=== PATIENT | female | born 1950 | race Caucasian/White ===

== ENCOUNTER 2016-09-10 20:53 | Inpatient (IN) ==
--- NOTE | 2016-09-10 21:06 | Emergency Department Note ---
Disposition Clinical Impression: Cerebrovascular accident Disposition: Admitted As Inpatient Condition: Undetermined General Adult HPI - General Chief complaint: ED Neuro Symptoms/Deficit Stated complaint: neuro symptoms/slurred speech/dizzy/stumbling/AMS Time Seen by Provider: 09/10/16 21:03 Source: patient, other Limitations: no limitations - History of Present Illness Pain Scale: 6 - Related Data Home Medications Medication Instructions Recorded Confirmed Amlodipine Besylate 10 mg PO DAILY #0 02/19/15 09/10/16 Metformin [Glucophage] 1,000 mg PO BIDWM 02/19/15 09/10/16 Multivitamin [Multi-Day Vitamins] 1 each PO DAILY 02/19/15 09/10/16 Gabapentin [Neurontin] 600 mg PO BID 12/29/15 09/10/16 Insulin Glargine,Hum.rec.anlog 13 unit SQ HS 12/29/15 09/10/16 [Lantus Solostar] Aspirin 325 mg PO DAILY 09/10/16 09/10/16 Escitalopram [Lexapro] 20 mg PO DAILY 09/10/16 09/10/16 Lisinopril [Zestril] 20 mg PO DAILY 09/10/16 09/10/16 Previous Rx's Medication Instructions Recorded Atorvastatin [Lipitor] 40 mg PO HS 30 Days 02/21/15 Clopidogrel [Plavix] 75 mg PO DAILY 30 Days 02/21/15 Insulin LISPRO [HumaLOG] 6 units SQ TIDWM 30 Days 02/21/15 Metoprolol [Lopressor] 25 mg PO BID 30 Days 02/21/15 Allergies Allergy/AdvReac Type Severity Reaction Status Date / Time Penicillins Allergy Hives Verified 09/10/16 20:55 lactose AdvReac Vomiting Verified 09/10/16 20:55 Past Medical History - Past Medical History Medical history: Reports: CVA, diabetes, hypertension, valvular heart disease Surgical history: Reports: appendectomy Psychiatric history: Reports: depression TOOL TECHNICIAN history: Reports: no TOOL TECHNICIAN history - Social History Smoking Status: Never smoker Smokeless Tobacco Status: No Alcohol use: Reports: none Drug use: Reports: none Physical Exam - General Limitations: no limitations General appearance: alert Course Vital Signs Temperature 97.9 F 09/10/16 20:55 Pulse Rate 66 09/10/16 20:55 Respiratory Rate 20 09/10/16 20:55 Blood Pressure 180/80 09/10/16 20:55 O2 Sat by Pulse Oximetry 100 09/10/16 20:55 Temperature 97.4 F L 09/11/16 04:37 Pulse Rate 72 09/11/16 04:37 Respiratory Rate 16 09/11/16 04:37 Blood Pressure 156/69 09/11/16 01:00 O2 Sat by Pulse Oximetry 98 09/11/16 04:37 Oxygen Delivery Oxygen Delivery Room Air Medical Decision Making - Lab Data Result diagrams: 09/11/16 05:44 09/11/16 05:44 Lab Results 09/10/16 09/10/16 09/10/16 Range/Units 21:03 21:27 21:27 WBC 7.9 (4.3-11.1) K/mcL RBC 3.75 L (3.82-4.97) M/mcL Hgb 11.7 (11.5-15.4) g/dL Hct 34.3 L (35.3-44.9) % MCV 91.5 (83.0-100.0) fL MCH 31.2 (28.0-33.3) pg MCHC 34.1 (31.6-35.5) g/dL RDW 11.7 (11.5-14.5) % Plt Count 238 (140-400) K/mcL MPV 10.2 (9.4-12.4) fL Immature Gran % 0.6 (0-4) % Seg Neutrophils % 52.6 % Lymphocytes % 36.7 % Monocytes % 6.8 % Eosinophils % 2.7 % Basophils % 0.6 % Neutrophils # 4.2 (1.6-8.9) K/mcL Lymphocytes # 2.9 (0.6-4.6) K/mcL Monocytes # 0.5 (0.0-1.3) K/mcL Eosinophils # 0.2 (0.0-0.6) K/mcL Basophils # 0.1 (0.0-0.2) K/mcL PT 8.6 L (9.4-12.1) Seconds INR 0.8 APTT 30.2 (26.0-36.0) Seconds Sodium (136-145) mEq/L Potassium (3.5-4.5) mEq/L Chloride (98-109) mEq/L Carbon Dioxide (19-29) mEq/L BUN (7-20) mg/dL Creatinine (0.57-1.11) mg/dL Est GFR ( Amer) (> 60) Est GFR (Non-Af Amer) (> 60) BUN/Creatinine Ratio (6-26) Glucose (70-99) mg/dL POC Glucose 169 H (58-89) Calculated Osmolality (280-300) Calcium (8.6-10.8) mg/dL Troponin I (0-0.03) ng/mL 09/10/16 09/10/16 Range/Units 21:27 21:27 WBC (4.3-11.1) K/mcL RBC (3.82-4.97) M/mcL Hgb (11.5-15.4) g/dL Hct (35.3-44.9) % MCV (83.0-100.0) fL MCH (28.0-33.3) pg MCHC (31.6-35.5) g/dL RDW (11.5-14.5) % Plt Count (140-400) K/mcL MPV (9.4-12.4) fL Immature Gran % (0-4) % Seg Neutrophils % % Lymphocytes % % Monocytes % % Eosinophils % % Basophils % % Neutrophils # (1.6-8.9) K/mcL Lymphocytes # (0.6-4.6) K/mcL Monocytes # (0.0-1.3) K/mcL Eosinophils # (0.0-0.6) K/mcL Basophils # (0.0-0.2) K/mcL PT (9.4-12.1) Seconds INR APTT (26.0-36.0) Seconds Sodium 138 (136-145) mEq/L Potassium 4.7 H (3.5-4.5) mEq/L Chloride 104 (98-109) mEq/L Carbon Dioxide 28 (19-29) mEq/L BUN 27 H (7-20) mg/dL Creatinine 0.98 (0.57-1.11) mg/dL Est GFR ( Amer) > 60 (> 60) Est GFR (Non-Af Amer) 56 L (> 60) BUN/Creatinine Ratio 28 H (6-26) Glucose 165 H (70-99) mg/dL POC Glucose (58-89) Calculated Osmolality 295 (280-300) Calcium 9.4 (8.6-10.8) mg/dL Troponin I 0.00 (0-0.03) ng/mL Critical Care Time Critical Care Time: Yes Total Critical Care Time: 30 Attestation: Patient presented with acute strokelike symptoms requiring stroke alert and neurology consultation. Consideration for TPA given Attestation Statement - Attestation Attestation: I examined this patient and my medical decision-making was reviewed with the DIE CUTTER OPERATOR/PA/Advanced Practice Nurse/Resident Physician. I agree with the documented findings, disposition and treatment plan as described except to the extent set forth below. Foyk-vp-fisk time provided Daughter states the patient has slurred speech and is not acting right. Last seen normal when she was complaining of dizziness around 6 PM which is 3 hours prior to arrival. Patient takes aspirin and Plavix. History of diabetes. She is alert and able to move all 4 extremities with equal strength and purpose. Stroke alert activated 21:21: CT head neg per Dr. Bright, radiology
--- NOTE | 2016-09-10 21:10 | Emergency Department Note ---
Disposition Clinical Impression: Cerebrovascular accident Qualifiers: CVA mechanism: unspecified Qualified Code(s): I63.9 - Cerebral infarction, unspecified Disposition: Admitted As Inpatient Condition: Undetermined Referrals: Ayesha Ramírez CNP [Primary Care Provider] - Forms: ED Satisfaction Letter Time of Disposition: 22:26 Neuro HPI - General Chief Complaint: ED Neuro Symptoms/Deficit Stated Complaint: neuro symptoms/slurred speech/dizzy/stumbling/AMS Time Seen by Provider: 09/10/16 21:03 Source: patient, other Mode of arrival: wheelchair Limitations: no limitations Nursing Notes Reviewed: Yes Vital Signs Reviewed: Yes - History of Present Illness HPI Narrative: 66-year-old female last known well at roughly 6 PM this evening arrives to [facility] emergency department with dysarthria and slurred speech. The patient states she was not feeling well all day and fell, dizzy roughly 6 PM. The son called the patient and she was not talking or acting like herself. The family went to the patient's house and brought the patient to the emergency department for evaluation. The patient recently had 3 ischemic strokes over the past 12 months. The last being roughly 9 months ago. The patient is able to answer questions and follow commands easily. She is slightly dysarthric and slurring of her speech. She denies any complaints at this time other than knowing that she is unable to speak clearly. The patient is a diabetic and takes aspirin and Plavix. Onset of Symptoms Date: 09/10/16 Onset of Symptoms Time: 18:00 Symptom Onset Unknown: No Timing confirmed by: family member Location: speech History of same: Yes Severity: mild Symptoms Improving: No Improves with: none Worsens with: none Context: sudden onset On Anticoagulants: No Associated symptoms: Reports: denies other symptoms Treatments Prior to Arrival: none - Related Data Home Medications: Home Medications Medication Instructions Recorded Confirmed Amlodipine Besylate 10 mg PO DAILY #0 02/19/15 09/10/16 Metformin [Glucophage] 1,000 mg PO BIDWM 02/19/15 09/10/16 Multivitamin [Multi-Day Vitamins] 1 each PO DAILY 02/19/15 09/10/16 Gabapentin [Neurontin] 600 mg PO BID 12/29/15 09/10/16 Insulin Glargine,Hum.rec.anlog 13 unit SQ HS 12/29/15 09/10/16 [Lantus Solostar] Aspirin 325 mg PO DAILY 09/10/16 09/10/16 Escitalopram [Lexapro] 20 mg PO DAILY 09/10/16 09/10/16 Lisinopril [Zestril] 20 mg PO DAILY 09/10/16 09/10/16 Previous Rx's Medication Instructions Recorded Atorvastatin [Lipitor] 40 mg PO HS 30 Days 02/21/15 Clopidogrel [Plavix] 75 mg PO DAILY 30 Days 02/21/15 Insulin LISPRO [HumaLOG] 6 units SQ TIDWM 30 Days 02/21/15 Metoprolol [Lopressor] 25 mg PO BID 30 Days 02/21/15 Allergies/Adverse Reactions: Allergies Allergy/AdvReac Type Severity Reaction Status Date / Time Penicillins Allergy Hives Verified 09/10/16 20:55 lactose AdvReac Vomiting Verified 09/10/16 20:55 Review of Systems: Review of Systems Constitutional: Denies fevers, chills, HEENT: Denies headache, Respiratory: Denies cough, sputum change, dyspnea Cardiac: Denies chest pain, pressure, palpitations, dyspnea on exertion, Gastrointestinal: Denies abdominal pain, changes in bowel habits, vomiting, nausea, Genitourinary: Denies dysuria, hematuria, nocturia, change in frequency, urgency, incontinence Neurologic: Denies headaches, dizziness, syncope, admits focalized weakness, Denies paraesthesias, weakness Musculoskeletal: Denies back pain, joint pain, myalgias All systems ED: reviewed and negative except as stated. Past Medical History - Past Medical History Attestation: Yes The following information was validated with the patient. Source: patient Medical history: Reports: CVA, diabetes, hypertension, valvular heart disease Surgical history: Reports: appendectomy Psychiatric history: Reports: depression VENDING MANAGER history: Reports: no VENDING MANAGER history - Social History Smoking Status: Never smoker Smokeless Tobacco Status: No Alcohol use: Reports: none Drug use: Reports: none Physical Exam Physical Exam: General: Patient alert, no acute distress, not lethargic HEENT: Head normal inspection, atraumatic, PERRLA, oropharynx grossly intact and normal, trachea midline, no JVD Kriss patient is experiencing mild dysarthria and slurring of her speech with mild facial droop on the left Chest: Nontraumatic, nontender, normal chest rise CV: RRR with no murmurs, rubs, gallops Respiratory: Lungs clear to auscultation bilaterally, no rales, rhonchi, wheezes. Abdomen: Normal inspection, Normal bowel sounds 4 quadrants, nontender to palpation : Patient deferred Extremities: Normal inspection, full range of motion, appropriate pulses, capillary refill under 2 seconds, patient has full range of motion but slightly weak on the left lower extremity only. Neurological: Patient alert and oriented 3, mild facial droop noted on the left , GCS 15 Skin: Warm, intact, no rashes noted - General Limitations: no limitations General appearance: alert Course - Reevaluation(s) Reevaluation #1: Patient evaluated for stroke alert by [facility] neurologist. They have physician stated that she was not a candidate for TPA at this time given the window being greater than 3 hours at this time as well as patient being a diabetic. He recommended a CTA which we will obtain. Otherwise we will admit the patient to the hospital for stroke workup. Patient agrees to plan. Daughter agrees to plan. Time: 21:51 Reevaluation #2: Accepted by Dr. Salcedo. CTA pending. Time: 22:26 Vital Signs Temperature 97.9 F 09/10/16 20:55 Pulse Rate 66 09/10/16 20:55 Respiratory Rate 20 09/10/16 20:55 Blood Pressure 180/80 09/10/16 20:55 O2 Sat by Pulse Oximetry 100 09/10/16 20:55 Temperature 97.9 F 09/10/16 20:55 Pulse Rate 65 09/10/16 22:03 Respiratory Rate 16 09/10/16 21:40 Blood Pressure 141/72 09/10/16 22:03 O2 Sat by Pulse Oximetry 96 09/10/16 22:03 Oxygen Delivery Oxygen Delivery Room Air Neuro Symptoms/Deficit - Lab Data Lab results reviewed: Yes I reviewed the patient's lab results. Result diagrams: 09/10/16 21:27 09/10/16 21:27 Lab Results 09/10/16 09/10/16 09/10/16 Range/Units 21:03 21:27 21:27 WBC 7.9 (4.3-11.1) K/mcL RBC 3.75 L (3.82-4.97) M/mcL Hgb 11.7 (11.5-15.4) g/dL Hct 34.3 L (35.3-44.9) % MCV 91.5 (83.0-100.0) fL MCH 31.2 (28.0-33.3) pg MCHC 34.1 (31.6-35.5) g/dL RDW 11.7 (11.5-14.5) % Plt Count 238 (140-400) K/mcL MPV 10.2 (9.4-12.4) fL Immature Gran % 0.6 (0-4) % Seg Neutrophils % 52.6 % Lymphocytes % 36.7 % Monocytes % 6.8 % Eosinophils % 2.7 % Basophils % 0.6 % Neutrophils # 4.2 (1.6-8.9) K/mcL Lymphocytes # 2.9 (0.6-4.6) K/mcL Monocytes # 0.5 (0.0-1.3) K/mcL Eosinophils # 0.2 (0.0-0.6) K/mcL Basophils # 0.1 (0.0-0.2) K/mcL PT 8.6 L (9.4-12.1) Seconds INR 0.8 APTT 30.2 (26.0-36.0) Seconds Sodium (136-145) mEq/L Potassium (3.5-4.5) mEq/L Chloride (98-109) mEq/L Carbon Dioxide (19-29) mEq/L BUN (7-20) mg/dL Creatinine (0.57-1.11) mg/dL Est GFR ( Amer) (> 60) Est GFR (Non-Af Amer) (> 60) BUN/Creatinine Ratio (6-26) Glucose (70-99) mg/dL POC Glucose 169 H (58-89) Calculated Osmolality (280-300) Calcium (8.6-10.8) mg/dL Troponin I (0-0.03) ng/mL 09/10/16 09/10/16 Range/Units 21:27 21:27 WBC (4.3-11.1) K/mcL RBC (3.82-4.97) M/mcL Hgb (11.5-15.4) g/dL Hct (35.3-44.9) % MCV (83.0-100.0) fL MCH (28.0-33.3) pg MCHC (31.6-35.5) g/dL RDW (11.5-14.5) % Plt Count (140-400) K/mcL MPV (9.4-12.4) fL Immature Gran % (0-4) % Seg Neutrophils % % Lymphocytes % % Monocytes % % Eosinophils % % Basophils % % Neutrophils # (1.6-8.9) K/mcL Lymphocytes # (0.6-4.6) K/mcL Monocytes # (0.0-1.3) K/mcL Eosinophils # (0.0-0.6) K/mcL Basophils # (0.0-0.2) K/mcL PT (9.4-12.1) Seconds INR APTT (26.0-36.0) Seconds Sodium 138 (136-145) mEq/L Potassium 4.7 H (3.5-4.5) mEq/L Chloride 104 (98-109) mEq/L Carbon Dioxide 28 (19-29) mEq/L BUN 27 H (7-20) mg/dL Creatinine 0.98 (0.57-1.11) mg/dL Est GFR ( Amer) > 60 (> 60) Est GFR (Non-Af Amer) 56 L (> 60) BUN/Creatinine Ratio 28 H (6-26) Glucose 165 H (70-99) mg/dL POC Glucose (58-89) Calculated Osmolality 295 (280-300) Calcium 9.4 (8.6-10.8) mg/dL Troponin I 0.00 (0-0.03) ng/mL - Radiology Data Radiology results reviewed: Yes I reviewed the patient's radiology results. - EKG Data EKG attestation: Yes I reviewed and interpreted this EKG. EKG results narrative: Heart rate 65 bpm. NM interval 160 70 seconds. QTc 389 ms. Normal axis. Normal sinus rhythm. No ST elevation or ST depression noted. EKG from 2014 similar appearance. No acute changes noted. NIH Stroke Scale - Level of Consciousness LOC: Alert - LOC Questions LOC Questions: Answers both correctly - LOC Commands LOC Commands: Performs both correctly - Best Gaze Best Gaze: Normal - Visual Visual: No visual loss - Facial Palsy Facial Palsy: Minor asymmetry on smiling, flattened nasolabial fold - Motor Arms Motor Arm-Left: No drift for 10 seconds Motor Arm-Right: No drift for 10 seconds - Motor Legs Motor Leg-Left: Drift, does NOT hit bed Motor Leg-Right: No drift for 5 seconds - Limb Ataxia Limb Ataxia: Normal, No Ataxia - Sensory Sensory: Normal - Best Language Best Language: Mild to moderate aphasia. Examiner can identify picture from response - Dysarthria Dysarthria: Mild, slurs some words - Extinction and Inattention Extinction and Inattention: Normal - NIHSS Total Score NIHSS Total Score: 4 TPA Checklist - LKW: 3-4.5 hrs Add. Contraindications Patient/family understanding: The patient/family members have been counseled and understood the risk, benefit , and alternatives of treatment.
[2016-09-10 21:35] LABS: Basophils # 0.1 K/mcL (0.0-0.2); Basophils % 0.6 %; Eosinophils # 0.2 K/mcL (0.0-0.6); Eosinophils % 2.7 %; Hematocrit 34.3 % (35.3-44.9); Hemoglobin 11.7 g/dL (11.5-15.4); Immature Granulocytes % 0.6 % (0-4); Lymphocytes # 2.9 K/mcL (0.6-4.6); Lymphocytes % 36.7 %; Mean Corpuscular HGB Conc 34.1 g/dL (31.6-35.5); Mean Corpuscular Hemoglobin 31.2 pg (28.0-33.3); Mean Corpuscular Volume 91.5 fL (83.0-100.0); Mean Platelet Volume 10.2 fL (9.4-12.4); Monocytes # 0.5 K/mcL (0.0-1.3); Monocytes % 6.8 %; Neutrophils # 4.2 K/mcL (1.6-8.9); Platelet Count 238 K/mcL (140-400); Red Blood Count 3.75 M/mcL (3.82-4.97); Red Cell Distribution Width 11.7 % (11.5-14.5); Segmented Neutrophils % 52.6 %
[2016-09-10 21:38] LABS: INR 0.8
[2016-09-10 21:41] LABS: Activated Partial Thrombo Time 30.2 Seconds (26.0-36.0)
[2016-09-10 21:46] LABS: BUN/Creatinine Ratio 28 (6-26); Blood Urea Nitrogen 27 mg/dL (7-20); Calcium 9.4 mg/dL (8.6-10.8); Carbon Dioxide 28 mEq/L (19-29); Chloride 104 mEq/L (98-109); Glucose 165 mg/dL (70-99); Osmolality,Calculated 295 (280-300); Potassium 4.7 mEq/L (3.5-4.5); Sodium 138 mEq/L (136-145); eGFR For African Americans > 60 (> 60); eGFR For Non-African Americans 56 (> 60)
[2016-09-10 21:50] LABS: Prothrombin Time 8.6 Seconds (9.4-12.1)
[2016-09-10] MEDS ORDERED: 0.9 % Sodium Chloride 1,000 ML IVC ONE (21:50)
--- NOTE | 2016-09-10 23:45 | Internal Med History&Physical ---
<Darion,Julisa Ann - Last Filed: 09/11/16 00:00> Date of Encounter: 09/10/16 Time of Encounter: 23:32 Assessment and Plan (1) CVA (cerebral infarction) Current visit: No Status: Acute CTA:Left VP INTEGRITY with partial thrombosis of left VP INTEGRITY, stable to slightly worse when compared to previous MRA on 11/09/14 stenosis of proximal P2 segment of contralateral VP INTEGRITY not candidate for tpa due to time of presentation telemetry asprin, clopidogrel regular neurochecks Echo carotid doppler check lipids, A1C, tsh recommend holter monitoring as outpt (2) Weakness Current visit: No Status: Acute (3) Diabetes Current visit: No Status: Chronic (4) Hypertension Current visit: No Status: Chronic (5) CAD (coronary artery disease) Current visit: No Status: Chronic (6) Cerebrovascular accident Current visit: Yes Status: Acute Qualifiers: CVA mechanism: unspecified Qualified Code(s): I63.9 - Cerebral infarction, unspecified Internal Medicine - H&P: HPI Chief complaint: dizziness/confusion Admitted From: Home Plans for Post Hospital Care: Home History of present illness: Ms. Nunez is a 66 year old female c/o dizziness. PMHx ischemic stoke x3 in 2016 , DM,HTN,HLD. Pt states that around 6 om this evening she started to experience dizziness while at home. Dizziness continued for about an hour and progressed to confusion and ataxic gait causing her to stumble while trying to walk. Daughter at bedside states that her mother started complaining of dizziness but was getting around fine for about an hour. Then around 7:30pm she started to slur her words, was unable to understand what she was saying and was very unbalanced and "wobbly" on her feet. During time in the ER her speech has improved but still is slightly slurred and slower then her baseline. Pt states that she is still experiencing dizziness and now has a slight headache as well. Pt admits to some left sideed weakness from preior strokes, weakness is above baseline. Symptoms are constant, not improved by anything, some improvement with time, dizziness made worse with trying to walk. Pt did have a recent fall a few days ago that she is still having some right leg pain from. Pt denies loss of vision, loss of consciousness, trauma to head, CP,SOB, numbness/ tingling sensations. Past Med Surg Social Fam HX - Past Medical History Medical history: CVA, diabetes, hypertension, valvular heart disease Psychiatric history: depression - Past Surgical History Surgical History: appendectomy, cataract - Social History Smoking Status: Never smoker Smokeless Tobacco Status: No Alcohol use: none Drug use: none Occupational status: retired Current living situation: Home, With Family - Family History Mother Adopted: No Living Status: Hx Family Cardiac Disorders: Yes Hx Family Respiratory Disorders: Yes Hx Family Cancer: No Hx Family GI Disorders: No Hx Family Endocrine Disorder: No Hx Family Neuromuscular Disorders: No Hx Family Neurologic Disorders: No Hx Family HEENT Disorders: No Hx Family Autoimmune Disorders: No Internal Medicine - H&P: Meds Amlodipine Besylate 10 mg PO DAILY #0 02/19/15 [History] Metformin [Glucophage] 1,000 mg PO BIDWM 02/19/15 [History] Multivitamin [Multi-Day Vitamins] 1 each PO DAILY 02/19/15 [History] Atorvastatin [Lipitor] 40 mg PO HS 30 Days 02/21/15 [Rx] Clopidogrel [Plavix] 75 mg PO DAILY 30 Days 02/21/15 [Rx] Insulin LISPRO [HumaLOG] 6 units SQ TIDWM 30 Days 02/21/15 [Rx] Metoprolol [Lopressor] 25 mg PO BID 30 Days 02/21/15 [Rx] Gabapentin [Neurontin] 600 mg PO BID 12/29/15 [History] Insulin Glargine,Hum.rec.anlog [Lantus Solostar] 13 unit SQ HS 12/29/15 [History ] Aspirin 325 mg PO DAILY 09/10/16 [History] Escitalopram [Lexapro] 20 mg PO DAILY 09/10/16 [History] Lisinopril [Zestril] 20 mg PO DAILY 09/10/16 [History] Allergies Penicillins Allergy (Verified 09/10/16 20:55) Hives updated with patient and daughter lactose Adverse Reaction (Verified 09/10/16 20:55) Vomiting All Systems PM: A 10-system review of systems was performed and is negative for pertinent findings except as documented above in the HPI. - Constitutional Constitutional: falls, weakness - EENT Eyes: no change in vision, no discharge, no pain, no photophobia - Cardiovascular Cardiovascular ROS IM: no chest pain, no diaphoresis, no dyspnea, no lightheadedness, no palpitations, no syncope - Respiratory Respiratory: no cough, no dyspnea, no wheezing, no excessive phlegm production - Gastrointestinal Gastrointestinal: no abdominal pain, no diarrhea, no hematemesis, no hematochezia, no melena, no nausea, no vomiting - Genitourinary Genitourinary: no change in urinary stream, no dysuria, no flank pain, no hematuria - Musculoskeletal Musculoskeletal ROS IM: muscle weakness, no numbness, no tingling - Integumentary Integumentary IM: no rash, no unusual bruising - Neurological Neurological ROS: abnormal gait, abnormal movements, abnormal speech, confusion , disequilibrium, dizziness, focal weakness, frequent falls, headache(s), lack of coordination, weakness, no abnormal hearing, no behavioral changes, no burning sensations, no convulsions, no loss of vision, no memory loss, no numbness, no tingling - Constitutional Vitals: Temp Pulse Resp BP Pulse Ox 97.9 F 66 18 161/70 96 09/10/16 20:55 09/10/16 22:55 09/10/16 23:24 09/10/16 23:24 09/10/16 22:55 General appearance: Present: A&O X 3, pleasant, answers questions appropriately - Head Head exam: Present: atraumatic, normocephalic - Eye Eye exam: Present: EOMI, PERRL, conjuntiva pink, sclera anicteric Pupils: Present: PERRL - ENT ENT exam: Present: mucous membranes moist - Neck Neck exam general surgery: Present: supple, trachea midline. Absent: lymphadenopathy - Respiratory Respiratory exam: Present: CTAB. Absent: accessory muscle use, rales, respiratory distress, rhonchi, wheezes, tachypnea - Cardiovascular Cardiovascular exam: Present: RRR, +S1, +S2. Absent: diastolic murmur, gallop, rubs, systolic murmur - GI/Abdominal GI/Abdominal exam: Present: normal bowel sounds, soft, no peritoneal signs. Absent: distended, tenderness - Extremities Exam Extremities exam: Present: normal capillary refill, radial pulses palpable and symetrical. Absent: calf tenderness, cyanotic, pedal edema - Neurological Exam Neurological exam: Present: abnormal gait, motor sensory deficit (decreased sensation on L side), oriented X3, facial droop, speech deficit - Expanded Neurological Exam Neurological exam expanded: Present: ataxia, memory loss-remote event Patient oriented to: Present: person, place, time Speech: Present: slurred Cranial Nerves: EOM's intact PM: Normal, nystagmus PM: Normal, tongue deviation PM: Normal Cerebellar function: finger to nose: Abnormal Left, heel to freedman: Abnormal Left Upper motor neuron: sensory extinction: Abnormal Left Sensory exam: LE 2 point discrimination: Abnormal Left, lower extremity light touch: Abnormal Left, lower extremity pin prick: Abnormal Left, UE 2 point discrimination: Abnormal Left, upper extremity light touch: Abnormal Left, upper extremity pin prick: Abnormal Left Neuro motor strength exam: LUE: 4, RUE: 5, LLE: 4, RLE: 5 DTR: patellar (L): 2+, patellar (R): 2+ Coma Scale Eye Opening: Spontaneous Coma Scale Motor Response: Obeys Commands Coma Scale Verbal Response: Oriented Coma Scale Total: 15 - Psychiatric Psychiatric exam: Present: normal affect, normal mood - Skin Skin exam: Present: dry, intact Internal Med - H&P Results - Labs CBC & Chem 7: 09/10/16 21:27 09/10/16 21:27 Labs: Short CBC 09/10/16 Range/Units 21:27 WBC 7.9 (4.3-11.1) K/mcL Hgb 11.7 (11.5-15.4) g/dL Hct 34.3 L (35.3-44.9) % Plt Count 238 (140-400) K/mcL Neutrophils # 4.2 (1.6-8.9) K/mcL BMP 09/10/16 21:27 Sodium 138 Potassium 4.7 H Chloride 104 Carbon Dioxide 28 BUN 27 H Creatinine 0.98 Glucose 165 H Calcium 9.4 Cardiac Enzymes 09/10/16 Range/Units 21:27 Troponin I 0.00 (0-0.03) ng/mL - Impressions ITS Impressions Chest X-Ray 09/10/16 21:03 IMPRESSION: No acute cardiopulmonary disease. D/ / Celso Gutierrez MD / Celso Gutierrez MD Interpreting Provider: Celso Gutierrez MD Head CT 09/10/16 21:03 IMPRESSION: 1. No acute intracranial abnormality. 2. Remote bilateral basal ganglia lacunar infarct. Findings were discussed with Dez Jansen at 9:21 pm on 09/10/2016. D/ / Chuckie Bright MD / Chuckie Bright MD Interpreting Provider: Chuckie Bright MD Head CTA 09/10/16 21:50 IMPRESSION: Partial thrombosis of the left VP INTEGRITY, stable to slightly worse when compared to a previous brain MRA from 11/09/2014. Moderate to severe focal stenosis of the proximal P2 segment of the contralateral VP INTEGRITY. D/ / Landon Larose MD / Landon Larose MD Interpreting Provider: Landon Larose MD <Gaetano Salcedo - Last Filed: 09/11/16 02:13> Internal Medicine - H&P: HPI History of present illness: Ms. Nunez is a 66 year old female All Systems PM: A 10-system review of systems was performed and is negative for pertinent findings except as documented above in the HPI. - Constitutional Vitals: Temp Pulse Resp BP Pulse Ox 98.0 F 64 14 156/69 97 09/11/16 00:37 09/11/16 01:00 09/11/16 01:00 09/11/16 01:00 09/11/16 00:37 Internal Med - H&P Results - Labs CBC & Chem 7: 09/10/16 21:27 09/10/16 21:27 - Attending Attestation I examined this patient and my medical decision-making was reviewed with the ELECTRIC ORGAN ASSEMBLER/PA/Advanced Practice Nurse/Resident Physician. I agree with the documented findings, disposition and treatment plan as described except to the extent set forth below. The patient was seen and examined by me independently. I have discussed the case with the medical social consultant Dr. Orlando. I agree with the physical examination findings, assessment and plan as documented by Dr. Orlando. Patient with history of multiple strokes admitted due to slurred speech. Head CT negative for acute stroke. Continue with neuro checks. DVT prophylaxis. GI prophylaxis.Neuro eval. Echo. ASA, Plavix, statins.
[2016-09-11] MEDS ORDERED: *HR* Promethazine 25 MG/ML VIAL IVP PRN (00:17)
[2016-09-11] MEDS ORDERED: D5% in Water 1,000 ML IVC PRN (00:21)
[2016-09-11] MEDS ORDERED: *HR* Dextrose 50 % in Water (Syg) 50 ML SYRINGE IVP PRN (00:21)
[2016-09-11] MEDS ORDERED: Dextrose Gel 15 GM PO PRN ×2 (00:21)
[2016-09-11] MEDS ORDERED: Aspirin 325 MG TABLET PO SCH (00:45)
[2016-09-11] MEDS: *HR* Enoxaparin 40 MG/0.4 ML SYRINGE SQ SCH (05:33)
[2016-09-11] MEDS ORDERED: Insulin LISPRO 300 UNITS/3 ML VIAL SQ SCH ×2 (06:00→21:00)
[2016-09-11 06:07] LABS: Hematocrit 30.8 % (35.3-44.9); Hemoglobin 10.7 g/dL (11.5-15.4); Mean Corpuscular HGB Conc 34.7 g/dL (31.6-35.5); Mean Corpuscular Hemoglobin 31.5 pg (28.0-33.3); Mean Corpuscular Volume 90.6 fL (83.0-100.0); Mean Platelet Volume 10.4 fL (9.4-12.4); Platelet Count 219 K/mcL (140-400); Red Cell Distribution Width 11.7 % (11.5-14.5)
[2016-09-11 06:14] LABS: Hemoglobin A1C 8.6 %
[2016-09-11 06:16] LABS: Prothrombin Time 10.3 Seconds (9.4-12.1)
[2016-09-11 06:19] LABS: Activated Partial Thrombo Time 28.8 Seconds (26.0-36.0)
[2016-09-11 06:24] LABS: BUN/Creatinine Ratio 25 (6-26); Blood Urea Nitrogen 23 mg/dL (7-20); Calcium 9.3 mg/dL (8.6-10.8); Carbon Dioxide 27 mEq/L (19-29); Chloride 107 mEq/L (98-109); Chol/HDL Ratio 6.3 (0-4.9); Cholesterol 163 mg/dL (< 200); Glucose 183 mg/dL (70-99); HDL Cholesterol 26 mg/dL (40-59); LDL Cholesterol,Calculated 100 mg/dL (0-99); Magnesium 1.6 mg/dL (1.6-2.6); Osmolality,Calculated 300 (280-300); Potassium 4.5 mEq/L (3.5-4.5); Sodium 141 mEq/L (136-145); Triglycerides 187 mg/dL (< 150); eGFR For African Americans > 60 (> 60); eGFR For Non-African Americans 60 (> 60)
--- NOTE | 2016-09-11 08:55 | Neurology - Consult Note ---
<Quentin Woodruff - Last Filed: 09/11/16 10:02> Date of Encounter: 09/11/16 Time of Encounter: 08:53 Assessment and Plan (1) CVA (cerebral infarction) Current Visit: No Status: Acute Patient may have extension of her previous strokes as seen on head CT, likely exacerbated by uncontrolled HTN Will further evaluate with brain MRI without contrast; she has questionable metal in body and will need appropriate screening Echocardiogram and Carotid duplex have been ordered, results pending Agree with continuing home dose of ASA, Plavix, and Statin Appreciate PT/OT/Speech recommendations Qualifiers: Qualified Code(s): I63.9 - Cerebral infarction, unspecified History of Present Illness Chief complaint: dizziness, weakness HPI: Ms. Nunez is a 66 year old female who presents with dizziness and weakness. She first noticed she couldn't "find her feet" around 6 PM last night and then developed left sided weakness and slurred speech according to her daughter. There is no one presently at bedside, but patient does tell me that she has had 3 strokes in the past 12 months and admits to residual left sided weakness, but states her weakness is worse than usual. She also reports slight loss of sensation in her left side and is worse in her left side of her face and complains of a headache near her left latter day region. She did speak to her son on the phone who noted that she had slurred speech and did not make sense last night. Denies any visual changes, hearing deficits, loss of consciousness, but does state she has chronic urinary incontinence. Patient lives alone at home and does admit to sustaining a mechanical fall 2.5 weeks ago, but states she did not lose any consciousness nor had head trauma. Denies chest pain, shortness of breath, nausea, vomiting, diarrhea, or recent fevers. Past Med Surg Social Fam HX - Past Medical History Medical history: CVA, diabetes, hypertension, valvular heart disease Psychiatric history: depression - Past Surgical History Surgical History: appendectomy - Social History Smoking Status: Never smoker Smokeless Tobacco Status: No Alcohol use: none Drug use: none - Family History Mother Adopted: No Living Status: Age at : 55 Cause of : heart attack Hx Family Cardiac Disorders: Yes Hx Family Respiratory Disorders: Yes Hx Family Cancer: No Hx Family GI Disorders: No Hx Family Endocrine Disorder: Yes Hx Family Neuromuscular Disorders: No Hx Family Neurologic Disorders: No Hx Family HEENT Disorders: No Hx Family Autoimmune Disorders: No Medications and Allergies Amlodipine Besylate 10 mg PO DAILY #0 02/19/15 [History] Metformin [Glucophage] 1,000 mg PO BIDWM 02/19/15 [History] Multivitamin [Multi-Day Vitamins] 1 each PO DAILY 02/19/15 [History] Atorvastatin [Lipitor] 40 mg PO HS 30 Days 02/21/15 [Rx] Clopidogrel [Plavix] 75 mg PO DAILY 30 Days 02/21/15 [Rx] Insulin LISPRO [HumaLOG] 6 units SQ TIDWM 30 Days 02/21/15 [Rx] Metoprolol [Lopressor] 25 mg PO BID 30 Days 02/21/15 [Rx] Gabapentin [Neurontin] 600 mg PO BID 12/29/15 [History] Insulin Glargine,Hum.rec.anlog [Lantus Solostar] 13 unit SQ HS 12/29/15 [History ] Aspirin 325 mg PO DAILY 09/10/16 [History] Escitalopram [Lexapro] 20 mg PO DAILY 09/10/16 [History] Lisinopril [Zestril] 20 mg PO DAILY 09/10/16 [History] Allergies Penicillins Allergy (Verified 09/10/16 20:55) Hives updated with patient and daughter lactose Adverse Reaction (Verified 09/10/16 20:55) Vomiting All Systems: A 10-system review of systems was performed and is negative for pertinent findings except as documented above in the HPI. - Constitutional Constitutional ROS IM: frequent falls, headache(s), weakness (left sided), no fever(s) - Nose, Mouth, Throat Nose, mouth and throat: headache(s), no abnormal hearing, no dysphagia, no facial pain - Cardiovascular Cardiovascular ROS IM: no chest pain, no dyspnea, no irregular heart rhythm, no lightheadedness, no pedal edema - Respiratory Respiratory IM: no cough, no wheezing - Gastrointestinal Gastrointestinal: no abdominal pain, no diarrhea, no hematemesis, no melena, no nausea, no vomiting - Genitourinary Genitourinary ROS: urinary incontinence - Musculoskeletal Musculoskeletal ROS IM: abnormal gait, no numbness, no tingling - Neurological Neurological ROS: abnormal gait, abnormal speech, confusion, disequilibrium, dizziness, focal weakness, frequent falls, headache(s), weakness, no abnormal hearing, no memory loss, no numbness, no syncope, no tingling, no tremor(s) Physical Examination - Vital Signs Vital Signs: Initial Vital Signs Temp Pulse Resp BP Pulse Ox 97.9 F 66 20 180/80 100 09/10/16 20:55 09/10/16 20:55 09/10/16 20:55 09/10/16 20:55 09/10/16 20:55 - Constitutional General appearance: comfortable - Neurologic Sensorimotor examination: intact Detailed motor examination: full strength in all major muscle groups Motor examination - right side: 4/5: deltoids, biceps, triceps, paper handler, hip flexors Motor examination - left side: 3/5: deltoids, biceps, triceps, hip flexors, paper handler Detailed sensory examination: other (diminished on left side of face, arm, legs) Reflex and gait examination: intact Reflexes: Biceps: 1+, Brachioradialis: 1+, Patella: 1+ Mental Status Examination: awake, alert, oriented to person, oriented to place, oriented to time, follows commands appropriately, answers questions appropriately, no agnosia, no aphasia, no aproxia Cranial nerve examination: PERRL, EOMI, visual montalvo intact, corneal reflexes brisk symmetrically, sensory to face intact, mastication intact, no facial asymmetry is present, no dysarthria, hearing is intact symmetrically, tongue protrudes midline, no atrophy or facial fasiculations present Cerebellar examination: no dysmetria, performs finger to nose and heel to freedman symmetrically without ataxia, no difficulty with rapid alternating movements, dysarthria Results - Laboratory Findings CBC and BMP: 09/11/16 05:44 09/11/16 05:44 Abnormal lab findings: Abnormal lab results RBC 3.40 M/mcL (3.82-4.97) L 09/11/16 05:44 Hgb 10.7 g/dL (11.5-15.4) L 09/11/16 05:44 Hct 30.8 % (35.3-44.9) L 09/11/16 05:44 BUN 23 mg/dL (7-20) H 09/11/16 05:44 Glucose 183 mg/dL (70-99) H 09/11/16 05:44 POC Glucose 180 (58-89) H 09/11/16 05:37 Hemoglobin A1c 8.6 % (-5.6) H 09/11/16 05:44 B-Natriuretic Peptide 105 pg/mL (0-100) H 09/11/16 05:44 Triglycerides 187 mg/dL (< 150) H 09/11/16 05:44 LDL Cholesterol, Calc 100 mg/dL (0-99) H 09/11/16 05:44 VLDL Cholesterol, Calc 37 mg/dL (< 31) H 09/11/16 05:44 HDL Cholesterol 26 mg/dL (40-59) L 09/11/16 05:44 Cholesterol/HDL Ratio 6.3 (0-4.9) H 09/11/16 05:44 Consult Discharge Plan - Plan Referrals: Ayesha Ramírez, [facility] [Primary Care Provider] - 09/19/16 9:30 am <Semaj Nunez Tate - Last Filed: 09/11/16 17:57> Date of Encounter: 09/11/16 Time of Encounter: 17:49 Assessment and Plan (1) Weakness Current Visit: No Status: Acute The patient has an extensive history of cerebrovascular disease and has several intracranial stenosis. She also has had bilateral basal ganglia infarcts. However MR scan of the brain today does not reveal evidence of an acute infarction. Likely her symptoms are treatable to transient ischemia. Her blood pressure was elevated upon admission at 180/80. Perhaps vasospasm may have resulted in transient ischemia. Echocardiogram and carotid duplex Doppler studies pending. She is already on aspirin and statins. Stroke protocol orders are implemented. Recommendations will be made pending the outcome of the carotid Doppler and echocardiogram. History of Present Illness HPI: Ms. Nunez is a 66 year old female seen for neurological evaluation due to chief complaints of dizziness and "could not find my feet". The patient was seen and examined independently. Case was also discussed with Dr. Woodruff. I agree with his history as stated above. All Systems: A 10-system review of systems was performed and is negative for pertinent findings except as documented above in the HPI. Physical Examination - Vital Signs Vital Signs: Initial Vital Signs Temp Pulse Resp BP Pulse Ox 97.9 F 66 20 180/80 100 09/10/16 20:55 09/10/16 20:55 09/10/16 20:55 09/10/16 20:55 09/10/16 20:55 - Constitutional General appearance: comfortable - Neurologic Sensorimotor examination: intact Detailed motor examination: full strength in all major muscle groups Motor examination - right side: 4/5: deltoids, biceps, triceps, paper handler, hip flexors Motor examination - left side: 3/5: deltoids, biceps, triceps, hip flexors, paper handler Detailed sensory examination: other Reflex and gait examination: intact Reflexes: Biceps: 1+, Brachioradialis: 1+, Patella: 1+ Mental Status Examination: awake, alert, oriented to person, oriented to place, oriented to time, follows commands appropriately, answers questions appropriately, no agnosia, no aphasia, no aproxia Results - Laboratory Findings CBC and BMP: 09/11/16 05:44 09/11/16 05:44 Abnormal lab findings: Abnormal lab results RBC 3.40 M/mcL (3.82-4.97) L 09/11/16 05:44 Hgb 10.7 g/dL (11.5-15.4) L 09/11/16 05:44 Hct 30.8 % (35.3-44.9) L 09/11/16 05:44 BUN 23 mg/dL (7-20) H 09/11/16 05:44 Glucose 183 mg/dL (70-99) H 09/11/16 05:44 POC Glucose 332 (58-89) H 09/11/16 11:22 Hemoglobin A1c 8.6 % (-5.6) H 09/11/16 05:44 B-Natriuretic Peptide 105 pg/mL (0-100) H 09/11/16 05:44 Triglycerides 187 mg/dL (< 150) H 09/11/16 05:44 LDL Cholesterol, Calc 100 mg/dL (0-99) H 09/11/16 05:44 VLDL Cholesterol, Calc 37 mg/dL (< 31) H 09/11/16 05:44 HDL Cholesterol 26 mg/dL (40-59) L 09/11/16 05:44 Cholesterol/HDL Ratio 6.3 (0-4.9) H 09/11/16 05:44 Ur Specific [place] 1.029 (1.010-1.025) H 09/11/16 10:20 Urine Protein 30 mg/dL (Neg-Trace) H 09/11/16 10:20 Urine Glucose (UA) 100 mg/dL (Normal) H 09/11/16 10:20 Ur Leukocyte Esterase Small (Negative) H 09/11/16 10:20 Urine Microscopic WBC 5-15 per hpf (0-3) H 09/11/16 10:20 Ur Squamous Epith Cells Many per lpf (None-Few) H 09/11/16 10:20 Ur Culture Indicated? YES (NO) A 09/11/16 10:20
--- NOTE | 2016-09-11 09:17 | Electrocardiograph Report ---
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
[2016-09-11 10:35] LABS: Bilirubin,Urine Negative (Negative); Blood,Urine Negative (Negative); Clarity,Urine Clear (Clear); Color,Urine Yellow (Yellow); Glucose,Urine (UA) 100 mg/dL (Normal); Ketones,Urine Negative (Negative); Leukocyte Esterase,Urine Small (Negative); Nitrite,Urine Negative (Negative); Protein,Urine 30 mg/dL (Neg-Trace); Specific Gravity,Urine 1.029 (1.010-1.025); Urobilinogen,Urine Normal (Normal)
[2016-09-11 10:37] LABS: Bacteria,Urine None Seen per hpf (None-Few); Hyaline Casts,Urine None Seen per lpf (None-Few); RBC,Urine 0-3 per hpf (0-3); Squamous Epithelial Cell,Urine Many per lpf (None-Few)
[2016-09-11] MEDS: Aspirin 325 MG TABLET PO SCH (12:31)
[2016-09-11] MEDS: Insulin LISPRO 300 UNITS/3 ML VIAL SQ SCH ×2 (12:33→17:44)
--- NOTE | 2016-09-11 18:09 | Internal Med Progress Note ---
Date of Encounter: 09/11/16 Time of Encounter: 18:06 - Assessment and plan (1) CVA (cerebral infarction) Current Visit: No Status: Acute Assessment and plan: Possible extension of old CVA: -ASA. -Statin. -Plavix. -PT/OT evaluation. -MRI head: negative for any acute infarct -Head CTA: No new change as compared to previous MRA. Neurology on the board and we will follow their recommendation Qualifiers: Cerebral infarction mechanism: unspecified mechanism Qualified Code(s): I63.9 - Cerebral infarction, unspecified (2) Hypertension Current Visit: No Status: Chronic Assessment and plan: Well-controlled and we will continue present treatment. Qualifiers: Hypertension type: essential hypertension Qualified Code(s): I10 - Essential (primary) hypertension (3) CAD (coronary artery disease) Current Visit: No Status: Chronic Assessment and plan: Stable coronary artery disease. Patient does not have any chest pain at this point. Qualifiers: Coronary Disease-Associated Artery/Lesion type: [place] artery [place] vs. transplanted heart: [place] heart Associated angina: without angina Qualified Code(s): I25.10 - Atherosclerotic heart disease of [place] coronary artery without angina pectoris (4) Diabetes Current Visit: No Status: Chronic Assessment and plan: We will continue home medication Sliding scale. Qualifiers: Diabetes mellitus type: type 2 Diabetes mellitus complication status: with unspecified complications Diabetes mellitus terminal manager insulin use: without custodial use Qualified Code(s): E11.8 - Type 2 diabetes mellitus with unspecified complications - Subjective Interval history: Patient seen and examined. Chart reviewed. Patient is comfortably lying in bed. She denies any weakness, numbness, slurring of speech or dizziness. - Constitutional Vitals: Temp Pulse Resp BP Pulse Ox 98 F 71 16 165/79 96 09/11/16 17:32 09/11/16 17:32 09/11/16 17:32 09/11/16 17:32 09/11/16 17:32 General appearance: Present: A&O X 3, pleasant, answers questions appropriately - Head Head exam: Present: atraumatic, normocephalic - Eye Eye exam: Present: PERRL, conjuntiva pink, sclera anicteric Pupils: Present: PERRL - Neck Neck exam general surgery: Present: supple, trachea midline. Absent: lymphadenopathy - Respiratory Respiratory exam: Present: CTAB. Absent: accessory muscle use, rales, rhonchi, wheezes - Cardiovascular Cardiovascular exam: Present: RRR, +S1, +S2. Absent: diastolic murmur, gallop, rubs, systolic murmur - GI/Abdominal GI/Abdominal exam: Present: normal bowel sounds, soft, no peritoneal signs. Absent: distended, tenderness - Extremities Exam Extremities exam: Present: warm, radial pulses palpable and symetrical. Absent : calf tenderness, cyanotic, pedal edema - Neurological Exam Neurological exam: Present: CN II-XII intact, oriented X3, no focal deficits. Absent: pronater drift, facial droop, speech deficit - Skin Skin exam: Present: dry, intact Internal Medicine: Result - Labs CBC & Chem 7: 09/11/16 05:44 09/11/16 05:44 Labs: Short CBC 09/11/16 Range/Units 05:44 WBC 7.0 (4.3-11.1) K/mcL Hgb 10.7 L (11.5-15.4) g/dL Hct 30.8 L (35.3-44.9) % Plt Count 219 (140-400) K/mcL BMP 09/11/16 05:44 Sodium 141 Potassium 4.5 Chloride 107 Carbon Dioxide 27 BUN 23 H Creatinine 0.93 Glucose 183 H Calcium 9.3 Urine 09/11/16 Range/Units 10:20 Urine Color Yellow (Yellow) Urine Clarity Clear (Clear) Urine pH 6.0 (5.0-8.0) pH Units Ur Specific [place] 1.029 H (1.010-1.025) Urine Protein 30 H (Neg-Trace) mg/dL Urine Glucose (UA) 100 H (Normal) mg/dL - ABG Interpretation ABG results: PT/INR, D-dimer PT 10.3 Seconds (9.4-12.1) 09/11/16 05:44 - Impressions Impressions Brain MRI 09/11/16 09:59 IMPRESSION: 1. No acute intracranial abnormality. No acute infarct. 2. Chronic lacunar infarcts within the periventricular white matter and basal ganglia bilaterally. Chronic lacunar infarct involving the superior right cerebellum. 3. Minimal scattered sinusitis. D/ / Gary Flores MD / Gary Flores MD Interpreting Provider: Gary Flores MD Consult Discharge Plan - Plan Referrals: Ayesha Ramírez CNP [Primary Care Provider] - 09/19/16 9:30 am
[2016-09-12] MEDS: *HR* Enoxaparin 40 MG/0.4 ML SYRINGE SQ SCH (05:18)
[2016-09-12 07:11] VITALS: BP 142/74
--- NOTE | 2016-09-12 07:53 | ECHO - Doppler Report ---
Echo with Saline Contrast Name: Ashley Nunez Date of Study: 09/11/2016 Date: 1950 Ht: 66.0 in Medical Record#: [id number] Age: 66 Wt: 173.0 lb Gender: Female BSA: 1.88 Order #: [id number] Location: [facility] Room #: [id number] Reading Physician: Semaj Boston MD, [facility] Telegraph Repeater Technician: Kaylyn Neal Ordering Physician: Julisa Orlando DO Primary Physician: Ayesha Ramírez CNP Indications: Ischemic stroke Impressions: Normal LV systolic function, LVEF 60%. Mild left ventricular diastolic dysfunction. Normal right ventricular size and function. Moderately dilated left atrium. No significant valvular dysfunction. No evidence of pulmonary hypertension. No evidence of intracardiac shunting with agitated saline contrast. Left Ventricular Wall Motion: Rest Echo Findings All wall segments showed normal motion. Findings: Study Quality * Technically adequate exam. ECG Findings * Sinus rhythm with BBB. Left Ventricle * Normal LV systolic function, LVEF 60%. * Normal LV chamber size and wall thickness. * Mild left ventricular diastolic dysfunction. Right Ventricle * Normal right ventricular size and function. Left Atrium * Moderately dilated left atrium. Right Atrium * Normal right atrial size. Interatrial Septum * No evidence of intracardiac shunting with agitated saline contrast. Aorta * Normally sized aortic root. Pericardium * There is no pericardial effusion present. IVC * The IVC is not dilated. Aortic Valve * Trileaflet aortic valve. * Mildly sclerotic aortic valve leaflets. * No aortic stenosis. * Trace aortic regurgitation. Mitral Valve * Mild mitral annular calcification * No mitral stenosis. * Trace mitral regurgitation. Tricuspid Valve * Normal tricuspid valve structure. * No tricuspid stenosis. * Trace tricuspid regurgitation. * No evidence of pulmonary hypertension. Pulmonic Valve * Pulmonic valve not well visualized. * No pulmonic stenosis. * Trace pulmonic regurgitation. History Hypertension Diabetes Hypercholesteremia Family History of CAD History of CAD/PTCA Myocardial Infarction Coronary Artery Bypass Graft 02/19/2015 a Previous Echo was performed. Contrast: Agitated saline 20 ml. Measurements: BP: 156/ 66 2D Normal Values RVIDd: 2.95 cm IVSd: .90 cm 0.6 - 1.0 cm LVIDd: 4.75 cm 3.7 - 5.6 cm LVPWd: .90 cm 0.6 - 1.1 cm LVIDs: 3.30 cm 1.5 - 3.6 cm AO: 2.90 cm < 4.0 cm %FS: 31.30 cm >25 % LA volume: 77 Mitral Valve Peak E:1.00 m/sec Peak A:1.20 m/sec E/A Ratio:0.8 Tricuspid Valve TV Regurg Peak Grad: 29.00mmHg TV Regurg Peak Grzegorz: 2.70m/sec Updated by Semaj Boston MD, [facility] on 09/12/2016 7:48:46 AM electronically signed on 09/12/2016 7:49:10 AM with status of Final Wall Motion [place]: 1=Normal, 2=Hypokinesis, 3=Akinesis, 4=Dyskinesis, 5=Aneurysmal, 6=Hyperkinetic, X=Not Visualized (Blank)=Missing
[2016-09-12] MEDS: Aspirin 325 MG TABLET PO SCH (08:36)
[2016-09-12] MEDS: Insulin LISPRO 300 UNITS/3 ML VIAL SQ SCH ×2 (08:36→12:14)
--- NOTE | 2016-09-12 09:08 | Discharge Summary ---
Date of Encounter: 09/11/16 Time of Encounter: 09:02 - Discharge Diagnosis (1) CVA (cerebral infarction) Priority: Primary Status: Acute Comments: possible extension of old CVA Qualifiers: Cerebral infarction mechanism: unspecified mechanism Qualified Code(s): I63.9 - Cerebral infarction, unspecified (2) Hypertension Priority: Secondary Status: Chronic Qualifiers: Hypertension type: essential hypertension Qualified Code(s): I10 - Essential (primary) hypertension (3) CAD (coronary artery disease) Priority: Secondary Status: Chronic Qualifiers: Coronary Disease-Associated Artery/Lesion type: [place] artery [place] vs. transplanted heart: [place] heart Associated angina: without angina Qualified Code(s): I25.10 - Atherosclerotic heart disease of [place] coronary artery without angina pectoris (4) Diabetes Priority: Secondary Status: Chronic Qualifiers: Diabetes mellitus type: type 2 Diabetes mellitus complication status: with unspecified complications Diabetes mellitus watermelon inspector insulin use: without custodial use Qualified Code(s): E11.8 - Type 2 diabetes mellitus with unspecified complications - Discharge Medications Home Medications: Amlodipine Besylate 10 mg PO DAILY #0 02/19/15 [History] Metformin [Glucophage] 1,000 mg PO BIDWM 02/19/15 [History] Multivitamin [Multi-Day Vitamins] 1 each PO DAILY 02/19/15 [History] Atorvastatin [Lipitor] 40 mg PO HS 30 Days 02/21/15 [Rx] Clopidogrel [Plavix] 75 mg PO DAILY 30 Days 02/21/15 [Rx] Insulin LISPRO [HumaLOG] 6 units SQ TIDWM 30 Days 02/21/15 [Rx] Metoprolol [Lopressor] 25 mg PO BID 30 Days 02/21/15 [Rx] Gabapentin [Neurontin] 600 mg PO BID 12/29/15 [History] Insulin Glargine,Hum.rec.anlog [Lantus Solostar] 13 unit SQ HS 12/29/15 [History ] Aspirin 325 mg PO DAILY 09/10/16 [History] Escitalopram [Lexapro] 20 mg PO DAILY 09/10/16 [History] Lisinopril [Zestril] 20 mg PO DAILY 09/10/16 [History] Allergies/Adverse Reactions: Allergies Penicillins Allergy (Verified 09/10/16 20:55) Hives updated with patient and daughter lactose Adverse Reaction (Verified 09/10/16 20:55) Vomiting Procedures/tests Complete & Pending: Procedures Performed prior 72 hours Category Date Time Status MR head/brain wo con [MR] Routine MRI 09/11/16 09:59 Completed EV carotid duplex imaging BI Routine Y 09/11/16 00:45 Completed EV echocardiogram Routine Y 09/11/16 00:45 Completed Date of admission: 09/11/16 00:07 Primary care physician: Ayesha Ramírez, Consults: 09/11/16 01:47 Consult to Speech Therapy [CONS] Routine Comment: Evaluate, develop and implement POC Reason for Consult: possible CVA, slurrred speech, h/h cva Call Completed: No 09/11/16 07:00 Consult to Neurology [CONS] Routine Consulting Provider: Neu[facility] Reason for Consult: Slurred speech. H/O multiple CVA Call Completed: No 09/11/16 11:53 PT [Consult to Physical Therapy] [CONS] Routine Comment: Evaluate, develop and implement POC 09/11/16 11:54 OT [Consult to Occupational Therapy] [CONS] Routine Comment: Evaluate, develop and implement POC 09/11/16 16:10 Consult to Pit Hand [CONS] Routine Reason for SW Consult: PT recommending inpt swing bed Discharging clinician: Robby Farah - Patient Status Disposition: Home, Self-Care Condition: Undetermined Functional capacity at discharge: uses cane/walker Overall status at discharge: patient is progressing back to baseline - Discharge Instructions Follow Up With: Ayesha Ramírez, STATISTICIAN THEORETICAL [Primary Care Provider] - 09/19/16 9:30 am Semaj Nunez DO [Partnered Physician] - - Diet and Activity Activity: as per physical therapy, increase activity as tolerated Diet: diabetic diet Interval History: Ms. Nunez is a 66 year old female c/o dizziness. PMHx ischemic [place] x3 in 2016 , DM,HTN,HLD. Pt states that around 6 om this evening she started to experience dizziness while at home. Dizziness continued for about an hour and progressed to confusion and ataxic gait causing her to stumble while trying to walk. Daughter at bedside states that her mother started complaining of dizziness but was getting around fine for about an hour. Then around 7:30pm she started to slur her words, was unable to understand what she was saying and was very unbalanced and "wobbly" on her feet. During time in the ER her speech has improved but still is slightly slurred and slower then her baseline. Pt states that she is still experiencing dizziness and now has a slight headache as well. Pt admits to some left sideed weakness from preior strokes, weakness is above baseline. Symptoms are constant, not improved by anything, some improvement with time, dizziness made worse with trying to walk. Hospital course: Patient was hospitalized. Neurology was consulted. CT head: Old CVA. 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 As per neurologic patient can go home and follow up with them as outpatient. Plan: -Patient can go home today. -Recommended patient to resume her home medication. -Patient will have a follow-up with PCP/neurology as outpatient. -All questions answered. -The time of discharge patient does not have any questions, concerns, or recommendations regarding her hospital stay. - Time Spent with Patient Total time spent providing and/or coordinating discharge services: - Constitutional Vitals: Temp Pulse Resp BP Pulse Ox 97.8 F 73 18 142/74 97 09/12/16 07:07 09/12/16 07:07 09/12/16 07:07 09/12/16 07:07 09/12/16 08:32 General appearance: Present: A&O X 3, pleasant, answers questions appropriately - Head Head exam: Present: atraumatic, normocephalic - Eye Eye exam: Present: PERRL, conjuntiva pink, sclera anicteric Pupils: Present: PERRL - Neck Neck exam general surgery: Present: supple, trachea midline. Absent: lymphadenopathy - Respiratory Respiratory exam: Present: CTAB. Absent: accessory muscle use, rales, rhonchi, wheezes - Cardiovascular Cardiovascular exam: Present: RRR, +S1, +S2. Absent: diastolic murmur, gallop, rubs, systolic murmur - GI/Abdominal GI/Abdominal exam: Present: normal bowel sounds, soft, no peritoneal signs. Absent: distended, tenderness - Extremities Exam Extremities exam: Present: warm, radial pulses palpable and symetrical. Absent : calf tenderness, cyanotic, pedal edema - Neurological Exam Neurological exam: Present: CN II-XII intact, oriented X3, no focal deficits. Absent: pronater drift, facial droop, speech deficit - Skin Skin exam: Present: dry, intact
--- NOTE | 2016-09-12 19:39 | Carotid Imaging Report ---
Carotid Duplex Patient Name:Ashley Nunez Order Number:[id number] Procedure Date:09/11/2016 Date:9Age:66 yrs Gender:Female Lt BP:156 / 66 mmHg Rt.BP:156 / 66 mmHgHeart Rate: Location:[facility] Room #: 2NE35 Financial Planning Adviser:Kaylyn Neal Referring MD:Julisa Orlando, DO audiometric technician:Ayesha Ramírez, GUN MECHANIC Reading MD:Baudilio Yeager MD , FACS Primary Indications:Ischemic stroke Risk Factors Yes/No Hypertension Hypercholesterolemia Diabetes Hx of CVA Hx of CAD/PTCA Impressions: Findings: Bilateral carotid systems have nonstenotic plaque. Findings Carotid Duplex: Right: There is nonstenotic plaque in the right mid common carotid artery. There is smooth heterogeneous plaque. There is nonstenotic plaque in the right distal common carotid artery. There is smooth heterogeneous plaque. There is nonstenotic plaque in the right bifurcation. There is smooth heterogeneous plaque. There is nonstenotic plaque in the right proximal internal carotid artery. There is smooth heterogeneous plaque. The right eca has turbulent flow with plaque. There is irregular heterogeneous plaque. Left: There is nonstenotic plaque in the left bifurcation. There is smooth homogeneous plaque. There is nonstenotic plaque in the left proximal internal carotid artery. The left eca has turbulent flow with plaque. Prior Study: No prior study available for comparison. Carotid Results Right PSV EDV Assessment Proximal CCA 82 16 Normal Mid CCA 76 18 Non Stenotic Plaque Distal CCA 88 17 Non Stenotic Plaque Bifurcation 111 25 Non Stenotic Plaque Proximal ICA 88 21 Non Stenotic Plaque Mid ICA 89 26 Normal Distal ICA 69 26 Normal ECA 213 17 Non Stenotic Plaque Vertebral Artery 55 9 Antegrade Flow Left PSV EDV Assessment Proximal CCA 112 18 Normal Mid CCA 94 20 Normal Distal CCA 98 19 Normal Bifurcation 102 21 Non Stenotic Plaque Proximal ICA 92 22 Non Stenotic Plaque Mid ICA 88 34 Normal Distal ICA 97 35 Normal ECA 187 12 Non Stenotic Plaque Vertebral Artery 58 14 Antegrade Flow Ratio's Right ICA/CCA Ratio: 1.17 ICA/CCA Values: 89/76 Left ICA/CCA Ratio: 1.03 ICA/CCA Values: 97/94 Updated by Baudilio Yeager MD, FACS on 09/12/2016 7:35:38 PM Baudilio Yeager MD electronically signed on 09/12/2016 7:36:14 PM with status of Final
== END 2016-09-12 12:50 | disposition home or self-care (01) | DRG 65 ==
LOC: EMEROO 20:53 → 2NENU 20:53
PROVIDERS: ADMIT Internal Medicine; ATTEND Internal Medicine

== ENCOUNTER 2017-07-06 21:55 | Inpatient (IN) ==
--- NOTE | 2017-07-06 22:17 | Emergency Department Note ---
Disposition Clinical Impression: Elevated troponin, Hyperglycemia CVA (cerebral vascular accident) Qualifiers: CVA mechanism: unspecified Qualified Code(s): I63.9 - Cerebral infarction, unspecified Disposition: Admitted As Inpatient Condition: Fair Time of Disposition: 23:44 Neuro HPI - General Chief Complaint: ED Neuro Symptoms/Deficit Stated Complaint: neuro symptoms Time Seen by Provider: 07/06/17 22:12 Source: patient, EMS Mode of arrival: wheelchair Limitations: no limitations Nursing Notes Reviewed: Yes Vital Signs Reviewed: Yes - History of Present Illness HPI Narrative: 67 year old female with a history of CVA 3 past couple years, hypertension, diabetes, heart disease presents for evaluation of strokelike symptoms. Patient 's last and well was around noon today when she was talking to her daughter on the phone. Patient states she is confused and was down in the basement prior to arrival. Patient states she was not sure why she was done the basement. Patient noted slurred speech. Patient also had right-sided weakness. Patient called her daughter prior to arrival the daughter noted slurred speech. Patient also has social left-sided facial droop. Patient's on Plavix and aspirin. Patient denies any chest pain or nausea or vomiting. - Related Data Home Medications: Home Medications Medication Instructions Recorded Confirmed Amlodipine Besylate 10 mg PO DAILY #0 02/19/15 07/03/17 Multivitamin [Multi-Day Vitamins] 1 each PO DAILY 02/19/15 07/03/17 metFORMIN [Glucophage] 1,000 mg PO BIDWM 02/19/15 07/03/17 Gabapentin [Neurontin] 600 mg PO BID 12/29/15 07/03/17 Insulin Glargine,Hum.rec.anlog 13 unit SQ HS 12/29/15 07/03/17 [Lantus Solostar] Aspirin 325 mg PO DAILY 09/10/16 07/03/17 Lisinopril [Zestril] 20 mg PO DAILY 09/10/16 07/03/17 Citalopram [CeleXA] 20 mg PO DAILY 07/03/17 07/03/17 Previous Rx's Medication Instructions Recorded Atorvastatin [Lipitor] 40 mg PO HS 30 Days tablet 02/21/15 Clopidogrel [Plavix] 75 mg PO DAILY 30 Days tablet 02/21/15 Insulin LISPRO [HumaLOG] 6 units SQ TIDWM 30 Days vial 02/21/15 Metoprolol [Lopressor] 25 mg PO BID 30 Days tablet 02/21/15 Betamethasone Valerate 15 gm TP BID #1 cream..g. 07/03/17 HydrOXYzine Pamoate [Vistaril] 50 mg PO TID #30 capsule 07/03/17 Allergies/Adverse Reactions: Allergies Allergy/AdvReac Type Severity Reaction Status Date / Time Penicillins Allergy Hives Verified 07/03/17 14:43 lactose AdvReac Vomiting Verified 07/03/17 14:43 All systems ED: reviewed and negative except as stated. Constitutional: Reports: as per HPI. Denies: fever Eyes: Reports: as per HPI ENT ED: Reports: as per HPI Cardiovascular: Reports: as per HPI. Denies: chest pain Respiratory: Reports: as per HPI. Denies: cough, dyspnea Gastrointestinal: Reports: as per HPI. Denies: abdominal pain, nausea, vomiting Genitourinary: Reports: as per HPI Musculoskeletal: Reports: as per HPI Integumentary: Reports: as per HPI Neurological: Reports: as per HPI, weakness, confusion Psychiatric: Reports: as per HPI Endocrine: Reports: as per HPI Hematological/Lymphatic: Reports: as per HPI Allergic/Immunologic: Reports: as per HPI Past Medical History - Past Medical History Attestation: Yes The following information was validated with the patient. Source: patient Medical history: Reports: non-contributory, CVA Surgical history: Reports: appendectomy Psychiatric history: Reports: depression [employer] history: Reports: no [employer] history - Social History Smoking Status: Never smoker Smokeless Tobacco Status: No Alcohol use: Reports: none Drug use: Reports: none Physical Exam - General Limitations: no limitations General appearance: alert, in no apparent distress - Head Head exam: atraumatic, normocephalic, normal inspection - Eye Eye exam: Present: normal appearance, PERRL, EOMI. Absent: miosis, mydriasis - ENT ENT exam: normal exam, mucous membranes moist - Neck Neck exam: Present: normal inspection, trachea midline - Chest Chest inspection: Present: normal inspection, symmetric chest wall rise - Respiratory Respiratory exam: Present: normal lung sounds bilaterally. Absent: respiratory distress - Cardiovascular Cardiovascular exam: Present: regular rate, normal rhythm. Absent: systolic murmur - Abdominal Exam Abdominal exam: Present: soft, Non-Tender. Absent: tenderness, distention, guarding, rebound, rigidity - Extremities Exam Extremities exam: Present: normal inspection. Absent: pedal edema - Back Exam Back exam: Present: normal inspection - Neurological Exam Neurological exam: Present: alert, oriented X3, CN II-XII intact - Expanded Neurological Exam Patient oriented to: Present: person, place, time Speech: Present: fluid speech Cranial nerves: EOM function (II, III, IV, ): Normal, facial sensation (V): Normal, facial palsy (VII): Abnormal Left, spinal accessory function (XI): Normal, tongue deviation (XII): Normal Motor strength - LUE: 5/5 Motor strength - RUE: 5/5 Motor strength - LLE: 5/5 Motor strength - RLE: 5/5 Upper motor neuron exam: pronator drift: Absent bilaterally Sensory exam upper extremity: light touch: Normal Sensory exam lower extremity: light touch: Normal Coma Scale Eye Opening: Spontaneous Coma Scale Motor Response: Obeys Commands Coma Scale Verbal Response: Oriented Coma Scale Total: 15 - Skin Skin exam: Present: warm, dry, intact, normal color Course Course Narrative: Patient seen and evaluated. Patient's in no acute distress. Patient does appear to have neuro symptoms. Patient is not a stroke or getting her last known well was outside the window of any therapeutic intervention. Patient's last known well was noted to be around noon today with a conversation with the daughter. Patient's NIH of 3. Patient will get stroke workup. - Reevaluation(s) Reevaluation #1: Patient seen and examined. Patient's facial asymmetries are improving. Patient 's speech is also mildly improving. Discussed plan of care with the patient as well as daughter at bedside. Patient will be admitted for CVA versus TIA workup. Time: 23:44 Vital Signs Temperature 99 F 07/06/17 21:57 Pulse Rate 94 07/06/17 21:57 Respiratory Rate 12 07/06/17 21:57 Blood Pressure 0/0 07/06/17 21:57 O2 Sat by Pulse Oximetry 97 07/06/17 21:57 Temperature 99 F 07/06/17 21:57 Pulse Rate 86 07/06/17 23:08 Respiratory Rate 16 07/06/17 23:08 Blood Pressure 142/70 07/06/17 23:08 O2 Sat by Pulse Oximetry 97 07/06/17 23:08 Oxygen Delivery Oxygen Delivery Room Air Neuro Symptoms/Deficit - MDM Narrative Medical decision making narrative: 67-year-old female presents for evaluation for neuro symptoms. Patient does have a concerning history of CVA in the past. Patient NIH 3. Patient was not a stroke alert given last known well was outside timeframe of any interventions. Patient labs reviewed as her that she has elevated troponin with ischemic EKG changes likely secondary to intracranial pathology. Patient also had an elevated glucose. Patient's head CT showed no acute bleeds. Patient will be admitted to the hospital service for further evaluation monitoring to stroke reduction. Patient as well as the family agree with plan of care. Patient's EKG changes and elevated troponin likely secondary to intracranial pathology. Patient is denying chest pain. Patient was given a full dose aspirin given her negative head CT for hemorrhagic stroke. - Lab Data Lab results reviewed: Yes I reviewed the patient's lab results. Result diagrams: 07/06/17 22:09 07/06/17 22:09 Lab Results 07/06/17 07/06/17 07/06/17 Range/Units 22:00 22:09 22:09 WBC 8.3 (4.3-11.1) K/mcL RBC 3.80 L (3.82-4.97) M/mcL Hgb 11.9 (11.5-15.4) g/dL Hct 34.6 L (35.3-44.9) % MCV 91.1 (83.0-100.0) fL MCH 31.3 (28.0-33.3) pg MCHC 34.4 (31.6-35.5) g/dL RDW 11.5 (11.5-14.5) % Plt Count 270 (140-400) K/mcL MPV 10.8 (9.4-12.4) fL Immature Gran % 0.2 (0-4) % Seg Neutrophils % 58.0 % Lymphocytes % 31.6 % Monocytes % 6.0 % Eosinophils % 3.6 % Basophils % 0.6 % Neutrophils # 4.8 (1.6-8.9) K/mcL Lymphocytes # 2.6 (0.6-4.6) K/mcL Monocytes # 0.5 (0.0-1.3) K/mcL Eosinophils # 0.3 (0.0-0.6) K/mcL Basophils # 0.1 (0.0-0.2) K/mcL PT 10.0 (9.4-12.1) Seconds INR 0.9 APTT 29.2 (26.0-36.0) Seconds Heparin Anti-Xa, Unfract 0.00 L (0.30-0.70) IU/mL Sodium (136-145) mEq/L Potassium (3.5-5.1) mEq/L Chloride (98-107) mEq/L Carbon Dioxide (23-29) mEq/L BUN (8-23) mg/dL Creatinine (0.60-1.20) mg/dL Est GFR ( Amer) (> 60) Est GFR (Non-Af Amer) (> 60) BUN/Creatinine Ratio (6-26) Glucose (70-105) mg/dL POC Glucose 325 H (58-89) Calculated Osmolality (280-300) Calcium (8.6-10.3) mg/dL Troponin I (< 0.04) ng/mL 07/06/17 07/06/17 Range/Units 22:09 22:09 WBC (4.3-11.1) K/mcL RBC (3.82-4.97) M/mcL Hgb (11.5-15.4) g/dL Hct (35.3-44.9) % MCV (83.0-100.0) fL MCH (28.0-33.3) pg MCHC (31.6-35.5) g/dL RDW (11.5-14.5) % Plt Count (140-400) K/mcL MPV (9.4-12.4) fL Immature Gran % (0-4) % Seg Neutrophils % % Lymphocytes % % Monocytes % % Eosinophils % % Basophils % % Neutrophils # (1.6-8.9) K/mcL Lymphocytes # (0.6-4.6) K/mcL Monocytes # (0.0-1.3) K/mcL Eosinophils # (0.0-0.6) K/mcL Basophils # (0.0-0.2) K/mcL PT (9.4-12.1) Seconds INR APTT (26.0-36.0) Seconds Heparin Anti-Xa, Unfract (0.30-0.70) IU/mL Sodium 140 (136-145) mEq/L Potassium 4.1 (3.5-5.1) mEq/L Chloride 109 H (98-107) mEq/L Carbon Dioxide 24 (23-29) mEq/L BUN 31 H (8-23) mg/dL Creatinine 0.96 (0.60-1.20) mg/dL Est GFR ( Amer) > 60 (> 60) Est GFR (Non-Af Amer) 58 L (> 60) BUN/Creatinine Ratio 32 H (6-26) Glucose 299 H (70-105) mg/dL POC Glucose (58-89) Calculated Osmolality 308 H (280-300) Calcium 9.1 (8.6-10.3) mg/dL Troponin I 0.06 H* (< 0.04) ng/mL - Radiology Data Radiology results reviewed: Yes I reviewed the patient's radiology results. - EKG Data EKG attestation: Yes I reviewed and interpreted this EKG. EKG shows normal: sinus rhythm Rate: normal Rhythm: NSR [place]/QRS: normal, IVCD ST segment depression in: v5, v6 Q waves: III T wave inversions noted in: I, II, v3, v4, v5, v6 When compared to previous EKG there are: changes noted Interpretation: nonspecific ST-T wave changes NIH Stroke Scale - Level of Consciousness LOC: Alert - LOC Questions LOC Questions: Answers both correctly - LOC Commands LOC Commands: Performs both correctly - Best Gaze Best Gaze: Normal - Visual Visual: No visual loss - Facial Palsy Facial Palsy: Partial, total, or near-total paralysis of lower face - Motor Arms Motor Arm-Left: No drift for 10 seconds Motor Arm-Right: No drift for 10 seconds - Motor Legs Motor Leg-Left: No drift for 5 seconds Motor Leg-Right: No drift for 5 seconds - Limb Ataxia Limb Ataxia: Absent of affected limb too weak to perform exam - Sensory Sensory: Normal - Best Language Best Language: No aphasia - Dysarthria Dysarthria: Mild, slurs some words - Extinction and Inattention Extinction and Inattention: Normal - NIHSS Total Score NIHSS Total Score: 3 S.B.A.R. - S.B.A.R. Situation: Demographics Background: Presenting Complaint Assessment: Vital Signs, Course and respsone to treatment, Patient/Family Expectation Recommendation: Barrier(s) to disposition, Recommendation based on pending studies, treatments, or consults [facility] Report Given to: Dr. Dwight Hussein Repor Time: 23:36 Attestation Statement - Attestation Attestation: I examined this patient and my medical decision-making was reviewed with the Resident Physician. I agree with the documented findings, disposition and treatment plan as described except to the extent set forth below. 67-year-old female with a history of recurrent strokes presents to the ED because of slurred speech and left-sided weakness. Last known normal was at noon today. Daughter found her ambulatory the patient was unable to get up steps. Uncertain as to why she was in the basement. There was no falls. No known trauma. Patient complains of some pain to her right hip but was able to ambulate. No chest pain or difficulty breathing. No nausea vomiting. No headache. Affect flat but she is alert and oriented. Pupils are reactive to light. Extraoculars are intact. Tongue and uvula are midline. Very mild weakness to left side of her face. Speech is currently clear but slow neck is supple. No carotid bruits appreciated. Cardiac exam regular abdomen soft, nondistended nontender. Lungs clear to auscultation bilaterally. Neurologic exam is non- focal. Strength is symmetric. Speech is slowed. Some word searching. No sensory deficits. CT head is unremarkable. Troponin is elevated. No other acute process except for hyperglycemia. She will be admitted for further evaluation. .
[2017-07-06 22:31] LABS: Basophils # 0.1 K/mcL (0.0-0.2); Basophils % 0.6 %; Eosinophils # 0.3 K/mcL (0.0-0.6); Eosinophils % 3.6 %; Hematocrit 34.6 % (35.3-44.9); Hemoglobin 11.9 g/dL (11.5-15.4); Immature Granulocytes % 0.2 % (0-4); Lymphocytes # 2.6 K/mcL (0.6-4.6); Lymphocytes % 31.6 %; Mean Corpuscular HGB Conc 34.4 g/dL (31.6-35.5); Mean Corpuscular Hemoglobin 31.3 pg (28.0-33.3); Mean Corpuscular Volume 91.1 fL (83.0-100.0); Mean Platelet Volume 10.8 fL (9.4-12.4); Monocytes # 0.5 K/mcL (0.0-1.3); Neutrophils # 4.8 K/mcL (1.6-8.9); Platelet Count 270 K/mcL (140-400); Red Cell Distribution Width 11.5 % (11.5-14.5)
[2017-07-06 22:33] LABS: INR 0.9
[2017-07-06 22:41] LABS: BUN/Creatinine Ratio 32 (6-26); Blood Urea Nitrogen 31 mg/dL (8-23); Calcium 9.1 mg/dL (8.6-10.3); Carbon Dioxide 24 mEq/L (23-29); Chloride 109 mEq/L (98-107); Glucose 299 mg/dL (70-105); Osmolality,Calculated 308 (280-300); Potassium 4.1 mEq/L (3.5-5.1); Sodium 140 mEq/L (136-145); eGFR For African Americans > 60 (> 60); eGFR For Non-African Americans 58 (> 60)
[2017-07-06 23:08] LABS: Activated Partial Thrombo Time 29.2 Seconds (26.0-36.0)
[2017-07-06] MEDS ORDERED: Insulin Regular, Human 100 UNIT/ML SQ ONE (23:19)
[2017-07-06] MEDS ORDERED: Aspirin 81 MG TAB.CHEW PO ONE (23:19)
[2017-07-07] MEDS ORDERED: *HR* Morphine 2 MG/ML SYRINGE IVP PRN (02:23)
[2017-07-07] MEDS ORDERED: Ondansetron 4 MG/2 ML VIAL IVP PRN (02:23)
[2017-07-07] MEDS ORDERED: Naloxone 0.4 MG/ML INJ IVP PRN (02:23)
[2017-07-07] MEDS ORDERED: D5% in Water 1,000 ML IVC PRN (02:27)
[2017-07-07] MEDS ORDERED: Dextrose Gel 15 GM/37.5 ML TUBE PO PRN ×2 (02:27)
[2017-07-07] MEDS ORDERED: *HR* Dextrose 50 % in Water (Syg) 50 ML SYRINGE IVP PRN (02:27)
--- NOTE | 2017-07-07 02:46 | Internal Med History&Physical ---
<Semaj Kearney - Last Filed: 07/07/17 04:32> Date of Encounter: 07/07/17 Time of Encounter: 02:43 Assessment and Plan (1) CVA (cerebral infarction) Current visit: Yes Status: Acute CVA affecting right side of body Although the patient's symptoms apparently were worse earlier, she does still have some right-sided weakness Additionally the patient is complaining of pain in her right leg The patient has long-standing history of multiple CVAs and atherosclerotic disease It was determined that she was not a candidate for TPA and the ED We will continue the patient's aspirin and statin we will get imaging of the brain and neck We will assess neurological status regularly, and NIHSS Neuro consult in the morning PT/OT Consult in the morning Qualifiers: Cerebral infarction mechanism: unspecified mechanism Qualified Code(s): I63.9 - Cerebral infarction, unspecified (2) Elevated troponin Current visit: Yes Status: Acute Elevated troponin 0.06 EKG did demonstrate some ischemic changes, patient did complain of mild chest pain at time of incident Family history that this patient is experiencing an AK, likely secondary to intracranial process and demand ischemia I will and the troponins every 6 hours noted a repeat EKG in the morning I will not start the patient on heparin at this time due to neurological status Patient did get aspirin in the ED (3) Diabetes Current visit: Yes Status: Chronic Diabetes mellitus type 2 with long-term insulin use The glucose poorly controlled at time of admission, glucose 299 The patient will be placed on a diabetic diet, sliding scale insulin Hold oral meds Qualifiers: Diabetes mellitus type: type 2 Diabetes mellitus complication detail: with other circulatory complications Diabetes mellitus nursing home insulin use: with nursing home use Qualified Code(s): E11.59 - Type 2 diabetes mellitus with other circulatory complications; Z79.4 - jail (current) use of insulin; Z79.4 - jail (current) use of insulin; Z79.4 - jail (current) use of insulin; Z79.4 - jail (current) use of insulin (4) Hypertension Current visit: Yes Status: Chronic Continue oral antihypertensives Qualifiers: Hypertension type: essential hypertension Qualified Code(s): I10 - Essential (primary) hypertension (5) CAD (coronary artery disease) Current visit: No Status: Chronic CAD, Stable Continue ASA + Plavix Continue BB, WAYLON, Statin, Amlodipine Qualifiers: Coronary Disease-Associated Artery/Lesion type: [place] artery [place] vs. transplanted heart: [place] heart Associated angina: without angina Qualified Code(s): I25.10 - Atherosclerotic heart disease of [place] coronary artery without angina pectoris (6) Dermatitis Current visit: Yes Status: Acute Dermatitis with excoriations noted on all four extremities Patient is having manageable pruritis Consider benadryl for itching (7) Right thigh pain Current visit: Yes Status: Acute Patient is experiencing severe pain in her right thigh There is no evidence of trauma, patient denies falls Likely neuropathic pain related to CVA I will give the patient morphine for pain control at this time (8) DVT prophylaxis Current visit: Yes Status: Acute Internal Medicine - H&P: HPI Chief complaint: Right-sided weakness Admitted From: Emergency Dept Plans for Post Hospital Care: Transfer Inp Rehab Fac History of present illness: Ms. Nunez is a 67 year old female with a history of hypertension, diabetes mellitus type 2, CAD, multiple CVAs who presented to the ED following which she thought might be a strokelike occurrence earlier this afternoon. The patient was accompanied by her daughter who witnessed the incident, however the daughter had left by the time I was able to see and examine the patient. As told by the patient: She walked down to her basement earlier today at an unknown time, at which time she became confused, noticed that her right leg began to become painful and was "not working". She said that she called for her daughter who, when she responded, noticed that the patient had slurred speech and was experiencing a facial droop on the right. The patient said that at the time that this began she also developed a severe pain in her right thigh , which is 6 out of 10 in severity and constant in duration. Tylenol and she did not suffer any falls, or injuries at this time. In the ED she was evaluated for a stroke but it was determined that it was too late for her to receive TPA. The patient does admit to chronic weakness on the left side of her body due to several strokes in the past, however she has never had any problems on her right. She has bladder incontinence at baseline, and did notneed difference following this experience, however she also did not notice any bowel incontinence. She does not have any weakness, nor she confused or experiencing what she believes to be any focal neurological deficits at this time. She did feel like she may have had some chest pain at the time of this experience which resolved relatively quickly without any intervention. No shortness of breath, nausea, vomiting, syncope, diarrhea or constipation. She has no other acute complaints. Past Med Surg Social Fam HX - Past Medical History Medical history: coronary artery disease, CVA, myocardial infarction, TIA Psychiatric history: depression - Past Surgical History Surgical History: appendectomy - Social History Smoking Status: Never smoker Smokeless Tobacco Status: No Alcohol use: none Drug use: none - Family History Mother Adopted: [place]: Barby James Age: 55 Family Member Ethnicity: Non- Living Status: Age at : 55 Cause of : stroke, heart failure Hx Family Cardiac Disorders: Yes Hx Family Respiratory Disorders: No Hx Family Cancer: Yes Hx Family GI Disorders: No Hx Family Genitourinary Disorders: No Hx Family Endocrine Disorder: Yes Hx Family Musculoskeletal Disorders: No Hx Family Neuromuscular Disorders: No Hx Family Neurologic Disorders: Yes Hx Family HEENT Disorders: No Hx Family Autoimmune Disorders: No Hx Family Reproductive Disorders: No Hx Family Psychosocial Disorders: No Hx Family Medical Disorders: No Internal Medicine - H&P: Meds Amlodipine Besylate 10 mg PO DAILY #0 02/19/15 [History] Multivitamin [Multi-Day Vitamins] 1 each PO DAILY 02/19/15 [History] metFORMIN [Glucophage] 1,000 mg PO BIDWM 02/19/15 [History] Atorvastatin [Lipitor] 40 mg PO HS 30 Days tablet 02/21/15 [Rx] Clopidogrel [Plavix] 75 mg PO DAILY 30 Days tablet 02/21/15 [Rx] Insulin LISPRO [HumaLOG] 6 units SQ TIDWM 30 Days vial 02/21/15 [Rx] Metoprolol [Lopressor] 25 mg PO BID 30 Days tablet 02/21/15 [Rx] Gabapentin [Neurontin] 600 mg PO BID 12/29/15 [History] Insulin Glargine,Hum.rec.anlog [Lantus Solostar] 13 unit SQ HS 12/29/15 [History ] Aspirin 325 mg PO DAILY 09/10/16 [History] Lisinopril [Zestril] 20 mg PO DAILY 09/10/16 [History] Betamethasone Valerate 15 gm TP BID #1 cream..g. 01/18/18 [Rx] Citalopram [CeleXA] 20 mg PO DAILY 07/03/17 [History] HydrOXYzine Pamoate [Vistaril] 50 mg PO TID #30 capsule 07/03/17 [Rx] 3 Allergy/AdvReac Type Severity Reaction Status Date / Time Penicillins Allergy Hives Verified 07/03/17 14:43 lactose AdvReac Vomiting Verified 07/03/17 14:43 All Systems PM: A 10-system review of systems was performed and is negative for pertinent findings except as documented above in the HPI. Review of systems: Constitutional: Denies fevers, chills, weight loss Head/Neck: Denies PECK, neck stiffness EENT: Denies vision changes/blurriness, rhinorrhea, congestion, sore throat CVS: Denies YOO, orthopnea, edema, PND. She did experience minimal chest pain at the time of incident Pulm: Denies SOB, cough, sputum, hematemesis, wheezing GI: Denies abdominal pain, nausea, vomiting, diarrhea, constipation, melena : Bladder incontinent at baseline Heme: Denies ease of bleeding or bruising MSK: Denies joint pain, limited ROM Skin: She does admit to rash on arms and legs which has been present for about a week and was seen at an urgent care Neuro: Denies PECK, paresthesias. She says that she feels week on the right side - Constitutional Vitals: Temp Pulse Resp BP Pulse Ox 98.1 F 76 16 168/75 95 07/07/17 00:18 07/07/17 01:30 07/07/17 02:00 07/07/17 02:00 07/07/17 01:30 Exam: Gen.: Vitals noted. No acute distress. AAOx3 HEENT: PERRL/EOMI, oropharynx clear, Normocephalic, atraumatic Neck: Supple. No adenopathy. Cardiac: RRR, no murmur, +S1/S2 Pulmonary: CTA bilaterally, no wheezes, rales or rhonchi, equal chest expansion Abdomen: soft, nontender, BS noted, no guarding Back: Nontender throughout. MSK: ROM intact, no joint swelling noted. Pain with motion of right hip. No obvious deformities Extremities: no BLE edema, nontender calf, no cyanosis or clubbing Skin: There is a diffuse papular rash with excoriations without obvious discharge over all four extremities, not noticed on trunk. there is no dermatomal pattern or linear characteristic. Neuro: A&Ox3, sensation to dull and sharp intact globally. Facial dropp noted b/ l. Speech is logical and goal direction but with minor disruptions in fluency Muscle strength LUE 4/5 RUE 4/5 LLE 5/5 RLE 3/5 Psych: Appropriate mood and behavior Internal Med - H&P Results - Labs CBC & Chem 7: 07/06/17 22:09 07/06/17 22:09 <Eliot Quintanilla - Last Filed: 07/07/17 06:17> Date of Encounter: 07/07/17 Time of Encounter: 05:56 - EENT Eyes: no change in vision Ears: no tinnitus - Cardiovascular Cardiovascular ROS IM: no chest pain, no dyspnea, no dyspnea on exertion - Respiratory Respiratory: no cough, no hemoptysis - Gastrointestinal Gastrointestinal: no diarrhea, no hematemesis, no hematochezia, no melena, no vomiting - Neurological Neurological ROS: abnormal speech, focal weakness, no vertigo - Constitutional Vitals: Temp Pulse Resp BP Pulse Ox 97.5 F L 74 16 172/79 98 07/07/17 04:53 07/07/17 05:45 07/07/17 05:45 07/07/17 05:45 07/07/17 04:53 General appearance: Present: cooperative, pleasant, no acute distress - Eye Eye exam: Present: EOMI, PERRL. Absent: scleral icterus - ENT ENT exam: Present: mucous membranes dry, normal exam - Neck Neck exam general surgery: Present: supple. Absent: tenderness, nuchal rigidity - Expanded Neck Exam Neck exam: Absent: carotid bruit - Respiratory Respiratory exam: Present: CTAB. Absent: chest wall tenderness, rales, respiratory distress, rhonchi, wheezes - Cardiovascular Cardiovascular exam: Present: RRR, +S1, +S2. Absent: diastolic murmur, systolic murmur - GI/Abdominal GI/Abdominal exam: Present: soft. Absent: guarding, hepatomegaly, rebound, splenomegaly, tenderness - Extremities Exam Extremities exam: Present: warm, radial pulses palpable and symmetrical. Absent : calf tenderness - Back Exam Back exam: Absent: CVA tenderness (L), CVA tenderness (R) - Neurological Exam Neurological exam: Present: alert, oriented X3, facial droop (subtle left sided) , speech deficit (slighly slurred with some expressive aphasia). Absent: strengths equal and symetr throughout (slight decrease strength in RUE and RLE) - Psychiatric Psychiatric exam: Present: normal affect, normal mood - Skin Skin exam: Present: dry, rash (diffuse linear scratches/rash on both lower adn upper extremities), warm Internal Med - H&P Results - Labs CBC & Chem 7: 07/06/17 22:09 07/06/17 22:09 - EKG Data -: EKG Interpreted by Myself - EKG Data EKG comments: 07/07/17 06:08 Sinus rhythm with borderline LVH and lateral ischemic changes. - Diagnostic Studies CT scan - head Status: image reviewed by me (no acute findings; old infarct; report reviewed as well) - Attending Attestation I discussed the patient EGEGIK, PMH, ROS, lab data, and exam findings with Dr. Kearney. I then saw and examined patient independently as well. Patient is exhibiting some expressive aphasia as I talk to her. Her speech is a little slurred as well. She has minimal facial droop now. She moves all 4 extremities but she does have some weakness on her right side. She has had 3 prior strokes and has been on ASA and Plavix. She is in sinus rhythm and yoo snot have history of atrial fibrillation. She will likely need anti- coagulation for future stroke prophylaxis. In addition to PT/OT/ST, we will also consult Neurology. Her troponin is slightly elevated, but she denies any chest pain or angina. Other than my comments above and noted exam findings, I agree with Triny Kearney' s assessment and plan.
[2017-07-07] MEDS: *HR* Heparin 5,000 UNIT/ML VIAL SQ SCH ×2 (05:19→17:36)
[2017-07-07 06:46] LABS: Basophils % 0.5 %; Eosinophils # 0.3 K/mcL (0.0-0.6); Eosinophils % 3.5 %; Hemoglobin 11.1 g/dL (11.5-15.4); Immature Granulocytes % 0.3 % (0-4); Lymphocytes # 3.5 K/mcL (0.6-4.6); Lymphocytes % 44.6 %; Mean Corpuscular HGB Conc 33.6 g/dL (31.6-35.5); Mean Corpuscular Hemoglobin 30.7 pg (28.0-33.3); Mean Corpuscular Volume 91.2 fL (83.0-100.0); Mean Platelet Volume 10.8 fL (9.4-12.4); Monocytes # 0.6 K/mcL (0.0-1.3); Monocytes % 7.4 %; Neutrophils # 3.4 K/mcL (1.6-8.9); Nucleated Red Blood Cells 0.3 /100 WBC (0); Platelet Count 251 K/mcL (140-400); Red Blood Count 3.62 M/mcL (3.82-4.97); Red Cell Distribution Width 11.5 % (11.5-14.5); Segmented Neutrophils % 43.7 %
[2017-07-07 06:58] LABS: Alanine Aminotransferase 11 Units/L (7-52); Albumin 3.6 g/dL (3.5-5.7); Albumin/Globulin Ratio 1.4 (1.1-2.2); Alkaline Phosphatase 101 Units/L (34-104); Aspartate Amino Transferase 17 Units/L (13-39); BUN/Creatinine Ratio 32 (6-26); Bilirubin,Total 0.3 mg/dL (0.3-1.0); Blood Urea Nitrogen 26 mg/dL (8-23); Carbon Dioxide 26 mEq/L (23-29); Chloride 109 mEq/L (98-107); Globulin 2.5 g/dL (2.4-3.5); Glucose 125 mg/dL (70-105); Osmolality,Calculated 298 (280-300); Potassium 4.1 mEq/L (3.5-5.1); Sodium 141 mEq/L (136-145); Total Protein 6.1 g/dL (6.4-8.9); eGFR For African Americans > 60 (> 60); eGFR For Non-African Americans > 60 (> 60)
[2017-07-07] MEDS ORDERED: *HR* Metformin 500 MG TABLET PO SCH (08:00)
[2017-07-07] MEDS ORDERED: Aspirin 325 MG TABLET PO SCH (09:00)
[2017-07-07] MEDS ORDERED: amLODIPine 5 MG TABLET PO SCH (09:00)
[2017-07-07] MEDS ORDERED: Lisinopril 20 MG TABLET PO SCH (09:00)
--- NOTE | 2017-07-07 09:27 | Neurology - Consult Note ---
<ShravanSemaj diez - Last Filed: 07/07/17 11:10> Date of Encounter: 07/07/17 Time of Encounter: 11:10 Assessment and Plan (2) Cerebrovascular accident Current Visit: No Status: Acute History of prior CVA, plan as above Qualifiers: CVA mechanism: unspecified Qualified Code(s): I63.9 - Cerebral infarction, unspecified (3) Right thigh pain Current Visit: Yes Status: Acute Patient's main complaint is pain and weakness in her right leg. The patient's daughter had noted some slurred speech and possible right-sided facial droop however on exam today her speech appears clear although there does appear to be some dysarthria present. She does not have unilateral facial droop on exam at this time. I also note some atrophy and weakness to her right lower extremity with a stated history of sciatica. At this point I feel CVA is less likely however she certainly is at risk given previous CVAs and her underlying diabetes and hypertension, agree with workup including echo, carotids, brain MRI. Agree with PT/OT/speech consultation. Will order MRI of lumbar spine to evaluate radiculopathy. Agree with continuing aspirin and Plavix. History of Present Illness Chief complaint: R leg pain HPI: Ms. Nunez is a 67 year old female with history of ischemic stroke, type 2 diabetes, hypertension presents with a chief complaint of right leg pain. She states that yesterday evening she went down into her basement and had sudden onset of severe right leg pain with associated weakness that did not allow her to come up back up the stairs from her basement alone. She called her daughter who is her primary caregiver who came and checked on her and felt like the patient had some slurred speech and right-sided facial drooping. After about a half hour the patient was able to get back up the stairs with assistance. She was able to continue to ambulate and did not fall. She states that her memory of these events is not clear. She denies headache, chest pain shortness of breath, palpitations, abdominal pain, nausea, vomiting, bowel or bladder dysfunction. She reports that she has chronic pain in her right leg with some mild numbness and tingling but the symptoms became acutely worse today. She does report history of sciatica. Past Med Surg Social Fam HX - Past Medical History Medical history: coronary artery disease, CVA, myocardial infarction, TIA Psychiatric history: depression - Past Surgical History Surgical History: appendectomy - Social History Smoking Status: Never smoker Smokeless Tobacco Status: No Alcohol use: none Drug use: none - Family History Mother Adopted: [place]: Barby James Age: 55 Family Member Ethnicity: Non- Living Status: Age at : 55 Cause of : stroke, heart failure Hx Family Cardiac Disorders: Yes Hx Family Respiratory Disorders: No Hx Family Cancer: Yes Hx Family GI Disorders: No Hx Family Genitourinary Disorders: No Hx Family Endocrine Disorder: Yes Hx Family Musculoskeletal Disorders: No Hx Family Neuromuscular Disorders: No Hx Family Neurologic Disorders: Yes Hx Family HEENT Disorders: No Hx Family Autoimmune Disorders: No Hx Family Reproductive Disorders: No Hx Family Psychosocial Disorders: No Hx Family Medical Disorders: No Medications and Allergies Amlodipine Besylate 10 mg PO DAILY #0 02/19/15 [History] Multivitamin [Multi-Day Vitamins] 1 each PO DAILY 02/19/15 [History] metFORMIN [Glucophage] 1,000 mg PO BIDWM 02/19/15 [History] Clopidogrel [Plavix] 75 mg PO DAILY 30 Days tablet 02/21/15 [Rx] Metoprolol [Lopressor] 25 mg PO BID 30 Days tablet 02/21/15 [Rx] Insulin Glargine,Hum.rec.anlog [Lantus Solostar] 32 unit SQ HS 12/29/15 [History ] Aspirin 325 mg PO DAILY 09/10/16 [History] Lisinopril [Zestril] 20 mg PO DAILY 09/10/16 [History] Citalopram [CeleXA] 20 mg PO DAILY 07/03/17 [History] Gabapentin [Neurontin] 300 mg PO HS 07/07/17 [History] Lovastatin 40 mg PO HS 07/07/17 [History] Attila's Wort 300 mg PO DAILY 07/07/17 [History] 3 Allergy/AdvReac Type Severity Reaction Status Date / Time Penicillins Allergy Hives Verified 07/03/17 14:43 lactose AdvReac Vomiting Verified 07/03/17 14:43 All Systems: A 10-system review of systems was performed and is negative for pertinent findings except as documented above in the HPI. 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 Motor examination - left side: 4/5: biceps, triceps, stucco laborer, quadriceps, plantarflexion Detailed sensory examination: intact Reflexes: Biceps: 2+, Patella: 2+ (2+ on R, 1+ on L), Achilles: 2+ Mental Status Examination: awake, alert, oriented to person, oriented to place, oriented to time, follows commands appropriately, answers questions appropriately, no aphasia (Dysarthria present) Cranial nerve examination: PERRL, EOMI, sensory to face intact, mastication intact, no facial asymmetry is present, soft palate elevates bilaterally upon phonation, flexes SCM and trapezius muscles symmetrically with full power, tongue protrudes midline, no atrophy or facial fasiculations present Cerebellar examination: no dysmetria Results - Laboratory Findings CBC and BMP: 07/07/17 06:23 07/07/17 06:23 Abnormal lab findings: Abnormal lab results RBC 3.62 M/mcL (3.82-4.97) L 07/07/17 06:23 Hgb 11.1 g/dL (11.5-15.4) L 07/07/17 06:23 Hct 33.0 % (35.3-44.9) L 07/07/17 06:23 Nucleated RBCs/100 WBC 0.3 /100 WBC (0) H 07/07/17 06:23 Heparin Anti-Xa, Unfract 0.00 IU/mL (0.30-0.70) L 07/06/17 22:09 Chloride 109 mEq/L (98-107) H 07/07/17 06:23 BUN 26 mg/dL (8-23) H 07/07/17 06:23 BUN/Creatinine Ratio 32 (6-26) H 07/07/17 06:23 Glucose 125 mg/dL (70-105) H 07/07/17 06:23 POC Glucose 125 (58-89) H 07/07/17 06:22 Troponin I 0.07 ng/mL (< 0.04) H* 07/07/17 06:23 Serum Total Protein 6.1 g/dL (6.4-8.9) L 07/07/17 06:23 Consult Discharge Plan - Plan Referrals: Ayesha Ramírez, [employer] [Primary Care Provider] - <Fredo Garcias I - Last Filed: 07/08/17 14:42> Date of Encounter: 07/07/17 History of Present Illness HPI: Ms. Nunez is a 67 year old female All Systems: A 10-system review of systems was performed and is negative for pertinent findings except as documented above in the HPI. Physical Examination - Vital Signs Vital Signs: Initial Vital Signs Temp Pulse Resp BP Pulse Ox 99 F 94 12 0/0 97 07/06/17 21:57 07/06/17 21:57 07/06/17 21:57 07/06/17 21:57 07/06/17 21:57 Results - Laboratory Findings CBC and BMP: 07/07/17 06:23 07/07/17 06:23 Abnormal lab findings: Abnormal lab results RBC 3.62 M/mcL (3.82-4.97) L 07/07/17 06:23 Hgb 11.1 g/dL (11.5-15.4) L 07/07/17 06:23 Hct 33.0 % (35.3-44.9) L 07/07/17 06:23 Nucleated RBCs/100 WBC 0.3 /100 WBC (0) H 07/07/17 06:23 Heparin Anti-Xa, Unfract 0.00 IU/mL (0.30-0.70) L 07/06/17 22:09 Chloride 109 mEq/L (98-107) H 07/07/17 06:23 BUN 26 mg/dL (8-23) H 07/07/17 06:23 BUN/Creatinine Ratio 32 (6-26) H 07/07/17 06:23 Glucose 125 mg/dL (70-105) H 07/07/17 06:23 POC Glucose 156 (58-89) H 07/08/17 07:49 Troponin I 0.04 ng/mL (< 0.04) H* 07/07/17 22:05 Serum Total Protein 6.1 g/dL (6.4-8.9) L 07/07/17 06:23 - Attending Attestation Patient was seen and examined agreed with the resident history assessment as well as plan Patient symptom seems to be consistent more with lumbar radiculopathy ventricle stroke she is getting workup for stroke as well as lumbar radiculopathy currently she is on antiplatelet suggested to continue to get an MRI of the lumbar spine she may benefit from IV steroid treatment for the workup depending on the results of imaging studies will follow the patient with you Fredo Garcias MD
[2017-07-07] MEDS: hydrOXYzine pamoate 25 MG CAPSULE PO SCH ×3 (09:52→21:34)
[2017-07-07] MEDS: Gabapentin 300 MG CAPSULE PO SCH ×2 (09:52→21:35)
[2017-07-07] MEDS: Insulin LISPRO 300 UNITS/3 ML VIAL SQ SCH ×4 (11:17→21:34)
--- NOTE | 2017-07-07 11:27 | Event Note ---
Date of Encounter: 07/07/17 Time of Encounter: 09:30 Seen and examined at bedside. With left-sided residual weakness from previous stroke and mild expressive aphasia. 1. CVA: per hx with sided weakness. Now with transient right-sided weakness, slurred speech and expressive aphasia. Head CT non-acute. It was determined that she was not a candidate for TPA and the ED. Cont ASA, plavix, statin. Brain MRI, echo, carotid Dopplers pending. Neurology following 2. Elevated troponin: hx CAD. troponin peaked at 0.07. ED EKG did demonstrate some ischemic changes, patient did complain of mild chest pain on arrival. Cardiology consulted. Cont ASA, plavix 3. Diabetes mellitus type 2 with long-term insulin use: per hx. Glucose poorly controlled at time of admission. Hold oral meds. SSI. Monitor blood sugars and titrate PRN 4. Hypertension: per hx. holding home antihypertensive to allow for permissive hypertension. Resume BP meds and 24-48 hours. 5. Right thigh pain: Patient is experiencing severe pain in her right thigh. no evidence of trauma, patient denies falls. Possibly neuropathic pain related to CVA however she does have history of sciatica. Continue PRN morphine. Consider further imaging if symptoms do not improve 6. DVT prophylaxis: heparin
--- NOTE | 2017-07-07 14:54 | Cardiology Consult Note ---
<Javier Leon - Last Filed: 07/07/17 17:00> Date of Encounter: 07/07/17 Time of Encounter: 15:34 Assessment and Plan (1) CVA (cerebral infarction) Current Visit: Yes Status: Acute Primary management by neurology and hospitalist. Qualifiers: Cerebral infarction mechanism: unspecified mechanism Qualified Code(s): I63.9 - Cerebral infarction, unspecified (2) Elevated troponin Current Visit: Yes Status: Acute Patient recently had CVA. It was reported that systolic blood pressure was in the 190s on arrival to the emergency department. Electrocardiogram does reveal worsening septal and lateral T-wave inversions that are new from 09/10/2016. Initial troponin of 0.06. Repeat troponin was 0.07 and 0.07 respectively. Chest x-ray reveals no acute findings. Due to patient's previous coronary artery bypass graft and coronary history, which cannot rule out NSTEMI and she is an elderly diabetic female who may present atypically or without symptoms at all. I suspect the elevated troponins could also be secondary to hypertensive emergency as this was in the setting of a CVA. 81 mg aspirin daily 75 mg plavix daily Continue Atorvastatin 40 mg qd Lisinopril 20mg qd Metoprolol 25mg BID Patient is currently on low dose heparin via ACS protocol. Continue anti- coagulation as recommended by neurology. Patient may need heart catheterization. However, in the setting of CVA, will withhold further intervention at this time. Awaiting results from echocardiogram (3) ST segment changes on electrocardiogram Current Visit: Yes Status: Acute Discussion w patient/family: The assessment and plan as outlined above was discussed with the patient and/or family members who expressed understanding and agreement. All questions were answered. Thank you for involving us in the care of your patient. Please call with any questions. History of Present Illness Consult date: 07/07/17 Requesting physician: Aria Howard Consult reason: elevated troponin, ekg changes Chief complaint: slurred speech, right sided weakness History of present illness: Ms. Nunez is a 67 year old female with past medical history of CVA CAD with CABG , [place], hyperlipidemia, hypertension, type 2 diabetes mellitus. Consulted on the case because patient had elevated troponin and EKG changes. Patient was seen in the emergency department with symptoms of slurred speech and right-sided weakness. It was noted that her systolic blood pressure on arrival to the emergency department was in the 190s. The patient states that she never experienced any symptoms of chest pain, pressure, tightness. She not have any shortness of breath. She denies any lower extremity swelling, cough, hemoptysis, fever, fatigue. Past Med Surg Social Fam HX - Past Medical History Medical history: coronary artery disease, CVA, myocardial infarction, TIA Psychiatric history: depression - Past Surgical History Surgical History: appendectomy - Social History Smoking Status: Never smoker Smokeless Tobacco Status: No Alcohol use: none Drug use: none - Family History Mother Adopted: [place]: Barby James Age: 55 Family Member Ethnicity: Non- Living Status: Age at : 55 Cause of : stroke, heart failure Hx Family Cardiac Disorders: Yes Hx Family Respiratory Disorders: No Hx Family Cancer: Yes Hx Family GI Disorders: No Hx Family Genitourinary Disorders: No Hx Family Endocrine Disorder: Yes Hx Family Musculoskeletal Disorders: No Hx Family Neuromuscular Disorders: No Hx Family Neurologic Disorders: Yes Hx Family HEENT Disorders: No Hx Family Autoimmune Disorders: No Hx Family Reproductive Disorders: No Hx Family Psychosocial Disorders: No Hx Family Medical Disorders: No Medications and Allergies Amlodipine Besylate 10 mg PO DAILY #0 02/19/15 [History] Multivitamin [Multi-Day Vitamins] 1 each PO DAILY 02/19/15 [History] metFORMIN [Glucophage] 1,000 mg PO BIDWM 02/19/15 [History] Clopidogrel [Plavix] 75 mg PO DAILY 30 Days tablet 02/21/15 [Rx] Metoprolol [Lopressor] 25 mg PO BID 30 Days tablet 02/21/15 [Rx] Insulin Glargine,Hum.rec.anlog [Lantus Solostar] 32 unit SQ HS 12/29/15 [History ] Aspirin 325 mg PO DAILY 09/10/16 [History] Lisinopril [Zestril] 20 mg PO DAILY 09/10/16 [History] Citalopram [CeleXA] 20 mg PO DAILY 07/03/17 [History] Gabapentin [Neurontin] 300 mg PO HS 07/07/17 [History] Lovastatin 40 mg PO HS 07/07/17 [History] Kenmar's Wort 300 mg PO DAILY 07/07/17 [History] 3 Allergy/AdvReac Type Severity Reaction Status Date / Time Penicillins Allergy Hives Verified 07/03/17 14:43 lactose AdvReac Vomiting Verified 07/03/17 14:43 All Systems Review: A 10-system review of systems was performed and is negative for pertinent findings except as documented above in the HPI. - Cardiovascular Cardiovascular: no chest pain at rest, no chest pain with exertion, no diaphoresis, no dyspnea at rest, no dyspnea on exertion, no irregular heart rhythm, no leg edema - Respiratory Respiratory: no cough, no dyspnea, no hemoptysis, no wheezing - Gastrointestinal Gastrointestinal: no abdominal pain - Musculoskeletal Musculoskeletal: no back pain - Neurological Neurological: abnormal speech, focal weakness Physical Examination Vital Signs, Last 4 Hours Temp Pulse Resp BP Pulse Ox 07/07/17 14:30 98.5 F 73 16 168/92 07/07/17 12:06 97.9 F 75 15 154/67 97 General: Conversant, No Apparent Distress HEENT: Atraumatic, Normocephaly, Mucus Membranes Moist Neck: No JVD Cardiac: Reg Rate and Rhythm, Normal S1 and S2, No Murmur Lungs: Normal Breath Sounds, No Wheeze, Rales, Rhonchi Neuro: Alert and responsive Abdomen: Soft, Non-Tender Skin: No rashes noted on visualized skin Musculoskeletal: No Chest Wall Tenderness Extremities: No Edema Results 07/07/17 06:23 07/07/17 06:23 Lab Results 07/07/17 07/07/17 07/07/17 06:23 06:23 06:23 WBC 7.7 Hgb 11.1 L Hct 33.0 L Plt Count 251 Sodium 141 Potassium 4.1 Chloride 109 H Carbon Dioxide 26 BUN 26 H Creatinine 0.82 Glucose 125 H Calcium 9.0 Total Bilirubin 0.3 AST 17 ALT 11 Alkaline Phosphatase 101 Troponin I 0.07 H* Consult Discharge Plan - Plan Referrals: Ayesha Ramírez, BREEDING MANAGER [Primary Care Provider] - <Luis Gamboa - Last Filed: 07/09/17 13:50> Date of Encounter: 07/07/17 Time of Encounter: 19:30 - Attending Attestation I examined this patient and my medical decision-making was reviewed with the Resident Physician. I agree with the documented findings, disposition and treatment plan as described except to the extent set forth below. CC: slurred speech, right sided weakness Pt presented to the ER with complaints of several hours of slurred speech, weakness in right lower extremity, difficulty walking, She is easily confused, not a relieable historian, hx obtained from medical records. She denies chest pain, pressure, or shortness of breath. IMP: 1. Abnomal EKG with new T wave inversions in lateral leads, not present on last EKG available in 08/2016, suggestive of lateral ischemia, placed on low dose heparin following ACS protocol, manage medically pending neurologic evalutation , is not a candidate for emergent LHC, but will follow closely, echocardiogram ordered to eval LV function, new wall motion abnormalities. 2. CAD- post CABG with single vessel bypass, LIMIA to LAD due to severe ostial stenosis, with residual 50% stenosis at origin of Ramus branch 2006 3. Hypertension, poorly controlled, markedlly elevated on arrival to ER at 190/ 100, improved with medical tx 4. Elevated troponin, of unclear significance, will follow trend, 5. Slurred speech, right lower ext weakness, speech is improving, await neurologic evaluation. Assessment and Plan Discussion w patient/family: The assessment and plan as outlined above was discussed with the patient and/or family members who expressed understanding and agreement. All questions were answered. Thank you for involving us in the care of your patient. Please call with any questions. History of Present Illness History of present illness: Ms. Nunez is a 67 year old female ROS unobtainable: due to mental status All Systems Review: A 10-system review of systems was performed and is negative for pertinent findings except as documented above in the HPI. Physical Examination Vital Signs, Last 4 Hours Temp Pulse Resp BP Pulse Ox 07/08/17 19:58 95 07/08/17 18:36 98.2 F 65 16 136/57 94 Results 07/09/17 08:34 07/09/17 08:34 Lab Results 07/07/17 22:05 Troponin I 0.04 H*
[2017-07-07] MEDS: Acetaminophen 325 MG TABLET PO PRN (14:55)
--- NOTE | 2017-07-08 09:11 | Neurology Progress Note ---
Date of Encounter: 07/08/17 Time of Encounter: 09:09 Assessment and Plan (1) Radiculopathy Current Visit: Yes Status: Acute MRI of the lumbar spine reveals L5-S1 subarticular disc extrusion with displacement and borderline compression of the descending S1 nerve root. This is the likely cause of the patient's significant right leg pain, weakness, and atrophy. Her symptoms are improved today. Would recommend steroids as well as possibly increasing her gabapentin as tolerated. Patient would benefit from a spinal surgery consultation. Discussed with primary team and we will defer further management to them. Qualifiers: Spinal region: lumbosacral Qualified Code(s): M54.17 - Radiculopathy, lumbosacral region (2) Cerebrovascular accident Current Visit: No Status: Ruled-out Patient did not have an acute CVA. MRI did reveal chronic bilateral lacunar infarcts within the bilateral basal ganglia but no acute infarct or hemorrhage. Her symptoms are likely related to acute radiculopathy as discussed above. Qualifiers: CVA mechanism: unspecified Qualified Code(s): I63.9 - Cerebral infarction, unspecified Subjective Principal diagnosis: R leg pain Interval history: Patient seen and examined at bedside. Patient states that she feels better. Her right leg pain has improved. She has been able to get up and walk to the bathroom. She denies any new weakness, slurred speech, confusion. Objective - Constitutional Vitals: Temp Pulse Resp BP Pulse Ox 97.7 F 59 17 142/65 99 07/08/17 08:03 07/08/17 08:03 07/08/17 08:03 07/08/17 08:03 07/08/17 08:03 - Neurological Exam Sensorimotor examination: Present: intact, other (Atrophy noted to right lower extremity) Motor examination - right side: 4/5: quadriceps, toe extension (EHL), 5/5: biceps, rib matcher and fitter Motor examination - left side: 4/5: biceps, triceps, rib matcher and fitter, quadriceps, plantarflexion Sensation intact: Present: intact Mental Status Examination: Present: awake, alert, oriented to person, oriented to place, oriented to time, follows commands appropriately, answers questions appropriately, no aphasia (Dysarthria present, improved) Cranial nerve examination: Present: PERRL, EOMI, sensory to face intact, mastication intact, no facial asymmetry is present, soft palate elevates bilaterally upon phonation, flexes SCM and trapezius muscles symmetrically with full power, tongue protrudes midline, no atrophy or facial fasiculations present Cerebellar examination: Present: no dysmetria Results - Laboratory Findings CBC and BMP: 07/07/17 06:23 07/07/17 06:23 Abnormal lab findings: Abnormal lab results RBC 3.62 M/mcL (3.82-4.97) L 07/07/17 06:23 Hgb 11.1 g/dL (11.5-15.4) L 07/07/17 06:23 Hct 33.0 % (35.3-44.9) L 07/07/17 06:23 Nucleated RBCs/100 WBC 0.3 /100 WBC (0) H 07/07/17 06:23 Heparin Anti-Xa, Unfract 0.00 IU/mL (0.30-0.70) L 07/06/17 22:09 Chloride 109 mEq/L (98-107) H 07/07/17 06:23 BUN 26 mg/dL (8-23) H 07/07/17 06:23 BUN/Creatinine Ratio 32 (6-26) H 07/07/17 06:23 Glucose 125 mg/dL (70-105) H 07/07/17 06:23 POC Glucose 156 (58-89) H 07/08/17 07:49 Troponin I 0.04 ng/mL (< 0.04) H* 07/07/17 22:05 Serum Total Protein 6.1 g/dL (6.4-8.9) L 07/07/17 06:23 Consult Discharge Plan - Plan Referrals: Ayesha Ramírez, POCKETED SPRING MACHINE OPERATOR [Primary Care Provider] -
[2017-07-08] MEDS: *HR* Heparin 5,000 UNIT/ML VIAL SQ SCH ×2 (09:25→18:42)
--- NOTE | 2017-07-08 09:25 | Internal Med Progress Note ---
Date of Encounter: 07/08/17 Time of Encounter: 09:30 - Assessment and plan (1) CVA (cerebral vascular accident) Current Visit: Yes Status: Acute Assessment and plan: MRI and argues against a new CVA. 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 Cardiogram was essentially normal study with an EF was 60-65% He remains on aspirin, Plavix as well as statin. I will repeat a lipid panel to ensure LDL is within goal. Blood pressure remains fairly stable. Qualifiers: CVA mechanism: unspecified Qualified Code(s): I63.9 - Cerebral infarction, unspecified (2) Elevated troponin Current Visit: Yes Status: Acute Assessment and plan: As per cardiology. (3) Hyperglycemia Current Visit: Yes Status: Acute Assessment and plan: Blood sugar control improving. Monitor. Continue sliding scale insulin (4) Radiculopathy Current Visit: Yes Status: Acute Assessment and plan: Consult spine surgery for opinion. Consider steroids. Physical therapy, occupational therapy. Qualifiers: Spinal region: lumbosacral Qualified Code(s): M54.17 - Radiculopathy, lumbosacral region (5) Right thigh pain Current Visit: Yes Status: Acute Assessment and plan: Appears to have resolved. Possibly related to radiculopathy (6) Hypertension Current Visit: Yes Status: Chronic Qualifiers: Hypertension type: essential hypertension Qualified Code(s): I10 - Essential (primary) hypertension (7) CAD (coronary artery disease) Current Visit: No Status: Chronic Assessment and plan: Mildly elevated troponin. May be due to demand ischemia. Cardiology following. Await their further recommendations. Qualifiers: Coronary Disease-Associated Artery/Lesion type: [place] artery [place] vs. transplanted heart: [place] heart Associated angina: without angina Qualified Code(s): I25.10 - Atherosclerotic heart disease of [place] coronary artery without angina pectoris - Time Spent With Patient 25 - 35 minutes - Subjective Interval history: Patient states she feels weak all over. Her pain in her right leg has improved significantly but states she still has trouble walking on it. She states her speech is improved. She denies any chest pain or shortness breath. No nausea, vomiting, diarrhea. No fevers or chills. Neurology input appreciated. Not convincing patient had a stroke and there is concern for lumbar radiculopathy leading to her right lower extremity pain and weakness. - Constitutional Vitals: Temp Pulse Resp BP Pulse Ox 97.7 F 59 17 142/65 99 07/08/17 08:03 07/08/17 08:03 07/08/17 08:03 07/08/17 08:03 07/08/17 08:03 General appearance: Present: cooperative, pleasant, no acute distress - Neurological Exam Neurological exam: Present: CN II-XII intact, oriented X3. Absent: pronater drift, facial droop, speech deficit Additional comments: She does have some weakness in her right lower extremity 4 out of 5 compared to her left lower extremity. She also has some atrophic changes and a right lower extremity as previously described. Recent speech is slow with minimal expressive aphasia. Cranial nerves grossly intact. Internal Medicine: Result - Labs CBC & Chem 7: 07/07/17 06:23 07/07/17 06:23 Labs: Cardiac Enzymes 07/07/17 07/07/17 Range/Units 14:58 22:05 Troponin I 0.07 H* 0.04 H* (< 0.04) ng/mL - ABG Interpretation ABG results: PT/INR, D-dimer PT 10.0 Seconds (9.4-12.1) 07/06/17 22:09 - Impressions Impressions Brain MRI 07/07/17 02:29 IMPRESSION: No acute infarct, or significant mass effect. Chronic bilateral lacunar infarcts within bilateral basal ganglia, with hemosiderin staining. No acute hemorrhage was identified on CT examination. D/ / 07/07/2017 14:51:51 Juan Pablo Nj MD / naif Interpreting Provider: Juan Pablo Nj MD Echocardiogram 07/07/17 04:26 Impressions: LVEF 60-65%. Normal LV chamber size, wall thickness and function. Mild left ventricular diastolic dysfunction. Normal right ventricular structure and function. No evidence of a PFO with agitated saline contrast. No evidence of pulmonary hypertension. No significant valvular dysfunction. Left Ventricular Wall Motion: Rest Echo Findings All wall segments showed normal motion. Findings: Study Quality * Technically adequate exam. ECG Findings * Normal sinus rhythm. Left Ventricle * LVEF 60-65%. * Normal LV chamber size, wall thickness and function. * Mild left ventricular diastolic dysfunction. Right Ventricle * Normal right ventricular structure and function. Left Atrium * Mildly dilated left atrium. Right Atrium * Normal right atrial size. Interatrial Septum * No evidence of a PFO with agitated saline contrast. Aortic Valve * Aortic valve not well visualized. * No aortic stenosis. * No aortic regurgitation. Mitral Valve * Normal mitral valve structure and function. * No mitral regurgitation. * No mitral stenosis. Tricuspid Valve * Normal tricuspid valve structure and function. * Trace tricuspid regurgitation. * No evidence of pulmonary hypertension. Pulmonic Valve * Pulmonic valve is not well visualized. * No pulmonic regurgitation. Aorta * Normally sized aortic root. Pericardium * The pericardium appears normal. IVC * Normal IVC dimensions and inspiratory collapse. Pulmonary Artery * Normal visualized portions of the main pulmonary artery. Lumbar Spine MRI 07/07/17 11:09 IMPRESSION: At L5-S1, right subarticular disc extrusion results in displacement and borderline compression of descending S1 nerve root. There is moderate right L5 neural foraminal narrowing. No significant spinal canal stenosis. D/ / Rohan Muniz MD / Rohan Muniz MD Interpreting Provider: Rohan Muniz MD Chest X-Ray 07/07/17 15:02 IMPRESSION: No acute findings. D/ / Olimpia Lundberg MD / Olimpia Lundberg MD Interpreting Provider: Olimpia Lundberg MD Consult Discharge Plan - Plan Referrals: Ayesha Ramírez, LINE ERECTOR [Primary Care Provider] -
[2017-07-08] MEDS: Aspirin Enteric Coated 81 MG Tablet PO SCH (09:26)
[2017-07-08] MEDS: Gabapentin 300 MG CAPSULE PO SCH ×2 (09:26→20:29)
[2017-07-08] MEDS: Insulin LISPRO 300 UNITS/3 ML VIAL SQ SCH ×4 (09:26→20:30)
[2017-07-08] MEDS: hydrOXYzine pamoate 25 MG CAPSULE PO SCH ×3 (09:26→20:29)
--- NOTE | 2017-07-08 16:12 | Cardiothoracic Progress Note ---
Date of Encounter: 07/08/17 Time of Encounter: 16:10 - Assessment and plan (1) CVA (cerebral infarction) Current Visit: Yes Status: Acute The assessment and plan as outlined above was discussed with the patient and/or family members who expressed understanding and agreement. All questions were answered. Qualifiers: Cerebral infarction mechanism: unspecified mechanism Qualified Code(s): I63.9 - Cerebral infarction, unspecified (2) Elevated troponin Current Visit: Yes Status: Acute The assessment and plan as outlined above was discussed with the patient and/or family members who expressed understanding and agreement. All questions were answered. (3) ST segment changes on electrocardiogram Current Visit: Yes Status: Acute The assessment and plan as outlined above was discussed with the patient and/or family members who expressed understanding and agreement. All questions were answered. - Subjective Interval history: The patient was told today that her right lower extremity weakness was secondary to L5-S1 disc compression. Orthopedic consult was made. No plan has been made for further management at this time. Patient denies any chest pain, pressure, tightness. No palpitations. No evidence overnight. Vital Signs, Last 4 Hours Temp Pulse Resp BP Pulse Ox 07/08/17 15:26 98.3 F 61 16 131/61 98 Oxgyen Flow Rate Oxygen Flow Rate (LPM) 2 Weight 07/06/17 07/07/17 07/08/17 23:59 23:59 23:59 Weight 88.9 kg 82.9 kg - Labs 07/07/17 06:23 07/07/17 06:23 Lab Results, Last 24 hours 07/07/17 22:05 Troponin I 0.04 H* Consult Discharge Plan - Plan Referrals: Ayesha Ramírez CNP [Primary Care Provider] -
--- NOTE | 2017-07-08 16:21 | Cardiology Progress Note ---
<Javier Leon - Last Filed: 07/08/17 16:40> Date of Encounter: 07/08/17 Time of Encounter: 16:14 Assessment and Plan (1) Elevated troponin Current Visit: Yes Status: Acute It was reported that systolic blood pressure was in the 190s on arrival to the emergency department. Electrocardiogram does reveal worsening septal and lateral T-wave inversions that are new from 09/10/2016. Initial troponin of 0.06. Repeat troponin was 0.07, 0.07, and 0.04 respectively. Chest x-ray reveals no acute findings. Due to patient's previous coronary artery bypass graft and coronary history, which cannot rule out NSTEMI and she is an elderly diabetic female who may present atypically or without symptoms at all. Echocardiogram reveals left ventricular ejection fraction 60-65%. No wall motion abnormalities. Considering heart catheterization tomorrow. Was discussed with patient at bedside. Will speak with daughter on phone as well. 81 mg aspirin daily 75 mg plavix daily Continue Atorvastatin 40 mg qd Lisinopril 20mg qd Metoprolol 25mg BID Place patient on heparin via acs protocol Awaiting results from echocardiogram (2) ST segment changes on electrocardiogram Current Visit: Yes Status: Acute See above Discussion w patient/family: The assessment and plan as outlined above was discussed with the patient and/or family members who expressed understanding and agreement. All questions were answered. Thank you for involving us in the care of your patient. Please call with any questions. Subjective Principal diagnosis: R leg weakness Interval history: The patient was told today that her right lower extremity weakness was secondary to L5-S1 disc compression. Orthopedic consult was made. No plan has been made for further management at this time. Patient denies any chest pain, pressure, tightness. No palpitations. No evidence overnight. Objective Vital Signs, Last 4 Hours Temp Pulse Resp BP Pulse Ox 07/08/17 15:26 98.3 F 61 16 131/61 98 General: Conversant, No Apparent Distress HEENT: Atraumatic, Normocephaly, Mucus Membranes Moist Neck: No JVD Cardiac: Reg Rate and Rhythm, Normal S1 and S2, No Murmur Lungs: Normal Breath Sounds, No Wheeze, Rales, Rhonchi Neuro: Alert and responsive, No focal deficits noted Abdomen: Soft, Non-Tender Skin: No rashes noted on visualized skin Musculoskeletal: No Chest Wall Tenderness Extremities: No Edema Results 07/07/17 06:23 07/07/17 06:23 Lab Results 07/07/17 22:05 Troponin I 0.04 H* Consult Discharge Plan - Plan Referrals: Ayesha Ramírez, SHOOTING GALLERY OPERATOR [Primary Care Provider] - <Luis Gamboa - Last Filed: 07/09/17 14:49> Date of Encounter: 07/08/17 Time of Encounter: 17:20 Assessment and Plan Discussion w patient/family: The assessment and plan as outlined above was discussed with the patient and/or family members who expressed understanding and agreement. All questions were answered. Thank you for involving us in the care of your patient. Please call with any questions. Objective Vital Signs, Last 4 Hours Temp Pulse Resp BP Pulse Ox 07/09/17 12:46 98.1 F 76 14 143/65 96 Results 07/09/17 08:34 07/09/17 08:34 Lab Results 07/09/17 07/09/17 07/09/17 05:58 08:34 08:34 WBC 7.3 Hgb 11.7 Hct 34.8 L Plt Count 223 Sodium 141 Potassium 4.6 Chloride 110 H Carbon Dioxide 26 BUN 23 Creatinine 1.04 Glucose 183 H Calcium 9.1 TSH 1.978 - Attending Attestation I examined this patient and my medical decision-making was reviewed with the Resident Physician. I agree with the documented findings, disposition and treatment plan as described except to the extent set forth below. CC: right lower ext weakness, slurred speech Pt reports speech is less slurred speech, right leg has improved, She denies chest pain, pressure or shortness of breath. Pt is not clearly recalling past medical history, discussed with daughter at bedside, who relates patient has been complaining of chest pain with exertion, relieved with rest for several weeks. Pt is unable to recall if these were symptoms experienced before bypass surgery. PE: agree with findings above. IMP: 1. Elevated troponin: remains adynamic, not a candidate for emergent LHC, however with elevated troponin and EKG changes, recommend LHC, discussed with pt and daughter, agree to proceed with LHC/poss in am. 2. Ekg changes: lateral T wave inversions have improved, on optimal medical tx 3. Slurred speech: has resolved 4. Right lower extremity weakness: evaluated by neurology, feels pt has l5-S1 disc disease, recommend medical mangement for now.
[2017-07-09] MEDS: *HR* Heparin 5,000 UNIT/ML VIAL SQ SCH ×2 (05:36→19:16)
[2017-07-09 06:46] LABS: Chol/HDL Ratio 6.3 (0-4.9)
[2017-07-09 06:47] LABS: Thyroid Stimulating Hormone 1.978 mcIU/mL (0.340-5.600)
--- NOTE | 2017-07-09 07:55 | Electrocardiograph Report ---
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
--- NOTE | 2017-07-09 07:56 | Electrocardiograph Report ---
[address] [place], [place] [address] Test Date: 2017-07-07 Pat Name: Ashley Nunez Department: 103 Room: [facility] Gender: F Statement Processor: : 1950 Requested By: Semaj Kearney Order Number: [id number] Reading MD: Ronald Morris MD Measurements Intervals Transfer Rate: 76 P: 15 UT: 165 QRS: 34 QRSD: 108 T: 169 QT: 394 QTc: 424 Interpretive Statements SINUS RHYTHM ANTEROLATERAL ISCHEMIA Electronically Signed On 07-09-2017 7:06:04 EST by Ronald Morris MD
[2017-07-09] MEDS: Insulin LISPRO 300 UNITS/3 ML VIAL SQ SCH ×4 (08:05→20:51)
[2017-07-09] MEDS ORDERED: *HR* Metoprolol 5 MG/5 ML VIAL IVP ONE (08:23)
[2017-07-09] MEDS ORDERED: Amiodarone Premix 150 MG/100 ML BAG IVPB ONE (08:23)
[2017-07-09 08:42] LABS: Basophils # 0.1 K/mcL (0.0-0.2); Basophils % 0.7 %; Eosinophils # 0.4 K/mcL (0.0-0.6); Eosinophils % 4.8 %; Hematocrit 34.8 % (35.3-44.9); Hemoglobin 11.7 g/dL (11.5-15.4); Immature Granulocytes % 0.3 % (0-4); Lymphocytes # 3.1 K/mcL (0.6-4.6); Lymphocytes % 43.1 %; Mean Corpuscular HGB Conc 33.6 g/dL (31.6-35.5); Mean Corpuscular Volume 92.1 fL (83.0-100.0); Mean Platelet Volume 10.5 fL (9.4-12.4); Monocytes # 0.5 K/mcL (0.0-1.3); Monocytes % 7.4 %; Neutrophils # 3.2 K/mcL (1.6-8.9); Platelet Count 223 K/mcL (140-400); Red Blood Count 3.78 M/mcL (3.82-4.97); Red Cell Distribution Width 11.4 % (11.5-14.5); Segmented Neutrophils % 43.7 %
[2017-07-09 08:59] LABS: BUN/Creatinine Ratio 22 (6-26); Blood Urea Nitrogen 23 mg/dL (8-23); Calcium 9.1 mg/dL (8.6-10.3); Carbon Dioxide 26 mEq/L (23-29); Chloride 110 mEq/L (98-107); Glucose 183 mg/dL (70-105); Osmolality,Calculated 300 (280-300); Potassium 4.6 mEq/L (3.5-5.1); Sodium 141 mEq/L (136-145); eGFR For African Americans > 60 (> 60); eGFR For Non-African Americans 53 (> 60)
[2017-07-09] MEDS: hydrOXYzine pamoate 25 MG CAPSULE PO SCH ×3 (09:41→20:52)
[2017-07-09] MEDS: Aspirin Enteric Coated 81 MG Tablet PO SCH (09:41)
[2017-07-09] MEDS: Gabapentin 300 MG CAPSULE PO SCH ×2 (09:42→20:53)
--- NOTE | 2017-07-09 12:17 | Pre-Sedation Evaluation ---
Pre-sedation evaluation - Pre-sedation checklist Date of procedure: 07/09/17 Procedure: [facility] Recent Vitals: Last Vital Signs Temp 97.9 F 07/09/17 05:03 Pulse 60 07/09/17 05:03 Resp 14 07/09/17 05:03 BP 145/62 07/09/17 05:03 Pulse Ox 97 07/09/17 08:10 H&P (including ROS) documented in medical record: Yes Previous reaction to sedatives/anesthetics: No Dietary Status: NPO after Midnight Airway Assessment: Patient can open mouth completely, TMJ function normal ASA Classification *see protocol: CLASS II-Mild systemic disease Plan of Care: Pt appropriate candidate for procedure/moderate/conscious sedation , Risks/benefits of procedure/sedation discussed w/ patient/family
--- NOTE | 2017-07-09 14:37 | Internal Med Progress Note ---
Date of Encounter: 07/09/17 Time of Encounter: 11:00 - Assessment and plan (1) CVA (cerebral vascular accident) Current Visit: Yes Status: Acute Assessment and plan: MRI and argues against a new CVA. 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 Cardiogram was essentially normal study with an EF was 60-65%She remains on aspirin, Plavix as well as statin. I will repeat a lipid panel to ensure LDL is within goal. Blood pressure remains fairly stable. Qualifiers: Qualified Code(s): I63.9 - Cerebral infarction, unspecified (2) Elevated troponin Current Visit: Yes Status: Acute Assessment and plan: As per cardiology. 07/09: Left heart catheterization today. (3) Hyperglycemia Current Visit: Yes Status: Acute Assessment and plan: Blood sugar control improving. Monitor. Continue sliding scale insulin (4) Radiculopathy Current Visit: Yes Status: Acute Assessment and plan: Consult spine surgery for opinion. Consider steroids. Physical therapy, occupational therapy. 07/09: Conservative management as discussed above. Qualifiers: Qualified Code(s): M54.17 - Radiculopathy, lumbosacral region (5) Right thigh pain Current Visit: Yes Status: Acute Assessment and plan: Appears to have resolved. Possibly related to radiculopathy (6) Hypertension Current Visit: Yes Status: Chronic Assessment and plan: Mildly elevated blood pressure. Management as per cardiology. Qualifiers: Qualified Code(s): I10 - Essential (primary) hypertension (7) CAD (coronary artery disease) Current Visit: No Status: Chronic Assessment and plan: Mildly elevated troponin. May be due to demand ischemia. Cardiology following. Await their further recommendations. 07/09: [facility] today Qualifiers: Qualified Code(s): I25.10 - Atherosclerotic heart disease of [place] coronary artery without angina pectoris - Time Spent With Patient Chest case with the patient and daughter at bedside. 25 - 35 minutes - Subjective Interval history: Patient states she feels weak all over. Her pain in her right leg has improved significantly but states she still has trouble walking on it. She states her speech is improved. She denies any chest pain or shortness breath. No nausea, vomiting, diarrhea. No fevers or chills. Neurology input appreciated. Not convincing patient had a stroke and there is concern for lumbar radiculopathy leading to her right lower extremity pain and weakness. 07/09: Right leg pain is improved. Strength is improved in the right leg as well. Right leg weakness felt to be due to DJD with some impingement, recommendation is for physical therapy, conservative measures for now and evaluate progress. Consideration for surgical intervention if worsens or does not improve. - Constitutional Vitals: Temp Pulse Resp BP Pulse Ox 98.1 F 76 14 143/65 96 07/09/17 12:46 07/09/17 12:46 07/09/17 12:46 07/09/17 12:46 07/09/17 12:46 General appearance: Present: cooperative, pleasant, no acute distress - Extremities Exam Extremities exam: Present: warm, radial pulses palpable and symmetrical. Absent : calf tenderness, cyanotic, pedal edema - Neurological Exam Neurological exam: Present: CN II-XII intact, oriented X3, no focal deficits ( Right lower extremity strength is 5 out of 5, only slightly less than the left lower extremity. She is much more clear. No other focal deficits.). Absent: pronater drift, facial droop, speech deficit Internal Medicine: Result - Labs CBC & Chem 7: 07/09/17 08:34 07/09/17 08:34 Labs: Short CBC 07/09/17 Range/Units 08:34 WBC 7.3 (4.3-11.1) K/mcL Hgb 11.7 (11.5-15.4) g/dL Hct 34.8 L (35.3-44.9) % Plt Count 223 (140-400) K/mcL Neutrophils # 3.2 (1.6-8.9) K/mcL BMP 07/09/17 08:34 Sodium 141 Potassium 4.6 Chloride 110 H Carbon Dioxide 26 BUN 23 Creatinine 1.04 Glucose 183 H Calcium 9.1 - ABG Interpretation ABG results: PT/INR, D-dimer PT 10.0 Seconds (9.4-12.1) 07/06/17 22:09 Consult Discharge Plan - Plan Referrals: Ayesha Ramírez, GERHARD [Primary Care Provider] -
--- NOTE | 2017-07-09 16:08 | Cardiology Progress Note ---
<Javier Leon - Last Filed: 07/09/17 16:17> Date of Encounter: 07/09/17 Time of Encounter: 16:03 Assessment and Plan (1) Elevated troponin Current Visit: Yes Status: Acute Troponin was mildly elevated at 0.0; 0.07, 0.04. Electrocardiogram had new T- wave inversions, chest pain was reported by daughter. Due to history of CAD with stenting, coronary artery bypass grafting, hyperlipidemia, htn, type 2 DM, we cannot rule out NSTEMI as she is an elderly diabetic female who may present atypically or without symptoms at all. Echocardiogram reveals left ventricular ejection fraction 60-65%. No wall motion abnormalities. Heart catheterization will be performed today or tomorrow. I have discussed this with daughter and I discussed risks of bleeding, infection, and further requirements for other procedures. 81 mg aspirin daily 75 mg plavix daily Continue Atorvastatin 40 mg qd Lisinopril 20mg qd Metoprolol 25mg BID Awaiting results from echocardiogram (2) ST segment changes on electrocardiogram Current Visit: Yes Status: Acute See above Discussion w patient/family: The assessment and plan as outlined above was discussed with the patient and/or family members who expressed understanding and agreement. All questions were answered. Thank you for involving us in the care of your patient. Please call with any questions. Subjective Principal diagnosis: R leg weakness Interval history: Patient states that orthopedics will begin physical therapy for initial improvement prior to any consideration of surgery. Patient denies any chest pain, pressure, tightness. No palpitations. Daughter was present this morning and stated that patient did have an episode of chest pain couple days ago. She reports that the patient has memory loss and that she has a history of coronary artery bypass grafting as well as percutaneous stenting has been performed in [place]. Daughter is very concerned that something may be going on with the patient's heart and she has had episodes of chest pain recently. Objective Vital Signs, Last 4 Hours Temp Pulse Resp BP Pulse Ox 07/09/17 15:53 98.1 F 60 12 159/79 94 07/09/17 12:46 98.1 F 76 14 143/65 96 General: Conversant, No Apparent Distress HEENT: Atraumatic, Normocephaly Neck: No JVD Cardiac: Reg Rate and Rhythm Lungs: Normal Breath Sounds, No Wheeze, Rales, Rhonchi Neuro: Alert and responsive, No focal deficits noted Abdomen: Soft, Non-Tender Skin: No rashes noted on visualized skin Musculoskeletal: No Chest Wall Tenderness Extremities: No Edema Results 07/09/17 08:34 07/09/17 08:34 Lab Results 07/09/17 07/09/17 07/09/17 05:58 08:34 08:34 WBC 7.3 Hgb 11.7 Hct 34.8 L Plt Count 223 Sodium 141 Potassium 4.6 Chloride 110 H Carbon Dioxide 26 BUN 23 Creatinine 1.04 Glucose 183 H Calcium 9.1 TSH 1.978 Consult Discharge Plan - Plan Referrals: Ayesha Ramírez, ACLS SPECIALIST [Primary Care Provider] - <Luis Gamboa - Last Filed: 07/10/17 18:11> Date of Encounter: 07/09/17 Assessment and Plan Discussion w patient/family: The assessment and plan as outlined above was discussed with the patient and/or family members who expressed understanding and agreement. All questions were answered. Thank you for involving us in the care of your patient. Please call with any questions. Objective Vital Signs, Last 4 Hours Temp Pulse Resp BP Pulse Ox 07/10/17 16:10 100 07/10/17 14:51 97.9 F 70 15 150/63 100 07/10/17 14:30 98.0 F 64 15 151/69 100 07/10/17 14:16 97.9 F 67 15 137/63 100 Results 07/09/17 08:34 07/09/17 08:34 - Attending Attestation I examined this patient and my medical decision-making was reviewed with the Resident Physician. I agree with the documented findings, disposition and treatment plan as described except to the extent set forth below CC: chest pain Pt reports chest pain, shortness of breath has resolved. IMP: 1. Elevated troponin, with new T wave inversions, consistent with acute coronary syndrome, discussed options, medical tx versus invasive strategy, recommendations for diagnostic LHC with revascularization if indicated. Pt and family elect to proceed, will schedule left heart cath later today.
[2017-07-10] MEDS: *HR* Heparin 5,000 UNIT/ML VIAL SQ SCH ×2 (06:04→18:15)
[2017-07-10] MEDS ORDERED: *HR* Heparin 10,000 UNIT/10 ML VIAL ONE (07:43)
[2017-07-10] MEDS ORDERED: 0.9 % Sodium Chloride 1,000 ML ONE (07:43)
[2017-07-10] MEDS ORDERED: Heparin 1,000 UNITS/500 mL 500 ML ONE (07:43)
[2017-07-10] MEDS ORDERED: Nitroglycerin 1,000 MCG/10 ML VIAL IV ONE (07:49)
[2017-07-10] MEDS ORDERED: Verapamil 5 MG/2 ML VIAL ONE (07:49)
[2017-07-10] MEDS ORDERED: *HR* FentaNYL (PF) 100 MCG/2 ML VIAL ONE (08:06)
[2017-07-10] MEDS ORDERED: *HR* Midazolam HCl 2 MG/2 ML VIAL ONE ×2 (08:06→08:22)
[2017-07-10] MEDS ORDERED: Tirofiban 5 MG/100 mL 5 MG/100 ML VIAL IV ONE (08:51)
[2017-07-10] MEDS: Insulin LISPRO 300 UNITS/3 ML VIAL SQ SCH ×4 (08:53→21:01)
[2017-07-10] MEDS ORDERED: *HR* Ticagrelor 90 MG TABLET ONE ×2 (09:39)
[2017-07-10] MEDS ORDERED: Tirofiban 12.5 MG/250ML 12.5 MG/250 ML BAG IVC SCH (10:15)
[2017-07-10] MEDS: Gabapentin 300 MG CAPSULE PO SCH ×2 (12:13→21:00)
--- NOTE | 2017-07-10 14:00 | Invasive Diagnostic Lab Proc ---
Name: Ashley Nunez Date of Study: 07/10/2017 Date: 1950 Ht: 66.1in Medical Record#: [id number] Age: 67 Wt: 196.21lb Gender: Female BSA: 1.99 Order #: [id number] BMI: 31.53 Physicians Procedure Physician: Ronald Morris MD, [facility] Referring MD: Referring MD: Staff Name Position Time In Sugar Tao RT (R) Monitor 08:13 AM DinhGary RT (R) Scrub 08:13 AM Susie Murguia RN Fruit Receiver 08:13 AM Swetha Keane RN Fruit Receiver 08:23 AM Indications Indication Non-Stemi Procedures Performed Procedure L HRT ART/GRFT ANGIO INJECT SUPRVLVAORTAGRAM PRQ CARD BILL STENT W/ANGIO 1 VSL PRQ CARD BILL STENT W/ANGIO 1 VSL PRQ CARD STENT W/ANGIO ADDL Pre-Procedure Checklist Informed consent is complete signed and on chart. H&P is on chart. ID band is on and ID verified with patient. Patient NPO for procedure The procedure was described for the patient and questions were answered. ECG is on chart. Plan of Care Patient will tolerate the procedure without complications. Adequate level of comfort will be maintained. Hemodynamics will remain stable Patient will recover from procedure without complications. Respiratory function will be maintained. Cardiac rhythm will remain stable. Patient temperature will be maintained. Patient and/or family have verbalized understanding of the procedure. Patient Education Chief Complaint/Reason for Test: Cardiac Cath Developmental Category: Geriatric (65+ years) Developmentally Appropriate for Age: Yes Learning Barriers: None Education Needs: Procedure Education Method: Verbal Information Taught: Cardiac Cath Educational Evaluation: Able to repeat information Intravenous Access Time IV Size Location DC'd Fluid/Drip Rate Units RN 08:12 AM 18g 1 1/" Patent On Arrival Rt Arm 0.9NaCl 25 ml/hr Susie Murguia RN Allergies PCN (penicillin) Penicillins lactose Vital Signs Time BP (mmHg) HR (bpm) O2 Sat. RR (bpm) LOC 08:13 AM / % 5 = Fully awake and oriented or at pre-proc level 08:13 AM / % 4 = Oriented but drowsy 08:29 AM / % 4 = Oriented but drowsy 08:44 AM / % 4 = Oriented but drowsy 08:59 AM / % 4 = Oriented but drowsy 09:14 AM / % 4 = Oriented but drowsy 09:29 AM / % 4 = Oriented but drowsy 08:19 AM 191 / 72 56 100 % 19 08:22 AM 194 / 71 56 100 % 18 08:27 AM 142 / 72 65 80 % 5 08:32 AM 126 / 82 65 96 % 25 08:39 AM 155 / 59 65 97 % 9 08:42 AM 132 / 59 61 98 % 9 08:47 AM 125 / 66 63 98 % 8 08:52 AM 131 / 61 62 99 % 10 08:57 AM 117 / 56 62 99 % 16 09:02 AM 119 / 63 61 100 % 12 08:13 AM 193 / 85 65 99 % 12 08:17 AM 203 / 73 56 100 % 13 09:08 AM 141 / 60 63 100 % 11 09:12 AM 147 / 67 67 100 % 16 09:17 AM 157 / 74 63 100 % 12 09:22 AM 168 / 71 62 100 % 9 09:27 AM 172 / 69 66 100 % 11 09:33 AM 178 / 72 63 100 % 7 09:38 AM 167 / 68 61 100 % 10 09:43 AM 178 / 66 62 100 % 8 09:55 AM 172 / 77 62 97 % 16 5 = Fully awake and oriented or at pre-proc level 10:15 AM 153 / 70 57 98 % 16 5 = Fully awake and oriented or at pre-proc level 10:30 AM 139 / 56 67 96 % 16 5 = Fully awake and oriented or at pre-proc level 10:45 AM 158 / 60 62 100 % 16 5 = Fully awake and oriented or at pre-proc level 11:47 AM 129 / 55 57 100 % 26 5 = Fully awake and oriented or at pre-proc level 12:00 PM 133 / 55 56 100 % 14 5 = Fully awake and oriented or at pre-proc level 12:15 PM 198 / 86 64 99 % 16 5 = Fully awake and oriented or at pre-proc level 11:30 AM 121 / 53 60 99 % 18 5 = Fully awake and oriented or at pre-proc level 12:30 PM 159 / 77 62 99 % 20 5 = Fully awake and oriented or at pre-proc level 12:45 PM 160 / 68 60 99 % 18 5 = Fully awake and oriented or at pre-proc level 01:00 PM 178 / 84 71 100 % 18 5 = Fully awake and oriented or at pre-proc level 01:15 PM 171 / 77 62 100 % 18 5 = Fully awake and oriented or at pre-proc level 01:30 PM 158 / 69 74 100 % 18 5 = Fully awake and oriented or at pre-proc level 01:45 PM 148 / 68 66 100 % 18 5 = Fully awake and oriented or at pre-proc level Procedural Medications Time Medication Dose Units Method Given By 08:13 AM Oxygen 2 L/min nasal cannula Susie Murguia RN 08:16 AM Versed 2 mg Intravenous BladeSusie RN 08:16 AM Fentanyl 50 mcg Intravenous Anchor PointSusie dior RN 08:22 AM Lidocaine 2% 1 ml Subcutaneous Ronald Morris MD, [facility] 08:23 AM Versed 1 mg Intravenous SoummersSwetha RN 08:23 AM Fentanyl 25 mcg Intravenous NahomimmSwetha brizuela RN 08:26 AM Oxygen 4 L/min nasal cannula Susie Murguia RN 08:28 AM Oxygen 10 L/min Oxy Mask BladeSusie dior RN 08:34 AM Oxygen 8 L/min Oxy Mask BladeSusie dior RN 08:51 AM Heparin 4000 units Intravenous Anchor PointSusie dior RN 08:57 AM Aggrastat Bolus: 46 ml Intravenous BladeSusie dior RN 08:57 AM Aggrastat 5mg/100ml 16.5 ml Intravenous Anchor PointSusie dior RN 09:06 AM Oxygen 6 L/min Oxy Mask Susie Murguia RN 09:08 AM Nitroglycerin 100 mcg Intracoronary Ronald Morris MD 09:14 AM Heparin 1000 units Intravenous BladeSusie dior RN 09:40 AM Brilinta 180 mg Orally Susie Murguia RN ASA Classification: CLASS II- Mild systemic disease (i.e. well-controlled diabetes, hypertension, asthma, cigarette smoking) Arsenio Score Preprocedure Postprocedure Activity 2- Moves 4 extremities sustained head lift Activity 2- Moves 4 extremities sustained head lift Circulation 2- SBP +/= 20 points of pre-anesthetic level Circulation 2- SBP +/= 20 points of pre-anesthetic level Consciousness 2- Awake and alert oriented x 3 Consciousness 2- Awake and alert oriented x 3 O2 Saturation 2- Able to maintain O2 satruation of 92% on room air O2 Saturation 2- Able to maintain O2 satruation of 92% on room air Respiratory 2- Able to deep breathe and cough well Respiratory 2- Able to deep breathe and cough well Total Score 10 Total Score 10 Contrast Agent: Isovue Diagnostic Contrast: 215 ml Total Contrast: 215 ml Fluoro Dose: 1876 mGy Activated Clotting Time Time Seconds to Clot 09:14 AM 272 09:49 AM 307 12:06 PM 194 Procedure Log Time Note Enter By 08:12 AM CathStat 08:12 AM Vitals capture started with the following parameters, Patient=Adult, Interval=5 min, Initial Xzhvqcge=800 mmHg, Deflation Rate=5 mmHg, Cuff placed on Right Arm 08:12 AM Recorded ECG: HR=59 Condition=Condition 1 08:13 AM Pt arrived to senior cytogenetics laboratory director 2 at 08:12 twilson 08:13 AM Patient charges- Angio tray pack, Navilyst 3mm J, Pulse Oximetry and ACIST tubing and transducer twilson 08:13 AM IV Supplies used: J loop Angio Cath. twilson 08:13 AM Case Delayed no twilson 08:13 AM Physician arrived 08:13 twilson 08:13 AM Meet and greet completed twilson 08:13 AM Sign in performed according to hospital policy. twilson 08:13 AM Procedure start 08:13 twilson 08:13 AM ASA Class CLASS II- Mild systemic disease (i.e. well-controlled diabetes, hypertension, asthma, cigarette smoking) twilson 08:13 AM Sugar Tao RT (R) Position: Monitor Time in: :13 twilson 08:13 AM Gary Tao RT (R) Position: Scrub Time in: 08:13 twilson 08:13 AM HR=65 bpm, PVHV=649/85 mmhg, SpO2=99.0 %, Resp=12 B/min 08:13 AM Susie Murguia RN Position: Fruit Receiver Time in: : twilson 08:13 AM Time: 08:13 Oxygen on at 2 L/min per nasal cannula by Susie Murguia RN twilson 08:13 AM Time: 08:13 Patient comfortable and pain free: Yes ilson : AM Time: 08:13LOC: 5 = Fully awake and oriented or at pre-proc level twilson 08:16 AM Hair removed from procedure site in procedure lab using clippers. Bilateral groin prepped with Chloraprep by Sugar Tao RT (R), safety strap applied then patient was draped. Skin intact. twilson 08:16 AM Time: 08:16 Versed 2 mg Intravenous Given by Susie Murguia RN twjossy 08:16 AM Time: 08:16 Fentanyl 50 mcg Intravenous Given by Susie Murguia RN twilson 08:17 AM HR=56 bpm, CLDX=643/73 mmhg, IwF3=369.0 %, Resp=13 B/min 08:18 AM NIBP STAT measurement started. 08:19 AM HR=56 bpm, KWUF=932/72 mmhg, BkD6=592.0 %, Resp=19 B/min 08:20 AM Pressure channel 1 zeroed. 08:22 AM Time out performed according to hospital policy twilson 08:22 AM HR=56 bpm, ERTZ=565/71 mmhg, OkZ4=828.0 %, Resp=18 B/min 08:23 AM Time: 08:22 1 ml Lidocaine 2% to right groin Subcutaneous Given by Ronald Morris MD, [facility] [email or web address] 08:23 AM Time: 08:23 Versed 1 mg Intravenous Given by Swetha Keane RN [email or web address] 08:23 AM Time: 08:23 Fentanyl 25 mcg Intravenous Given by Swetha Keane RN twilson 08:23 AM Swetha Keane RN Position: Fruit Receiver Time in: 08:23 twilson 08:25 AM Access obtained by percutaneous puncture. 5Fr 10cm Terumo Blair sheath placed in right Femoral artery. [id number] twilson 08:25 AM 5Fr FR 4 catheter inserted over the wire [facility] twjossy 08:26 AM Time: 08:26 Oxygen on at 4 L/min per nasal cannula by Susie Murguia RN twilson 08:27 AM HR=65 bpm, NWYF=976/72 mmhg, SpO2=80.0 %, Resp=5 B/min 08:28 AM Time: 08:28 Oxygen on at 10 L/min per Oxy Mask by Susie Murguia RN twilson 08:29 AM Time: 08:13LOC: 4 = Oriented but drowsy twilson 08:31 AM Wire removed, intact. twilson 08:31 AM 0.035 150cm VSI Aron-Torque wire [id number] twilson 08:31 AM Catheter removed, intact. twilson 08:31 AM 5Fr IM catheter inserted over the wire [id number] twilson 08:32 AM HR=65 bpm, MUDC=180/82 mmhg, SpO2=96.0 %, Resp=25 B/min 08:32 AM Time: 08:13 Patient comfortable and pain free: Yes twilson 08:33 AM SVG to the LAD angio performed in multiple views. twilson 08:34 AM Recorded Pressure: Ao, HR=64, Condition=Condition 1 (Aorta) Ao 165/91/123 08:34 AM Time: 08:34 Oxygen on at 8 L/min per Oxy Mask by Susie Murguia RN twilson 08:34 AM Wire reinserted and catheter removed, intact. twilson 08:35 AM 5Fr FL 4 catheter inserted over the wire DNC twilson 08:35 AM Wire removed, intact. twilson 08:36 AM LCA angiography performed in multiple views. twilson 08:36 AM Recorded Pressure: Ao, HR=63, Condition=Condition 1 (Aorta) Ao 121/56/82 08:36 AM Recorded Pressure: Ao, HR=65, Condition=Condition 1 (Aorta) Ao 141/73/99 08:37 AM Lesion found in 1st Marginal. Pre Stenosis: 90 Pre HEBERT Flow: twilson 08:37 AM Lesion found in Proximal Circumflex. Pre Stenosis: 90 Pre HEBERT Flow: twilson 08:37 AM Circumflex, Obtuse Marginal, Left Posterior Descending, and Left Posterolateral Coronary Arteries with 90 % stenosis. If graft is supplying this area, 0 % stenosis twilson 08:38 AM Wire reinserted and catheter removed, intact. twilson 08:38 AM 5Fr AR1 catheter inserted over the wire [id number] twilson 08:39 AM HR=65 bpm, HDBM=348/59 mmhg, SpO2=97.0 %, Resp=9 B/min 08:40 AM RCA angiography performed in multiple views. twilson 08:40 AM Recorded Pressure: Ao, HR=65, Condition=Condition 1 (Aorta) Ao 106/67/86 08:40 AM Wire reinserted. twilson 08:40 AM Coronary Dominance: right twilson 08:40 AM Lesion found in Proximal RCA. Pre Stenosis: 70 Pre HEBERT Flow: twilson 08:41 AM Lesion found in Mid RCA. Pre Stenosis: 90 Pre HEBERT Flow: twilson 08:41 AM Right Coronary, Right Posterior Descending Arteries with Right Posterolateral and Acute Marginal branches with 90 % stenosis. If graft is supplying this area, 0 % stenosis twilson 08:42 AM HR=61 bpm, DNUG=500/59 mmhg, SpO2=98.0 %, Resp=9 B/min 08:44 AM Time: 08:29LOC: 4 = Oriented but drowsy twilson 08:45 AM Recorded Pressure: LV, HR=64, Condition=Condition 1 (Left Ventricle) LV 143/19/27 08:45 AM Recorded Pressure: LV, Ao, HR=63, Condition=Condition 1 (Left Ventricle) LV 147/20/25, (Aorta) Ao 132/54/89 08:46 AM Recorded Pressure: Ao, HR=65, Condition=Condition 1 (Aorta) Ao 145/68/98 08:47 AM Wire reinserted and catheter removed. twilson 08:47 AM 5Fr Pigtail catheter inserted over the wire DN twilson 08:47 AM Catheter selectively placed in left ventricle twilson 08:47 AM Bolus angiogram of left Ventricle complete: 10 ml/sec for a total of 20 mls twilson 08:47 AM HR=63 bpm, VAUF=504/66 mmhg, SpO2=98.0 %, Resp=8 B/min 08:47 AM Time: 08:32 Patient comfortable and pain free: Yes twilson 08:48 AM Bolus angiogram of Aortic root complete: 10 ml/sec for a total of 20 mls twilson 08:48 AM Wire reinserted, wire and catheter removed. twilson 08:50 AM Sheath exchanged for a 6 Fr 11 cm Terumo Blair sheath [id number] twilson 08:50 AM Inflation device was opened. twilson 08:50 AM PCI Indication: PCI for high risk Non-STEMI or unstable angina twilson 08:50 AM 6Fr 3DRC Arco Bright-Tip guide catheter was used to cannulate the PCI vessel successfully. reused? No twilson 08:51 AM Time: 08:51 Heparin 4000 units Intravenous Given by Susie Murguia RN twilson 08:52 AM HR=62 bpm, XAIY=571/61 mmhg, SpO2=99.0 %, Resp=10 B/min 08:53 AM Wire reinserted and catheter removed. twilson 08:53 AM 6Fr 3DRC SH Arco Bright-Tip guide catheter was used to cannulate the PCI vessel successfully. reused? No twilson 08:54 AM .014 [place] 190cm guide wire across target lesion- successful. reused? No twilson 08:54 AM Bed management called for 2N bed. twilson 08:54 AM 2.0 mm x 15 mm Emerge Monorail balloon across target lesion- successful. reused? No twilson 08:55 AM Balloon inflated @ 14 pema for 23 seconds twilson 08:56 AM Balloon inflated @ 14 pema for 20 seconds twilson 08:57 AM Balloon inflated @ 14 pema for 15 seconds twilson 08:57 AM HR=62 bpm, ZBLT=263/56 mmhg, SpO2=99.0 %, Resp=16 B/min 08:57 AM Time: 08:57 Aggrastat Bolus: 46 ml Intravenous Given by Susie Murguia RN Syed pump twilson 08:58 AM Time: 08:57 Aggrastat 5mg/100ml 16.5 ml Intravenous Given by Susie Murguia RN Syed pump twilson 08:58 AM Patient will go to [facility]. twilson 08:59 AM Balloon catheter removed intact. twilson 08:59 AM Time: 08:44LOC: 4 = Oriented but drowsy twilson 08:59 AM 2.25mm x 28mm Synergy drug-eluting stent across target lesion- successful Lot #[id number] twilson 09:01 AM Stent deployed @ 18 pema for 23 seconds twilson 09:02 AM HR=61 bpm, HQWO=031/63 mmhg, BdG5=456.0 %, Resp=12 B/min 09:02 AM 2.5 mm x 15mm NC Trek Rx balloon across target lesion- successful. reused? No twilson 09:03 AM Time: 08:47 Patient comfortable and pain free: Yes twilson 09:03 AM Balloon inflated @ 18 pema for 22 seconds twilson 09:03 AM Balloon inflated @ 18 pema for 15 seconds twilson 09:04 AM Balloon inflated @ 18 pema for 22 seconds twilson 09:06 AM Time: 09:06 Oxygen on at 6 L/min per Oxy Mask by Susie Murguia RN twilson 09:06 AM Balloon catheter removed intact. twilson 09:06 AM 2.75 mm x 15mm NC Trek Rx balloon across target lesion- successful. reused? No twilson 09:07 AM Balloon inflated @ 18 pema for 21 seconds twilson 09:07 AM Balloon inflated @ 18 pema for 12 seconds twilson 09:07 AM Balloon inflated @ 18 pema for 13 seconds twilson 09:08 AM HR=63 bpm, UGMR=315/60 mmhg, XhB3=884.0 %, Resp=11 B/min, Comment=sr 09:08 AM Time: 09:08 Nitroglycerin 100 mcg Intracoronary Given by Ronald Morris MD twilson 09:10 AM Balloon catheter removed intact. twilson 09:11 AM ACT drawn. twilson 09:11 AM 2.75mm x 28mm Synergy drug-eluting stent across target lesion- successful Lot #[id number] twilson 09:12 AM HR=67 bpm, SHIG=366/67 mmhg, FdT8=591.0 %, Resp=16 B/min 09:14 AM Time: 08:59LOC: 4 = Oriented but drowsy twilson 09:14 AM At 09:14 the ACT was 272 seconds. twilson 09:16 AM Time: 09:14 Heparin 1000 units Intravenous Given by Susie Murguia RN twilson 09:17 AM HR=63 bpm, SIXW=484/74 mmhg, TmE0=105.0 %, Resp=12 B/min 09:18 AM Time: 09:03 Patient comfortable and pain free: Yes twilson :19 AM Recorded Pressure: Ao, HR=63, Condition=Condition 1 (Aorta) Ao 175/90/126 09:19 AM Stent deployed @ 16 pema for 22 seconds twilson :22 AM Guidewire removed, intact. twilson 09:22 AM Stent delivery system removed intact. twilson 09:22 AM HR=62 bpm, RHJI=509/71 mmhg, MqX3=774.0 %, Resp=9 B/min 09:23 AM Wire reinserted and catheter removed, intact. twilson 09:24 AM 6Fr EBU 3.5 Medtronic guide catheter was used to cannulate the PCI vessel successfully. reused? No twilson 09:24 AM Wire removed, intact. twilson 09:24 AM Patient will recover in holding room until sheath is pulled and can go back to 2NE23. twilson 09:25 AM [place] guidewire reinserted into OM1. twilson 09:27 AM 2.0x15 emerge balloon reinserted. twilson 09:27 AM HR=66 bpm, GHLW=337/69 mmhg, GbI8=802.0 %, Resp=11 B/min 09:28 AM Balloon inflated @ 14 pema for 22 seconds twilson 09:29 AM Time: 09:14LOC: 4 = Oriented but drowsy twilson 09:29 AM Balloon inflated @ 14 pema for 20 seconds twilson 09:29 AM Balloon catheter removed intact. twilson 09:31 AM 2.5mm x 20mm Synergy drug-eluting stent across target lesion- successful Lot #[id number] twilson 09:32 AM Recorded Pressure: Ao, HR=61, Condition=Condition 1 (Aorta) Ao 174/79/118 09:32 AM Stent deployed @ 12 pema for 23 seconds twilson 09:33 AM HR=63 bpm, YZZX=581/72 mmhg, TdI3=206.0 %, Resp=7 B/min 09:33 AM Stent delivery system removed intact. twilson 09:33 AM Time: 09:18 Patient comfortable and pain free: Yes twilson 09:35 AM 3.0mm x 20mm Synergy drug-eluting stent across target lesion- successful Lot #[id number] twilson 09:35 AM Stent deployed @ 16 pema for 14 seconds twilson 09:35 AM Stent delivery system removed intact. twilson 09:37 AM 3.0 mm x 8mm NC Trek Rx balloon across target lesion- successful. reused? No twilson 09:38 AM HR=61 bpm, MECQ=926/68 mmhg, YcS3=371.0 %, Resp=10 B/min 09:38 AM Balloon inflated @ 14 pema for 10 seconds twilson 09:39 AM Balloon catheter removed intact. twilson 09:39 AM Lesion found in LMCA. Pre Stenosis: 50 Pre HEBERT Flow: twilson 09:39 AM Lesion found in 1st Diagonal. Pre Stenosis: 70 Pre HEBERT Flow: twilson 09:39 AM Left Main Coronary Artery with 50% stenosis twilson 09:39 AM Mid/Distal Left Anterior Descending Coronary Artery and diagonal branches with 70% stenosis. If graft is supplying this area, 0 % stenosis twilson 09:40 AM Time: 09:40 Brilinta 180 mg Orally Given by Susie Murguia RN twilson 09:40 AM Guide wire removed intact. twilson 09:41 AM Wire and catheter removed, intact. twilson 09:41 AM Bolus angiogram of right Femoral complete: 4 ml/sec for a total of 7 mls twilson 09:42 AM ACT drawn. twilson 09:43 AM HR=62 bpm, KWKJ=462/66 mmhg, GlO9=232.0 %, Resp=8 B/min 09:43 AM Procedure completed at 09:43 twilson 09:43 AM Did you address HEBERT flow and Dominance? Yes twilson 09:43 AM Sign out completed: Radiation Dose 1875.97 mGy Fluoro Time: 24.3 Isovue 370 - 200ml contrast 214.7 ml given by Ronald Morris MD, FACC. Complications: NoneCardiac Rehab Consult needed: YesConfirmed administered medications: Yes twilson 09:43 AM Isovue 370 - 500ml,1 Bottle(s) used. twilson 09:44 AM Sheath left in place to be pulled on floor/holding areaV+Pad twilson 09:44 AM Estimated Blood Loss: less than 20cc twilson 09:44 AM Post ECG NSR twilson 09:44 AM Post Blood Pressure 178/66 twilson 09:44 AM Time: 09:29LOC: 4 = Oriented but drowsy twilson 09:44 AM 09:44 Post Pulses Bilateral DP & PT 2+ twilson 09:45 AM 09:44 Post Pulses Bilateral radial 2+ twilson 09:45 AM No family present at this time. twilson 09:46 AM Information taught Cardiac Cath and PCI twilson 09:46 AM Education needs Procedure, Plan of Care, and Responsibilities of Patient in Care twilson 09:46 AM Learning barriers :None twilson 09:46 AM Education Methods Verbal twilson 09:46 AM Education evaluation Able to repeat information twilson 09:46 AM Site status No bleeding/hematoma - Rt Groin as reported by Gary Tao RT (R) at 09:46 twilson 09:46 AM Opsite applied twilson 09:46 AM Plavix, Effient or Brilinta given Yes twilson 09:46 AM Delay to floor No twilson 09:49 AM Time: 09:33 Patient comfortable and pain free: Yes twilson 09:49 AM At 09:49 the ACT was 307 seconds. twilson 09:50 AM Report given to Trenton FRIAS Pt taken to Holding room Room #14. 09:50 twilson 09:50 AM Patient out of room: 09:50 twilson 11:54 AM Preparing to draw an ACT. twilson 12:06 PM At 12:06 the ACT was 194 seconds. twilson 12:[address] morris at bedside mprater 12:48 PM Family at bedside. Dr. Morris in to speak with daughter. 01:17 PM Right femoral artery sheath pulled per this RN. Manual pressure being held with Vpad. 01:40 PM Hemostasis obtained to right femoral artery. Patient educated on post sheath pull. Patient verbalized understanding. :51 PM Complications: None itt:51 PM Opsite applied itt:51 PM Site status No bleeding/hematoma - Rt Groin as reported by Trenton Patterson RN at 13:51 itte :51 PM Report given to MIRTA FRIAS Pt taken to Holding room Room #2NE23. 13:51 itte 01:51 PM Patient out of room: 13:51 kwitt Complications Complication None None Hemodynamics Pressures Site Systolic/A Wave Diastolic/V Wave Mean AO 165 91 123 AO 121 56 82 AO 141 73 99 AO 106 67 86 LV 143 19 27 LV 147 20 25 AO 132 54 89 AO 145 68 98 AO 175 90 126 AO 174 79 118 Post Procedure Information Blood Pressure: 178/66 mmHg Rhythm: NSR Post procedural instructions were given Site Checks Time Location Status Staff Sheath In? Note 09:46 AM Rt Groin No bleeding/hematoma Gary Tao RT (R) 09:55 AM Rt Groin No bleeding/ No Hematoma Trenton Patterson RN Yes 10:15 AM Rt Groin No bleeding/ No Hematoma Trenton Patterson RN Yes 10:30 AM Rt Groin No bleeding/ No Hematoma Trenton Patterson RN Yes 10:45 AM Rt Groin No bleeding/ No Hematoma Trenton Patterson RN Yes 11:46 AM Rt Groin No bleeding/ No Hematoma Dinh, Sugar RT (R) Yes 12:00 PM Rt Groin No bleeding/ No Hematoma Swetha Keane RN Yes 12:15 PM Rt Groin No bleeding/ No Hematoma Dinh, Sugar RT (R) Yes 12:30 PM Rt Groin No bleeding/ No Hematoma Molly Nunes RN Yes 12:45 PM Rt Groin No bleeding/ No Hematoma Trenton Patterson RN Yes 01:00 PM Rt Groin No bleeding/ No Hematoma Trenton Patterson RN Yes 01:15 PM Rt Groin No bleeding/ No Hematoma Trenton Patterson RN 01:30 PM Rt Groin No bleeding/ No Hematoma Trenton Patterson RN 01:45 PM Rt Groin No bleeding/ No Hematoma Trenton Patterson RN 01:51 PM Rt Groin No bleeding/hematoma Trenton Patterson RN Pulses Time Site Pre-Procedure Post-Procedure Note 07/10/2017 8:12:00 AM Bilateral DP & PT 2+ 07/10/2017 8:12:00 AM Bilateral radial 2+ 9:44:00 AM Bilateral DP & PT 2+ 9:44:00 AM Bilateral radial 2+ 07/10/2017 9:55:00 AM Bilateral DP & PT 2+ 07/10/2017 11:46:00 AM Bilateral DP & PT 2+ 07/10/2017 12:00:00 PM Bilateral DP & PT 2+ 07/10/2017 12:15:00 PM Bilateral DP & PT 2+ 07/10/2017 12:30:00 PM Bilateral DP & PT 2+ 07/10/2017 1:00:00 PM Bilateral DP & PT 2+ Updated by Trenton Patterson RN on 07/10/2017 1:52:33 PM Trenton Patterson RN electronically signed on 07/10/2017 1:53:14 PM with status of Final
[2017-07-10] MEDS: hydrOXYzine pamoate 25 MG CAPSULE PO SCH ×3 (15:12→21:00)
[2017-07-10] MEDS: Aspirin Enteric Coated 81 MG Tablet PO SCH (15:22)
--- NOTE | 2017-07-10 16:57 | Internal Med Progress Note ---
Date of Encounter: 07/10/17 Time of Encounter: 15:00 - Assessment and plan (1) CVA (cerebral vascular accident) Current Visit: Yes Status: Acute Assessment and plan: MRI and argues against a new CVA. 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 Cardiogram was essentially normal study with an EF was 60-65%She remains on aspirin, Plavix as well as statin. I will repeat a lipid panel to ensure LDL is within goal. Blood pressure remains fairly stable. 07/10: No acute CVA Qualifiers: CVA mechanism: unspecified Qualified Code(s): I63.9 - Cerebral infarction, unspecified (2) Elevated troponin Current Visit: Yes Status: Acute Assessment and plan: As per cardiology. 07/09: Left heart catheterization today. 07/10: Pt with known CAD, s/p stenting. management as per Cardiology. (3) Hyperglycemia Current Visit: Yes Status: Acute Assessment and plan: Blood sugar control improving. Monitor. Continue sliding scale insulin (4) Radiculopathy Current Visit: Yes Status: Acute Assessment and plan: Consult spine surgery for opinion. Consider steroids. Physical therapy, occupational therapy. 07/09: Conservative management as discussed above. Qualifiers: Spinal region: lumbosacral Qualified Code(s): M54.17 - Radiculopathy, lumbosacral region (5) Right thigh pain Current Visit: Yes Status: Acute Assessment and plan: Appears to have resolved. Possibly related to radiculopathy (6) Hypertension Current Visit: Yes Status: Chronic Assessment and plan: Mildly elevated blood pressure. Management as per cardiology. 07/10: On BB, monitor Qualifiers: Hypertension type: essential hypertension Qualified Code(s): I10 - Essential (primary) hypertension (7) CAD (coronary artery disease) Current Visit: No Status: Chronic Assessment and plan: Mildly elevated troponin. May be due to demand ischemia. Cardiology following. Await their further recommendations. 07/09: [facility] today 07/10: As above Qualifiers: Coronary Disease-Associated Artery/Lesion type: [place] artery [place] vs. transplanted heart: [place] heart Associated angina: without angina Qualified Code(s): I25.10 - Atherosclerotic heart disease of [place] coronary artery without angina pectoris - Subjective Interval history: Patient states she feels weak all over. Her pain in her right leg has improved significantly but states she still has trouble walking on it. She states her speech is improved. She denies any chest pain or shortness breath. No nausea, vomiting, diarrhea. No fevers or chills. Neurology input appreciated. Not convincing patient had a stroke and there is concern for lumbar radiculopathy leading to her right lower extremity pain and weakness. 07/09: Right leg pain is improved. Strength is improved in the right leg as well. Right leg weakness felt to be due to DJD with some impingement, recommendation is for physical therapy, conservative measures for now and evaluate progress. Consideration for surgical intervention if worsens or does not improve. 07/10: Patient is back from her left heart catheterization and had stents placed. She states she is feeling well. She denies any chest pain or shortness of breath. No nausea, vomiting, diarrhea. No fevers or chills. She also states her right leg has much greater strength and she has no pain presently. - Constitutional Vitals: Temp Pulse Resp BP Pulse Ox 97.9 F 70 15 150/63 100 07/10/17 14:51 07/10/17 14:51 07/10/17 14:51 07/10/17 14:51 07/10/17 16:10 General appearance: Present: cooperative, pleasant, no acute distress Internal Medicine: Result - Labs CBC & Chem 7: 07/09/17 08:34 07/09/17 08:34 - ABG Interpretation ABG results: PT/INR, D-dimer PT 10.0 Seconds (9.4-12.1) 07/06/17 22:09 Consult Discharge Plan - Plan Referrals: Ayesha Ramírez BUS DRIVER SUPERVISOR [Primary Care Provider] -
[2017-07-10] MEDS: Acetaminophen 325 MG TABLET PO PRN (18:14)
[2017-07-10] MEDS ORDERED: *HR* Ticagrelor 90 MG TABLET PO SCH (21:00)
[2017-07-11] MEDS: *HR* Heparin 5,000 UNIT/ML VIAL SQ SCH (06:32)
[2017-07-11] MEDS: hydrOXYzine pamoate 25 MG CAPSULE PO SCH (08:10)
[2017-07-11] MEDS: Gabapentin 300 MG CAPSULE PO SCH (08:10)
[2017-07-11] MEDS: Aspirin Enteric Coated 81 MG Tablet PO SCH (08:11)
[2017-07-11] MEDS: Insulin LISPRO 300 UNITS/3 ML VIAL SQ SCH ×2 (08:11→12:12)
--- NOTE | 2017-07-11 08:47 | Discharge Summary ---
Date of Encounter: 07/11/17 Time of Encounter: 09:00 - Discharge Diagnosis (1) CVA (cerebral vascular accident) Priority: Secondary Status: Acute Qualifiers: CVA mechanism: unspecified Qualified Code(s): I63.9 - Cerebral infarction, unspecified (2) Elevated troponin Priority: Secondary Status: Acute (3) Hyperglycemia Priority: Secondary Status: Acute (4) Radiculopathy Priority: Primary Status: Acute Qualifiers: Spinal region: lumbosacral Qualified Code(s): M54.17 - Radiculopathy, lumbosacral region (5) Right thigh pain Priority: Secondary Status: Acute (6) Hypertension Priority: Secondary Status: Chronic Qualifiers: Hypertension type: essential hypertension Qualified Code(s): I10 - Essential (primary) hypertension (7) CAD (coronary artery disease) Priority: Primary Status: Chronic Qualifiers: Coronary Disease-Associated Artery/Lesion type: [place] artery [place] vs. transplanted heart: [place] heart Associated angina: without angina Qualified Code(s): I25.10 - Atherosclerotic heart disease of [place] coronary artery without angina pectoris - Discharge Medications Prescriptions: Atorvastatin [Lipitor] 80 mg PO HS 30 Days #60 tablet Home Medications: Amlodipine Besylate 10 mg PO DAILY #0 02/19/15 [History] Multivitamin [Multi-Day Vitamins] 1 each PO DAILY 02/19/15 [History] metFORMIN [Glucophage] 1,000 mg PO BIDWM 02/19/15 [History] Clopidogrel [Plavix] 75 mg PO DAILY 30 Days tablet 02/21/15 [Rx] Metoprolol [Lopressor] 25 mg PO BID 30 Days tablet 02/21/15 [Rx] Insulin Glargine,Hum.rec.anlog [Lantus Solostar] 32 unit SQ HS 12/29/15 [History ] Aspirin 325 mg PO DAILY 09/10/16 [History] Lisinopril [Zestril] 20 mg PO DAILY 09/10/16 [History] Citalopram [CeleXA] 20 mg PO DAILY 07/03/17 [History] Gabapentin [Neurontin] 300 mg PO HS 07/07/17 [History] [place] Wort 300 mg PO DAILY 07/07/17 [History] Acetaminophen [Tylenol] 650 mg PO Q6HR PRN tablet 07/11/17 [Rx] Atorvastatin [Lipitor] 80 mg PO HS 30 Days #60 tablet 07/11/17 [Rx] Betamethasone Uzma 0.1% Crm [Valisone 0.1%] 1 appl TP BID tube 07/11/17 [Rx] Citalopram [CeleXA] 20 mg PO DAILY tablet 07/11/17 [Rx] Gabapentin [Neurontin] 600 mg PO BID capsule 07/11/17 [Rx] Insulin LISPRO [HumaLOG] 0 units SQ TIDAC vial 07/11/17 [Rx] Allergies/Adverse Reactions: 3 Allergy/AdvReac Type Severity Reaction Status Date / Time Penicillins Allergy Hives Verified 07/03/17 14:43 lactose AdvReac Vomiting Verified 07/03/17 14:43 Procedures/tests Complete & Pending: Procedures Performed prior 72 hours Category Date Time Status Left Heart Cath [CL Cardiac Catheterization] [CL] [employer] 07/09/17 09:19 Ordered Routine ECG 12 lead ECG [ECG] AM 0600 Y 07/11/17 06:00 Ordered ECG 12 lead ECG [ECG] Stat Y 07/10/17 10:02 Ordered EKG [ECG 12 lead ECG] [ECG] Stat Y 07/10/17 17:34 Completed Date of admission: 07/06/17 23:42 Primary care physician: Ayesha Ramírez, Consults: 07/07/17 02:26 Consult to Occupational Therapy [CONS] Routine Comment: Evaluate, develop and implement POC Reason for Consult: cva Consult to Physical Therapy [CONS] Routine Comment: Evaluate, develop and implement POC Reason for Consult: cva 07/07/17 02:29 Consult to Neurology [CONS] Routine Consulting Provider: Neurology [facility] Reason for Consult: CVA Call Completed: No 07/07/17 04:27 Consult to Speech Therapy [CONS] Routine Comment: Evaluate, develop and implement POC Reason for Consult: CVA/TIA Call Completed: No 07/07/17 11:24 Consult to Cardiology [CONS] Routine Comment: Consulting Provider: Cardiology Tamiko Reason for Consult: chest pain, elevated troponin Call Completed: Yes 07/08/17 09:36 Consult to Orthopedic Surgery [CONS] Routine Consulting Provider: Patrick Madrid Jr Reason for Consult: ?L5-S1 RADICULOPATHY Time Notified: 09:40 Call Completed: Yes 07/10/17 10:02 Consult to Cardiac Rehabilitation-Phase1 [CONS] Routine Comment: Reason for Consult: post op PCI Call Completed: Yes Discharging clinician: Patrick Monterroso Anticipated date of discharge: 07/11/17 - Patient Status Disposition: Home, Self-Care Condition: Fair Functional capacity at discharge: independent ambulation Overall status at discharge: patient is back to baseline - Discharge Instructions Follow Up With: Ayesha Ramírez CNP [Primary Care Provider] - Additional Instructions: follow up with cardiology as arranged Interval History: Ms. Nunez is a 67 year old female with a history of hypertension, diabetes mellitus type 2, CAD, multiple CVAs who presented to the ED following which she thought might be a strokelike occurrence earlier this afternoon. The patient was accompanied by her daughter who witnessed the incident, however the daughter had left by the time I was able to see and examine the patient. As told by the patient: She walked down to her basement earlier today at an unknown time, at which time she became confused, noticed that her right leg began to become painful and was "not working". She said that she called for her daughter who, when she responded, noticed that the patient had slurred speech and was experiencing a facial droop on the right. The patient said that at the time that this began she also developed a severe pain in her right thigh , which is 6 out of 10 in severity and constant in duration. Tylenol and she did not suffer any falls, or injuries at this time. In the ED she was evaluated for a stroke but it was determined that it was too late for her to receive TPA. The patient does admit to chronic weakness on the left side of her body due to several strokes in the past, however she has never had any problems on her right. She has bladder incontinence at baseline, and did notneed difference following this experience, however she also did not notice any bowel incontinence. She does not have any weakness, nor she confused or experiencing what she believes to be any focal neurological deficits at this time. She did feel like she may have had some chest pain at the time of this experience which resolved relatively quickly without any intervention. No shortness of breath, nausea, vomiting, syncope, diarrhea or constipation. She has no other acute complaints. Hosp course: Patient stroke workup included an MRI of her brain which showed no evidence of acute CVA. It did show chronic disease however. Urology evaluation did not find evidence of an acute CVA. She had ongoing right leg pain and weakness and ultimately had an MRI of her lumbar spine which showed L5 S1 right disc extrusion causing some mild displacement and compression of the descending S1 nerve root. Dr. Madrid of orthopedic surgery was consulted who recommended conservative management for now, physical therapy, and follow-up if she does not improve. From a neurologic standpoint her right leg and is near completely resolved Patient continued to improve and will follow-up as necessary . She was also noted to have a mildly elevated troponin. Does have a known history of coronary disease with bypass grafting, and was seen by cardiology. Ultimately she had a left heart catheterization with stent placement 3 vessels. She was continued on aspirin, Plavix, beta indira, and statin (lipitor increased from 40 mg to 80 mg po daily) and deemed stable for discharge. She will follow up with cardiology as needed as well as cardiac rehabilitation. Patient otherwise was doing well and deemed stable for discharge. 37 minutes spent on discharge and coordination of care. Other studies performed included an echocardiogram which showed EF of 60-65%, with no significant abnormalities. Also a carotid ultrasound which showed 40-59 % stenosis bilaterally. His recommended that she have a follow-up ultrasound in approximately one year. Lipid panel revealed triglycerides of 242, LDL 90, HDL of 26. TSH 1.978. Hospital course: Ms. Nunez is a 67 year old female - Time Spent with Patient Total time spent providing and/or coordinating discharge services: Greater than 30 minutes (37 min) - Constitutional Vitals: Temp Pulse Resp BP Pulse Ox 98 F 73 16 147/60 96 07/11/17 07:14 07/11/17 07:14 07/11/17 07:14 07/11/17 07:14 07/11/17 07:14 General appearance: Present: cooperative, pleasant, no acute distress - Head Head exam: Present: atraumatic, normocephalic - Eye Eye exam: Present: PERRL, conjuntiva pink, sclera anicteric Pupils: Present: PERRL - Neck Neck exam general surgery: Present: supple, trachea midline. Absent: lymphadenopathy - Respiratory Respiratory exam: Present: CTAB. Absent: accessory muscle use, rales, rhonchi, wheezes - GI/Abdominal GI/Abdominal exam: Present: normal bowel sounds, soft, no peritoneal signs. Absent: distended, tenderness - Extremities Exam Extremities exam: Present: warm, radial pulses palpable and symmetrical. Absent : calf tenderness, cyanotic, pedal edema
--- NOTE | 2017-07-11 08:59 | Cardiology Progress Note ---
<Javier Leon - Last Filed: 07/11/17 09:35> Date of Encounter: 07/11/17 Time of Encounter: 08:57 Assessment and Plan (1) CAD (coronary artery disease) Status: Chronic Patient had a heart catheterization yesterday. She had 2 stents placed from the ostium to the mid RCA. She received a stent to the left circumflex. A stent was also placed to the OM. Raymond was open. The patient will follow-up in the outpatient clinic with Dr. Morris for further management. Right groin catheter insertion site appears clean, no drainage, no signs of hematoma, it is not painful to the patient, no signs of pseudoaneurysm formation. Discussion with patient was made for care of right groin as well as to continuous noninterrupted use of dual antiplatelet therapy for the next year. Patient understands the risk of stent occlusion. 81 mg aspirin daily 75 mg plavix daily Continue Atorvastatin 40 mg qd Lisinopril 5mg qd Metoprolol 25mg BID At this time, cardiology will sign off on this patient follow-up on an as- needed basis. Qualifiers: Coronary Disease-Associated Artery/Lesion type: [place] artery [place] vs. transplanted heart: [place] heart Associated angina: without angina Qualified Code(s): I25.10 - Atherosclerotic heart disease of [place] coronary artery without angina pectoris (2) Elevated troponin Status: Acute See Above (3) ST segment changes on electrocardiogram Status: Acute See above Discussion w patient/family: The assessment and plan as outlined above was discussed with the patient and/or family members who expressed understanding and agreement. All questions were answered. Thank you for involving us in the care of your patient. Please call with any questions. Subjective Principal diagnosis: R leg weakness Interval history: The patient had heart catheterization yesterday and placement of 4 stents. Patient states that she is doing well today. She is not having pain in the right groin where the catheter was inserted. She denies any drainage from that area as well. Patient denies any chest pain, pressure, tightness, shortness of breath, palpitations, lower extremity edema. Objective Vital Signs, Last 4 Hours Temp Pulse Resp BP Pulse Ox 07/11/17 07:14 98 F 73 16 147/60 96 07/11/17 05:12 97.3 F L 60 16 145/56 97 General: Conversant, No Apparent Distress HEENT: Atraumatic, Normocephaly, Mucus Membranes Moist Neck: No JVD Cardiac: Reg Rate and Rhythm, Normal S1 and S2 Lungs: Normal Breath Sounds, No Wheeze, Rales, Rhonchi Neuro: Alert and responsive, No focal deficits noted Abdomen: Soft, Non-Tender Skin: No rashes noted on visualized skin Musculoskeletal: No Chest Wall Tenderness Extremities: No Edema Results 07/11/17 03:22 07/09/17 08:34 Lab Results 07/11/17 03:22 Plt Count 222 Consult Discharge Plan - Plan Instructions: Atorvastatin (By mouth), Diabetes Mellitus Type 2 in Adults (DC) , Chronic Hypertension (DC) Additional Instructions: follow up with cardiology as arranged Referrals: Ayesha Ramírez CNP [Primary Care Provider] - 07/15/17 1:30 pm Fredo Garcias MD [Partnered Physician] - 07/18/17 8:15 am Prescriptions: Atorvastatin [Lipitor] 80 mg PO HS 30 Days #60 tablet <Luis Gamboa - Last Filed: 07/12/17 21:58> Date of Encounter: 07/11/17 Time of Encounter: 10:00 Assessment and Plan Discussion w patient/family: The assessment and plan as outlined above was discussed with the patient and/or family members who expressed understanding and agreement. All questions were answered. Thank you for involving us in the care of your patient. Please call with any questions. Results 07/11/17 03:22 07/09/17 08:34 - Attending Attestation I examined this patient and my medical decision-making was reviewed with the Resident Physician. I agree with the documented findings, disposition and treatment plan as described except to the extent set forth below. CC: Chest pain Pt reports chest pain has resolved, up in her room without difficulty. PE: Reviewed, cath site clean and dry, no hemotoma, agree with above IMP: 1. Chest pain resolved post PCI with BILL Cx and Mid RCA, 2. CAD - severe two vessel disease, post revascularization Pt is at low risk for hospital discharge, will follow as outpatient with Dr. Morris, call if any questions or problems.
[2017-07-11 11:53] VITALS: BP 162/74
--- NOTE | 2017-07-12 10:17 | Electrocardiograph Report ---
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
--- NOTE | 2017-07-12 10:24 | Electrocardiograph Report ---
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
== END 2017-07-11 13:40 | disposition home or self-care (01) | DRG 246 ==
LOC: EMEROO 21:55 → 2SOUTHHOLD 23:42 → 2NENU 07-09 17:22
PROVIDERS: ADMIT Pediatrics; ATTEND Hospitalist

== ENCOUNTER 2018-03-02 16:25 | Observation (INO) ==
--- NOTE | 2018-03-02 16:30 | Emergency Department Note ---
Chest Pain HPI - General Stated Complaint: CP,Neuro symptoms Last know well 2 Time Seen by Provider: 03/02/18 16:29 - History of Present Illness Severity scale (1-10): 8 - Related Data Home Medications Medication Instructions Recorded Confirmed Amlodipine Besylate 10 mg PO DAILY #0 02/19/15 07/07/17 Multivitamin [Multi-Day Vitamins] 1 each PO DAILY 02/19/15 07/07/17 metFORMIN [Glucophage] 1,000 mg PO BIDWM 02/19/15 07/07/17 Insulin Glargine,Hum.rec.anlog 32 unit SQ HS 12/29/15 07/07/17 [Lantus Solostar] Aspirin 325 mg PO DAILY 09/10/16 07/07/17 Lisinopril [Zestril] 20 mg PO DAILY 09/10/16 07/07/17 Citalopram [CeleXA] 20 mg PO DAILY 07/03/17 07/07/17 Gabapentin [Neurontin] 300 mg PO HS 07/07/17 07/07/17 [place]'s Wort 300 mg PO DAILY 07/07/17 07/07/17 Previous Rx's Medication Instructions Recorded Clopidogrel [Plavix] 75 mg PO DAILY 30 Days tablet 02/21/15 Metoprolol [Lopressor] 25 mg PO BID 30 Days tablet 02/21/15 Acetaminophen [Tylenol] 650 mg PO Q6HR PRN tablet 07/11/17 Atorvastatin [Lipitor] 80 mg PO HS 30 Days #60 tablet 07/11/17 Betamethasone Uzma 0.1% Crm 1 appl TP BID tube 07/11/17 [Valisone 0.1%] Citalopram [CeleXA] 20 mg PO DAILY tablet 07/11/17 Gabapentin [Neurontin] 600 mg PO BID capsule 07/11/17 Insulin LISPRO [HumaLOG] 0 units SQ TIDAC vial 07/11/17 Allergies Allergy/AdvReac Type Severity Reaction Status Date / Time Penicillins Allergy Hives Verified 07/03/17 14:43 lactose AdvReac Vomiting Verified 07/03/17 14:43 Chest Pain PMH - Past Medical History Medical history: Reports: coronary artery disease, CVA, myocardial infarction, TIA Surgical history: Reports: appendectomy Psychiatric history: Reports: depression USER INTERFACE DEVELOPER history: Reports: no USER INTERFACE DEVELOPER history - Social History Smoking Status: Never smoker Alcohol use: Reports: none Drug use: Reports: none Course Vital Signs Temperature 98.3 F 03/02/18 16:28 Pulse Rate 90 03/02/18 16:28 Respiratory Rate 18 03/02/18 16:28 Blood Pressure 208/95 03/02/18 16:28 O2 Sat by Pulse Oximetry 96 03/02/18 16:28 Temperature 98.3 F 03/02/18 16:28 Pulse Rate 90 03/02/18 16:28 Respiratory Rate 18 03/02/18 16:28 Blood Pressure 208/95 03/02/18 16:28 O2 Sat by Pulse Oximetry 96 03/02/18 16:28 Oxygen Delivery Oxygen Delivery Room Air
--- NOTE | 2018-03-02 16:40 | Emergency Department Note ---
Disposition Clinical Impression: Stroke-like symptoms, Leukocytosis Disposition: Admitted As Inpatient Condition: Fair General Adult HPI - General Chief complaint: ED Neuro Symptoms/Deficit Stated complaint: CP,Neuro symptoms Last know well 2 Time Seen by Provider: 03/02/18 16:29 Nursing Notes Reviewed: Yes Vital Signs Reviewed: Yes - History of Present Illness Pain Scale: 8 - Related Data Home Medications Medication Instructions Recorded Confirmed Amlodipine Besylate 10 mg PO DAILY #0 02/19/15 03/02/18 metFORMIN [Glucophage] 1,000 mg PO BIDWM 02/19/15 03/02/18 Insulin Glargine,Hum.rec.anlog 32 unit SQ HS 12/29/15 03/02/18 [Lantus Solostar] Aspirin 325 mg PO DAILY 09/10/16 03/02/18 Lisinopril [Zestril] 20 mg PO DAILY 09/10/16 03/02/18 [place] Wort 300 mg PO DAILY 07/07/17 03/02/18 Citalopram [CeleXA] 40 mg PO DAILY 03/02/18 03/02/18 Clopidogrel Bisulfate [Plavix] 75 mg PO DAILY 03/02/18 03/02/18 Metoprolol [Lopressor] 25 mg PO BID 03/02/18 03/02/18 Multivitamin [One Daily Essential] 1 tab PO DAILY 03/02/18 03/02/18 PredniSONE [Deltasone] 20 mg PO DAILY 03/02/18 03/02/18 Previous Rx's Medication Instructions Recorded Acetaminophen [Tylenol] 650 mg PO Q6HR PRN tablet 07/11/17 Atorvastatin [Lipitor] 80 mg PO HS 30 Days #60 tablet 07/11/17 Allergies Allergy/AdvReac Type Severity Reaction Status Date / Time Penicillins Allergy Hives Verified 07/03/17 14:43 lactose AdvReac Vomiting Verified 07/03/17 14:43 Past Medical History - Past Medical History Medical history: Reports: coronary artery disease, CVA, myocardial infarction, TIA Surgical history: Reports: appendectomy Psychiatric history: Reports: depression MATERIAL CONTROL ANALYST history: 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: no MATERIAL CONTROL ANALYST history - Social History Smoking Status: Never smoker Smokeless Tobacco Status: No Alcohol use: Reports: none Drug use: Reports: none Course Vital Signs Temperature 98.3 F 03/02/18 16:28 Pulse Rate 90 03/02/18 16:28 Respiratory Rate 18 03/02/18 16:28 Blood Pressure 208/95 03/02/18 16:28 O2 Sat by Pulse Oximetry 96 03/02/18 16:28 Temperature 97.8 F 03/04/18 05:04 Pulse Rate 80 03/04/18 05:04 Respiratory Rate 17 03/04/18 05:04 Blood Pressure 176/76 03/04/18 05:04 O2 Sat by Pulse Oximetry 95 03/04/18 04:00 Oxygen Delivery Oxygen Delivery Room Air Medical Decision Making - MDM Narrative Medical decision making narrative: 1700 hrs.: CT was initially negative. Patient's being signed out to Dr. Ku for further management disposition the emergency department. - Lab Data Result diagrams: 03/03/18 04:43 03/03/18 04:43 Lab Results 03/02/18 03/02/18 03/02/18 Range/Units 16:32 16:32 16:32 WBC 11.6 H (4.3-11.1) K/mcL RBC 3.98 (3.82-4.97) M/mcL Hgb 12.9 (11.5-15.4) g/dL Hct 36.9 (35.3-44.9) % MCV 92.7 (83.0-100.0) fL MCH 32.4 (28.0-33.3) pg MCHC 35.0 (31.6-35.5) g/dL RDW 11.3 L (11.5-14.5) % Plt Count 245 (140-400) K/mcL MPV 11.1 (9.4-12.4) fL Immature Gran % 0.9 (0-4) % Seg Neutrophils % 59.3 % Lymphocytes % 29.1 % Monocytes % 6.9 % Eosinophils % 3.2 % Basophils % 0.6 % Neutrophils # 6.9 (1.6-8.9) K/mcL Lymphocytes # 3.4 (0.6-4.6) K/mcL Monocytes # 0.8 (0.0-1.3) K/mcL Eosinophils # 0.4 (0.0-0.6) K/mcL Basophils # 0.1 (0.0-0.2) K/mcL PT 9.1 L (9.4-12.1) Seconds INR 0.8 APTT 31.2 (26.0-36.0) Seconds Sodium 137 (136-145) mEq/L Potassium 3.7 (3.5-5.1) mEq/L Chloride 106 (98-107) mEq/L Carbon Dioxide 23 (23-29) mEq/L BUN 28 H (8-23) mg/dL Creatinine 0.91 (0.60-1.20) mg/dL Est GFR ( Amer) > 60 (> 60) Est GFR (Non-Af Amer) > 60 (> 60) BUN/Creatinine Ratio 31 H (6-26) Glucose 139 H (70-105) mg/dL POC Glucose (70-99) mg/dL Calculated Osmolality 292 (280-300) Calcium 9.1 (8.6-10.3) mg/dL Troponin I < 0.03 (< 0.04) ng/mL 03/02/18 Range/Units 16:38 WBC (4.3-11.1) K/mcL RBC (3.82-4.97) M/mcL Hgb (11.5-15.4) g/dL Hct (35.3-44.9) % MCV (83.0-100.0) fL MCH (28.0-33.3) pg MCHC (31.6-35.5) g/dL RDW (11.5-14.5) % Plt Count (140-400) K/mcL MPV (9.4-12.4) fL Immature Gran % (0-4) % Seg Neutrophils % % Lymphocytes % % Monocytes % % Eosinophils % % Basophils % % Neutrophils # (1.6-8.9) K/mcL Lymphocytes # (0.6-4.6) K/mcL Monocytes # (0.0-1.3) K/mcL Eosinophils # (0.0-0.6) K/mcL Basophils # (0.0-0.2) K/mcL PT (9.4-12.1) Seconds INR APTT (26.0-36.0) Seconds Sodium (136-145) mEq/L Potassium (3.5-5.1) mEq/L Chloride (98-107) mEq/L Carbon Dioxide (23-29) mEq/L BUN (8-23) mg/dL Creatinine (0.60-1.20) mg/dL Est GFR ( Amer) (> 60) Est GFR (Non-Af Amer) (> 60) BUN/Creatinine Ratio (6-26) Glucose (70-105) mg/dL POC Glucose 142 H (70-99) mg/dL Calculated Osmolality (280-300) Calcium (8.6-10.3) mg/dL Troponin I (< 0.04) ng/mL Attestation Statement - Attestation Attestation: This documentation is done with the assistance of Dragon dictation. Despite efforts made to ensure accuracy, there may be inaccuracies in remedial project manager or spelling and typographical errors. I examined this patient and my medical decision-making was reviewed with the Resident Physician. I agree with the documented findings, disposition and treatment plan as described except to the extent set forth below. Patient seen and evaluated on arrival with patient and her daughter. They were out shopping today at 2:00. She was fine at 2:15 she started having right-sided weakness and slurring her speech. History of TIAs and stroke in the past. She is on Plavix and aspirin. No falls not strike her head. Here she does have right- sided weakness and does have some slurring of speech. She is made a stroke alert and is taking ordered a CT. Patient was seen today with Dr. Casper and myself, I agree with his evaluation management plan, supervise care the patient' s stay.
--- NOTE | 2018-03-02 16:41 | Emergency Department Note ---
Disposition Clinical Impression: Stroke-like symptoms Leukocytosis Qualifiers: Leukocytosis type: unspecified Qualified Code(s): D72.829 - Elevated white blood cell count, unspecified Disposition: Admitted As Inpatient Condition: Fair Forms: ED Satisfaction Letter Time of Disposition: 19:00 General Adult HPI - General Chief complaint: ED Neuro Symptoms/Deficit Stated complaint: CP,Neuro symptoms Last know well 2 Time Seen by Provider: 03/02/18 16:29 Source: patient, family Limitations: no limitations Nursing Notes Reviewed: Yes Vital Signs Reviewed: Yes - History of Present Illness HPI Narrative: Patient is a 67-year-old female that presents the emergency department with chest pain and slurred speech. Daughter states that they were at the [employer] around 1400 today and the patient was normal. Around 1415 the patient developed chest pain and slurred speech. Patient daughter states that her mother has a history of 6 previous strokes. States that she has known left- sided deficit. Daughter states that she still does not feel like she is talking normally. Patient states that she is still having some mild chest pain. Pain Scale: 8 - Related Data Home Medications Medication Instructions Recorded Confirmed Amlodipine Besylate 10 mg PO DAILY #0 02/19/15 07/07/17 metFORMIN [Glucophage] 1,000 mg PO BIDWM 02/19/15 07/07/17 Insulin Glargine,Hum.rec.anlog 32 unit SQ HS 12/29/15 07/07/17 [Lantus Solostar] Aspirin 325 mg PO DAILY 09/10/16 07/07/17 Lisinopril [Zestril] 20 mg PO DAILY 09/10/16 07/07/17 [place]'s Wort 300 mg PO DAILY 07/07/17 07/07/17 Citalopram [CeleXA] 40 mg PO DAILY 03/02/18 03/02/18 Clopidogrel Bisulfate [Plavix] 75 mg PO DAILY 03/02/18 03/02/18 Metoprolol [Lopressor] 25 mg PO BID 03/02/18 03/02/18 Multivitamin [One Daily Essential] 1 tab PO DAILY 03/02/18 03/02/18 PredniSONE [Deltasone] 20 mg PO DAILY 03/02/18 03/02/18 Previous Rx's Medication Instructions Recorded Acetaminophen [Tylenol] 650 mg PO Q6HR PRN tablet 07/11/17 Atorvastatin [Lipitor] 80 mg PO HS 30 Days #60 tablet 07/11/17 Allergies Allergy/AdvReac Type Severity Reaction Status Date / Time Penicillins Allergy Hives Verified 07/03/17 14:43 lactose AdvReac Vomiting Verified 07/03/17 14:43 All systems ED: reviewed and negative except as stated. 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 Absent: respiratory distress, wheezes - Cardiovascular Cardiovascular exam: Present: regular rate, normal rhythm, normal heart sounds, +S1, +S2 - Abdominal Exam Abdominal exam: Present: soft, Non-Tender, normal bowel sounds - Neurological Exam Neurological exam: Present: alert, oriented X3, CN II-XII intact - Expanded Neurological Exam Cranial nerves: EOM function (II, III, IV, ): Normal, facial sensation (V): Normal, facial palsy (VII): Normal, gag reflex (IX): Normal, spinal accessory function (XI): Normal, tongue deviation (XII): Normal Cerebellar function: finger to nose: Normal, heel to freedman: Normal Motor strength - LUE: 4/5 (Chronic) Motor strength - RUE: 5/5 Motor strength - LLE: 4/5 (Chronic) Motor strength - RLE: 5/5 Upper motor neuron exam: pronator drift: Present of right Sensory exam upper extremity: light touch: Normal Sensory exam lower extremity: light touch: Normal Coma Scale Eye Opening: Spontaneous Coma Scale Motor Response: Obeys Commands Coma Scale Verbal Response: Oriented Coma Scale Total: 15 - Psychiatric Psychiatric exam: Present: normal affect, normal mood - Skin Skin exam: Present: warm, dry, intact Course Vital Signs Temperature 98.3 F 03/02/18 16:28 Pulse Rate 90 03/02/18 16:28 Respiratory Rate 18 03/02/18 16:28 Blood Pressure 208/95 03/02/18 16:28 O2 Sat by Pulse Oximetry 96 03/02/18 16:28 Temperature 98.3 F 03/02/18 16:35 Pulse Rate 80 03/02/18 16:49 Respiratory Rate 16 03/02/18 16:49 Blood Pressure 182/71 03/02/18 16:49 O2 Sat by Pulse Oximetry 96 03/02/18 16:49 Oxygen Delivery Oxygen Delivery Room Air Medical Decision Making - MDM Narrative Medical decision making narrative: The patient presenting to the emergency department with changes in her speech, chest pain and a significant history for strokes a stroke alert was called. Patient will be sent to CT scan for immediate CT evaluation of her head. Patient's head CT was negative for acute findings. Patient mildly elevated white count of 11.6. The remainder of her laboratory tests were felt unremarkable. The stroke neurologist from [facility] did come on the stroke but and said that TPA could eventually be given. The risks and benefits were discussed with the patient and her family and they elected not to have TPA administered. Due to the patient having strokelike symptoms that are slowly resolving there is concern for TIA versus stroke. Feel the patient needs to be admitted to the hospital for further evaluation and management. I called and spoke the admitting hospitalist and he is accepted the patient to their service. Patient be admitted to the hospital at this time for further evaluation and management. - Medical Records Medical records reviewed: Yes I reviewed the patient's medical records. - Lab Data Lab results reviewed: Yes I reviewed the patient's lab results. - Radiology Data Radiology results reviewed: Yes I reviewed the patient's radiology results. Head CT 03/02/18 16:38 IMPRESSION: No evidence of acute intracranial abnormality. Critical results were called by Dr. Poncho June MD to Irvin Casper on 03/02/2018 at 17:01. D/ / 03/02/2018 17:05:00 Poncho June MD / [facility] Interpreting Provider: Poncho June MD - EKG Data EKG #1 EKG attestation: Yes I reviewed and interpreted this EKG. EKG results narrative: EKG shows a sinus rhythm and rate of 94 bpm, DE interval 188, QRS duration of 111, QTC 418. No axis. No evidence of STEMI on EKG. There are depressions in lead 2, V4, V5 and V6. Previous EKG on 07/10/17 showed a sinus bradycardia at a rate of 59 bpm NIH Stroke Scale - Level of Consciousness LOC: Alert - LOC Questions LOC Questions: Answers both correctly - LOC Commands LOC Commands: Performs both correctly - Best Gaze Best Gaze: Normal - Visual Visual: No visual loss - Facial Palsy Facial Palsy: Normal - Motor Arms Motor Arm-Left: No drift for 10 seconds Motor Arm-Right: Drift, does NOT hit bed - Motor Legs Motor Leg-Left: No drift for 5 seconds Motor Leg-Right: No drift for 5 seconds - Limb Ataxia Limb Ataxia: Normal, No Ataxia - Sensory Sensory: Normal - Best Language Best Language: No aphasia - Dysarthria Dysarthria: Mild, slurs some words - Extinction and Inattention Extinction and Inattention: Normal - NIHSS Total Score NIHSS Total Score: 2
[2018-03-02 17:17] LABS: INR 0.8; Prothrombin Time 9.1 Seconds (9.4-12.1)
[2018-03-02 17:20] LABS: Activated Partial Thrombo Time 31.2 Seconds (26.0-36.0)
[2018-03-02 17:23] LABS: Hematocrit 36.9 % (35.3-44.9); Hemoglobin 12.9 g/dL (11.5-15.4); Immature Granulocytes % 0.9 % (0-4); Lymphocytes % 29.1 %; Mean Corpuscular Hemoglobin 32.4 pg (28.0-33.3); Mean Corpuscular Volume 92.7 fL (83.0-100.0); Mean Platelet Volume 11.1 fL (9.4-12.4); Platelet Count 245 K/mcL (140-400); Red Blood Count 3.98 M/mcL (3.82-4.97); Red Cell Distribution Width 11.3 % (11.5-14.5); Segmented Neutrophils % 59.3 %
[2018-03-02 17:24] LABS: Basophils # 0.1 K/mcL (0.0-0.2); Basophils % 0.6 %; Eosinophils # 0.4 K/mcL (0.0-0.6); Eosinophils % 3.2 %; Lymphocytes # 3.4 K/mcL (0.6-4.6); Monocytes # 0.8 K/mcL (0.0-1.3); Monocytes % 6.9 %; Neutrophils # 6.9 K/mcL (1.6-8.9)
[2018-03-02 17:25] LABS: BUN/Creatinine Ratio 31 (6-26); Blood Urea Nitrogen 28 mg/dL (8-23); Calcium 9.1 mg/dL (8.6-10.3); Carbon Dioxide 23 mEq/L (23-29); Chloride 106 mEq/L (98-107); Glucose 139 mg/dL (70-105); Osmolality,Calculated 292 (280-300); Potassium 3.7 mEq/L (3.5-5.1); Sodium 137 mEq/L (136-145); Troponin I < 0.03 ng/mL (< 0.04); eGFR For Non-African Americans > 60 (> 60)
[2018-03-02] MEDS ORDERED: Naloxone 0.4 MG/ML INJ IVP PRN (19:31)
--- NOTE | 2018-03-02 20:07 | Internal Med History&Physical ---
Date of Encounter: 03/03/18 Time of Encounter: 19:36 Internal Medicine - H&P: HPI Chief complaint: Chest Pain and Slurred Speech History of present illness: Ms. Nunez is a 67 year old female with a past medical history of ischemic stroke , diabetes, hypertension and coronary artery disease status post CABG and PCI who presents with chest pain and slurred speech. According to the patient she was in her usual state of health earlier today when around 2 PM she developed acute onset chest pain which she describes as sharp radiating across her chest and to her neck pain with right arm weakness and shortness of breath. Symptoms lasted for approximately 10 minutes and resolved. She had a second episode later that afternoon again with chest pain and shortness of breath. She also noted difficulty finding words and her family state that she exhibited slurred speech. Patient dates she has had multiple strokes in the past, the last of which was in June resulting in residual left-sided weakness. She denies any dizziness, lightheadedness, or nausea, vomiting or diaphoresis. CTA of the head and neck were performed which were unremarkable. EKG was performed which shows mild depressions in leads 1 and 2 with T-wave changes in leads 2 and 3 as well as aVF. Mild ST elevation in aVR. Laboratory findings notable for negative troponins and mild leukocytosis of 11.6. Patient states that her symptoms of slurred speech seem to be improving but she still is having word finding difficulty. Her chest pain has resolved. Blood pressure remains elevated with an systolic blood pressure in the 180s. Case was discussed with Dr. Long who recommended a CT angios to rule out aortic dissection. Patient took her aspirin and Plavix beta indira earlier today. Past Med Surg Social Fam HX - Past Medical History Medical history: coronary artery disease, CVA, myocardial infarction, TIA Additional medical history: 3 TIA/3 CVA Psychiatric history: depression - Past Surgical History Surgical History: appendectomy Additional surgical history: open heart - Social History Smoking Status: Never smoker Smokeless Tobacco Status: No Alcohol use: none Drug use: none - Family History Mother Adopted: No Family Member Ethnicity: Non- Living Status: Hx Family Cardiac Disorders: Yes Hx Family Respiratory Disorders: No Hx Family Cancer: Yes Hx Family GI Disorders: No Hx Family Endocrine Disorder: Yes Hx Family Neuromuscular Disorders: No Hx Family Neurologic Disorders: Yes Hx Family HEENT Disorders: No Hx Family Autoimmune Disorders: No Father Adopted: No Living Status: Age at : 74 Hx Family Cardiac Disorders: Yes (HTN) Hx Family Cancer: Yes (COPD, emphysema) Internal Medicine - H&P: Meds Amlodipine Besylate 10 mg PO DAILY #0 02/19/15 [History] metFORMIN [Glucophage] 1,000 mg PO BIDWM 02/19/15 [History] Insulin Glargine,Hum.rec.anlog [Lantus Solostar] 32 unit SQ HS 12/29/15 [History ] Aspirin 325 mg PO DAILY 09/10/16 [History] Lisinopril [Zestril] 20 mg PO DAILY 09/10/16 [History] [place]'s Wort 300 mg PO DAILY 07/07/17 [History] Acetaminophen [Tylenol] 650 mg PO Q6HR PRN tablet 07/11/17 [Rx] Atorvastatin [Lipitor] 80 mg PO HS 30 Days #60 tablet 07/11/17 [Rx] Citalopram [CeleXA] 40 mg PO DAILY 03/02/18 [History] Clopidogrel Bisulfate [Plavix] 75 mg PO DAILY 03/02/18 [History] Metoprolol [Lopressor] 25 mg PO BID 03/02/18 [History] Multivitamin [One Daily Essential] 1 tab PO DAILY 03/02/18 [History] PredniSONE [Deltasone] 20 mg PO DAILY 03/02/18 [History] 3 Allergy/AdvReac Type Severity Reaction Status Date / Time Penicillins Allergy Hives Verified 07/03/17 14:43 lactose AdvReac Vomiting Verified 07/03/17 14:43 All Systems PM: A 10-system review of systems was performed and is negative for pertinent findings except as documented above in the HPI. - Constitutional Constitutional: no chills, no fever(s), no night sweats - EENT Eyes: no change in vision, no discharge, no pain, no photophobia Ears: no ear discharge, no ear pain, no tinnitus Nose, mouth and throat: no dysphagia, no nasal discharge, no neck pain, no sore throat - Cardiovascular Cardiovascular ROS IM: no chest pain, no diaphoresis, no dyspnea, no lightheadedness, no palpitations, no syncope - Respiratory Respiratory: no cough, no dyspnea, no wheezing, no excessive phlegm production - Gastrointestinal Gastrointestinal: no abdominal pain, no diarrhea, no hematemesis, no hematochezia, no melena, no nausea, no vomiting - Genitourinary Genitourinary: no change in urinary stream, no dysuria, no flank pain, no hematuria - Musculoskeletal Musculoskeletal ROS IM: no numbness, no tingling - Integumentary Integumentary IM: no rash, no unusual bruising - Neurological Neurological ROS: no confusion, no convulsions, no focal weakness, no numbness, no tingling, no tremor(s) - Hematologic/Lymphatic Hematologic/Lymphatic: no easy bruising - Constitutional Vitals: Temp Pulse Resp BP Pulse Ox 98.3 F 81 16 176/76 96 03/02/18 16:35 03/02/18 17:18 03/02/18 17:18 03/02/18 17:18 03/02/18 17:18 Exam: General: Alert and oriented 3 sitting up in bed in no acute distress Skin:Normal color, no rash, no lesions. HEENT:EOM, pupils sluggish but equal, round and reactive. Cardiovascular:Normal S1 & S2, no rubs, murmurs or gallops. No JVD. Pulse regular. Lungs:Normal breath sounds, no wheezes or crackles. Abdomen:Soft, non-tender, no rigidity. Extremities:No deformity, no edema or tenderness, no joint swelling or clubbing. Neurological: Cranial nerves II through XII intact. No evidence of pronator drift. Sensation intact. Mild dysmetria involving the right upper extremity. Muscle strength 5 out of 5 in the right upper and lower extremity. 4 out of 5 in the left upper and lower extremity. Babinski moot bilaterally. No facial droop noted. Patient appears to have difficulty with word finding Pulses:Carotid and radial pulses normal +2. Rest of the physical exam is non contributory Internal Med - H&P Results - Labs CBC & Chem 7: 03/03/18 04:43 03/03/18 04:43 - Assessment and plan (1) Stroke-like symptoms Current Visit: Yes Status: Acute Assessment and plan: Slurred speech and Word finding difficulty concerning for Acute Stroke vs CVA. Sx improving but not back to baseline. ASA Will obtain MRI of the brain to R/O Acute Stroke Allow for permissive hypertension Neuro checks Neurology Consult (2) Chest pain Current Visit: Yes Status: Acute Assessment and plan: Atypical chest pain; EKG concerning for mild depressions in leads 1 and 2 with T -wave changes in leads 2 and 3 as well as aVF. Cardiology consulted. CTA recommended to r/o dissection in the setting of stroke like symptoms. CTA negative for dissection. Patient received loading dose of aspirin and is currently on Plavix as well. Continue telemetry. Trend troponins. Cardiology consult for the morning. Qualifiers: Chest pain type: unspecified Qualified Code(s): R07.9 - Chest pain, unspecified (3) Leukocytosis Current Visit: Yes Status: Acute Assessment and plan: Likely stress induced. We will monitor. Qualifiers: Leukocytosis type: unspecified Qualified Code(s): D72.829 - Elevated white blood cell count, unspecified (4) Diabetes Current Visit: No Status: Chronic Assessment and plan: Blood glucose checks. Sliding scale insulin once patient cleared for PO. 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
[2018-03-02] MEDS ORDERED: 0.9 % Sodium Chloride 1,000 ML IVC SCH (21:30)
[2018-03-02] MEDS ORDERED: Isovue-370 500 ML INFUS..BTL IV ONE (23:17)
[2018-03-03 05:03] LABS: Basophils % 0.4 %; Eosinophils # 0.3 K/mcL (0.0-0.6); Eosinophils % 3.2 %; Hematocrit 33.4 % (35.3-44.9); Hemoglobin 11.8 g/dL (11.5-15.4); Immature Granulocytes % 0.3 % (0-4); Lymphocytes # 3.1 K/mcL (0.6-4.6); Lymphocytes % 32.8 %; Mean Corpuscular HGB Conc 35.3 g/dL (31.6-35.5); Mean Corpuscular Hemoglobin 32.3 pg (28.0-33.3); Mean Corpuscular Volume 91.5 fL (83.0-100.0); Mean Platelet Volume 10.9 fL (9.4-12.4); Monocytes # 0.7 K/mcL (0.0-1.3); Monocytes % 7.1 %; Neutrophils # 5.4 K/mcL (1.6-8.9); Platelet Count 229 K/mcL (140-400); Red Blood Count 3.65 M/mcL (3.82-4.97); Red Cell Distribution Width 11.2 % (11.5-14.5); Segmented Neutrophils % 56.2 %
[2018-03-03 05:10] LABS: INR 0.9
[2018-03-03 05:36] LABS: Troponin I < 0.03 ng/mL (< 0.04)
[2018-03-03 05:52] LABS: BUN/Creatinine Ratio 26 (6-26); Blood Urea Nitrogen 21 mg/dL (8-23); Carbon Dioxide 21 mEq/L (23-29); Chloride 108 mEq/L (98-107); Glucose 119 mg/dL (70-105); Osmolality,Calculated 288 (280-300); Potassium 3.9 mEq/L (3.5-5.1); Sodium 137 mEq/L (136-145); eGFR For Non-African Americans > 60 (> 60)
[2018-03-03 05:53] LABS: Alanine Aminotransferase 10 Units/L (7-52); Albumin 3.4 g/dL (3.5-5.7); Albumin/Globulin Ratio 1.4 (1.1-2.2); Alkaline Phosphatase 100 Units/L (34-104); Aspartate Amino Transferase 19 Units/L (13-39); Bilirubin,Total 0.4 mg/dL (0.3-1.0); Calcium 8.9 mg/dL (8.6-10.3); Chol/HDL Ratio 5.8 (0-4.9); Cholesterol 167 mg/dL (< 200); Globulin 2.4 g/dL (2.4-3.5); HDL Cholesterol 29 mg/dL (40-59); LDL Cholesterol,Calculated 89 mg/dL (0-99); Magnesium 1.6 mg/dL (1.6-2.6); Total Protein 5.8 g/dL (6.4-8.9); Triglycerides 247 mg/dL (< 150)
[2018-03-03] MEDS ORDERED: D5% in Water 1,000 ML IVC PRN (07:59)
[2018-03-03] MEDS ORDERED: *HR* Dextrose 50 % in Water (Syg) 50 ML SYRINGE IVP PRN (07:59)
[2018-03-03] MEDS ORDERED: Dextrose Gel 15 GM/37.5 ML TUBE PO PRN ×2 (07:59)
[2018-03-03 08:40] LABS: Bilirubin,Urine Negative (Negative); Blood,Urine Trace (Negative); Clarity,Urine Clear (Clear); Color,Urine Yellow (Yellow); Glucose,Urine (UA) Normal (Normal); Ketones,Urine Negative (Negative); Leukocyte Esterase,Urine Trace (Negative); Nitrite,Urine Negative (Negative); Protein,Urine 100 mg/dL (Neg-Trace); Specific Gravity,Urine > 1.030 (1.010-1.025); Urobilinogen,Urine Normal (Normal)
[2018-03-03 08:45] LABS: Bacteria,Urine None Seen per hpf (None-Few); Hyaline Casts,Urine None Seen per lpf (None-Few); RBC,Urine 0-3 per hpf (0-3); Squamous Epithelial Cell,Urine Moderate per lpf (None-Few)
[2018-03-03] MEDS: Aspirin 81 MG TAB.CHEW PO SCH ×2 (10:15→11:44)
--- NOTE | 2018-03-03 10:18 | Neurology - Consult Note ---
<Semaj Nunez E - Last Filed: 03/03/18 17:24> Date of Encounter: 03/03/18 Time of Encounter: 17:13 Assessment and Plan (1) TIA (transient ischemic attack) Current Visit: Yes Status: Acute I am convinced that this patient has experienced a transient ischemic attack. There is no evidence however to support an acute cerebral infarct. MRI scan of the brain revealed no evidence of a perfusion deficit. However she certainly has stroke risk factors. She has had several blood pressure readings during this hospitalization an extremely high lesion greater than 200 systolic. She is also diabetic and has hyperlipidemia. I would like to obtain a CTA scan of the neck and of the head to further qualify the previously known results of the carotid Doppler study. I also recommend maintaining the aspirin and Plavix. There is no indication for anticoagulation here. History of Present Illness HPI: Chart was reviewed, the patient was seen and examined independently. Ms. Nunez is a 67 year old female who is being seen for neurologic consultation secondary to concern about the possibility of acute stroke. Patient has a history of previous bilateral basal ganglia strokes. She presented with complaints of chest pain which then radiated into the right upper extremity. She states that the chest pain lasted about 15 minutes or so. She initially took an aspirin in the symptoms resolved for a short while however they returned again and she came to the hospital because she thought she was "having a heart attack" she was admitted back in June 1999 secondary to symptoms of a stroke. She has known bilateral basal ganglia infarcts and has residual left-sided weakness from one of her previous infarcts. MRI scan of the brain completed during this admission reveals no evidence of acute infarct on diffusion imaging. In fact comparison to the previous MRIs reveals the same pattern of bilateral basal ganglia and deep white matter infarcts. This been no change since June echo during the June hospitalization and had carotid Doppler studies revealing 40- 59% stenosis of the internal carotid arteries bilaterally. Currently she feels the right upper extremity weakness has resolved back to his normal baseline. She also had complaints of slurred speech. Her speech remains slow and deliberate however not necessarily dysarthric dysarthric. Patient is currently on double antiplatelet therapy taking aspirin as well as Plavix. She has had some extremely high blood pressure readings some as high as greater than 200 systolic. Medications and Allergies Amlodipine Besylate 10 mg PO DAILY #0 02/19/15 [History] metFORMIN [Glucophage] 1,000 mg PO BIDWM 02/19/15 [History] Insulin Glargine,Hum.rec.anlog [Lantus Solostar] 32 unit SQ HS 12/29/15 [History ] Aspirin 325 mg PO DAILY 09/10/16 [History] Lisinopril [Zestril] 20 mg PO DAILY 09/10/16 [History] Attila's Wort 300 mg PO DAILY 07/07/17 [History] Acetaminophen [Tylenol] 650 mg PO Q6HR PRN tablet 07/11/17 [Rx] Atorvastatin [Lipitor] 80 mg PO HS 30 Days #60 tablet 07/11/17 [Rx] Citalopram [CeleXA] 40 mg PO DAILY 03/02/18 [History] Clopidogrel Bisulfate [Plavix] 75 mg PO DAILY 03/02/18 [History] Metoprolol [Lopressor] 25 mg PO BID 03/02/18 [History] Multivitamin [One Daily Essential] 1 tab PO DAILY 03/02/18 [History] PredniSONE [Deltasone] 20 mg PO DAILY 03/02/18 [History] 3 Allergy/AdvReac Type Severity Reaction Status Date / Time Penicillins Allergy Hives Verified 07/03/17 14:43 lactose AdvReac Vomiting Verified 07/03/17 14:43 All Systems: The remainder of the systems were reviewed and are negative Review of Systems: The balance of the systems review is negative. Physical Examination - Vital Signs Vital Signs: Initial Vital Signs Temp Pulse Resp BP Pulse Ox 98.3 F 90 18 208/95 96 03/02/18 16:28 03/02/18 16:28 03/02/18 16:28 03/02/18 16:28 03/02/18 16:28 - Neurologic Cranial nerve examination: PERRL, EOMI, sensory to face intact, mastication intact, no facial asymmetry is present, no dysarthria Results - Laboratory Findings CBC and BMP: 03/03/18 04:43 03/03/18 04:43 Abnormal lab findings: Abnormal lab results RBC 3.65 M/mcL (3.82-4.97) L 03/03/18 04:43 Hct 33.4 % (35.3-44.9) L 03/03/18 04:43 RDW 11.2 % (11.5-14.5) L 03/03/18 04:43 Chloride 108 mEq/L (98-107) H 03/03/18 04:43 Carbon Dioxide 21 mEq/L (23-29) L 03/03/18 04:43 Glucose 119 mg/dL (70-105) H 03/03/18 04:43 POC Glucose 122 mg/dL (70-99) H 03/03/18 05:40 Serum Total Protein 5.8 g/dL (6.4-8.9) L 03/03/18 04:43 Albumin 3.4 g/dL (3.5-5.7) L 03/03/18 04:43 Triglycerides 247 mg/dL (< 150) H 03/03/18 04:43 VLDL Cholesterol, Calc 49 mg/dL (< 31) H 03/03/18 04:43 HDL Cholesterol 29 mg/dL (40-59) L 03/03/18 04:43 Cholesterol/HDL Ratio 5.8 (0-4.9) H 03/03/18 04:43 Ur Specific [place] > 1.030 (1.010-1.025) H 03/03/18 07:55 Urine Protein 100 mg/dL (Neg-Trace) H 03/03/18 07:55 Urine Blood Trace (Negative) H 03/03/18 07:55 Ur Leukocyte Esterase Trace (Negative) H 03/03/18 07:55 Urine Microscopic WBC 3-5 per hpf (0-3) H 03/03/18 07:55 Ur Squamous Epith Cells Moderate per lpf (None-Few) H 03/03/18 07:55 Consult Discharge Plan - Plan Referrals: Ayesha Ramírez, [employer] [Primary Care Provider] - <Angie May P - Last Filed: 03/04/18 07:58> Date of Encounter: 03/04/18 Time of Encounter: 09:00 Assessment and Plan (1) CVA (cerebral infarction) Current Visit: No Status: Acute The patient is 67 years old female, with HTN, CAD, DM, presented with slurring of speech and right arm weakness,numbness with chest pain . The patient has h/o stroke in the past She has residual weakness in left side as a sequale of past stroke She is taking aspirin and plavix and lipitor Carotid doppler: RCA ; 40- 59% stenosis , LCA 40- 59% stenosis ( Jun 2017 report) Echo: LVDD and LVEF 60-65% ( Jun 2017 report) MRI head : No mass , no hemorrhage, no infarct ( bilateral basal ganglia hemosiderine deposition) Previous report Jun 2017 MRI head awaited Qualifiers: Cerebral infarction mechanism: unspecified mechanism Qualified Code(s): I63.9 - Cerebral infarction, unspecified History of Present Illness Chief complaint: Chest pain/ slurring of speech/ right arm weakness HPI: Ms. Nunez is a 67 year old female with past medical history of stroke, diabetes , hypertension and CAD admitted in [facility] via ED for chest pain and slurring of speech and right arm numbness & weakness . She has had h/o stroke in last June and she still has some residual weakness in her left side . This time she had difficulty finding words and has slurring of speech that was not in the past . Patient states that weakness in her right arm has been improved , but she still have slurring of speech and getting difficulty to find words. She thinks that it has much better than before . She has mild vertigo and spinning of images before , but it has been improved today. She denies any Loss of consciousness, nausea, vomiting , fall trauma, severe headache, seizure like activity, illicit drug use, fever. She is taking aspirin and plavix , lipitor regularly. Vitals: 97.5 BP 147/77,Sat 95% Labs: WBC 9.5, Na 137, K 3.9, BUN 21, Creatinine 0.82, calcium 8.9 , Magnesium 1.6 Today , during my visit the patient was lying in bed comfortably, alert, well oriented to time , place , person. Report: Carotid doppler: RCA ; 40- 59% stenosis , LCA 40- 59% stenosis ( Jun 2017 report) Echo: LVDD and LVEF 60-65% ( Jun 2017 report) MRI head : No mass , no hemorrhage, no infarct ( bilateral basal ganglia hemosiderine deposition) Past Med Surg Social Fam HX - Past Medical History Medical history: coronary artery disease, CVA, myocardial infarction, TIA Additional medical history: 3 TIA/3 CVA Psychiatric history: depression - Past Surgical History Surgical History: appendectomy Additional surgical history: open heart - Social History Smoking Status: Never smoker Smokeless Tobacco Status: No Alcohol use: none Drug use: none - Family History Father Adopted: No Living Status: Age at : 76 Hx Family Cardiac Disorders: Yes (HTN) Hx Family Cancer: Yes (COPD, emphysema) Mother Adopted: No Family Member Ethnicity: Non- Living Status: Age at : 57 Hx Family Cardiac Disorders: Yes Hx Family Respiratory Disorders: No Hx Family Cancer: Yes Hx Family GI Disorders: No Hx Family Endocrine Disorder: Yes Hx Family Neuromuscular Disorders: No Hx Family Neurologic Disorders: Yes Hx Family HEENT Disorders: No Hx Family Autoimmune Disorders: No All Systems: The remainder of the systems were reviewed and are negative Physical Examination - Vital Signs Vital Signs: Initial Vital Signs Temp Pulse Resp BP Pulse Ox 98.3 F 90 18 208/95 96 03/02/18 16:28 03/02/18 16:28 03/02/18 16:28 03/02/18 16:28 03/02/18 16:28 - Constitutional General appearance: comfortable - Neurologic Sensorimotor examination: intact Detailed motor examination: grossly full strength in all extremities Motor examination - right side: 4/5: triceps, wrist flexion, wrist extension, photoengraving finisher, 5/5: deltoids, biceps, hip flexors, tibialis Anterior, quadriceps, toe extension (EHL), plantarflexion Motor examination - left side: 4/5: deltoids, biceps, triceps, wrist flexion, wrist extension, hip flexors, photoengraving finisher, quadriceps, tibialis Anterior, toe extension (EHL), plantarflexion Detailed sensory examination: intact Reflexes: Biceps: 2+, Triceps: 2+, Brachioradialis: 2+, Patella: 2+, Achilles: 2 + Mental Status Examination: awake, alert, oriented to person, oriented to place, oriented to time, follows commands appropriately, answers questions appropriately Results - Laboratory Findings CBC and BMP: 03/04/18 06:41 03/04/18 06:41 Abnormal lab findings: Abnormal lab results RBC 3.65 M/mcL (3.82-4.97) L 03/03/18 04:43 Hct 33.4 % (35.3-44.9) L 03/03/18 04:43 RDW 11.2 % (11.5-14.5) L 03/03/18 04:43 Chloride 108 mEq/L (98-107) H 03/03/18 04:43 Carbon Dioxide 21 mEq/L (23-29) L 03/03/18 04:43 Glucose 119 mg/dL (70-105) H 03/03/18 04:43 POC Glucose 122 mg/dL (70-99) H 03/03/18 05:40 Serum Total Protein 5.8 g/dL (6.4-8.9) L 03/03/18 04:43 Albumin 3.4 g/dL (3.5-5.7) L 03/03/18 04:43 Triglycerides 247 mg/dL (< 150) H 03/03/18 04:43 VLDL Cholesterol, Calc 49 mg/dL (< 31) H 03/03/18 04:43 HDL Cholesterol 29 mg/dL (40-59) L 03/03/18 04:43 Cholesterol/HDL Ratio 5.8 (0-4.9) H 03/03/18 04:43 Ur Specific [place] > 1.030 (1.010-1.025) H 03/03/18 07:55 Urine Protein 100 mg/dL (Neg-Trace) H 03/03/18 07:55 Urine Blood Trace (Negative) H 03/03/18 07:55 Ur Leukocyte Esterase Trace (Negative) H 03/03/18 07:55 Urine Microscopic WBC 3-5 per hpf (0-3) H 03/03/18 07:55 Ur Squamous Epith Cells Moderate per lpf (None-Few) H 03/03/18 07:55
--- NOTE | 2018-03-03 11:21 | Cardiology Consult Note ---
<Tano Chowdary - Last Filed: 03/03/18 13:14> Date of Encounter: 03/03/18 Time of Encounter: 11:20 Assessment and Plan (1) Chest pain Current Visit: Yes Status: Acute C/o Chest pain. History of CAD s/p prior CABG and PCI. Also presenting with stroke like symptoms. Troponin negative. EKG shows SR with incomplete LBBB, new diffuse ST depression, may be LVH. Findings more prominent than last EKG in June. [facility] 06/2017- DIALLO -mLAD graft patent, 70% 1st diagonal bifurcation lesion. 80-90 % stenosis in the pCx artery s/p PCI, 90% stenosis in the 1st OM s/p PCI, 90% stenosis mRCA s/p PCI. TTE 06/2017- EF 60-65%. No significant valvular disease. No PFO. Check TTE for new chest pain, CVA symptoms, and EKG changes. Discussed with Dr. Long. We will plan for stress test once cleared by neurology. Qualifiers: Chest pain type: unspecified Qualified Code(s): R07.9 - Chest pain, unspecified (2) CAD (coronary artery disease) Current Visit: No Status: Chronic H/o CABG x1 vessel and multi vessel PCI. Asa, statin, plavix, and bb recommended. NTG PRN chest pain. Qualifiers: Coronary Disease-Associated Artery/Lesion type: [place] artery [place] vs. transplanted heart: [place] heart Associated angina: without angina Qualified Code(s): I25.10 - Atherosclerotic heart disease of [place] coronary artery without angina pectoris (3) CVA (cerebral vascular accident) Current Visit: No Status: Acute Neurology following. Telemetry review shows SR. No concerning arrhythmias. Qualifiers: CVA mechanism: unspecified Qualified Code(s): I63.9 - Cerebral infarction, unspecified Discussion w patient/family: The assessment and plan as outlined above was discussed with the patient and/or family members who expressed understanding and agreement. All questions were answered. Thank you for involving us in the care of your patient. Please call with any questions. History of Present Illness Consult date: 03/03/18 Requesting physician: Yoselin Nuno Consult reason: Chest pain Chief complaint: Right sided chest pain associated with right arm tingling, weakness History of present illness: Ms. Nunez is a 67 year old female with past medical history significant for multiple WI s/p CABG x 1 vessel in 2007 and multi-vessel PCI most recently 2017. She also has a history of mutiple CVA, DM, and HTN. She presents with c/o severe right sided chest pain radiating down right arm and up into her right neck after walking to her van and sitting down. The pain was associated with SOB , right arm tingling, and weakness, and difficulty speaking. The pain and SOB resolved after 15 min. She went home and layed down feeling better. She then woke up with the same symptoms. She is chest pain free on my exam. She says that he chest pain was not like her previous WI but she always had a CVA and WI together. She has lingering slurred speech and difficulty finding words. States that her symptoms are increased from baseline. MRI was negative for acute CVA. Neurology is following. Past Med Surg Social Fam HX - Past Medical History Medical history: coronary artery disease, CVA, myocardial infarction, TIA Additional medical history: 3 TIA/3 CVA Psychiatric history: depression - Past Surgical History Surgical History: appendectomy Additional surgical history: open heart - Social History Smoking Status: Never smoker Smokeless Tobacco Status: No Alcohol use: none Drug use: none - Family History Father Adopted: No Living Status: Age at : 76 Hx Family Cardiac Disorders: Yes (HTN) Hx Family Cancer: Yes (COPD, emphysema) Mother Adopted: No Family Member Ethnicity: Non- Living Status: Age at : 57 Hx Family Cardiac Disorders: Yes Hx Family Respiratory Disorders: No Hx Family Cancer: Yes Hx Family GI Disorders: No Hx Family Endocrine Disorder: Yes Hx Family Neuromuscular Disorders: No Hx Family Neurologic Disorders: Yes Hx Family HEENT Disorders: No Hx Family Autoimmune Disorders: No Medications and Allergies Amlodipine Besylate 10 mg PO DAILY #0 02/19/15 [History] metFORMIN [Glucophage] 1,000 mg PO BIDWM 02/19/15 [History] Insulin Glargine,Hum.rec.anlog [Lantus Solostar] 32 unit SQ HS 12/29/15 [History ] Aspirin 325 mg PO DAILY 09/10/16 [History] Lisinopril [Zestril] 20 mg PO DAILY 09/10/16 [History] Attila's Wort 300 mg PO DAILY 07/07/17 [History] Acetaminophen [Tylenol] 650 mg PO Q6HR PRN tablet 07/11/17 [Rx] Atorvastatin [Lipitor] 80 mg PO HS 30 Days #60 tablet 07/11/17 [Rx] Citalopram [CeleXA] 40 mg PO DAILY 03/02/18 [History] Clopidogrel Bisulfate [Plavix] 75 mg PO DAILY 03/02/18 [History] Metoprolol [Lopressor] 25 mg PO BID 03/02/18 [History] Multivitamin [One Daily Essential] 1 tab PO DAILY 03/02/18 [History] PredniSONE [Deltasone] 20 mg PO DAILY 03/02/18 [History] 3 Allergy/AdvReac Type Severity Reaction Status Date / Time Penicillins Allergy Hives Verified 07/03/17 14:43 lactose AdvReac Vomiting Verified 07/03/17 14:43 All Systems Review: The remainder of the systems were reviewed and are negative Physical Examination Vital Signs, Last 4 Hours Temp Pulse Resp BP Pulse Ox 03/03/18 10:25 98.1 F 73 16 158/84 95 General: Conversant, No Apparent Distress HEENT: Atraumatic, Normocephaly, Mucus Membranes Moist Neck: No JVD, Normal carotid pulses Cardiac: Reg Rate and Rhythm, Normal S1 and S2, No Murmur Lungs: Normal Breath Sounds, No Wheeze, Rales, Rhonchi Neuro: Alert and responsive, Other (Speech slow) Abdomen: Soft, Non-Tender Skin: No rashes noted on visualized skin Musculoskeletal: No Chest Wall Tenderness Extremities: No Clubbing, No Cyanosis, No Edema, Normal Pulses Results 03/03/18 04:43 03/03/18 04:43 Lab Results 03/02/18 03/03/18 03/03/18 22:35 04:43 04:43 WBC 9.5 Hgb 11.8 Hct 33.4 L Plt Count 229 INR Sodium 137 Potassium 3.9 Chloride 108 H Carbon Dioxide 21 L BUN 21 Creatinine 0.82 Glucose 119 H Calcium 8.9 Magnesium 1.6 Total Bilirubin 0.4 AST 19 ALT 10 Alkaline Phosphatase 100 Troponin I < 0.03 < 0.03 03/03/18 03/03/18 04:43 10:00 WBC Hgb Hct Plt Count INR 0.9 Sodium Potassium Chloride Carbon Dioxide BUN Creatinine Glucose Calcium Magnesium Total Bilirubin AST ALT Alkaline Phosphatase Troponin I < 0.03 - Imaging and Cardiology Echo: pending, report reviewed Cardiac cath: report reviewed - EKG Interpretation EKG results cardiology: personally reviewed Consult Discharge Plan - Plan Referrals: Ayesha Ramírez, [employer] [Primary Care Provider] - <Nitesh Long - Last Filed: 03/03/18 15:31> Date of Encounter: 03/03/18 Assessment and Plan (1) Chest pain Current Visit: Yes Status: Acute C/o Chest pain. History of CAD s/p prior CABG and PCI. Also presenting with stroke like symptoms. Troponin negative. EKG shows SR with incomplete LBBB, new ST depression in inferior and lateral leads. [facility] 06/2017- DIALLO -mLAD graft patent, 70% 1st diagonal bifurcation lesion. 80-90 % stenosis in the pCx artery s/p PCI, 90% stenosis in the 1st OM s/p PCI, 90% stenosis mRCA s/p PCI. TTE 06/2017- EF 60-65%. No significant valvular disease. No PFO. Check TTE for new chest pain, CVA symptoms, and EKG changes. Discussed with Dr. Long. We will plan for stress test once cleared by neurology. Qualifiers: Chest pain type: unspecified Qualified Code(s): R07.9 - Chest pain, unspecified Discussion w patient/family: The assessment and plan as outlined above was discussed with the patient and/or family members who expressed understanding and agreement. All questions were answered. Thank you for involving us in the care of your patient. Please call with any questions. History of Present Illness History of present illness: Ms. Nunez is a 67 year old female All Systems Review: The remainder of the systems were reviewed and are negative Results 03/03/18 04:43 03/03/18 04:43 Lab Results 03/02/18 03/03/18 03/03/18 22:35 04:43 04:43 WBC 9.5 Hgb 11.8 Hct 33.4 L Plt Count 229 INR Sodium 137 Potassium 3.9 Chloride 108 H Carbon Dioxide 21 L BUN 21 Creatinine 0.82 Glucose 119 H Calcium 8.9 Magnesium 1.6 Total Bilirubin 0.4 AST 19 ALT 10 Alkaline Phosphatase 100 Troponin I < 0.03 < 0.03 03/03/18 03/03/18 04:43 10:00 WBC Hgb Hct Plt Count INR 0.9 Sodium Potassium Chloride Carbon Dioxide BUN Creatinine Glucose Calcium Magnesium Total Bilirubin AST ALT Alkaline Phosphatase Troponin I < 0.03
[2018-03-03] MEDS ORDERED: Insulin LISPRO 300 UNITS/3 ML VIAL SQ SCH (12:00)
--- NOTE | 2018-03-03 12:29 | Internal Med Progress Note ---
Hospitalist Progress Note - Encounter Date of Encounter: 03/03/18 Time of Encounter: 12:28 - Subjective Interval History: 67-year-old female female, brought to the hospital for his strokelike symptoms. Patient reports that her speech has improved, but still has some difficulty in finding some words. Denies any focal worsening weakness. Denies chest pain , nausea, or vomiting. - Exam Vitals: Temp Pulse Resp BP Pulse Ox 97.9 F 78 16 144/84 96 03/03/18 11:20 03/03/18 11:20 03/03/18 11:20 03/03/18 11:20 03/03/18 11:20 Exam: General: Patient is alert, oriented, no acute distress, speaks in full sentences Head: atraumatic, normocephalic, Eye: normal appearance, PERRL, no scleral icterus, no conjunctival injection ENT: mucous membranes moist, normal external ear exam Respiratory: Good respiratory effort. Clear to auscultation bilaterally, no wheezing , crackles or rales in the posterior lung montalvo. Cardiovascular: RRR, Normal s1 and s2 No rubs, gallops, or murmors. Abdomen: Bowel sounds present normoactive x-4 quadrants. Abdomen is soft, nondistended. No guarding or rebound. Obese. Musculoskeletal: Spontaneously moving all extremities. no edema, no calf tenderness. Strength is 5 out of 5 in the lower and upper extremities. Neuro: Alert and oriented x4. Sensation light touch intact. Cranial nerves 2- 12 is intact. Not aphasic, rapid hand movements intact, [id number] intact. - Assessment and Plan (1) TIA (transient ischemic attack) Current Visit: Yes Status: Acute Assessment and Plan: stroke like Symptoms likely secondary to a TIA. Patient reports improvement in her speech. Plan Discontinue permissive hypertension. MRI of the brain done: No acute intracranial abnormality. Remote cerebral and cerebellar infarcts. Chronic hemorrhage at level of the basal ganglia. Continue aspirin and Plavix Follow-up PT/OT evaluation Speech evaluation recommended: Regular textures and thin liquids. We will follow neurology recommendation. Potential discharge tomorrow (2) Diabetes Current Visit: No Status: Chronic Assessment and Plan: Plan Diabetic diet Started on lispro before meals and sliding scale Levemir 5 units at bedtime Accu-Chek before meals and at bedtime (3) Hypertension Current Visit: No Status: Chronic Assessment and Plan: Patient on permissive hypertension for the past 24 hours. Plan Discontinue permissive hypertension. as MRI of the brain has r/o stroke. started on her home antihypertensive medication. Hydralazine 5mg/IV Q6HR PRN for SBP >190 or DBP >110 (4) DVT prophylaxis Current Visit: No Status: Acute Assessment and Plan: On heparin 5000 units subcutaneous every 8 hours for DVT prophylaxis. (5) Chest pain Current Visit: Yes Status: Resolved Assessment and Plan: Patient denied chest pain during my evaluation. No shortness of breath. Plan Nitroglycerin sublingual every 5minutes x3 for chest pain will continue to follow cardiology recommendations - Summary of Assessment and Plan Summary of Assessment and Plan: Potential discharge tomorrow. - Time Spent with Patient Total time spent is greater than 50% in coordination of care (as documented) at patient's floor/unit and/or counseling patient: Greater than 35 minutes Plan of Care Discussed with: patient (and the nurse.) Internal Medicine: Result - Labs CBC & Chem 7: 03/03/18 04:43 03/03/18 04:43 Labs: Short CBC 03/03/18 Range/Units 04:43 WBC 9.5 (4.3-11.1) K/mcL Hgb 11.8 (11.5-15.4) g/dL Hct 33.4 L (35.3-44.9) % Plt Count 229 (140-400) K/mcL Neutrophils # 5.4 (1.6-8.9) K/mcL BMP 03/03/18 04:43 Sodium 137 Potassium 3.9 Chloride 108 H Carbon Dioxide 21 L BUN 21 Creatinine 0.82 Glucose 119 H Calcium 8.9 Cardiac Enzymes 03/02/18 03/03/18 03/03/18 Range/Units 22:35 04:43 10:00 Troponin I < 0.03 < 0.03 < 0.03 (< 0.04) ng/mL Liver Function 03/03/18 Range/Units 04:43 Total Bilirubin 0.4 (0.3-1.0) mg/dL AST 19 (13-39) Units/L ALT 10 (7-52) Units/L Alkaline Phosphatase 100 (34-104) Units/L Albumin 3.4 L (3.5-5.7) g/dL Urine 03/03/18 Range/Units 07:55 Urine Color Yellow (Yellow) Urine Clarity Clear (Clear) Urine pH 6.0 (5.0-8.0) pH Units Ur Specific [place] > 1.030 H (1.010-1.025) Urine Protein 100 H (Neg-Trace) mg/dL Urine Glucose (UA) Normal (Normal) mg/dL - ABG Interpretation ABG results: PT/INR, D-dimer PT 10.0 Seconds (9.4-12.1) 03/03/18 04:43 - Impressions Impressions Abdomen/Pelvis CTA 03/03/18 00:00 IMPRESSION: 1. No aortic aneurysm or dissection. 2. Coronary artery disease. 3. 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 4. Diverticulosis without scan evidence for diverticulitis. D/ / Herve Adams MD / Herve Adams MD Interpreting Provider: Herve Adams MD Brain MRI 03/03/18 21:16 IMPRESSION: No acute intracranial abnormality. Remote cerebral and cerebellar infarcts. Chronic hemorrhage at level of the basal ganglia. D/ / 03/03/2018 09:27:23 Rohan Muniz MD / Fozia Otero Interpreting Provider: Rohan Muniz MD Chest CTA 03/03/18 23:17 IMPRESSION: 1. No aortic aneurysm or dissection. 2. Coronary artery disease. 3. 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 4. Diverticulosis without scan evidence for diverticulitis. 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
[2018-03-03] MEDS ORDERED: predniSONE 20 MG TABLET PO ONE (12:51)
[2018-03-03] MEDS: *HR* Heparin 5,000 UNIT/ML VIAL SQ SCH ×2 (13:13→21:37)
--- NOTE | 2018-03-03 17:21 | Electrocardiograph Report ---
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
[2018-03-03] MEDS: Insulin LISPRO 300 UNITS/3 ML VIAL SQ SCH (17:33)
[2018-03-03] MEDS ORDERED: Isovue-370 500 ML INFUS..BTL IV ONE (17:45)
[2018-03-03] MEDS ORDERED: Insulin DETEMIR 100 UNIT/ML X5UNITS SQ SCH (21:00)
[2018-03-04] MEDS: *HR* Heparin 5,000 UNIT/ML VIAL SQ SCH ×2 (04:27→15:47)
[2018-03-04 07:17] LABS: Basophils # 0.1 K/mcL (0.0-0.2); Basophils % 0.5 %; Eosinophils # 0.1 K/mcL (0.0-0.6); Eosinophils % 1.1 %; Hematocrit 31.8 % (35.3-44.9); Hemoglobin 11.3 g/dL (11.5-15.4); Immature Granulocytes % 0.8 % (0-4); Lymphocytes # 2.7 K/mcL (0.6-4.6); Lymphocytes % 25.4 %; Mean Corpuscular HGB Conc 35.5 g/dL (31.6-35.5); Mean Corpuscular Hemoglobin 31.4 pg (28.0-33.3); Mean Corpuscular Volume 88.3 fL (83.0-100.0); Mean Platelet Volume 10.7 fL (9.4-12.4); Monocytes # 0.7 K/mcL (0.0-1.3); Monocytes % 6.3 %; Platelet Count 231 K/mcL (140-400); Red Cell Distribution Width 11.3 % (11.5-14.5); Segmented Neutrophils % 65.9 %
[2018-03-04 07:34] LABS: BUN/Creatinine Ratio 23 (6-26); Blood Urea Nitrogen 23 mg/dL (8-23); Calcium 9.1 mg/dL (8.6-10.3); Carbon Dioxide 24 mEq/L (23-29); Chloride 104 mEq/L (98-107); Glucose 221 mg/dL (70-105); Magnesium 1.8 mg/dL (1.6-2.6); Osmolality,Calculated 290 (280-300); Potassium 3.9 mEq/L (3.5-5.1); Sodium 135 mEq/L (136-145); eGFR For Non-African Americans 54 (> 60)
--- NOTE | 2018-03-04 08:52 | Discharge Summary ---
- NOTES TO OUTPATIENT PROVIDER Notes to Outpatient Provider: PCP for possible antihypertensive medications adjustments. 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: unspecified skilled nursing insulin use status Diabetes mellitus complication detail: with other circulatory complications Qualified Code(s): E13.59 - Other specified diabetes mellitus with other circulatory complications (3) Hypertension Priority: Secondary Status: Chronic Qualifiers: Hypertension type: essential hypertension Qualified Code(s): I10 - Essential (primary) hypertension (4) DVT prophylaxis Priority: Secondary Status: Acute (5) Chest pain Priority: Secondary Status: Resolved Qualifiers: Chest pain type: unspecified Qualified Code(s): R07.9 - Chest pain, unspecified Hospital course: Ms. Nunez is a 67 year old female past medical history of ischemic stroke, diabetes, hypertension and coronary artery disease status post CABG and PCI who presents with chest pain and slurred speech. Patient workup for CVA, MRI of the brain done No acute intracranial abnormality.Remote cerebral and cerebellar infarcts. Chronic hemorrhage at level of the basal ganglia. CTA of the neck done as per neurology recommendation significant for: No acute arterial abnormality in the head or neck. 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 Patient recommended to continue dual antiplatelet therapy. Due to her concern a chest pain and negative troponins on presentation cardiology recommended to the nuclear stress test which showed: negative for ischemia. Outpatient follow up recommended. Patient hemodynamically stable to be discharged home. - Time Spent with Patient Total time spent providing and/or coordinating discharge services: Greater than 30 minutes - Discharge Medications Home Medications: Amlodipine Besylate 10 mg PO DAILY #0 02/19/15 [History] metFORMIN [Glucophage] 1,000 mg PO BIDWM 02/19/15 [History] Insulin Glargine,Hum.rec.anlog [Lantus Solostar] 32 unit SQ HS 12/29/15 [History ] Aspirin 325 mg PO DAILY 09/10/16 [History] Lisinopril [Zestril] 20 mg PO DAILY 09/10/16 [History] Attila's Wort 300 mg PO DAILY 07/07/17 [History] Acetaminophen [Tylenol] 650 mg PO Q6HR PRN tablet 07/11/17 [Rx] Atorvastatin [Lipitor] 80 mg PO HS 30 Days #60 tablet 07/11/17 [Rx] Citalopram [CeleXA] 40 mg PO DAILY 03/02/18 [History] Clopidogrel Bisulfate [Plavix] 75 mg PO DAILY 03/02/18 [History] Metoprolol [Lopressor] 25 mg PO BID 03/02/18 [History] Multivitamin [One Daily Essential] 1 tab PO DAILY 03/02/18 [History] PredniSONE [Deltasone] 20 mg PO DAILY 03/02/18 [History] Allergies/Adverse Reactions: 3 Allergy/AdvReac Type Severity Reaction Status Date / Time Penicillins Allergy Hives Verified 07/03/17 14:43 lactose AdvReac Vomiting Verified 07/03/17 14:43 Date of admission: 03/02/18 18:55 Primary care physician: Ayesha Ramírez CNP Consults: 03/02/18 21:17 Consult to Neurology [CONS] Routine Consulting Provider: [facility] Reason for Consult: Concern for TIA vs Stroke Call Completed: No Consult to Physical Therapy [CONS] Routine Comment: Evaluate, develop and implement POC Reason for Consult: Concern for TIA vs Stroke Does patient have active BEDREST order?: Yes Is patient medically & hemodynamically stable?: Yes 03/02/18 23:44 Consult to Cardiology [CONS] Routine Comment: Consulting Provider: Cardiology [facility] Reason for Consult: Concern for ACS in the setting of possible TIA Call Completed: No 03/03/18 08:01 Consult to Speech Therapy [CONS] Routine Comment: Evaluate, develop and implement POC Reason for Consult: Failed Nursing Bedside swallow eval Call Completed: No - Constitutional Vitals: Temp Pulse Resp BP Pulse Ox 97.8 F 75 15 177/86 97 03/04/18 07:00 03/04/18 07:00 03/04/18 07:00 03/04/18 07:00 03/04/18 07:00 Exam: General: Patient is alert, oriented, no acute distress, speaks in full sentences Head: atraumatic, normocephalic, Eye: normal appearance, PERRL, no scleral icterus, no conjunctival injection ENT: mucous membranes moist, normal external ear exam Respiratory: Good respiratory effort. Clear to auscultation bilaterally, no wheezing , crackles or rales in the posterior lung montalvo. Cardiovascular: RRR, Normal s1 and s2 No rubs, gallops, or murmors. Abdomen: Bowel sounds present normoactive x-4 quadrants. Abdomen is soft, nondistended. No guarding or rebound. Obese. Musculoskeletal: Spontaneously moving all extremities. no edema, no calf tenderness. Strength is 5 out of 5 in the lower and upper extremities. Neuro: Alert and oriented x4. Sensation light touch intact. Cranial nerves 2- 12 is intact. Not aphasic, rapid hand movements intact, [id number] intact. - Patient Status Disposition: Home, Self-Care Condition: Good Functional capacity at discharge: independent ambulation Overall status at discharge: patient is progressing back to baseline - Discharge Instructions Follow Up With: Ayesha Ramírez, FINANCIAL INSTITUTION TREASURER [Primary Care Provider] - - Diet and Activity Activity: resume usual activities as tolerated Diet: diabetic diet
[2018-03-04] MEDS ORDERED: amLODIPine 5 MG TABLET PO SCH (09:00)
[2018-03-04] MEDS ORDERED: Lisinopril 20 MG TABLET PO SCH (09:00)
[2018-03-04] MEDS: Insulin LISPRO 300 UNITS/3 ML VIAL SQ SCH ×2 (09:03→12:21)
[2018-03-04] MEDS: Aspirin 81 MG TAB.CHEW PO SCH (09:03)
[2018-03-04 09:06] LABS: Estimated Average Glucose 192 mg/dl; Hemoglobin A1C 8.3 %
--- NOTE | 2018-03-04 09:12 | Neurology Progress Note ---
Date of Encounter: 03/04/18 Time of Encounter: 09:10 Assessment and Plan (1) TIA (transient ischemic attack) Current Visit: Yes Status: Acute Suspect transient ischemic attack. No evidence of acute infarct. However I would recommend aggressive management of her risk factors. She should remain on dual antiplatelet therapy. Unfortunately there is nothing from an interventional perspective available to remedy the intracranial stenosis. Not convinced that anticoagulation would help with this situation. She is going to be risk factor modification she should remain on statin and aggressive management of her hypertension. You may discharge her at your discretion. Subjective Interval history: The chart was reviewed, patient was seen and examined. She had an uneventful night. She denies any new paresthesias or weakness of the upper or lower extremities. The neuroimaging vascular studies have been completed. CTA scan of the neck reveals a possibly 25% stenosis of the internal carotid arteries bilaterally. However CTA of the brain revealed severe stenosis of the right P2 segment of the posterior cerebral artery as well as severe stenosis of the left P1 segment of the posterior cerebral artery. There is also stenosis of the left vertebral artery. Blood pressure remains elevated as well. Apparently she is going to undergo stress testing later today. MRI scan of the brain completed yesterday revealed no evidence of acute infarction. However TIAs is still suspected his she was extremely hypertensive upon admission. Objective - Constitutional Vitals: Temp Pulse Resp BP Pulse Ox 97.8 F 75 15 177/86 97 03/04/18 07:00 03/04/18 07:00 03/04/18 07:00 03/04/18 07:00 03/04/18 07:00 - Neurological Exam Sensorimotor examination: Present: intact Motor Examination: Present: grossly full strength in all extremities Sensation intact: Present: intact Mental Status Examination: Present: awake, alert, oriented to person, oriented to place, oriented to time, follows commands appropriately, answers questions appropriately Cranial nerve examination: Present: PERRL, EOMI, sensory to face intact, mastication intact, no facial asymmetry is present, no dysarthria Results - Laboratory Findings CBC and BMP: 03/04/18 06:41 03/04/18 06:41 Abnormal lab findings: Abnormal lab results RBC 3.60 M/mcL (3.82-4.97) L 03/04/18 06:41 Hgb 11.3 g/dL (11.5-15.4) L 03/04/18 06:41 Hct 31.8 % (35.3-44.9) L 03/04/18 06:41 RDW 11.3 % (11.5-14.5) L 03/04/18 06:41 Sodium 135 mEq/L (136-145) L 03/04/18 06:41 Est GFR (Non-Af Amer) 54 (> 60) L 03/04/18 06:41 Glucose 221 mg/dL (70-105) H 03/04/18 06:41 POC Glucose 298 mg/dL (70-99) H 03/03/18 19:47 Hemoglobin A1c 8.3 % (-5.6) H 03/04/18 06:41 Serum Total Protein 5.8 g/dL (6.4-8.9) L 03/03/18 04:43 Albumin 3.4 g/dL (3.5-5.7) L 03/03/18 04:43 Triglycerides 247 mg/dL (< 150) H 03/03/18 04:43 VLDL Cholesterol, Calc 49 mg/dL (< 31) H 03/03/18 04:43 HDL Cholesterol 29 mg/dL (40-59) L 03/03/18 04:43 Cholesterol/HDL Ratio 5.8 (0-4.9) H 03/03/18 04:43 Ur Specific [place] > 1.030 (1.010-1.025) H 03/03/18 07:55 Urine Protein 100 mg/dL (Neg-Trace) H 03/03/18 07:55 Urine Blood Trace (Negative) H 03/03/18 07:55 Ur Leukocyte Esterase Trace (Negative) H 03/03/18 07:55 Urine Microscopic WBC 3-5 per hpf (0-3) H 03/03/18 07:55 Ur Squamous Epith Cells Moderate per lpf (None-Few) H 03/03/18 07:55 Consult Discharge Plan - Plan Referrals: Ayesha Ramírez, DIRECTOR ELECTRONICS [Primary Care Provider] -
[2018-03-04] MEDS ORDERED: Regadenoson 0.4 MG/5 ML SYRINGE IVP ONE (09:54)
--- NOTE | 2018-03-04 10:59 | Cardiology Progress Note ---
Date of Encounter: 03/04/18 Time of Encounter: 10:46 Assessment and Plan (1) Chest pain Current Visit: Yes Status: Acute C/o Chest pain. History of CAD s/p prior CABG and PCI. Also presenting with stroke like symptoms. Diagnosed with TIA. Troponin negative. EKG shows SR with incomplete LBBB, new ST depression in inferior and lateral leads changed from prior EKG. [facility] 06/2017- DIALLO -mLAD graft patent, 70% 1st diagonal bifurcation lesion. 80-90 % stenosis in the pCx artery s/p PCI, 90% stenosis in the 1st OM s/p PCI, 90% stenosis mRCA s/p PCI. [facility] 06/2017- EF 60-65%. No significant valvular disease. No PFO. Re-peat TTE this stay shows EF 60%, no WMA. Discussed with Dr. Long. We will plan for stress test today. If no concerning findings out-pt f/u recommended. Qualifiers: Chest pain type: unspecified Qualified Code(s): R07.9 - Chest pain, unspecified (2) CAD (coronary artery disease) Current Visit: No Status: Chronic H/o CABG x1 vessel and multi vessel PCI. Asa, statin, plavix, and bb recommended. NTG PRN chest pain. Qualifiers: Coronary Disease-Associated Artery/Lesion type: [place] artery [place] vs. transplanted heart: [place] heart Associated angina: without angina Qualified Code(s): I25.10 - Atherosclerotic heart disease of [place] coronary artery without angina pectoris (3) TIA (transient ischemic attack) Current Visit: Yes Status: Acute MRI negative for acute infarct. Likely TIA per neurology. Symptoms improved. On asa and plavix. Discussion w patient/family: The assessment and plan as outlined above was discussed with the patient and/or family members who expressed understanding and agreement. All questions were answered. Thank you for involving us in the care of your patient. Please call with any questions. Subjective Principal diagnosis: Chest pain, TIA Interval history: Patient seen in stress lab. Denied recurrent chest pain overnight. She did develope chest pain with lexiscan. Stress test result pending. Objective Vital Signs, Last 4 Hours Temp Pulse Resp BP Pulse Ox 03/04/18 07:00 97.8 F 75 15 177/86 97 General: Conversant, No Apparent Distress HEENT: Atraumatic, Normocephaly, Mucus Membranes Moist Neck: No JVD, Normal carotid pulses Cardiac: Reg Rate and Rhythm, Normal S1 and S2, No Murmur Lungs: Normal Breath Sounds, No Wheeze, Rales, Rhonchi Neuro: Alert and responsive, Other (Genralized weakness, slow speeach, improved from yesterday. ) Abdomen: Soft, Non-Tender Skin: No rashes noted on visualized skin Musculoskeletal: No Chest Wall Tenderness Extremities: No Clubbing, No Cyanosis, No Edema, Normal Pulses Results 03/04/18 06:41 03/04/18 06:41 Lab Results 03/04/18 03/04/18 06:41 06:41 WBC 10.6 Hgb 11.3 L Hct 31.8 L Plt Count 231 Sodium 135 L Potassium 3.9 Chloride 104 Carbon Dioxide 24 BUN 23 Creatinine 1.02 Glucose 221 H Calcium 9.1 Magnesium 1.8 - Imaging and Cardiology Echo: report reviewed - EKG Interpretation EKG results cardiology: personally reviewed Consult Discharge Plan - Plan Referrals: Ayesha Ramírez HUMAN RESOURCES SPECIALIST [Primary Care Provider] -
[2018-03-04] MEDS ORDERED: Isosorbide MONOnitrate (24 HR) 30 MG TAB.ER.24H PO SCH (14:15)
[2018-03-04 15:16] VITALS: BP 158/58
== END 2018-03-04 17:45 | disposition home or self-care (01) ==
LOC: EMEROOARM 16:25 → 2NENU 16:25 → SUATTDRO 18:55 → 2NENU 20:30
PROVIDERS: ADMIT Student in an Organized Health Care Education/Training Program; ATTEND Internal Medicine

== ENCOUNTER 2019-01-06 17:52 | Observation (INO) ==
[2019-01-06 18:09] LABS: Hemoglobin 11.7 g/dL (11.5-15.4); Mean Corpuscular HGB Conc 33.4 g/dL (31.6-35.5); Mean Corpuscular Hemoglobin 31.8 pg (28.0-33.3); Mean Corpuscular Volume 95.1 fL (83.0-100.0); Mean Platelet Volume 10.3 fL (9.4-12.4); Platelet Count 235 K/mcL (140-400); Red Blood Count 3.68 M/mcL (3.82-4.97); Red Cell Distribution Width 11.4 % (11.5-14.5); White Blood Count 9.1 K/mcL (4.3-11.1)
[2019-01-06 18:17] LABS: INR 0.9; Prothrombin Time 10.6 Seconds (9.4-12.1)
[2019-01-06 18:20] LABS: Activated Partial Thrombo Time 32.2 Seconds (26.0-36.0)
[2019-01-06 18:29] LABS: BUN/Creatinine Ratio 21 (6-26); Blood Urea Nitrogen 24 mg/dL (8-23); Calcium 9.1 mg/dL (8.6-10.3); Carbon Dioxide 21 mEq/L (23-29); Chloride 106 mEq/L (98-107); Glucose 233 mg/dL (70-105); Osmolality,Calculated 292 (280-300); Potassium 4.1 mEq/L (3.5-5.1); Sodium 135 mEq/L (136-145); eGFR For African Americans 58 (> 60); eGFR For Non-African Americans 48 (> 60)
[2019-01-06 18:30] LABS: Troponin I < 0.03 ng/mL (< 0.04)
--- NOTE | 2019-01-06 18:46 | Emergency Department Note ---
Disposition Clinical Impression: Aphasia, Dysarthria Disposition: Admitted As Inpatient Condition: Fair Referrals: Ayesha Ramírez, C D STRIPPER [Primary Care Provider] - Forms: ED Satisfaction Letter Time of Disposition: 21:03 General Adult HPI - General Stated complaint: Neuro symptoms Time Seen by Provider: 01/06/19 17:55 Source: patient Limitations: no limitations - History of Present Illness Pain Scale: 0 - Related Data Home Medications Medication Instructions Recorded Confirmed Insulin Glargine,Hum.rec.anlog 44 unit SQ HS 12/29/15 01/06/19 [Lantus Solostar] Aspirin 81 mg PO DAILY 09/10/16 01/06/19 Lisinopril [Zestril] 20 mg PO DAILY 09/10/16 01/06/19 Citalopram [CeleXA] 40 mg PO DAILY 03/02/18 01/06/19 Clopidogrel Bisulfate [Plavix] 75 mg PO DAILY 03/02/18 01/06/19 Metoprolol [Lopressor] 25 mg PO DAILY 03/02/18 01/06/19 Amlodipine Besylate 10 mg PO DAILY 10/22/18 01/06/19 Atorvastatin Calcium [Lipitor] 80 mg PO HS 10/22/18 01/06/19 Gabapentin [Neurontin] 300 mg PO BID 10/22/18 01/06/19 Isosorbide MONOnitrate [Isosorbide 30 mg PO QAM 10/22/18 01/06/19 Mononitrate ER] Metformin HCl [Glucophage] 1,000 mg PO BID 10/22/18 01/06/19 Allergies Allergy/AdvReac Type Severity Reaction Status Date / Time Penicillins Allergy Hives Verified 07/03/17 14:43 lactose AdvReac Vomiting Verified 07/03/17 14:43 Past Medical History - Past Medical History Medical history: Reports: coronary artery disease, CVA, diabetes, hyperlipidemia, hypertension, myocardial infarction, TIA Surgical history: Reports: angioplasty/stent, appendectomy, coronary bypass (CABG), orthopedic, other Psychiatric history: Reports: depression 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 AND PROSIZE MIXER 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: Reports: no STARCH AND PROSIZE MIXER history - Social History Smoking Status: Never smoker Smokeless Tobacco Status: No Alcohol use: Reports: none Drug use: Reports: none Physical Exam - General Limitations: no limitations General appearance: alert, in no apparent distress Course Vital Signs Temperature 98.5 F 01/06/19 18:02 Pulse Rate 82 01/06/19 18:02 Respiratory Rate 14 01/06/19 18:02 Blood Pressure 141/82 01/06/19 18:02 O2 Sat by Pulse Oximetry 97 01/06/19 18:02 Temperature 98.5 F 01/06/19 18:02 Pulse Rate 72 01/06/19 20:14 Respiratory Rate 18 01/06/19 20:14 Blood Pressure 163/71 01/06/19 20:14 O2 Sat by Pulse Oximetry 98 01/06/19 20:14 Oxygen Delivery Oxygen Delivery Room Air Medical Decision Making - Lab Data Result diagrams: 01/06/19 18:04 01/06/19 18:04 Lab Results 01/06/19 01/06/19 01/06/19 Range/Units 17:57 18:04 18:04 WBC 9.1 (4.3-11.1) K/mcL RBC 3.68 L (3.82-4.97) M/mcL Hgb 11.7 (11.5-15.4) g/dL Hct 35.0 L (35.3-44.9) % MCV 95.1 (83.0-100.0) fL MCH 31.8 (28.0-33.3) pg MCHC 33.4 (31.6-35.5) g/dL RDW 11.4 L (11.5-14.5) % Plt Count 235 (140-400) K/mcL MPV 10.3 (9.4-12.4) fL PT 10.6 (9.4-12.1) Seconds INR 0.9 APTT 32.2 (26.0-36.0) Seconds Sodium (136-145) mEq/L Potassium (3.5-5.1) mEq/L Chloride (98-107) mEq/L Carbon Dioxide (23-29) mEq/L BUN (8-23) mg/dL Creatinine (0.60-1.20) mg/dL Est GFR ( Amer) (> 60) Est GFR (Non-Af Amer) (> 60) BUN/Creatinine Ratio (6-26) Glucose (70-105) mg/dL POC Glucose 237 H (70-99) mg/dL Calculated Osmolality (280-300) Calcium (8.6-10.3) mg/dL Troponin I (< 0.04) ng/mL Urine Color (Yellow) Urine Clarity (Clear) Urine pH (5.0-8.0) pH Units Ur Specific [place] (1.010-1.025) Urine Protein (Neg-Trace) mg/dL Urine Glucose (UA) (Normal) mg/dL Urine Ketones (Negative) mg/dL Urine Blood (Negative) Urine Nitrite (Negative) Urine Bilirubin (Negative) Urine Urobilinogen (Normal) mg/dL Ur Leukocyte Esterase (Negative) Urine Microscopic RBC (0-3) per hpf Urine Microscopic WBC (0-3) per hpf Ur Squamous Epith Cells (None-Few) per lpf Urine Bacteria (None-Few) per hpf Hyaline Casts (None-Few) per lpf Ur Culture Indicated? (NO) 01/06/19 01/06/19 Range/Units 18:04 19:18 WBC (4.3-11.1) K/mcL RBC (3.82-4.97) M/mcL Hgb (11.5-15.4) g/dL Hct (35.3-44.9) % MCV (83.0-100.0) fL MCH (28.0-33.3) pg MCHC (31.6-35.5) g/dL RDW (11.5-14.5) % Plt Count (140-400) K/mcL MPV (9.4-12.4) fL PT (9.4-12.1) Seconds INR APTT (26.0-36.0) Seconds Sodium 135 L (136-145) mEq/L Potassium 4.1 (3.5-5.1) mEq/L Chloride 106 (98-107) mEq/L Carbon Dioxide 21 L (23-29) mEq/L BUN 24 H (8-23) mg/dL Creatinine 1.13 (0.60-1.20) mg/dL Est GFR ( Amer) 58 L (> 60) Est GFR (Non-Af Amer) 48 L (> 60) BUN/Creatinine Ratio 21 (6-26) Glucose 233 H (70-105) mg/dL POC Glucose (70-99) mg/dL Calculated Osmolality 292 (280-300) Calcium 9.1 (8.6-10.3) mg/dL Troponin I < 0.03 (< 0.04) ng/mL Urine Color Yellow (Yellow) Urine Clarity Clear (Clear) Urine pH 5.5 (5.0-8.0) pH Units Ur Specific [place] 1.016 (1.010-1.025) Urine Protein 100 H (Neg-Trace) mg/dL Urine Glucose (UA) 250 H (Normal) mg/dL Urine Ketones Negative (Negative) mg/dL Urine Blood Trace H (Negative) Urine Nitrite Negative (Negative) Urine Bilirubin Negative (Negative) Urine Urobilinogen Normal (Normal) mg/dL Ur Leukocyte Esterase Moderate H (Negative) Urine Microscopic RBC 3-5 H (0-3) per hpf Urine Microscopic WBC 15-30 H (0-3) per hpf Ur Squamous Epith Cells Many H (None-Few) per lpf Urine Bacteria None Seen (None-Few) per hpf Hyaline Casts None Seen (None-Few) per lpf Ur Culture Indicated? YES A (NO) Attestation Statement - Attestation Attestation: I, Jose Delgado DO, examined this patient [id number] and my medical decision-making was reviewed with Dr. Karolyn Chen, Resident Physician. I agree with the documented findings, disposition and treatment plan as described except to the extent set forth below. I personally supervised and was present for the bennett/critical portions of the procedures completed by the resident documented below. Please see my progress notes for details. 68-year-old female presents emergency room with issues with word finding as well as dysarthria. Patient's had this happen multiple times the past when she has had CVAs. Patient has had these diagnosed up at [facility]. Patient denies any fevers or chills. She has not fallen or injured herself. She is currently denying any chest pain shortness of breath headache or vision change prior to the events here today. On arrival here she was describing a headache. She has not had any blurry vision or double vision at this time. Vital signs reviewed and are stable. Patient is been taking all of her medications as they are prescribed. She denies any other symptoms or complaints at this point. Head is atraumatic. Pupils are equal round reactive. Extraocular muscles are intact. Oropharynx is patent. Trachea is midline. Lungs are clear. She has no cranial nerve deficit noted at this time. She does have some audible slurred speech as well as difficulty with finding her words and word expressive aphasia. She has no signs of soft palate asymmetry or abnormality. Her extremities are otherwise normal. Lungs are clear heart is regular. Acute neurologic evaluation to be established considering last known well was at approximately noon today. On arrival here to the emergency room the time since onset is been approximately 6 hours. Stroke alert was called considering she still within the 24-hour window. The CT imaging of the head is been ordered at this point along with CBC chemistry electrolytes EKG chemistry panels along with coagulation studies. EKG is reviewed by myself and document the resident physician's note. Further intervention and evaluation will be completed by the [facility] neurologist. Patient's NIH is a 2 at this time. She is not a TPA candidate at this point based on the timeframe. Patient is otherwise stable. See detailed documentation the physical exam, medical intervention, medical decision-making and disposition in the resident physician's note. No critical care provider the patient's treatment course at this time. [address] scan of the head. Symptoms of been stable. The neurologist at [facility] Dr. Balbuena reviewed the case. Recommended no TPA intervention and then admission for neurologic evaluation. They did confirm that the patient had a positive MRI earlier this year for a stroke. At this point patient will be started on aspirin and then had the completion of the care provider here in the emergency department and admission completed. 2015 Labs are unremarkable this time. Baseline renal insufficiency and elevated glucose are noted. CT imaging of the head is negative. No change in the patient's symptoms at this time. At this point, the patient will be discussed with the hospitalist for admission. No other acute etiology noted during this treatment course a signs stable presentation noted. Patient was discussed with the hospitalist Dr. Quintanilla. No other recommendations or concerns noted at th is time. Patient is clinically stable. We will monitor here in the emergency room until the admission process is completed
[2019-01-06] MEDS ORDERED: Aspirin 81 MG TAB.CHEW PO STA (18:56)
--- NOTE | 2019-01-06 19:38 | Emergency Department Note ---
Disposition Clinical Impression: Aphasia, Dysarthria Disposition: Admitted As Inpatient Condition: Good Referrals: Ayesha Ramírez, REVERSER [Primary Care Provider] - Forms: ED Satisfaction Letter Time of Disposition: 21:17 Neuro HPI - General Chief Complaint: ED Neuro Symptoms/Deficit Stated Complaint: Neuro symptoms Time Seen by Provider: 01/06/19 17:55 Source: patient Mode of arrival: private vehicle Limitations: no limitations Nursing Notes Reviewed: Yes Vital Signs Reviewed: Yes - History of Present Illness HPI Narrative: 68-year-old female with past medical history of multiple TIAs, that daughter at bedside reports was previously well without symptoms at noon today, and then daughter got home and noted that her mother was having difficulty speaking, and was slurring some words and seemed to have some word finding difficulty. A stroke alert was called to facilitate rapid acquisition of workup, although patient presented outside of the window for TPA administration. Dr. bajwa notes the patient was most recently worked up for very similar symptoms October 22 of this year at this facility. Patient states that she does not want to go to [facility] even if this is what is recommended she has had a bad experience at this [facility] previously. - Related Data Home Medications: Home Medications Medication Instructions Recorded Confirmed Insulin Glargine,Hum.rec.anlog 44 unit SQ HS 12/29/15 01/06/19 [Lantus Solostar] Aspirin 81 mg PO DAILY 09/10/16 01/06/19 Lisinopril [Zestril] 20 mg PO DAILY 09/10/16 01/06/19 Citalopram [CeleXA] 40 mg PO DAILY 03/02/18 01/06/19 Clopidogrel Bisulfate [Plavix] 75 mg PO DAILY 03/02/18 01/06/19 Metoprolol [Lopressor] 25 mg PO DAILY 03/02/18 01/06/19 Amlodipine Besylate 10 mg PO DAILY 10/22/18 01/06/19 Atorvastatin Calcium [Lipitor] 80 mg PO HS 10/22/18 01/06/19 Gabapentin [Neurontin] 300 mg PO BID 10/22/18 01/06/19 Isosorbide MONOnitrate [Isosorbide 30 mg PO QAM 10/22/18 01/06/19 Mononitrate ER] Metformin HCl [Glucophage] 1,000 mg PO BID 10/22/18 01/06/19 Allergies/Adverse Reactions: Allergies Allergy/AdvReac Type Severity Reaction Status Date / Time Penicillins Allergy Hives Verified 07/03/17 14:43 lactose AdvReac Vomiting Verified 07/03/17 14:43 Limitations: ROS unobtainable due to patients medical condition Past Medical History - Past Medical History Attestation: Yes The following information was validated with the patient. 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 Well developed, well nourished. Head: atraumatic, normocephalic. ENT: No conjunctival injection, no scleral icterus. PERRLA. EOMI. Oropharynx non- erythematous. mucous membranes moist. Neuro: Pt appears anxious, slurring speech, states she is having difficulty getting words out, but is able to identify objects when presented to her, and from pictures. BUE/BLE Str 5/5. Renato UE/LE sensation intact. CN II-XII intact. Cerebellar testing with [id number] intact, difficulty with finger to nose on left and unable to do finger to nose on right. Pulm: Lungs CTAB A/P. No wheezes, rales, ronchi. Cardio: RRR no m/r/g. Chest not tender to palpation. Abd: Soft, non-distended. Normoactive bowel sounds. Non-tender to palpation. No guarding. Non rigid. Extremities: Radial pulses 2+ renato, dorsalis pedis/posterior tibialis 2+ renato. Mild, non-pitting, LE edema. No cyanosis, clubbing. Skin: warm, dry, intact. No rashes. Psych: Appropriate mood and affect. Answers questions appropriately. Cooperative with exam. - General Limitations: no limitations General appearance: alert, in no apparent distress Course Vital Signs Temperature 98.5 F 01/06/19 18:02 Pulse Rate 82 01/06/19 18:02 Respiratory Rate 14 01/06/19 18:02 Blood Pressure 141/82 01/06/19 18:02 O2 Sat by Pulse Oximetry 97 01/06/19 18:02 Temperature 98.5 F 01/06/19 18:02 Pulse Rate 72 01/06/19 20:14 Respiratory Rate 18 01/06/19 20:14 Blood Pressure 163/71 01/06/19 20:14 O2 Sat by Pulse Oximetry 98 01/06/19 20:14 Oxygen Delivery Oxygen Delivery Room Air Neuro Symptoms/Deficit - MDM Narrative Medical decision making narrative: 68-year-old female that presents with concerns for new onset weakness and slurring of speech with last known well of 12 noon today. A stroke alert was called and emergent head CT was CTA was obtained, which did not show any signs for acute intracranial bleed, or high-grade stenosis. Patient's symptoms improved during the course of her ED stay, although she was still complaining of subjective weakness as well as difficulty with word finding. Patient's la boratory evaluation was unremarkable. It was thought the patient could benefit from further inpatient neurologic workup to include MRI. Patient was admitted to hospitalist Dr. barnes who agreed to accept the patient to his service. Results of the workup including any imaging and/or labwork was shared with the patient at bedside. Patient was given an opportunity to ask questions at bedside and all of their concerns were addressed. Patient verbalized understanding and agreement with plan of care. Pt remained stable while in the department. - Medical Records Medical records reviewed: Yes I reviewed the patient's medical records. - Lab Data Lab results reviewed: Yes I reviewed the patient's lab results. Result diagrams: 01/06/19 18:04 01/06/19 18:04 Lab Results 01/06/19 01/06/19 01/06/19 Range/Units 17:57 18:04 18:04 WBC 9.1 (4.3-11.1) K/mcL RBC 3.68 L (3.82-4.97) M/mcL Hgb 11.7 (11.5-15.4) g/dL Hct 35.0 L (35.3-44.9) % MCV 95.1 (83.0-100.0) fL MCH 31.8 (28.0-33.3) pg MCHC 33.4 (31.6-35.5) g/dL RDW 11.4 L (11.5-14.5) % Plt Count 235 (140-400) K/mcL MPV 10.3 (9.4-12.4) fL PT 10.6 (9.4-12.1) Seconds INR 0.9 APTT 32.2 (26.0-36.0) Seconds Sodium (136-145) mEq/L Potassium (3.5-5.1) mEq/L Chloride (98-107) mEq/L Carbon Dioxide (23-29) mEq/L BUN (8-23) mg/dL Creatinine (0.60-1.20) mg/dL Est GFR ( Amer) (> 60) Est GFR (Non-Af Amer) (> 60) BUN/Creatinine Ratio (6-26) Glucose (70-105) mg/dL POC Glucose 237 H (70-99) mg/dL Calculated Osmolality (280-300) Calcium (8.6-10.3) mg/dL Troponin I (< 0.04) ng/mL Urine Color (Yellow) Urine Clarity (Clear) Urine pH (5.0-8.0) pH Units Ur Specific [place] (1.010-1.025) Urine Protein (Neg-Trace) mg/dL Urine Glucose (UA) (Normal) mg/dL Urine Ketones (Negative) mg/dL Urine Blood (Negative) Urine Nitrite (Negative) Urine Bilirubin (Negative) Urine Urobilinogen (Normal) mg/dL Ur Leukocyte Esterase (Negative) Urine Microscopic RBC (0-3) per hpf Urine Microscopic WBC (0-3) per hpf Ur Squamous Epith Cells (None-Few) per lpf Urine Bacteria (None-Few) per hpf Hyaline Casts (None-Few) per lpf Ur Culture Indicated? (NO) 01/06/19 01/06/19 Range/Units 18:04 19:18 WBC (4.3-11.1) K/mcL RBC (3.82-4.97) M/mcL Hgb (11.5-15.4) g/dL Hct (35.3-44.9) % MCV (83.0-100.0) fL MCH (28.0-33.3) pg MCHC (31.6-35.5) g/dL RDW (11.5-14.5) % Plt Count (140-400) K/mcL MPV (9.4-12.4) fL PT (9.4-12.1) Seconds INR APTT (26.0-36.0) Seconds Sodium 135 L (136-145) mEq/L Potassium 4.1 (3.5-5.1) mEq/L Chloride 106 (98-107) mEq/L Carbon Dioxide 21 L (23-29) mEq/L BUN 24 H (8-23) mg/dL Creatinine 1.13 (0.60-1.20) mg/dL Est GFR ( Amer) 58 L (> 60) Est GFR (Non-Af Amer) 48 L (> 60) BUN/Creatinine Ratio 21 (6-26) Glucose 233 H (70-105) mg/dL POC Glucose (70-99) mg/dL Calculated Osmolality 292 (280-300) Calcium 9.1 (8.6-10.3) mg/dL Troponin I < 0.03 (< 0.04) ng/mL Urine Color Yellow (Yellow) Urine Clarity Clear (Clear) Urine pH 5.5 (5.0-8.0) pH Units Ur Specific [place] 1.016 (1.010-1.025) Urine Protein 100 H (Neg-Trace) mg/dL Urine Glucose (UA) 250 H (Normal) mg/dL Urine Ketones Negative (Negative) mg/dL Urine Blood Trace H (Negative) Urine Nitrite Negative (Negative) Urine Bilirubin Negative (Negative) Urine Urobilinogen Normal (Normal) mg/dL Ur Leukocyte Esterase Moderate H (Negative) Urine Microscopic RBC 3-5 H (0-3) per hpf Urine Microscopic WBC 15-30 H (0-3) per hpf Ur Squamous Epith Cells Many H (None-Few) per lpf Urine Bacteria None Seen (None-Few) per hpf Hyaline Casts None Seen (None-Few) per lpf Ur Culture Indicated? YES A (NO) - Radiology Data Radiology results reviewed: Yes I reviewed the patient's radiology results. Head CT 01/06/19 18:01 IMPRESSION: No acute intracranial abnormality. Critical results were called by Dr. Roger Guido MD to Jose Delgado DO on 01/06/2019 at 18:26. D/ / Roger Guido MD / Roger Guido MD Interpreting Provider: Roger Guido MD - EKG Data EKG attestation: Yes I reviewed and interpreted this EKG. EKG results narrative: Heart rate 77, rhythm sinus, axis normal. MI 155, QRS 1:15, QTC 437. ST depression noted in leads 1, 2, V3, V5, V6, aVL. ST elevation noted in lead 3. Slight wander in lead V4 limits interpretation. When compared to previous EKG dated 10/22/[address] depression in leads 23 aVL and aVF and V3 V4 V5 and V6 is noted. NIH Stroke Scale - Level of Consciousness LOC: Alert - LOC Questions LOC Questions: Answers both correctly - LOC Commands LOC Commands: Performs both correctly - Best Gaze Best Gaze: Normal - Visual Visual: No visual loss - Facial Palsy Facial Palsy: Normal - Motor Arms Motor Arm-Left: No drift for 10 seconds Motor Arm-Right: No drift for 10 seconds - Motor Legs Motor Leg-Left: No drift for 5 seconds Motor Leg-Right: No drift for 5 seconds - Limb Ataxia Limb Ataxia: Present in ONE limb - Sensory Sensory: Normal - Best Language Best Language: Mild to moderate aphasia. Examiner can identify picture from response - Dysarthria Dysarthria: Normal - Extinction and Inattention Extinction and Inattention: Normal - NIHSS Total Score NIHSS Total Score: 2 TPA Checklist - LKW: 3-4.5 hrs Add. Warnings/Precautions Patient/family understanding: The patient/family members have been counseled and understood the risk, benefit, and alternatives of treatment. Attestation Statement - Attestation Attestation: I, Jose Delgado DO, examined this patient [id number] and my medical decision-making was reviewed with Dr. Karolyn Chen, Resident Physician. I agree with the documented findings, disposition and treatment plan as described except to the extent set forth below. I personally supervised and was present for the bennett/critical portions of the procedures completed by the resident documented below. Please see my progress notes for details.
[2019-01-06] MEDS ORDERED: *HR* OxyCODONE/APAP 5/325 TABLET PO ONE (19:40)
[2019-01-06 19:59] LABS: Bilirubin,Urine Negative (Negative); Blood,Urine Trace (Negative); Clarity,Urine Clear (Clear); Color,Urine Yellow (Yellow); Glucose,Urine (UA) 250 mg/dL (Normal); Ketones,Urine Negative (Negative); Leukocyte Esterase,Urine Moderate (Negative); Nitrite,Urine Negative (Negative); PH,Urine 5.5 pH Units (5.0-8.0); Protein,Urine 100 mg/dL (Neg-Trace); Specific Gravity,Urine 1.016 (1.010-1.025); Urobilinogen,Urine Normal (Normal)
[2019-01-06 20:01] LABS: Bacteria,Urine None Seen per hpf (None-Few); Hyaline Casts,Urine None Seen per lpf (None-Few); Squamous Epithelial Cell,Urine Many per lpf (None-Few); WBC,Urine 15-30 per hpf (0-3)
[2019-01-06] MEDS ORDERED: *HR* Dextrose 50 % in Water (Syg) 50 ML SYRINGE IVP PRN (23:15)
[2019-01-06] MEDS ORDERED: Acetaminophen 325 MG TABLET PO PRN (23:15)
[2019-01-06] MEDS ORDERED: Naloxone 0.4 MG/ML INJ IVP PRN (23:15)
[2019-01-06] MEDS ORDERED: 0.9 % Sodium Chloride 1,000 ML IVC SCH (23:15)
[2019-01-06] MEDS ORDERED: Ondansetron 4 MG/2 ML VIAL IVP PRN (23:15)
[2019-01-06] MEDS ORDERED: Dextrose Gel 15 GM/37.5 ML TUBE PO PRN ×2 (23:15)
[2019-01-06] MEDS ORDERED: D5% in Water 1,000 ML IVC PRN (23:15)
[2019-01-07 01:07] LABS: Basophils % 0.3 %; Eosinophils # 0.3 K/mcL (0.0-0.6); Eosinophils % 3.8 %; Hematocrit 33.8 % (35.3-44.9); Hemoglobin 11.2 g/dL (11.5-15.4); Immature Granulocytes % 0.4 % (0-4); Lymphocytes # 2.3 K/mcL (0.6-4.6); Lymphocytes % 29.5 %; Mean Corpuscular HGB Conc 33.1 g/dL (31.6-35.5); Mean Corpuscular Hemoglobin 31.5 pg (28.0-33.3); Mean Corpuscular Volume 95.2 fL (83.0-100.0); Mean Platelet Volume 10.7 fL (9.4-12.4); Monocytes # 0.5 K/mcL (0.0-1.3); Neutrophils # 4.7 K/mcL (1.6-8.9); Platelet Count 234 K/mcL (140-400); Red Blood Count 3.55 M/mcL (3.82-4.97); Red Cell Distribution Width 11.2 % (11.5-14.5); White Blood Count 7.7 K/mcL (4.3-11.1)
[2019-01-07 01:16] LABS: INR 0.9; Prothrombin Time 10.4 Seconds (9.4-12.1)
[2019-01-07 01:18] LABS: Activated Partial Thrombo Time 31.3 Seconds (26.0-36.0)
[2019-01-07 01:22] LABS: Albumin 3.5 g/dL (3.5-5.7); Albumin/Globulin Ratio 1.3 (1.1-2.2); Bilirubin,Total 0.3 mg/dL (0.3-1.0); Chol/HDL Ratio 7.4 (0-4.9); Globulin 2.6 g/dL (2.4-3.5); Magnesium 1.9 mg/dL (1.6-2.6); Potassium 4.9 mEq/L (3.5-5.1); Total Protein 6.1 g/dL (6.4-8.9)
--- NOTE | 2019-01-07 02:31 | Internal Med History&Physical ---
Date of Encounter: 01/06/19 Time of Encounter: 21:45 Internal Medicine - H&P: HPI Chief complaint: weakness; dysarthria; expressive aphasia Admitted From: Emergency Dept Plans for Post Hospital Care: Home History of present illness: Ms. Nunez is a 68 year old female who presents to the ER tonight with some worsening weakness, dysarthria, and expressive aphasia. Patient has history of recurrent strokes in the past and has had residual deficits including focal right-sided weakness, residual dysarthria, and occasional difficulty with expressive aphasia. Today, her family noticed that she was having more difficulty with her speech, expressing herself verbally, and had significantly worsened weakness on both sides of her body. She was therefore brought to ER for evaluation. A stroke alert was performed with [facility] neurology. She was not a candidate for intervention. She was recommended by [facility] to be admitted here for further workup and care. Upon my assessment of the patient, she confirms the above history. She states she is almost back to baseline speech and expressive dysphasia. She also has no further residual deficits on her right side. She is back to baseline now. She denies any chest pain, shortness of breath, fevers, cough, congestion, vomiting, or diarrhea. She does follow with cardiology for her coronary disease. Past Med Surg Social Fam HX - Past Medical History Attestation: Yes The following information was validated with the patient. Source: patient, old records reviewed Medical history: coronary artery disease, CVA, diabetes, hyperlipidemia, hypertension, myocardial infarction, TIA Additional medical history: 5 TIA/3 CVA Psychiatric history: depression - Past Surgical History Surgical History: angioplasty/stent, appendectomy, coronary bypass (CABG), orthopedic, other Additional surgical history: open heart. LEFT ARM ORIF - Social History Smoking Status: Never smoker Smokeless Tobacco Status: No Alcohol use: none Drug use: none Current living situation: Home, With Family Activity Level: Independent ambulation Recent Out of Country Travel Within the Last 8 Weeks: No - Family History Father Adopted: No Living Status: Hx Family Cardiac Disorders: Yes (HTN) Hx Family Cancer: Yes (COPD, emphysema) Mother Adopted: No Family Member Ethnicity: Non- Living Status: Hx Family Cardiac Disorders: Yes Hx Family Respiratory Disorders: No Hx Family Cancer: Yes Hx Family GI Disorders: No Hx Family Endocrine Disorder: Yes Hx Family Neuromuscular Disorders: No Hx Family Neurologic Disorders: Yes Hx Family HEENT Disorders: No Hx Family Autoimmune Disorders: No Internal Medicine - H&P: Meds Insulin Glargine,Hum.rec.anlog [Lantus Solostar] 44 unit SQ HS 12/29/15 [History] Aspirin 81 mg PO DAILY 09/10/16 [History] Lisinopril [Zestril] 20 mg PO DAILY 09/10/16 [History] Citalopram [CeleXA] 40 mg PO DAILY 03/02/18 [History] Clopidogrel Bisulfate [Plavix] 75 mg PO DAILY 03/02/18 [History] Metoprolol [Lopressor] 25 mg PO DAILY 03/02/18 [History] Amlodipine Besylate 10 mg PO DAILY 10/22/18 [History] Atorvastatin Calcium [Lipitor] 80 mg PO HS 10/22/18 [History] Gabapentin [Neurontin] 300 mg PO BID 10/22/18 [History] Isosorbide MONOnitrate [Isosorbide Mononitrate ER] 30 mg PO QAM 10/22/18 [History] Metformin HCl [Glucophage] 1,000 mg PO BID 10/22/18 [History] Allergy/AdvReac Type Severity Reaction Status Date / Time Penicillins Allergy Hives Verified 07/03/17 14:43 lactose AdvReac Vomiting Verified 07/03/17 14:43 - Constitutional Constitutional: fatigue, no chills, no fever(s), no night sweats - EENT Eyes: no blurry vision, no change in vision Ears: no ear pain, no tinnitus Nose, mouth and throat: no nasal congestion, no sinus pressure, no sore throat - Cardiovascular Cardiovascular ROS IM: no chest pain, no dyspnea, no dyspnea on exertion, no edema, no lightheadedness, no palpitations, no syncope - Respiratory Respiratory: no cough, no hemoptysis, no chest congestion, no excessive phlegm production, no change in phlegm color - Gastrointestinal Gastrointestinal: no abdominal pain, no diarrhea, no hematemesis, no hematochezia, no melena, no nausea, no vomiting - Genitourinary Genitourinary: no dysuria, no flank pain, no hematuria - Musculoskeletal Musculoskeletal ROS IM: no arthralgias, no back pain - Integumentary Integumentary IM: no rash, no jaundice - Neurological Neurological ROS: abnormal speech, focal weakness, weakness, no convulsions, no frequent falls, no headache(s), no numbness, no paresthesias - Psychiatric Psychiatric: no anxiety, no depression - Endocrine Endocrine IM: no cold intolerance, no heat intolerance, no polydipsia, no polyphagia, no polyuria - Allergic/Immunologic Allergic/Immunologic: no GI upset with certain foods - Constitutional Vitals: Temp Pulse Resp BP Pulse Ox 97.7 F 67 16 151/72 96 01/06/19 22:00 01/06/19 22:00 01/06/19 22:00 01/06/19 22:00 01/06/19 22:00 General appearance: Present: cooperative, A&O X 3, pleasant, no acute distress, answers questions appropriately Exam: slow speech -- baseline per patient; no acute distress - Head Head exam: Present: atraumatic, normal inspection - Eye Eye exam: Present: EOMI, PERRL. Absent: scleral icterus Pupils: Present: normal accommodation - ENT ENT exam: Present: mucous membranes dry, normal exam, normal oropharynx - Neck Neck exam general surgery: Present: full ROM, supple, trachea midline. Absent: lymphadenopathy, tenderness, nuchal rigidity, thyromegaly - Respiratory Respiratory exam: Present: CTAB. Absent: chest wall tenderness, rales, rhonchi, wheezes - Cardiovascular Cardiovascular exam: Present: distant heart sounds, RRR, +S1, +S2. Absent: diastolic murmur, JVD, systolic murmur - GI/Abdominal GI/Abdominal exam: Present: normal bowel sounds, soft. Absent: guarding, hepatomegaly, mass, rebound, splenomegaly, tenderness - Extremities Exam Extremities exam: Present: full ROM, normal capillary refill, warm, radial pulses palpable and symmetrical. Absent: calf tenderness, pedal edema, tenderness - Back Exam Back exam: Present: normal inspection. Absent: CVA tenderness (L), CVA tenderness (R) - Neurological Exam Neurological exam: Present: alert, motor sensory deficit (right sided weakness - chronic; at baseline now per patient; bilateral peripheral neuropathy of feet -- chronic), oriented X3, speech deficit - Psychiatric Psychiatric exam: Present: normal affect, normal mood - Skin Skin exam: Present: dry, intact, warm Internal Med - H&P Results - Labs CBC & Chem 7: 01/07/19 00:29 01/07/19 00:29 Labs: Short CBC 01/06/19 01/07/19 Range/Units 18:04 00:29 WBC 9.1 7.7 (4.3-11.1) K/mcL Hgb 11.7 11.2 L (11.5-15.4) g/dL Hct 35.0 L 33.8 L (35.3-44.9) % Plt Count 235 234 (140-400) K/mcL Neutrophils # 4.7 (1.6-8.9) K/mcL BMP 01/06/19 01/07/19 18:04 00:29 Sodium 135 L 137 Potassium 4.1 4.9 Chloride 106 106 Carbon Dioxide 21 L 26 BUN 24 H 23 Creatinine 1.13 1.17 Glucose 233 H 205 H Calcium 9.1 9.0 Cardiac Enzymes 01/06/19 01/07/19 Range/Units 18:04 00:29 Troponin I < 0.03 < 0.03 (< 0.04) ng/mL Liver Function 01/07/19 Range/Units 00:29 Total Bilirubin 0.3 (0.3-1.0) mg/dL AST 13 (13-39) Units/L ALT 8 (7-52) Units/L Alkaline Phosphatase 93 (34-104) Units/L Albumin 3.5 (3.5-5.7) g/dL Urine 01/06/19 Range/Units 19:18 Urine Color Yellow (Yellow) Urine Clarity Clear (Clear) Urine pH 5.5 (5.0-8.0) pH Units Ur Specific [place] 1.016 (1.010-1.025) Urine Protein 100 H (Neg-Trace) mg/dL Urine Glucose (UA) 250 H (Normal) mg/dL - EKG Data -: EKG Interpreted by Myself - EKG Data Prior EKG available for review: no EKG comments: 01/07/19 02:37 NSR; subtle ST-T depression - Impressions ITS Impressions Head CT 01/06/19 18:01 IMPRESSION: No acute intracranial abnormality. Critical results were called by Dr. Roger Guido MD to Jose Delgado DO on 01/06/2019 at 18:26. D/ / Roger Guido MD / Roger Guido MD Interpreting Provider: Roger Guido MD Chest X-Ray 01/06/19 20:29 IMPRESSION: 1. No acute cardiopulmonary process identified. D/ / Ashwin Muir MD / Ashwin Muir MD Interpreting Provider: Ashwin Muir MD - Diagnostic Studies Chest x-ray Status: image reviewed by me (negative) - Assessment and Plan (1) TIA (transient ischemic attack) Current Visit: Yes Status: Acute Assessment and plan: 1. Per patient, she is back to baseline now. No family present to confirm. 2. Will order MRI brain and proceed with stroke protocol assessments. 3. Patient had recent ECHO and carotid imaging in Oct, 2018. Will not repeat unless directed otherwise per neurology. 4. Consult Neurology for guidance. 5. Continue home meds as appropriate. (2) Type 2 diabetes mellitus Current Visit: Yes Status: Chronic Assessment and plan: 1. Will hold oral home diabetic meds. 2. Monitor glucose closely. 3. Will order SSI and adjust as necessary. Qualifiers: Diabetes mellitus custodial insulin use: with custodial use Diabetes mellitus complication status: with neurologic complications Diabetes mellitus complication detail: with polyneuropathy Qualified Code(s): E11.42 - Type 2 diabetes mellitus with diabetic polyneuropathy; Z79.4 - detention (current) use of insulin (3) CAD (coronary artery disease) Current Visit: Yes Status: Chronic Assessment and plan: 1. Monitor on telemetry. 2. Continue home meds as appropriate. 3. No symptoms presently to suggest angina. Qualifiers: Coronary Disease-Associated Artery/Lesion type: [place] artery [place] vs. transplanted heart: [place] heart Associated angina: without angina Qualified Code(s): I25.10 - Atherosclerotic heart disease of [place] coronary artery without angina pectoris (4) DVT prophylaxis Current Visit: Yes Status: Acute Assessment and plan: 1. Heparin SQ.
[2019-01-07] MEDS: *HR* Heparin 5,000 UNIT/ML VIAL SQ SCH ×2 (06:25→17:31)
[2019-01-07] MEDS: Insulin LISPRO 300 UNITS/3 ML VIAL SQ SCH ×3 (08:22→17:31)
[2019-01-07] MEDS: amLODIPine 5 MG TABLET PO SCH (08:22)
[2019-01-07] MEDS: Aspirin 81 MG TAB.CHEW PO SCH (08:22)
[2019-01-07] MEDS: Lisinopril 20 MG TABLET PO SCH (08:22)
[2019-01-07] MEDS: Gabapentin 300 MG CAPSULE PO SCH ×2 (08:22→20:43)
[2019-01-07] MEDS: Isosorbide MONOnitrate (24 HR) 30 MG TAB.ER.24H PO SCH (08:22)
--- NOTE | 2019-01-07 09:02 | Physician Discharge Referral ---
Home Health/Hosp Referral Info Transfer to: Home Health Provider in Charge Post Discharge: PCP - Diagnosis (1) Diabetes Priority: Secondary Status: Chronic (2) Hypertension Priority: Secondary Status: Chronic (3) DVT prophylaxis Priority: Primary Status: Acute (4) DANII (acute kidney injury) Priority: Primary Status: Acute (5) Aphasia Priority: Primary Status: Acute - Respiratory Orders Smoking Cessation: Smoking cessation has been advised. For more information, call the [place] Tobacco Quit Line at 3-404-EWJA-NOW. - Services Needed Following services are medically necessary services: Nursing, Home Health Aide, Physical Therapy, Occupational Therapy - Transfer Medications Home Medications: Insulin Glargine,Hum.rec.anlog [Lantus Solostar] 44 unit SQ HS 12/29/15 [History] Aspirin 81 mg PO DAILY 09/10/16 [History] Lisinopril [Zestril] 20 mg PO DAILY 09/10/16 [History] Citalopram [CeleXA] 40 mg PO DAILY 03/02/18 [History] Clopidogrel Bisulfate [Plavix] 75 mg PO DAILY 03/02/18 [History] Metoprolol [Lopressor] 25 mg PO DAILY 03/02/18 [History] Amlodipine Besylate 10 mg PO DAILY 10/22/18 [History] Atorvastatin Calcium [Lipitor] 80 mg PO HS 10/22/18 [History] Gabapentin [Neurontin] 300 mg PO BID 10/22/18 [History] Isosorbide MONOnitrate [Isosorbide Mononitrate ER] 30 mg PO QAM 10/22/18 [History] Metformin HCl [Glucophage] 1,000 mg PO BID 10/22/18 [History] Allergies/Adverse Reactions: Allergy/AdvReac Type Severity Reaction Status Date / Time Penicillins Allergy Hives Verified 07/03/17 14:43 lactose AdvReac Vomiting Verified 07/03/17 14:43 Certification: Further, I certify that my clinical findings support that this patient is homebound (i.e. absences from home require considerable and taxing effort and are for medical reasons or [employer] services or infrequently or short duration when for other reasons) because: Homebound Reason: Patient requires assistance of a person or device to safely leave home Attestation: My signature below is to certify that this patient is under my care and that I, or nurse practitioner, or a physician's appeals assistant working with me, has a [id number] encounter with this patient.
[2019-01-07 10:06] LABS: Estimated Average Glucose 174 mg/dl
[2019-01-07] MEDS ORDERED: Nitroglycerin 0.4 MG TAB.SUBL SL ONE (10:29)
--- NOTE | 2019-01-07 10:35 | Neurology - Consult Note ---
<MadiGuillerminaFrederick C - Last Filed: 01/07/19 10:29> Date of Encounter: 01/07/19 Time of Encounter: 10:29 Assessment and Plan (1) TIA (transient ischemic attack) Current Visit: Yes Status: Resolved Patient originally presented to the ER secondary to generalized weakness and worsening dysarthria and aphasia Stroke alert including CT head and [facility] telemedicine consultation were completed, no intervention was recommended and the patient was admitted CT head was negative for acute infarct or bleed, brain MRI was ordered, echo and carotid were recently performed at previous admission Patient has known PFO from previous admission for which cardiology was consulted for outpatient evaluation Patient also has moderate left ICA stenosis of 40-59%, found on previous admission Patient's symptoms resolved gradually after admission, she is now at baseline Exam demonstrates mild generalized weakness and mild dysarthria which patient states is residual from previous strokes Preliminary results of brain MRI demonstrated no acute infarct and redemonstrate remote infarcts Patient is already on aspirin and Plavix and high-dose atorvastatin at home which was continued here Recommend continuing aspirin and Plavix and high-dose atorvastatin as well as other medical management per hospitalist team Do not anticipate any further testing or intervention will be necessary this admission as symptoms have resolved and patient is already on maximal medical therapy, symptoms were most likely related to TIA and secondary to cardiovascular etiology previously established until proven otherwise Recommend continuing outpatient cardiology follow-up for PFO evaluation Further recommendations per Dr. Nunez History of Present Illness Chief complaint: stroke like symptoms HPI: Ms. Nunez is a 68 year old female with a past history of recurrent strokes with residual left sided weakness/dysarthria/expressive aphasia. She takes aspirin, Plavix, atorvastatin at home for this. She was recently admitted to the hospital in October 2018 for strokelike symptoms. During that admission echo cardiogram demonstrated PFO, carotid Doppler demonstrated left ICA stenosis of 40-59%, and brain MRI and CT were negative for acute stroke but did demonstrate remote infarcts. She was referred to cardiology that admission for evaluation of PFO. For this admission the patient presented due to 1 day history of bilateral neck and head pain, generalized weakness, worsened dysarthria and aphasia. She presented to the ER where a stroke alert and CT head was performed, [facility] telemedicine stated she was not a candidate for intervention and recommended admission and neurology workup. CT head did not demonstrate acute infarct or bleed, echocardiogram and carotid Doppler not performed due to being performed last admission. She was admitted to the hospitalist service and MRI of the brain was ordered. During the admission process her symptoms began to resolve to the point where she was at baseline by the time she reached her room. As of this morning on my evaluation preliminary of the results of the brain MRI demonstrated no acute infarct and redemonstrate remote infarcts. She states she is at her baseline neurological status. She reports no changes overnight in no acute complaints this morning. Past Med Surg Social Fam HX - Past Medical History Medical history: coronary artery disease, CVA, diabetes, hyperlipidemia, h ypertension, myocardial infarction, TIA Additional medical history: 5 TIA/3 CVA Psychiatric history: depression - Past Surgical History Surgical History: angioplasty/stent, appendectomy, coronary bypass (CABG), orthopedic, other Additional surgical history: open heart. LEFT ARM ORIF - Social History Smoking Status: Never smoker Smokeless Tobacco Status: No Alcohol use: none Drug use: none - Family History Father Adopted: No Living Status: Hx Family Cardiac Disorders: Yes (HTN) Hx Family Cancer: Yes (COPD, emphysema) Mother Adopted: No Family Member Ethnicity: Non- Living Status: Hx Family Cardiac Disorders: Yes Hx Family Respiratory Disorders: No Hx Family Cancer: Yes Hx Family GI Disorders: No Hx Family Endocrine Disorder: Yes Hx Family Neuromuscular Disorders: No Hx Family Neurologic Disorders: Yes Hx Family HEENT Disorders: No Hx Family Autoimmune Disorders: No Medications and Allergies Insulin Glargine,Hum.rec.anlog [Lantus Solostar] 44 unit SQ HS 12/29/15 [History] Aspirin 81 mg PO DAILY 09/10/16 [History] Lisinopril [Zestril] 20 mg PO DAILY 09/10/16 [History] Citalopram [CeleXA] 40 mg PO DAILY 03/02/18 [History] Clopidogrel Bisulfate [Plavix] 75 mg PO DAILY 03/02/18 [History] Metoprolol [Lopressor] 25 mg PO DAILY 03/02/18 [History] Amlodipine Besylate 10 mg PO DAILY 10/22/18 [History] Atorvastatin Calcium [Lipitor] 80 mg PO HS 10/22/18 [History] Gabapentin [Neurontin] 300 mg PO BID 10/22/18 [History] Isosorbide MONOnitrate [Isosorbide Mononitrate ER] 30 mg PO QAM 10/22/18 [History] Metformin HCl [Glucophage] 1,000 mg PO BID 10/22/18 [History] Allergy/AdvReac Type Severity Reaction Status Date / Time Penicillins Allergy Hives Verified 07/03/17 14:43 lactose AdvReac Vomiting Verified 07/03/17 14:43 All Systems: The remainder of the systems were reviewed and are negative Review of Systems: 10 point review systems completed and negative except as per history of present illness. Physical Examination - Vital Signs Vital Signs: Initial Vital Signs Temp Pulse Resp BP Pulse Ox 98.5 F 82 14 141/82 97 01/06/19 18:02 01/06/19 18:02 01/06/19 18:02 01/06/19 18:02 01/06/19 18:02 - Exam Exam: Examination: General Examination: *CONSTITUTIONAL: Alert and oriented x3, no acute distress *GENERAL APPEARANCE OF PATIENT appears healthy and well groomed *EYES: pupils equal, round, reactive to light and accommodation *CARDIOVASCULAR: RRR, S1, S2, no mumurs, rubs, or gallops, no peripheral edema *ASSESSMENT OF MUSCLE STRENGTH IN THE UPPER AND LOWER EXTREMITIES bilate ral deltoid, bicep, tricep, community health program representative strength, hip flexors ,anterior tibialis, dorsoflexion of the foot 4/5 *MUSCLE TONE IN THE UPPER AND LOWER EXTREMITIES normal. No abnormal movements, fasciculations or atrophy identified. Neurological: *ORIENTATION to person, situation, time and place *LANGUAGE AND FUNCTION mild dysarthria noted, no significant aphasia noted *ATTENTION AND CONCENTRATION are normal *FUND OF KNOWLEDGE aware of current events, past history, vocabulary *MENTAL attention span and concentration normal. *CN II visual montalvo intact *CN III,IV, PERRLA extraocular eye movements were full, no nystagmus and no ptosis noted, however testing did elicit vertigo *CN V shows normal sensation and jaw opens symmetrically. *CN VII shows normal facial movement symmetrically, upper and lower bilaterally. *CN VIII shows no significant hearing loss on exam *CN IX-X palate elevated symmetrically *CN XI normal strength in the sternocleidomastoid muscles, symmetrical shoulder shrugging. *CN XII tongue protruded in the midline, with normal strength and movement. *SENSORY EXAMINATION light touch intact *REFLEXES: deep tendon reflexes were normal and symmetrical , grade 2/4 diffusely, no pathological reflexes were noted. *CEREBELLAR TESTING [id number] slightly delayed on the left *PAIN LEVEL 0/10 Results - Laboratory Findings CBC and BMP: 01/07/19 00:29 01/07/19 00:29 Abnormal lab findings: Abnormal lab results RBC 3.55 M/mcL (3.82-4.97) L 01/07/19 00: Hgb 11.2 g/dL (11.5-15.4) L 01/07/19 00: Hct 33.8 % (35.3-44.9) L 01/07/19 00: RDW 11.2 % (11.5-14.5) L 01/07/19 00: Sodium 135 mEq/L (136-145) L 01/06/19 18:04 Carbon Dioxide 21 mEq/L (23-29) L 01/06/19 18:04 BUN 24 mg/dL (8-23) H 01/06/19 18:04 Est GFR ( Amer) 55 (> 60) L 01/07/19 00: Est GFR (Non-Af Amer) 46 (> 60) L 01/07/19 00: Glucose 205 mg/dL (70-105) H 01/07/19 00: POC Glucose 209 mg/dL (70-99) H 01/06/19 21:59 Hemoglobin A1c 7.7 % (-5.6) H 01/07/19 00:29 Serum Total Protein 6.1 g/dL (6.4-8.9) L 01/07/19 00: Triglycerides 287 mg/dL (< 150) H 01/07/19 00: Cholesterol 208 mg/dL (< 200) H 01/07/19 00:29 LDL Cholesterol, Calc 123 mg/dL (0-99) H 01/07/19 00:29 VLDL Cholesterol, Calc 57 mg/dL (< 31) H 01/07/19 00: HDL Cholesterol 28 mg/dL (40-59) L 01/07/19 00: Cholesterol/HDL Ratio 7.4 (0-4.9) H 01/07/19 00: Urine Protein 100 mg/dL (Neg-Trace) H 01/06/19 19:18 Urine Glucose (UA) 250 mg/dL (Normal) H 01/06/19 19:18 Urine Blood Trace (Negative) H 01/06/19 19:18 Ur Leukocyte Esterase Moderate (Negative) H 01/06/19 19:18 Urine Microscopic RBC 3-5 per hpf (0-3) H 01/06/19 19:18 Urine Microscopic WBC 15-30 per hpf (0-3) H 01/06/19 19:18 Ur Squamous Epith Cells Many per lpf (None-Few) H 01/06/19 19:18 Ur Culture Indicated? YES (NO) A 01/06/19 19:18 Consult Discharge Plan - Plan Referrals: Ayesha Ramírez, AUTOMATIC NAILING MACHINE OPERATOR [Primary Care Provider] - 01/20/19 9:00 am <Semaj Nunez - Last Filed: 01/07/19 16:48> Date of Encounter: 01/07/19 Time of Encounter: 16:37 Assessment and Plan (1) Stroke-like symptoms Current Visit: No Status: Acute As stated previously this patient has had multiple admissions for strokelike symptoms going back to at least 2014. None of her admitting MRI studies of the brain have revealed any evidence of an acute infarct. I reviewed the record extensively. She does have old lacunar infarcts in the basal ganglia and subcortical white matter symmetrically. However these have not changed to going back to 2014. She is a multiple other's test completed and is maximally treated on statins, antihypertensives and is on double antiplatelet therapy. I am not convinced that all that the PFO has anything to do with any of these admissions. I believe there is a strong supratentorial component here. I would simply maintain her current medication regimen as it is not advocating any further testing at this juncture. I will reevaluate her at your request. I agree with Dr. Barraza's documentation regarding assessment and plan. History of Present Illness HPI: The chart was reviewed, the patient was seen and examined independently. Case was discussed with Dr. Barraza. I agree with his documentation of the history of present illness as stated above. This patient has had multiple admissions since 2014 for strokelike symptoms. None of her admitting MRI brain studies have revealed any evidence of acute ischemic change during any one of those admissions. Patient does have a PFO however this would not likely result in a small vessel infarct pattern. Nothing on any of her MRIs is reflective of a large vessel infarct acute or chronic. All Systems: The remainder of the systems were reviewed and are negative Review of Systems: The balance of the systems review is negative. Physical Examination - Vital Signs Vital Signs: Initial Vital Signs Temp Pulse Resp BP Pulse Ox 98.5 F 82 14 141/82 97 01/06/19 18:02 01/06/19 18:02 01/06/19 18:02 01/06/19 18:02 01/06/19 18:02 - Exam Exam: I have personally performed a [id number] assessment of the patient and have reviewed the resident's note. My impressions are as follows: I agree with the neurologic examination as documented above. Results - Laboratory Findings CBC and BMP: 01/07/19 00:29 01/07/19 00:29 Abnormal lab findings: Abnormal lab results RBC 3.55 M/mcL (3.82-4.97) L 01/07/19 00:29 Hgb 11.2 g/dL (11.5-15.4) L 01/07/19 00: Hct 33.8 % (35.3-44.9) L 01/07/19 00: RDW 11.2 % (11.5-14.5) L 01/07/19 00:29 Sodium 135 mEq/L (136-145) L 01/06/19 18:04 Carbon Dioxide 21 mEq/L (23-29) L 01/06/19 18:04 BUN 24 mg/dL (8-23) H 01/06/19 18:04 Est GFR ( Amer) 55 (> 60) L 01/07/19 00:29 Est GFR (Non-Af Amer) 46 (> 60) L 01/07/19 00:29 Glucose 205 mg/dL (70-105) H 01/07/19 00:29 POC Glucose 209 mg/dL (70-99) H 01/06/19 21:59 Hemoglobin A1c 7.7 % (-5.6) H 01/07/19 00:29 Serum Total Protein 6.1 g/dL (6.4-8.9) L 01/07/19 00:29 Triglycerides 287 mg/dL (< 150) H 01/07/19 00:29 Cholesterol 208 mg/dL (< 200) H 01/07/19 00:29 LDL Cholesterol, Calc 123 mg/dL (0-99) H 01/07/19 00:29 VLDL Cholesterol, Calc 57 mg/dL (< 31) H 01/07/19 00:29 HDL Cholesterol 28 mg/dL (40-59) L 01/07/19 00:29 Cholesterol/HDL Ratio 7.4 (0-4.9) H 01/07/19 00:29 Urine Protein 100 mg/dL (Neg-Trace) H 01/06/19 19:18 Urine Glucose (UA) 250 mg/dL (Normal) H 01/06/19 19:18 Urine Blood Trace (Negative) H 01/06/19 19:18 Ur Leukocyte Esterase Moderate (Negative) H 01/06/19 19:18 Urine Microscopic RBC 3-5 per hpf (0-3) H 01/06/19 19:18 Urine Microscopic WBC 15-30 per hpf (0-3) H 01/06/19 19:18 Ur Squamous Epith Cells Many per lpf (None-Few) H 01/06/19 19:18 Ur Culture Indicated? YES (NO) A 01/06/19 19:18
--- NOTE | 2019-01-07 12:08 | Electrocardiograph Report ---
[address] [place], [place] [address] Test Date: 2019-01-07 Pat Name: Ashley Nunez Department: 113 Room: 3B14 Gender: F Studio Engineer: : [id number] Requested By: Oralia Degroot Order Number: [id number] Reading MD: Nitesh Long Measurements Intervals [place] Rate: 55 P: 35 [place]: 175 QRS: 30 QRSD: 110 T: 118 QT: 430 QTc: 419 Interpretive Statements SINUS BRADYCARDIA MODERATE T-WAVE ABNORMALITY, CONSIDER LATERAL ISCHEMIA Electronically Signed On 01-07-2019 12:07:04 EDT by Nitesh Long
--- NOTE | 2019-01-07 12:31 | Event Note ---
Date of Encounter: 01/07/19 Time of Encounter: 12:28 5 year old female with history of CAD, stent placement presented with aphasia and weakness. MRI of brain showed no acute stroke. Patient does have strokes in the past with neurological residuals. This morning, she complained 1 episode of chest pain. Serial troponin was negative. EKG does showed ST-T depression with inverted T waves on lateral leads, however, these findings also were showed on prior EKG. We will continue telemetry monitoring, patient recently had echocardiogram which was unremarkable, we will not repeat echo at this point. Stress test in the morning.
--- NOTE | 2019-01-07 13:42 | Electrocardiograph Report ---
[facility] Test Date: 2019-01-06 Pat Name: Ashley Nunez Department: [id number] Room: 3B14 Gender: F Sales Service Technician: : [id number] Requested By: Jose Delgado Order Number: [id number] Reading MD: Chau King Measurements Intervals [place] Rate: 77 P: 15 NM: 155 QRS: 24 QRSD: 115 T: 167 QT: 386 QTc: 437 Interpretive Statements Sinus rhythm Incomplete left bundle branch block Electronically Signed On 01-07-2019 13:40:26 EDT by Chau King
[2019-01-07] MEDS ORDERED: Insulin DETEMIR 100 UNIT/ML X5UNITS SQ SCH (21:00)
[2019-01-08] MEDS ORDERED: Insulin LISPRO 300 UNITS/3 ML VIAL SQ ONE (00:16)
[2019-01-08 01:59] LABS: Hematocrit 31.6 % (35.3-44.9); Hemoglobin 10.8 g/dL (11.5-15.4); Mean Corpuscular HGB Conc 34.2 g/dL (31.6-35.5); Mean Corpuscular Hemoglobin 32.2 pg (28.0-33.3); Mean Corpuscular Volume 94.3 fL (83.0-100.0); Mean Platelet Volume 11.1 fL (9.4-12.4); Platelet Count 228 K/mcL (140-400); Red Blood Count 3.35 M/mcL (3.82-4.97); Red Cell Distribution Width 11.1 % (11.5-14.5); White Blood Count 8.2 K/mcL (4.3-11.1)
[2019-01-08 02:30] LABS: Calcium 8.6 mg/dL (8.6-10.3); Potassium 4.1 mEq/L (3.5-5.1)
[2019-01-08] MEDS: *HR* Heparin 5,000 UNIT/ML VIAL SQ SCH (05:51)
[2019-01-08] MEDS ORDERED: Regadenoson 0.4 MG/5 ML SYRINGE IVP ONE (06:08)
[2019-01-08] MEDS: Insulin LISPRO 300 UNITS/3 ML VIAL SQ SCH ×2 (07:49→11:41)
[2019-01-08] MEDS: Gabapentin 300 MG CAPSULE PO SCH (09:46)
[2019-01-08] MEDS: Aspirin 81 MG TAB.CHEW PO SCH (09:46)
[2019-01-08] MEDS: Isosorbide MONOnitrate (24 HR) 30 MG TAB.ER.24H PO SCH (09:46)
[2019-01-08] MEDS: amLODIPine 5 MG TABLET PO SCH (09:46)
[2019-01-08] MEDS: Lisinopril 20 MG TABLET PO SCH (09:46)
[2019-01-08 10:56] VITALS: BP 130/76
--- NOTE | 2019-01-08 11:04 | Internal Med Progress Note ---
Hospitalist Progress Note - Encounter Date of Encounter: 01/08/19 Time of Encounter: 11:01 - Subjective Interval History: Patient seen and examined in the room. She reported absence of chest pain, palpitation, or shortness of breath currently. She has no headache, seizure, or aphasia overnight. - Exam Vitals: Temp Pulse Resp BP Pulse Ox 98.6 F 61 20 130/76 96 01/08/19 10:54 01/08/19 10:54 01/08/19 10:54 01/08/19 10:54 01/08/19 10:54 Exam: slow speech -- baseline per patient; no acute distress - Assessment and Plan (1) Aphasia Current Visit: Yes Status: Acute Assessment and Plan: presented with aphasia, MRI of brain absence of acute CVA. (2) CAD (coronary artery disease) Current Visit: Yes Status: Chronic Assessment and Plan: Patient reported the chest pain yesterday afternoon, serial troponin was ordered at that time which were negative. EKG was performed which showed ST depression on lateral leads with T-wave inversion, however, this is not changed from her prior EKG. She had a stress test this morning, which was reportedly abnormal per cardiology. We will will consult cardiology. Continue monitoring. (3) Diabetes Current Visit: No Status: Chronic Assessment and Plan: Glucose controlled at this point, continue current treatment. (4) Hypertension Current Visit: No Status: Chronic Assessment and Plan: BP controlled currently, continue current treatment. (5) DANII (acute kidney injury) Current Visit: No Status: Acute Assessment and Plan: Creatinine 1.27 currently, slightly above baseline, we will will gently hydrate with IV fluid, continue monitoring. (6) DVT prophylaxis Current Visit: Yes Status: Acute Assessment and Plan: 1. Heparin SQ. - Time Spent with Patient Total time spent is greater than 50% in coordination of care (as documented) at patient's floor/unit and/or counseling patient: Greater than 35 minutes Plan of Care Discussed with: patient Internal Medicine: Result - Labs CBC & Chem 7: 01/08/19 00:55 01/08/19 00:55 Labs: Short CBC 01/08/19 Range/Units 00:55 WBC 8.2 (4.3-11.1) K/mcL Hgb 10.8 L (11.5-15.4) g/dL Hct 31.6 L (35.3-44.9) % Plt Count 228 (140-400) K/mcL BMP 01/08/19 00:55 Sodium 138 Potassium 4.1 Chloride 106 Carbon Dioxide 25 BUN 29 H Creatinine 1.27 H Glucose 245 H Calcium 8.6 Cardiac Enzymes 01/07/19 Range/Units 12:02 Troponin I < 0.03 (< 0.04) ng/mL - ABG Interpretation ABG results: PT/INR, D-dimer PT 10.4 Seconds (9.4-12.1) 01/07/19 00:29 - Impressions Impressions Brain MRI 01/07/19 23:15 IMPRESSION: 1. No acute infarct or acute intracranial process identified. 2. Remote basal ganglia and right cerebellar infarcts, unchanged. D/ / 01/07/2019 10:59:09 Demetrio Toth MD / trevor Interpreting Provider: Demetrio Toth MD Consult Discharge Plan - Plan Referrals: Ayesha Ramírez, PRODUCE WRAPPER [Primary Care Provider] - 01/20/19 9:00 am (2) CAD (coronary artery disease) Qualifiers: Coronary Disease-Associated Artery/Lesion type: [place] artery [place]oh vs. transplanted heart: [place] heart Associated angina: without angina Qualified Code(s): I25.10 - Atherosclerotic heart disease of [place] coronary artery without angina pectoris (3) Diabetes Qualifiers: Diabetes mellitus type: other specified (including TAMMY) Diabetes mellitus terminal operations supervisor insulin use: unspecified longterm insulin use status Diabetes mellitus complication detail: with other circulatory complications Qualified Code(s): E13.59 - Other specified diabetes mellitus with other circulatory complications (4) Hypertension Qualifiers: Hypertension type: essential hypertension Qualified Code(s): I10 - Essential (primary) hypertension
[2019-01-08] MEDS ORDERED: 0.9 % Sodium Chloride 1,000 ML IVC SCH (11:15)
--- NOTE | 2019-01-08 12:20 | Cardiology Consult Note ---
<Sweta Kang - Last Filed: 01/08/19 12:36> Date of Encounter: 01/08/19 Time of Encounter: 12:10 Assessment and Plan (1) Abnormal stress test Status: Acute Cardiology consulted for abnormal stress test--SDS=3. Hx of CAD s/p CABG in 2006. No significant chest pain prior to admission. Patient reports brief episode of chest pain yesterday during neurologic work-up; has not recurred. Non-exercise stress test demosntrated mild mid-basal inferior ischemia of small size and mild intensity, gated EF=55% Currently, patient is not an ideal candidate for LHC due to TIA. Discussed with patient and family who prefer to continue with medical management. Will increase Imdur to 60 mg daily; otherwise continue current CV medications. Follow-up with Dr. Gann in the outpatient setting. (2) TIA (transient ischemic attack) Status: Resolved Hx of multiple CVAs/TIAs. Event monitor in place for now to evaluate for PAF. (nothing seen on telemetry). Follow-up with Dr. Gann after testing complete for consideration of PFO closure. (appt pending) (3) CAD (coronary artery disease) Status: Chronic Hx of CAD s/p CABG. Plan as above. Continue home CV medications. Qualifiers: Coronary Disease-Associated Artery/Lesion type: [place] artery [place] vs. transplanted heart: [place] heart Associated angina: without angina Qualified Code(s): I25.10 - Atherosclerotic heart disease of [place] coronary artery without angina pectoris Discussion w patient/family: The assessment and plan as outlined above was discussed with the patient and/or family members who expressed understanding and agreement. All questions were answered. Thank you for involving us in the care of your patient. Please call with any questions. The patient will be discussed and reviewed with Dr. Long, changes to be made accordingly. History of Present Illness Consult date: 01/08/19 Requesting physician: Oralia Degroot Consult reason: abnormal stress test Chief complaint: CVA symptoms History of present illness: Ms. Nunez is a 68 year old female with PMHx significant of multiple CVAs, CAD s/p CABG, DMII, HTN, HLD who presented to the ED with stroke like symptoms. She (and family) report sudden onset of right sided weakness, confusion, and expressive aphasia; [facility] stroke alert was consulted but deemed not a candidate for further treatment. Brain MRI negative for acute abnormality. Per reports, patient developed chest pain yesterday evening (troponin negative) which prompted nuclear stress test. Of note, she is currently being evaluated in the outpatient setting by Dr. Gann for consideration of PFO closure--event monitor applied. Cardiology consulted today for abnormal stress test (SDS=3). 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 Past Med Surg Social Fam HX - Past Medical History Attestation: Yes The following information was validated with the patient. Source: patient, obtained from family Medical history: coronary artery disease, CVA, diabetes, hyperlipidemia, hypertension, myocardial infarction, TIA Additional medical history: 5 TIA/3 CVA Psychiatric history: depression - Past Surgical History Surgical History: angioplasty/stent, appendectomy, coronary bypass (CABG), orthopedic, other Additional surgical history: open heart. LEFT ARM ORIF - Social History Smoking Status: Never smoker Smokeless Tobacco Status: No Alcohol use: none Drug use: none - Family History Father Adopted: No Living Status: Hx Family Cardiac Disorders: Yes (HTN) Hx Family Cancer: Yes (COPD, emphysema) Mother Adopted: No Family Member Ethnicity: Non- Living Status: Hx Family Cardiac Disorders: Yes Hx Family Respiratory Disorders: No Hx Family Cancer: Yes Hx Family GI Disorders: No Hx Family Endocrine Disorder: Yes Hx Family Neuromuscular Disorders: No Hx Family Neurologic Disorders: Yes Hx Family HEENT Disorders: No Hx Family Autoimmune Disorders: No Medications and Allergies Insulin Glargine,Hum.rec.anlog [Lantus Solostar] 44 unit SQ HS 12/29/15 [History] Aspirin 81 mg PO DAILY 09/10/16 [History] Lisinopril [Zestril] 20 mg PO DAILY 09/10/16 [History] Citalopram [CeleXA] 40 mg PO DAILY 03/02/18 [History] Clopidogrel Bisulfate [Plavix] 75 mg PO DAILY 03/02/18 [History] Metoprolol [Lopressor] 25 mg PO DAILY 03/02/18 [History] Amlodipine Besylate 10 mg PO DAILY 10/22/18 [History] Atorvastatin Calcium [Lipitor] 80 mg PO HS 10/22/18 [History] Gabapentin [Neurontin] 300 mg PO BID 10/22/18 [History] Metformin HCl [Glucophage] 1,000 mg PO BID 10/22/18 [History] Isosorbide MONOnitrate (24 HR) [Imdur] 60 mg PO QAM #0 tab.er.24h 01/08/19 [Rx] Allergy/AdvReac Type Severity Reaction Status Date / Time Penicillins Allergy Hives Verified 07/03/17 14:43 lactose AdvReac Vomiting Verified 07/03/17 14:43 All Systems Review: The remainder of the systems were reviewed and are negative - Cardiovascular Cardiovascular: as per HPI Physical Examination Vital Signs, Last 4 Hours Temp Pulse Resp BP Pulse Ox 01/08/19 10:54 98.6 F 61 20 130/76 96 01/08/19 09:45 98.1 F 71 20 175/91 98 General: Conversant, No Apparent Distress, Other (mild confusion noted at times) HEENT: Atraumatic, Normocephaly, Mucus Membranes Moist Neck: No JVD, Normal carotid pulses Cardiac: Reg Rate and Rhythm, Normal S1 and S2, No Murmur Lungs: Normal Breath Sounds, No Wheeze, Rales, Rhonchi Neuro: Alert and responsive, No focal deficits noted Abdomen: Soft, Non-Tender Skin: No rashes noted on visualized skin Musculoskeletal: No Chest Wall Tenderness Extremities: No Clubbing, No Cyanosis, No Edema, Normal Pulses Results 01/08/19 00:55 01/08/19 00:55 Lab Results 01/07/19 01/08/19 01/08/19 12:02 00:55 00:55 WBC 8.2 Hgb 10.8 L Hct 31.6 L Plt Count 228 Sodium 138 Potassium 4.1 Chloride 106 Carbon Dioxide 25 BUN 29 H Creatinine 1.27 H Glucose 245 H Calcium 8.6 Troponin I < 0.03 Active Medications Acetaminophen (Tylenol) 650 mg PO Q6HR PRN PRN Reason: Mild Pain/Fever Stop: 07/08/19 23:16 Last Admin: 01/08/19 09:52 Dose: 650 mg Documented by: Amlodipine Besylate (Norvasc) 10 mg PO DAILY [facility] Stop: 07/09/19 09:01 Last Admin: 01/08/19 09:46 Dose: 10 mg Documented by: Aspirin (Aspirin) 81 mg PO DAILY [facility] Stop: 07/09/19 09:01 Last Admin: 01/08/19 09:46 Dose: 81 mg Documented by: Atorvastatin Calcium (Lipitor) 80 mg PO HS [facility] Stop: 07/09/19 21:01 Last Admin: 01/07/19 20:43 Dose: 80 mg Documented by: Citalopram Hydrobromide (Celexa) 40 mg PO DAILY [facility] Stop: 07/09/19 09:01 Last Admin: 01/08/19 09:46 Dose: 40 mg Documented by: Clopidogrel Bisulfate (Plavix) 75 mg PO DAILY [facility] Stop: 07/09/19 09:01 Last Admin: 01/08/19 09:46 Dose: 75 mg Documented by: Dextrose/Water (Dextrose 50% (Syg)) 25 ml IVP AD PRN PRN Reason: Hypoglycemia Stop: 07/08/19 23:16 Gabapentin (Neurontin) 300 mg PO BID [facility] Stop: 07/09/19 09:01 Last Admin: 01/08/19 09:46 Dose: 300 mg Documented by: Glucagon (Glucagen) 1 mg IM ONCE PRN PRN Reason: Hypoglycemia Stop: 07/08/19 23:16 Glucose (Gluctose) 15 gm PO ONCE PRN PRN Reason: Hypoglycemia Stop: 07/08/19 23:16 Glucose (Gluctose) 30 gm PO ONCE PRN PRN Reason: Hypoglycemia Stop: 07/08/19 23:16 Heparin Sodium (Porcine) (Heparin) 5,000 unit SQ Q12HCO [facility] Stop: 07/09/19 06:01 Last Admin: 01/08/19 05:51 Dose: 5,000 unit Documented by: Dextrose (Dextrose 5%) 1,000 mls @ 100 mls/hr IVC .Q10H PRN PRN Reason: HYPOGLYCEMIA Stop: 07/08/19 23:16 Sodium Chloride (0.9 % Sodium Chloride) 1,000 mls @ 75 mls/hr IVC .[id number] [facility] Stop: 07/10/19 11:16 Insulin Detemir (Levemir) 44 unit SQ HS [facility] Stop: 07/09/19 21:01 Last Admin: 01/07/19 20:43 Dose: Not Given Documented by: Insulin Human Lispro (Humalog) 0 units SQ TIDAC [facility]; Protocol Stop: 07/09/19 07:31 Last Admin: 01/08/19 11:41 Dose: Not Given Documented by: Isosorbide Mononitrate (Imdur) 30 mg PO QAM [facility] Stop: 07/09/19 09:01 Last Admin: 01/08/19 09:46 Dose: 30 mg Documented by: Lisinopril (Zestril) 20 mg PO DAILY [facility]; Protocol Stop: 07/09/19 09:01 Last Admin: 01/08/19 09:46 Dose: 20 mg Documented by: Metoprolol Tartrate (Lopressor) 25 mg PO DAILY [facility] Stop: 07/09/19 09:01 Last Admin: 01/08/19 09:46 Dose: 25 mg Documented by: Naloxone HCl (Narcan) 0.4 mg IVP Q2MPRN PRN PRN Reason: SEE COMMENTS Stop: 07/08/19 23:16 Ondansetron HCl (Zofran) 4 mg IVP Q8HR PRN PRN Reason: Nausea And Vomiting Stop: 07/08/19 23:16 - Imaging and Cardiology Stress Test: report reviewed Echo: report reviewed - EKG Interpretation EKG results cardiology: personally reviewed Consult Discharge Plan - Plan Instructions: Chest Pain (DC) Additional Instructions: They changed your Imdur to 60mg Daily. Please take two of the 30mg pills that you have at home and follow up with your primary care doctor. Follow-up appointments: If there is not an appointment listed below, please call your physician and schedule a follow-up appointment. If you have congestive heart failure and your symptoms return, make an appointment with your physician. Medication List: Carry an up to date list of medications you are taking at all time. We have given you an updated medication list including any new medications that you have been prescribed. Please provide that list to your primary provider Symptoms: If your condition changes or you experience any of the following symptoms, notify your physician immediately: Unusual or worsening pain, fever, persistent nausea and vomiting, bleeding, increase in swelling (especially in your legs), sudden weight gain, extreme dizziness, chest pain, increased drainage or redness from a wound or incision. Go to the emergency department if you experience a problem with breathing. Weights: If you have a history of swelling or shortness of breath, weigh yourself daily and notify your physician if you have a weight gain of two or more pounds in one day or 5 or more pounds in a week. If you experience any of the warning signs for stroke: Sudden numbness or weakness of the face, arm or leg; especially on one side of the body, sudden confusion, trouble speaking or understanding, sudden trouble seeing in one or both eyes, sudden trouble walking, dizziness, loss of balance or coordination, sudden sever headache with no cause; Call 911 or go to the emergency room. Stroke is a medical emergency. Some risk factors for stroke: Age, cigarette smoking, diabetes, excessive alcohol consumption, family history, high blood pressure, overweight, physical inactivity, prior stroke, heart attack, diagnosis of carotid artery stenosis or other artery disease. If you smoke, STOP: Smoking or tobacco use significantly increases your risk of heart and lung disease. Your chance of disease greatly increases if you continue to smoke. For more information, call the [place] tobacco quit line for smoking cessation 9-054-LJTK-NOW ( ) Referrals: Ayesha Ramírez YEAST PUMPER [Primary Care Provider] - 01/20/19 9:00 am <Nitesh Long - Last Filed: 01/08/19 22:52> Date of Encounter: 01/08/19 - Attending Attestation I have personally performed a face to face evaluation on this patient. I have reviewed and agree with the documented findings and care plan as documented by the YEAST PUMPER. History and Exam by me shows: 68-year-old female with recent TIA and non-PFO. Found to have low risk positive pharmacological nuclear stress test. Recommend cardiac catheterization prior to PFO closure. Thanks for the consult, please call with questions. Nitesh Long MD [facility] Assessment and Plan Discussion w patient/family: The assessment and plan as outlined above was discussed with the patient and/or family members who expressed understanding and agreement. All questions were answered. Thank you for involving us in the care of your patient. Please call with any questions. History of Present Illness History of present illness: Ms. Nunez is a 68 year old female All Systems Review: The remainder of the systems were reviewed and are negative Results 01/08/19 00:55 01/08/19 00:55 Lab Results 01/08/19 01/08/19 00:55 00:55 WBC 8.2 Hgb 10.8 L Hct 31.6 L Plt Count 228 Sodium 138 Potassium 4.1 Chloride 106 Carbon Dioxide 25 BUN 29 H Creatinine 1.27 H Glucose 245 H Calcium 8.6
--- NOTE | 2019-01-08 13:22 | Discharge Summary ---
- NOTES TO OUTPATIENT PROVIDER Notes to Outpatient Provider: f/u with cardiology within a week. f/u with PCP within 2 weeks. Date of Encounter: 01/08/19 Time of Encounter: 13:19 - Discharge Diagnosis (1) Aphasia Priority: Primary Status: Acute (2) CAD (coronary artery disease) Priority: Primary Status: Chronic Qualifiers: Coronary Disease-Associated Artery/Lesion type: [place] artery [place] vs. 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 Nunez is a 68 year old female who presents to the ER tonight with some worsening weakness, dysarthria, and expressive aphasia. Patient has history of recurrent strokes in the past and has had residual deficits including focal right-sided weakness, residual dysarthria, and occasional difficulty with expressive aphasia. Today, her family noticed that she was having more difficulty with her speech, expressing herself verbally, and had significantly worsened weakness on both sides of her body. She was therefore brought to ER for evaluation. A stroke alert was performed with [facility] neurology. She was not a candidate for intervention. She was recommended by [facility] to be admitted here for further workup and care. Upon my assessment of the patient, she confirms the above history. She states she is almost back to baseline speech and expressive dysphasia. She also has no further residual deficits on her right side. She is back to baseline now. She denies any chest pain, shortness of breath, fevers, cough, congestion, vomiting, or diarrhea. She does follow with cardiology for her coronary disease. MRI of brain was negative for acute stroke. While in the hospital, she developed left-sided chest pain. Although troponin was negative, ekg has no acute changes comparing to prior one, Stress test performed on 01/08 was abnormal, indicating inferior wall ischemia. Cardiology was consulted and recommended outpatient follow up. She is discharged home today, she will f/u with PCP and cardiology as scheduled. Discharge discussed with: patient Time spent discussing smoking cessation with patient: more than 10 minutes - Time Spent with Patient Total time spent providing and/or coordinating discharge services: Time spent: Greater than 30 minutes - Discharge Medications Prescriptions: New Isosorbide MONOnitrate (24 HR) [Imdur] 60 mg PO QAM #0 tab.er.24h Continued Insulin Glargine,Hum.rec.anlog [Lantus Solostar] 44 unit SQ HS Lisinopril [Zestril] 20 mg PO DAILY Aspirin 81 mg PO DAILY Citalopram [CeleXA] 40 mg PO DAILY Clopidogrel Bisulfate [Plavix] 75 mg PO DAILY Metoprolol [Lopressor] 25 mg PO DAILY Amlodipine Besylate 10 mg PO DAILY Atorvastatin Calcium [Lipitor] 80 mg PO HS Metformin HCl [Glucophage] 1,000 mg PO BID Gabapentin [Neurontin] 300 mg PO BID Discontinued Isosorbide MONOnitrate [Isosorbide Mononitrate ER] 30 mg PO QAM Home Medications: Insulin Glargine,Hum.rec.anlog [Lantus Solostar] 44 unit SQ HS 12/29/15 [History] Aspirin 81 mg PO DAILY 09/10/16 [History] Lisinopril [Zestril] 20 mg PO DAILY 09/10/16 [History] Citalopram [CeleXA] 40 mg PO DAILY 03/02/18 [History] Clopidogrel Bisulfate [Plavix] 75 mg PO DAILY 03/02/18 [History] Metoprolol [Lopressor] 25 mg PO DAILY 03/02/18 [History] Amlodipine Besylate 10 mg PO DAILY 10/22/18 [History] Atorvastatin Calcium [Lipitor] 80 mg PO HS 10/22/18 [History] Gabapentin [Neurontin] 300 mg PO BID 10/22/18 [History] Metformin HCl [Glucophage] 1,000 mg PO BID 10/22/18 [History] Isosorbide MONOnitrate (24 HR) [Imdur] 60 mg PO QAM #0 tab.er.24h 01/08/19 [Rx] Allergies/Adverse Reactions: Allergy/AdvReac Type Severity Reaction Status Date / Time Penicillins Allergy Hives Verified 07/03/17 14:43 lactose AdvReac Vomiting Verified 07/03/17 14:43 Date of admission: 01/06/19 21:28 Primary care physician: Ayesha Ramírez CNP Consults: 01/06/19 23:16 Consult to Neurology [CONS] Routine Consulting Provider: Neurology [facility] Reason for Consult: TIA/expressive aphasia -- returned to baseline; h/o recurrent stroke Call Completed: No 01/08/19 11:00 Consult to Cardiology [CONS] Routine Comment: Consulting Provider: Cardiology [facility] Reason for Consult: Abnormal stress test Call Completed: Yes Anticipated date of discharge: 01/08/19 - Constitutional Vitals: Temp Pulse Resp BP Pulse Ox 98.6 F 61 20 130/76 96 01/08/19 10:54 01/08/19 10:54 01/08/19 10:54 01/08/19 10:54 01/08/19 10:54 General appearance: Present: cooperative, A&O X 3, pleasant, no acute distress, answers questions appropriately Exam: PHYSICAL EXAMINATION: GENERAL APPEARANCE: The patient is alert, oriented and in no acute distress. HEENT: Head is normocephalic. The sinuses are nontender. Pupils are equal and reactive. The nares are patent. Oropharynx clear without lesions. NECK: Supple without lymphadenopathy. HEART: Regular rate and rhythm. LUNGS: No crackles or wheezes are heard. ABDOMEN: Soft, nontender, nondistended with good bowel sounds heard. Inguinal area is normal. EXTREMITIES: Without cyanosis, clubbing or edema. NEUROLOGICAL: Gross nonfocal. SKIN: Warm and dry without any rash. - Patient Status Disposition: Home, Self-Care Condition: Good Functional capacity at discharge: independent ambulation Overall status at discharge: patient is progressing back to baseline - Discharge Instructions Follow Up With: Ayesha Ramírez CNP [Primary Care Provider] - 01/20/19 9:00 am - Diet and Activity Activity: increase activity as tolerated Diet: diabetic diet, low fat, low cholesterol, low salt diet
[2019-01-09] MEDS ORDERED: Isosorbide MONOnitrate (24 HR) 60 MG TAB.ER.24H PO SCH (09:00)
== END 2019-01-08 15:07 | disposition home or self-care (01) ==
LOC: 3BNU 17:52 → EMEROOARM 17:52 → 3BNU 21:45
PROVIDERS: ADMIT Pediatrics; ATTEND Pediatrics

== ENCOUNTER 2019-02-02 16:37 | Inpatient (IN) ==
[2019-02-02] MEDS ORDERED: 0.9 % Sodium Chloride 1,000 ML IVC ONE (17:33)
[2019-02-02] MEDS ORDERED: *HR* LORazepam 2 MG/ML VIAL IVP ONE (17:36)
[2019-02-02 18:18] LABS: Basophils % 0.5 %; Hematocrit 31.4 % (35.3-44.9); Hemoglobin 10.8 g/dL (11.5-15.4); Immature Granulocytes % 0.7 % (0-4); Lymphocytes # 0.8 K/mcL (0.6-4.6); Lymphocytes % 19.8 %; Mean Corpuscular HGB Conc 34.4 g/dL (31.6-35.5); Mean Corpuscular Volume 92.9 fL (83.0-100.0); Mean Platelet Volume 11.4 fL (9.4-12.4); Monocytes # 0.4 K/mcL (0.0-1.3); Monocytes % 9.7 %; Platelet Count 124 K/mcL (140-400); Red Blood Count 3.38 M/mcL (3.82-4.97); Red Cell Distribution Width 11.6 % (11.5-14.5); Segmented Neutrophils % 69.3 %; White Blood Count 4.1 K/mcL (4.3-11.1)
[2019-02-02 18:20] LABS: Neutrophils # 2.8 K/mcL (1.6-8.9)
[2019-02-02 18:29] LABS: Prothrombin Time 11.2 Seconds (9.4-12.1)
[2019-02-02 18:32] LABS: Activated Partial Thrombo Time 29.1 Seconds (26.0-36.0)
[2019-02-02 18:37] LABS: Platelet Estimate Slight Decrease (Normal)
[2019-02-02 18:38] LABS: Albumin 3.4 g/dL (3.5-5.7); Albumin/Globulin Ratio 1.4 (1.1-2.2); Bilirubin,Total 0.9 mg/dL (0.3-1.0); Calcium 8.6 mg/dL (8.6-10.3); Globulin 2.5 g/dL (2.4-3.5); Potassium 4.3 mEq/L (3.5-5.1); Total Protein 5.9 g/dL (6.4-8.9)
[2019-02-02 18:39] LABS: Troponin I 0.03 ng/mL (< 0.04)
[2019-02-02 18:53] LABS: Thyroid Stimulating Hormone 2.392 mcIU/mL (0.340-5.600)
[2019-02-02 19:07] LABS: Bilirubin,Urine Moderate (Negative); Blood,Urine Trace (Negative); Clarity,Urine Cloudy (Clear); Color,Urine Dark Yellow (Yellow); Glucose,Urine (UA) Normal (Normal); Ketones,Urine Trace mg/dL (Negative); Leukocyte Esterase,Urine Large (Negative); Nitrite,Urine Negative (Negative); Protein,Urine 100 mg/dL (Neg-Trace); Specific Gravity,Urine 1.022 (1.010-1.025); Urobilinogen,Urine Normal (Normal)
[2019-02-02 19:09] LABS: Bacteria,Urine Few per hpf (None-Few); Hyaline Casts,Urine Moderate per lpf (None-Few); Squamous Epithelial Cell,Urine Many per lpf (None-Few); WBC,Urine TNTC per hpf (0-3)
[2019-02-02 19:24] LABS: RBC,Urine 0-3 per hpf (0-3)
[2019-02-02] MEDS ORDERED: cefTRIAXone 1,000 MG in Water for inj. (sterile) 10 ML IVP ONE (20:47)
[2019-02-03] MEDS ORDERED: Naloxone 0.4 MG/ML INJ IVP PRN (00:02)
[2019-02-03] MEDS ORDERED: Dextrose Gel 15 GM/37.5 ML TUBE PO PRN ×2 (00:02)
[2019-02-03] MEDS ORDERED: Ondansetron 4 MG/2 ML VIAL IVP PRN (00:02)
[2019-02-03] MEDS ORDERED: *HR* Dextrose 50 % in Water (Syg) 50 ML SYRINGE IVP PRN (00:02)
[2019-02-03] MEDS ORDERED: D5% in Water 1,000 ML IVC PRN (00:57)
[2019-02-03] MEDS: 0.9 % Sodium Chloride 1,000 ML IVC SCH ×4 (01:43→11:36)
[2019-02-03 04:23] LABS: Basophils % 0.6 %; Hematocrit 27.3 % (35.3-44.9); Immature Granulocytes % 0.3 % (0-4); Lymphocytes % 32.7 %; Mean Corpuscular HGB Conc 33.7 g/dL (31.6-35.5); Mean Corpuscular Hemoglobin 31.3 pg (28.0-33.3); Mean Corpuscular Volume 92.9 fL (83.0-100.0); Mean Platelet Volume 11.1 fL (9.4-12.4); Monocytes # 0.3 K/mcL (0.0-1.3); Neutrophils # 1.7 K/mcL (1.6-8.9); Platelet Count 103 K/mcL (140-400); Red Blood Count 2.94 M/mcL (3.82-4.97); Red Cell Distribution Width 11.7 % (11.5-14.5); Segmented Neutrophils % 54.4 %; White Blood Count 3.1 K/mcL (4.3-11.1)
[2019-02-03 04:29] LABS: Hemoglobin 9.2 g/dL (11.5-15.4)
[2019-02-03 04:38] LABS: Activated Partial Thrombo Time 27.4 Seconds (26.0-36.0)
[2019-02-03 04:41] LABS: Albumin 2.8 g/dL (3.5-5.7); Albumin/Globulin Ratio 1.4 (1.1-2.2); Bilirubin,Total 0.5 mg/dL (0.3-1.0); Calcium 7.6 mg/dL (8.6-10.3); Magnesium 1.6 mg/dL (1.6-2.6); Phosphorous 3.2 mg/dL (2.7-4.5); Potassium 3.7 mEq/L (3.5-5.1); Total Protein 4.8 g/dL (6.4-8.9)
[2019-02-03 04:51] LABS: Platelet Estimate Slight Decrease (Normal)
[2019-02-03 05:14] LABS: INR 1.1
[2019-02-03] MEDS ORDERED: cefTRIAXone 2,000 MG in Water for inj. (sterile) 20 ML IVP SCH (08:00)
[2019-02-03] MEDS: Isosorbide MONOnitrate (24 HR) 60 MG TAB.ER.24H PO SCH (08:16)
[2019-02-03] MEDS: Insulin LISPRO 300 UNITS/3 ML VIAL SQ SCH ×3 (08:16→16:34)
[2019-02-03] MEDS: Gabapentin 300 MG CAPSULE PO SCH ×3 (08:17→21:08)
[2019-02-03] MEDS ORDERED: (Ezetimibe 10 MG) PO SCH (09:00)
[2019-02-03] MEDS ORDERED: Apixaban 5 MG TABLET PO SCH (09:00)
[2019-02-03 09:17] LABS: Estimated Average Glucose 180 mg/dl
[2019-02-03] MEDS: Piperacillin/Tazobactam 3.375 GM in 0.9 % Sodium Chloride Mini Bag 100 ML IVPB SCH ×3 (11:35→23:12)
[2019-02-03] MEDS: Acetaminophen 325 MG TABLET PO PRN (18:01)
[2019-02-03] MEDS ORDERED: Insulin DETEMIR 100 UNIT/ML X5UNITS SQ SCH (21:00)
[2019-02-03] MEDS: Apixaban 5 MG TABLET PO SCH (21:08)
[2019-02-03] MEDS: Insulin DETEMIR 100 UNIT/ML X5UNITS SQ SCH (21:09)
[2019-02-04] MEDS: Acetaminophen 325 MG TABLET PO PRN ×3 (00:47→23:37)
[2019-02-04 01:44] LABS: Basophils % 0.5 %; Eosinophils # 0.1 K/mcL (0.0-0.6); Eosinophils % 2.1 %; Hematocrit 30.3 % (35.3-44.9); Hemoglobin 10.2 g/dL (11.5-15.4); Immature Granulocytes % 0.8 % (0-4); Lymphocytes # 0.9 K/mcL (0.6-4.6); Lymphocytes % 24.3 %; Mean Corpuscular HGB Conc 33.7 g/dL (31.6-35.5); Mean Corpuscular Hemoglobin 31.3 pg (28.0-33.3); Mean Corpuscular Volume 92.9 fL (83.0-100.0); Mean Platelet Volume 11.2 fL (9.4-12.4); Monocytes # 0.3 K/mcL (0.0-1.3); Monocytes % 8.9 %; Neutrophils # 2.4 K/mcL (1.6-8.9); Platelet Count 104 K/mcL (140-400); Red Blood Count 3.26 M/mcL (3.82-4.97); Red Cell Distribution Width 11.7 % (11.5-14.5); Segmented Neutrophils % 63.4 %; White Blood Count 3.8 K/mcL (4.3-11.1)
[2019-02-04 02:25] LABS: Calcium 8.4 mg/dL (8.6-10.3); Magnesium 1.6 mg/dL (1.6-2.6); Phosphorous 3.2 mg/dL (2.7-4.5)
[2019-02-04 03:05] LABS: Platelet Estimate Decreased (Normal); Reactive Lymphocytes Present (Not Present)
[2019-02-04] MEDS ORDERED: Ringers Solution, Lactated 1,000 ML IVC SCH (07:30)
[2019-02-04] MEDS: Piperacillin/Tazobactam 3.375 GM in 0.9 % Sodium Chloride Mini Bag 100 ML IVPB SCH ×3 (10:01→23:01)
[2019-02-04] MEDS: Insulin LISPRO 300 UNITS/3 ML VIAL SQ SCH ×3 (10:01→17:39)
[2019-02-04] MEDS: Gabapentin 300 MG CAPSULE PO SCH ×3 (10:02→20:33)
[2019-02-04] MEDS: Isosorbide MONOnitrate (24 HR) 60 MG TAB.ER.24H PO SCH (10:02)
[2019-02-04] MEDS: Apixaban 5 MG TABLET PO SCH (10:03)
[2019-02-04] MEDS ORDERED: *HR* Heparin 5,000 UNIT/ML VIAL IVP ONE (13:09)
[2019-02-04] MEDS ORDERED: *HR* Heparin 5,000 UNIT/ML VIAL IVP PRN (13:09)
[2019-02-04] MEDS ORDERED: Heparin 25,000 UNIT/250 ML D5W 25,000 UNIT/250 ML IV.SOLN IVC SCH (13:15)
[2019-02-04 14:02] LABS: INR 1.5
[2019-02-04 14:03] LABS: Hematocrit 28.3 % (35.3-44.9); Hemoglobin 9.5 g/dL (11.5-15.4); Mean Corpuscular HGB Conc 33.6 g/dL (31.6-35.5); Mean Corpuscular Volume 95.3 fL (83.0-100.0); Mean Platelet Volume 12.1 fL (9.4-12.4); Platelet Count 105 K/mcL (140-400); Red Blood Count 2.97 M/mcL (3.82-4.97); Red Cell Distribution Width 11.9 % (11.5-14.5); White Blood Count 3.6 K/mcL (4.3-11.1)
[2019-02-04 14:14] LABS: Heparin anti-factor XA UFH > 2.00 IU/mL (0.30-0.70)
[2019-02-04 14:43] LABS: Activated Partial Thrombo Time 33.8 Seconds (26.0-36.0)
[2019-02-04] MEDS: *HR* Heparin 5,000 UNIT/ML VIAL IVP PRN (15:29)
[2019-02-04] MEDS: Heparin 25,000 UNIT/250 ML D5W 25,000 UNIT/250 ML IV.SOLN IVC SCH (15:30)
[2019-02-04] MEDS ORDERED: Warfarin perPT PO SCH (18:00)
[2019-02-04] MEDS ORDERED: *HR* Warfarin 5 MG TABLET PO SCH (18:00)
[2019-02-04] MEDS: Insulin DETEMIR 100 UNIT/ML X5UNITS SQ SCH (20:33)
[2019-02-04 22:52] LABS: Activated Partial Thrombo Time 235.1 Seconds (26.0-36.0)
[2019-02-04 23:04] LABS: Heparin anti-factor XA UFH > 2.00 IU/mL (0.30-0.70)
[2019-02-05 06:40] LABS: Basophils % 0.4 %; Eosinophils # 0.1 K/mcL (0.0-0.6); Eosinophils % 1.7 %; Hematocrit 28.1 % (35.3-44.9); Hemoglobin 9.2 g/dL (11.5-15.4); Immature Granulocytes % 0.8 % (0-4); Lymphocytes # 1.9 K/mcL (0.6-4.6); Lymphocytes % 35.8 %; Mean Corpuscular HGB Conc 32.7 g/dL (31.6-35.5); Mean Corpuscular Hemoglobin 31.4 pg (28.0-33.3); Mean Corpuscular Volume 95.9 fL (83.0-100.0); Monocytes # 0.6 K/mcL (0.0-1.3); Neutrophils # 2.6 K/mcL (1.6-8.9); Platelet Count 111 K/mcL (140-400); Red Blood Count 2.93 M/mcL (3.82-4.97); Red Cell Distribution Width 11.9 % (11.5-14.5); Segmented Neutrophils % 49.3 %; White Blood Count 5.2 K/mcL (4.3-11.1)
[2019-02-05 06:44] LABS: INR 1.3; Prothrombin Time 14.4 Seconds (9.4-12.1)
[2019-02-05 07:00] LABS: Calcium 8.1 mg/dL (8.6-10.3); Magnesium 1.7 mg/dL (1.6-2.6); Phosphorous 3.8 mg/dL (2.7-4.5); Potassium 4.1 mEq/L (3.5-5.1)
[2019-02-05 07:07] LABS: Heparin anti-factor XA UFH 1.64 IU/mL (0.30-0.70)
[2019-02-05 07:21] LABS: Platelet Estimate Slight Decrease (Normal); Reactive Lymphocytes Present (Not Present)
[2019-02-05] MEDS: Insulin LISPRO 300 UNITS/3 ML VIAL SQ SCH ×3 (08:54→16:21)
[2019-02-05] MEDS: Piperacillin/Tazobactam 3.375 GM in 0.9 % Sodium Chloride Mini Bag 100 ML IVPB SCH ×2 (09:01→16:20)
[2019-02-05] MEDS: Furosemide 20 MG/2 ML VIAL IVP SCH (09:02)
[2019-02-05] MEDS: Isosorbide MONOnitrate (24 HR) 60 MG TAB.ER.24H PO SCH (09:02)
[2019-02-05] MEDS: Gabapentin 300 MG CAPSULE PO SCH ×3 (09:02→20:24)
[2019-02-05] MEDS ORDERED: Warfarin perPT PO PRN (10:26)
[2019-02-05] MEDS: Heparin 25,000 UNIT/250 ML D5W 25,000 UNIT/250 ML IV.SOLN IVC SCH (14:29)
[2019-02-05] MEDS: Acetaminophen 325 MG TABLET PO PRN (16:19)
[2019-02-05] MEDS ORDERED: *HR* Warfarin 5 MG TABLET PO ONE (18:00)
[2019-02-05] MEDS: Doxycycline 100 MG CAPSULE PO SCH (20:24)
[2019-02-05] MEDS: Insulin DETEMIR 100 UNIT/ML X5UNITS SQ SCH (20:26)
[2019-02-05] MEDS: *HR* Heparin 5,000 UNIT/ML VIAL IVP PRN (22:15)
[2019-02-06] MEDS: Piperacillin/Tazobactam 3.375 GM in 0.9 % Sodium Chloride Mini Bag 100 ML IVPB SCH ×3 (00:06→16:32)
[2019-02-06 05:15] LABS: Basophils % 0.5 %; Eosinophils # 0.3 K/mcL (0.0-0.6); Eosinophils % 4.6 %; Hematocrit 27.1 % (35.3-44.9); Hemoglobin 9.2 g/dL (11.5-15.4); Lymphocytes # 2.3 K/mcL (0.6-4.6); Lymphocytes % 38.6 %; Mean Corpuscular HGB Conc 33.9 g/dL (31.6-35.5); Mean Corpuscular Hemoglobin 31.9 pg (28.0-33.3); Mean Corpuscular Volume 94.1 fL (83.0-100.0); Mean Platelet Volume 12.2 fL (9.4-12.4); Monocytes # 0.6 K/mcL (0.0-1.3); Monocytes % 9.8 %; Neutrophils # 2.7 K/mcL (1.6-8.9); Platelet Count 129 K/mcL (140-400); Red Blood Count 2.88 M/mcL (3.82-4.97); Red Cell Distribution Width 11.9 % (11.5-14.5); Segmented Neutrophils % 45.5 %; White Blood Count 5.9 K/mcL (4.3-11.1)
[2019-02-06 05:34] LABS: Calcium 8.3 mg/dL (8.6-10.3); Magnesium 1.8 mg/dL (1.6-2.6); Phosphorous 3.9 mg/dL (2.7-4.5)
[2019-02-06 05:44] LABS: INR 1.3; Prothrombin Time 14.6 Seconds (9.4-12.1)
[2019-02-06 05:45] LABS: Activated Partial Thrombo Time 177.3 Seconds (26.0-36.0)
[2019-02-06 05:53] LABS: Heparin anti-factor XA UFH 1.39 IU/mL (0.30-0.70)
[2019-02-06] MEDS: Insulin LISPRO 300 UNITS/3 ML VIAL SQ SCH ×3 (07:44→18:17)
[2019-02-06] MEDS ORDERED: Morphine Sulfate 2 MG/ML SYRINGE IVP ONE (08:28)
[2019-02-06] MEDS ORDERED: Aminoglycoside Consult 1 EACH MC ONE (08:52)
[2019-02-06] MEDS: Fluconazole 200 MG/100 ML 200 MG/100 ML BAG IVPB SCH (11:00)
[2019-02-06] MEDS: Furosemide 20 MG/2 ML VIAL IVP SCH (11:01)
[2019-02-06] MEDS: Isosorbide MONOnitrate (24 HR) 60 MG TAB.ER.24H PO SCH (11:01)
[2019-02-06] MEDS: Gabapentin 300 MG CAPSULE PO SCH ×3 (11:01→21:20)
[2019-02-06] MEDS: Doxycycline 100 MG CAPSULE PO SCH ×2 (11:02→21:20)
[2019-02-06] MEDS ORDERED: D5% in Lactated Ringers 1,000 ML IVC SCH (11:45)
[2019-02-07] MEDS: Insulin LISPRO 300 UNITS/3 ML VIAL SQ SCH ×4 (00:18→22:11)
[2019-02-07] MEDS: Piperacillin/Tazobactam 3.375 GM in 0.9 % Sodium Chloride Mini Bag 100 ML IVPB SCH ×3 (00:25→15:38)
[2019-02-07 05:36] LABS: Basophils % 0.3 %; Eosinophils # 0.2 K/mcL (0.0-0.6); Eosinophils % 3.8 %; Hematocrit 25.6 % (35.3-44.9); Hemoglobin 8.5 g/dL (11.5-15.4); Immature Granulocytes % 1.2 % (0-4); Lymphocytes # 1.9 K/mcL (0.6-4.6); Lymphocytes % 31.2 %; Mean Corpuscular HGB Conc 33.2 g/dL (31.6-35.5); Mean Corpuscular Hemoglobin 31.5 pg (28.0-33.3); Mean Corpuscular Volume 94.8 fL (83.0-100.0); Mean Platelet Volume 11.2 fL (9.4-12.4); Monocytes # 0.6 K/mcL (0.0-1.3); Monocytes % 9.7 %; Neutrophils # 3.3 K/mcL (1.6-8.9); Platelet Count 144 K/mcL (140-400); Red Cell Distribution Width 11.9 % (11.5-14.5); Segmented Neutrophils % 53.8 %; White Blood Count 6.1 K/mcL (4.3-11.1)
[2019-02-07 05:44] LABS: INR 1.3; Prothrombin Time 14.6 Seconds (9.4-12.1)
[2019-02-07 05:56] LABS: Calcium 7.9 mg/dL (8.6-10.3); Magnesium 1.6 mg/dL (1.6-2.6); Phosphorous 3.3 mg/dL (2.7-4.5); Potassium 3.8 mEq/L (3.5-5.1)
[2019-02-07] MEDS ORDERED: Lidocaine -MPF 2% 2 ML VIAL ONE (07:25)
[2019-02-07] MEDS ORDERED: Ondansetron 4 MG/2 ML VIAL ONE (07:25)
[2019-02-07] MEDS ORDERED: Dexamethasone 4 MG/ML VIAL ONE (07:25)
[2019-02-07] MEDS ORDERED: *HR* Rocuronium Bromide 50 MG/5 ML VIAL ONE (07:25)
[2019-02-07] MEDS ORDERED: Lidocaine -MPF 4% 5 ML AMPUL ONE (07:25)
[2019-02-07] MEDS ORDERED: *HR* Propofol 200 MG/20 ML VIAL IVP ONE (07:26)
[2019-02-07] MEDS ORDERED: *HR* FentaNYL (PF) 100 MCG/2 ML VIAL ONE (07:26)
[2019-02-07] MEDS: Furosemide 20 MG/2 ML VIAL IVP SCH (08:31)
[2019-02-07] MEDS: Doxycycline 100 MG CAPSULE PO SCH ×2 (08:31→22:13)
[2019-02-07] MEDS: Fluconazole 200 MG/100 ML 200 MG/100 ML BAG IVPB SCH (08:31)
[2019-02-07] MEDS: Isosorbide MONOnitrate (24 HR) 60 MG TAB.ER.24H PO SCH (08:32)
[2019-02-07] MEDS: Gabapentin 300 MG CAPSULE PO SCH ×3 (08:32→22:13)
[2019-02-07] MEDS: Acetaminophen 325 MG TABLET PO PRN (08:34)
[2019-02-07] MEDS ORDERED: Bupivacaine/EPI 1:200k 0.5%PF 30 ML VIAL ONE (08:46)
[2019-02-07] MEDS ORDERED: Isovue-300 50ML VIAL ONE (08:48)
[2019-02-07] MEDS ORDERED: Furosemide 20 MG/2 ML VIAL IVP SCH (09:00)
[2019-02-07] MEDS ORDERED: *HR* PHENYLEPHRINE 1,000 MCG/10 ML SYRINGE IVP ONE (09:02)
[2019-02-07] MEDS ORDERED: EPHEDrine 50 MG/ML VIAL ONE (09:55)
[2019-02-07] MEDS ORDERED: *HR* HYDROmorphone (PF) 1 MG/ML SYRINGE IVP PRN (10:31)
[2019-02-07] MEDS ORDERED: *HR* Promethazine 25 MG/ML VIAL IVP PRN (11:32)
[2019-02-07] MEDS ORDERED: *HR* Promethazine 25 MG/ML VIAL ONE (11:33)
[2019-02-07] MEDS ORDERED: Ondansetron 4 MG/2 ML VIAL IVP PRN (12:07)
[2019-02-07] MEDS ORDERED: D5% in Water 1,000 ML IVC PRN (12:07)
[2019-02-07] MEDS ORDERED: Dextrose Gel 15 GM/37.5 ML TUBE PO PRN ×2 (12:07)
[2019-02-07] MEDS ORDERED: Naloxone 0.4 MG/ML INJ IVP PRN (12:07)
[2019-02-07] MEDS ORDERED: *HR* Dextrose 50 % in Water (Syg) 50 ML SYRINGE IVP PRN (12:07)
[2019-02-07] MEDS: Acetaminophen IV 1,000 MG/100 ML INFUS..BTL IVPB SCH ×2 (12:52→17:20)
[2019-02-07] MEDS: Insulin DETEMIR 100 UNIT/ML X5UNITS SQ SCH (22:12)
[2019-02-08] MEDS: Piperacillin/Tazobactam 3.375 GM in 0.9 % Sodium Chloride Mini Bag 100 ML IVPB SCH ×3 (01:45→14:51)
[2019-02-08] MEDS: Acetaminophen IV 1,000 MG/100 ML INFUS..BTL IVPB SCH ×2 (01:47→06:53)
[2019-02-08] MEDS: Insulin LISPRO 300 UNITS/3 ML VIAL SQ SCH ×3 (01:48→17:05)
[2019-02-08] MEDS ORDERED: *HR* OxyCODONE Immed Rel 5 MG TABLET PO PRN (08:33)
[2019-02-08] MEDS ORDERED: Fluconazole 200 MG/100 ML 200 MG/100 ML BAG IVPB SCH (09:00)
[2019-02-08] MEDS: Doxycycline 100 MG CAPSULE PO SCH (09:21)
[2019-02-08] MEDS: Gabapentin 300 MG CAPSULE PO SCH ×3 (09:22→21:54)
[2019-02-08] MEDS: Isosorbide MONOnitrate (24 HR) 60 MG TAB.ER.24H PO SCH (09:22)
[2019-02-08] MEDS: Furosemide 20 MG/2 ML VIAL IVP SCH (09:22)
[2019-02-08 16:15] LABS: Basophils % 0.3 %; Eosinophils # 0.1 K/mcL (0.0-0.6); Hematocrit 25.6 % (35.3-44.9); Hemoglobin 8.7 g/dL (11.5-15.4); Immature Granulocytes % 0.9 % (0-4); Lymphocytes # 1.7 K/mcL (0.6-4.6); Lymphocytes % 15.2 %; Mean Corpuscular Hemoglobin 32.1 pg (28.0-33.3); Mean Corpuscular Volume 94.5 fL (83.0-100.0); Monocytes # 0.9 K/mcL (0.0-1.3); Monocytes % 7.9 %; Neutrophils # 8.3 K/mcL (1.6-8.9); Platelet Count 274 K/mcL (140-400); Red Blood Count 2.71 M/mcL (3.82-4.97); Segmented Neutrophils % 74.7 %
[2019-02-08 16:24] LABS: INR 1.6
[2019-02-08 16:28] LABS: White Blood Count 11.1 K/mcL (4.3-11.1)
[2019-02-08 16:30] LABS: Albumin 3.1 g/dL (3.5-5.7); Albumin/Globulin Ratio 1.1 (1.1-2.2); Bilirubin,Direct 0.1 mg/dL (0.0-0.2); Bilirubin,Indirect 0.3 mg/dL (0.0-1.2); Bilirubin,Total 0.4 mg/dL (0.3-1.0); Calcium 8.5 mg/dL (8.6-10.3); Globulin 2.8 g/dL (2.4-3.5); Magnesium 1.8 mg/dL (1.6-2.6); Phosphorous 3.6 mg/dL (2.7-4.5); Potassium 3.7 mEq/L (3.5-5.1); Total Protein 5.9 g/dL (6.4-8.9)
[2019-02-08] MEDS ORDERED: Warfarin perPT PO SCH (18:00)
[2019-02-08] MEDS ORDERED: *HR* Warfarin 2.5 MG TABLET PO ONE (18:00)
[2019-02-08] MEDS ORDERED: Insulin LISPRO 300 UNITS/3 ML VIAL SQ SCH (21:00)
[2019-02-08] MEDS: Insulin DETEMIR 100 UNIT/ML X5UNITS SQ SCH (21:53)
[2019-02-09] MEDS: Piperacillin/Tazobactam 3.375 GM in 0.9 % Sodium Chloride Mini Bag 100 ML IVPB SCH ×2 (01:09→08:29)
[2019-02-09 06:56] LABS: INR 1.5; Prothrombin Time 17.2 Seconds (9.4-12.1)
[2019-02-09] MEDS: Furosemide 20 MG/2 ML VIAL IVP SCH (08:29)
[2019-02-09] MEDS: Isosorbide MONOnitrate (24 HR) 60 MG TAB.ER.24H PO SCH (08:29)
[2019-02-09] MEDS: Gabapentin 300 MG CAPSULE PO SCH (08:29)
[2019-02-09] MEDS: Insulin LISPRO 300 UNITS/3 ML VIAL SQ SCH ×2 (08:30→12:33)
[2019-02-09 08:43] LABS: Calcium 8.4 mg/dL (8.6-10.3); Magnesium 1.9 mg/dL (1.6-2.6); Phosphorous 3.6 mg/dL (2.7-4.5); Potassium 4.3 mEq/L (3.5-5.1)
[2019-02-09] MEDS ORDERED: Warfarin perPT PO PRN (09:45)
[2019-02-09 10:17] LABS: Albumin/Globulin Ratio 1.1 (1.1-2.2); Bilirubin,Direct 0.1 mg/dL (0.0-0.2); Bilirubin,Indirect 0.3 mg/dL (0.0-1.2); Bilirubin,Total 0.4 mg/dL (0.3-1.0); Globulin 2.8 g/dL (2.4-3.5); Total Protein 5.8 g/dL (6.4-8.9)
[2019-02-09 11:08] VITALS: BP 133/64
[2019-02-09] MEDS ORDERED: *HR* Warfarin 4 MG TABLET PO ONE (18:00)
== END 2019-02-09 13:45 | disposition home or self-care (01) | DRG 853 ==
LOC: EMEROOARM 16:37 → 2ANU 16:37 → SUATTDRO 02-03 00:33
PROVIDERS: ADMIT Family Medicine; ATTEND Internal Medicine

== ENCOUNTER 2019-02-15 13:57 | Observation (INO) ==
--- NOTE | 2019-02-15 15:17 | Emergency Department Note ---
Disposition Clinical Impression: Frail elderly Disposition: Admitted As Inpatient Condition: Fair Referrals: Ayesha Ramírez CNP [Primary Care Provider] - Forms: ED Satisfaction Letter Time of Disposition: 17:36 General Adult HPI - General Chief complaint: ED Fall Stated complaint: fall, left hip/back pain Time Seen by Provider: 02/15/19 14:40 Source: patient, family Limitations: no limitations - History of Present Illness HPI Narrative: Mrs. Nunez is a 68 year old female with multiple medical conditions presents to the emergency department for an unwitnessed fall that happened yesterday around 5pm. Patient was standing on gravel and became weak and then went to the ground landing on her left side. She denies any chest pain, shortness of breath, nausea, or lightheadedness, prior to the fall. She is not sure if she hit her head or lost consciousness. Family found her on her left side approximately 3 minutes later and required two people to lift her up. Patient had trouble ambulating and bearing weight after the fall and laid on the couch the remainder of the evening. Today she reports increased pain in her left lower back and left hip region. The pain is worse with any type of movement. She also complains of a moderate headache that started today as well. Patient was recently in the [facility]ital and had a cholysctomy complicated by sepsis. She was discharged this past Friday and finished her antibiotic last night. Since being discharged from the hospital she has been weak and has had difficulty keeping fluids and food down. Patient was recently started on warfarin as well. Pain Scale: 0 - Related Data Home Medications Medication Instructions Recorded Confirmed Insulin Glargine,Hum.rec.anlog 44 unit SQ 12/29/15 02/02/19 [Lantus Solostar] Lisinopril [Zestril] 20 mg PO DAILY 09/10/16 02/02/19 Clopidogrel Bisulfate [Plavix] 75 mg PO DAILY 03/02/18 02/02/19 Metoprolol [Lopressor] 25 mg PO DAILY 03/02/18 02/02/19 Atorvastatin Calcium [Lipitor] 80 mg PO HS 10/22/18 02/02/19 Metformin HCl [Glucophage] 1,000 mg PO BID 10/22/18 02/02/19 Amlodipine Besylate 10 mg PO DAILY 02/02/19 02/02/19 Citalopram Hydrobromide 40 mg PO DAILY 02/02/19 02/02/19 [Citalopram HBr] Ezetimibe 10 mg PO DAILY 02/02/19 02/02/19 Gabapentin [Neurontin] 300 mg PO TID 02/02/19 02/02/19 Previous Rx's Medication Instructions Recorded Isosorbide MONOnitrate (24 HR) 60 mg PO QAM #0 tab.er.24h 01/08/19 [Imdur] Warfarin perPT [Coumadin perPT] 5 each PO DAILY@1800 30 Days #30 02/09/19 each levoFLOXacin [Levofloxacin] 750 mg PO DAILY 5 Days #5 tablet 02/09/19 metroNIDAZOLE [Flagyl] 500 mg PO TID 5 Days #15 tablet 02/09/19 Allergies Allergy/AdvReac Type Severity Reaction Status Date / Time Penicillins Allergy Hives Verified 02/15/19 14:01 lactose AdvReac Vomiting Verified 02/15/19 14:01 Constitutional: Reports: weakness. Denies: fever, chills Cardiovascular: Denies: chest pain, palpitations Gastrointestinal: Reports: other (mild bilaterally lower quadrant abdominal pain. ) Genitourinary: Denies: urgency, dysuria, frequency Neurological: Reports: headache, weakness Past Medical History - Past Medical History Medical history: Reports: coronary artery disease, CVA, diabetes, hyperlipidemia, hypertension, myocardial infarction, TIA Surgical history: Reports: angioplasty/stent, appendectomy, coronary bypass (CABG), orthopedic, other Psychiatric history: Reports: depression WARP CHANGER history: Reports: no WARP CHANGER history - Social History Smoking Status: Never smoker Smokeless Tobacco Status: No Alcohol use: Reports: none Drug use: Reports: none Physical Exam - General Limitations: no limitations General appearance: alert, in no apparent distress - Head Head exam: atraumatic, normocephalic - Eye Eye exam: Present: normal appearance, PERRL, EOMI - Chest Chest inspection: Present: normal inspection, symmetric chest wall rise - Respiratory Respiratory exam: Present: normal lung sounds bilaterally - Cardiovascular Cardiovascular exam: Present: regular rate, normal rhythm - Abdominal Exam Abdominal exam: Present: tenderness (pain with hip flexion ) Abdominal tenderness: Present: RLQ, LLQ - Extremities Exam Extremities exam: Present: other (pain with hip flexion ) - Expanded Lower Extremity Exam Hip/Pelvis exam: Present: tenderness (to lateral aspect), pelvis stable, other (pain and tenderness to lateral aspect of hip. ) Knee exam: Present: normal inspection, full ROM Lower leg exam: Present: normal inspection, full ROM Ankle exam: Present: normal inspection, full ROM Neurovascular/Tendon exam: Present: normal capillary refill - Back Exam Back exam: Present: other (Left sided lumbar pain over transverse process. No midline tendernes) - Neurological Exam Neurological exam: Present: alert, oriented X3 Course Vital Signs Temperature 98.4 F 02/15/19 13:58 Pulse Rate 76 02/15/19 13:58 Respiratory Rate 16 02/15/19 13:58 Blood Pressure 133/69 02/15/19 13:58 O2 Sat by Pulse Oximetry 94 02/15/19 13:58 Temperature 98.4 F 02/15/19 13:58 Pulse Rate 90 02/15/19 16:17 Respiratory Rate 20 02/15/19 16:17 Blood Pressure 144/60 02/15/19 16:17 O2 Sat by Pulse Oximetry 95 02/15/19 16:17 Oxygen Delivery Oxygen Delivery Room Air Medical Decision Making - Lab Data Result diagrams: 02/15/19 15:00 Lab Results 02/15/19 02/15/19 Range/Units 15:00 15:00 PT 71.6 H* D (9.4-12.1) Seconds INR 6.3 H* D Sodium 143 (136-145) mEq/L Potassium 3.5 (3.5-5.1) mEq/L Chloride 107 (98-107) mEq/L Carbon Dioxide 25 (23-29) mEq/L BUN 21 (8-23) mg/dL Creatinine 1.37 H (0.60-1.20) mg/dL Est GFR ( Amer) 46 L (> 60) Est GFR (Non-Af Amer) 38 L (> 60) BUN/Creatinine Ratio 15 (6-26) Glucose 115 H (70-105) mg/dL Calculated Osmolality 300 (280-300) Calcium 8.8 (8.6-10.3) mg/dL
--- NOTE | 2019-02-15 15:50 | Emergency Department Note ---
Disposition Clinical Impression: Frail elderly, Left hip pain, Supratherapeutic INR Fall Qualifiers: Encounter type: initial encounter Qualified Code(s): W19.XXXA - Unspecified fall, initial encounter Disposition: Admitted As Inpatient Condition: Fair Referrals: Ayesha Ramírez CNP [Primary Care Provider] - Forms: ED Satisfaction Letter Time of Disposition: 17:58 Fall HPI - General Chief Complaint: ED Fall Stated Complaint: fall, left hip/back pain Time Seen by Provider: 02/15/19 14:40 Source: patient, family Mode of arrival: ambulatory Limitations: no limitations Nursing Notes Reviewed: Yes Vital Signs Reviewed: Yes - History of Present Illness HPI Narrative: I have re-performed and reviewed the history documented by the medical student, and I confirm its accuracy except as noted below Pt has a history of DM, CVA, CAD, [place], HTN and HLD and was recently discharged from the hospital with sepsis secondary to cholecystitis, PNA and UTI. She had a cholecystectomy and is still complaining of abdominal pain, N/V and weakness. She had finished her course of Levaquin but states she vomited many of the pills secondary to her nausea. She has not had any fevers, chest pain or shortness of breath. She has been ambulatory after her fall but has had increasing pain of her lower back and left hip since the fall yesterday. - Related Data Home Medications Medication Instructions Recorded Confirmed Insulin Glargine,Hum.rec.anlog 44 unit SQ 12/29/15 02/02/19 [Lantus Solostar] Lisinopril [Zestril] 20 mg PO DAILY 09/10/16 02/02/19 Clopidogrel Bisulfate [Plavix] 75 mg PO DAILY 03/02/18 02/02/19 Metoprolol [Lopressor] 25 mg PO DAILY 03/02/18 02/02/19 Atorvastatin Calcium [Lipitor] 80 mg PO HS 10/22/18 02/02/19 Metformin HCl [Glucophage] 1,000 mg PO BID 10/22/18 02/02/19 Amlodipine Besylate 10 mg PO DAILY 02/02/19 02/02/19 Citalopram Hydrobromide 40 mg PO DAILY 02/02/19 02/02/19 [Citalopram HBr] Ezetimibe 10 mg PO DAILY 02/02/19 02/02/19 Gabapentin [Neurontin] 300 mg PO TID 02/02/19 02/02/19 Previous Rx's Medication Instructions Recorded Isosorbide MONOnitrate (24 HR) 60 mg PO QAM #0 tab.er.24h 01/08/19 [Imdur] Warfarin perPT [Coumadin perPT] 5 each PO DAILY@1800 30 Days #30 02/09/19 each levoFLOXacin [Levofloxacin] 750 mg PO DAILY 5 Days #5 tablet 02/09/19 metroNIDAZOLE [Flagyl] 500 mg PO TID 5 Days #15 tablet 02/09/19 Allergies Allergy/AdvReac Type Severity Reaction Status Date / Time Penicillins Allergy Hives Verified 02/15/19 14:01 lactose AdvReac Vomiting Verified 02/15/19 14:01 All systems ED: reviewed and negative except as stated. Review of Systems: As Per HPI Constitutional: Reports: weakness. Denies: fever, chills Cardiovascular: Denies: chest pain, palpitations Respiratory: Denies: cough, dyspnea, wheezes Gastrointestinal: Reports: abdominal pain, nausea, vomiting, other (mild bilater al lower quadrant abdominal pain. 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 Absent: tenderness, meningismus - Chest Chest inspection: Present: normal inspection. Absent: tenderness, rash - Respiratory Respiratory exam: Present: normal lung sounds bilaterally. Absent: wheezes - Cardiovascular Cardiovascular exam: Present: regular rate, normal rhythm - Abdominal Exam Abdominal exam: Present: soft, tenderness, distention. Absent: guarding, rebound, rigidity, Jacques's sign, Rovsing's sign, tenderness at McBurney's Point Abdominal tenderness: Present: RLQ, LLQ, mild - Extremities Exam Extremities exam: Present: normal inspection, other (left hip pain on leg roll with mild pain to palpation. ). Absent: tenderness, pedal edema - Back Exam Back exam: Present: paraspinal tenderness. Absent: vertebral tenderness - Neurological Exam Neurological exam: Present: alert, oriented X3 - Psychiatric Psychiatric exam: Present: normal affect, normal mood - Skin Skin exam: Present: warm, dry, intact Course Vital Signs Temperature 98.4 F 02/15/19 13:58 Pulse Rate 76 02/15/19 13:58 Respiratory Rate 16 02/15/19 13:58 Blood Pressure 133/69 02/15/19 13:58 O2 Sat by Pulse Oximetry 94 02/15/19 13:58 Temperature 98.4 F 02/15/19 13:58 Pulse Rate 90 02/15/19 16:17 Respiratory Rate 20 02/15/19 16:17 Blood Pressure 144/60 02/15/19 16:17 O2 Sat by Pulse Oximetry 95 02/15/19 16:17 Oxygen Delivery Oxygen Delivery Room Air Fall - [facility] Narrative Medical decision making narrative: Patient presents 1 day after a fall. Obtain EKG, BMP and PT/INR and obtain imaging of the patient's head, lumbar spine and hip. 1755 - patient's x-ray of her spine and left hip are within normal limits. Blood tests only showed an elevated PT/INR. Patient is unable to ambulate secondary to pain, therefore we will admit for PT/OT and MR of the hip for diagnosis of occult fracture. Patient is agreeable with this plan of care. Patient has been accepted by the hospitalist Dr. Root. - Medical Records Medical records reviewed: Yes I reviewed the patient's medical records. - Lab Data Lab results reviewed: Yes I reviewed the patient's lab results. Result diagrams: 02/15/19 15:00 Lab Results 02/15/19 02/15/19 Range/Units 15:00 15:00 PT 71.6 H* D (9.4-12.1) Seconds INR 6.3 H* D Sodium 143 (136-145) mEq/L Potassium 3.5 (3.5-5.1) mEq/L Chloride 107 (98-107) mEq/L Carbon Dioxide 25 (23-29) mEq/L BUN 21 (8-23) mg/dL Creatinine 1.37 H (0.60-1.20) mg/dL Est GFR ( Amer) 46 L (> 60) Est GFR (Non-Af Amer) 38 L (> 60) BUN/Creatinine Ratio 15 (6-26) Glucose 115 H (70-105) mg/dL Calculated Osmolality 300 (280-300) Calcium 8.8 (8.6-10.3) mg/dL - Radiology Data Radiology results reviewed: Yes I reviewed the patient's radiology results. - EKG Data EKG attestation: Yes I reviewed and interpreted this EKG. EKG results narrative: EKG obtained at Heart rate 73 bpm, MS interval 146, QRS duration 112, QT 392, QTC 432 Sinus rhythm without any ST segment elevations. Inverted T waves noted in leads V3 through V6 with flattening of the T waves normal inferior leads. No other acute T-wave abnormalities. No old EKG for comparison at this time.
[2019-02-15] MEDS ORDERED: 0.9 % Sodium Chloride 1,000 ML IVC ONE (16:46)
[2019-02-15 16:53] LABS: INR 6.3; Prothrombin Time 71.6 Seconds (9.4-12.1)
[2019-02-15 16:54] LABS: Calcium 8.8 mg/dL (8.6-10.3); Potassium 3.5 mEq/L (3.5-5.1)
[2019-02-15] MEDS ORDERED: Naloxone 0.4 MG/ML INJ IVP PRN (18:27)
[2019-02-15] MEDS ORDERED: Acetaminophen 325 MG TABLET PO PRN (18:27)
[2019-02-15] MEDS ORDERED: Ondansetron 4 MG/2 ML VIAL IVP PRN (18:27)
[2019-02-15] MEDS ORDERED: Dextrose Gel 15 GM/37.5 ML TUBE PO PRN ×2 (18:32)
[2019-02-15] MEDS ORDERED: *HR* Dextrose 50 % in Water (Syg) 50 ML SYRINGE IVP PRN (18:32)
[2019-02-15] MEDS ORDERED: D5% in Water 1,000 ML IVC PRN (18:32)
--- NOTE | 2019-02-15 18:42 | Internal Med History&Physical ---
Date of Encounter: 02/15/19 Time of Encounter: 18:00 Internal Medicine - H&P: HPI Chief complaint: s/p fall hip pain unable to bear weight Admitted From: Emergency Dept Plans for Post Hospital Care: Transfer Inp Rehab Fac History of present illness: Ms. Nunez is a 68 year old female with a past medical history of prior [place], CAD status post CABG and left heart catheter with multiple stents, diabetes, hypertension recent stroke with left-sided focal deficits of weakness and speech impediment. She presented to the ED to be evaluated after she sustained a fall yesterday which was unwitnessed. Her daughter Lyudmila [phone] stated that she was with the patient outside in the yard went inside to use the bathroom and when she came back she found the patient on the floor. Ms. Nunez denies any prodrome prior to her fall she attributes to fall to generalized weakness. She stated that she was recently hospitalized and was discharged on the on oral Levaquin however she was unable to tolerate this medication reported nausea and vomiting unable to keep up with oral intake. Also noted according to her discharge summary she was hospitalized for sepsis from February 05 to February 09 during hospital stay she was dehydrated complaining of weakness and had elective cholecystectomy prior to discharge. Patient also was noted to be unable to afford her apixaban which was ordered for her after she had a stroke and SULLY revealed a PFO. She was discharged on warfarin. Patient and her daughter stated that she went for her warfarin clinic visit and they were in the process of adjusting her dose due to super therapeutic INR. Of note INR was 6.3 on admission. Patient had a head CT check x-ray and lumbar spine radiograph which were all unyielding. She discharged a week ago she reports multiple falls and attributes it to muscle weakness she does admit to using a walker and being compliant with ambulation with a walker Past Med Surg Social Fam HX - Past Medical History Medical history: coronary artery disease, CVA, diabetes, hyperlipidemia, hypertension, myocardial infarction, TIA Additional medical history: 5 TIA/3 CVA Psychiatric history: depression - Past Surgical History Surgical History: angioplasty/stent, appendectomy, coronary bypass (CABG), orthopedic, other Additional surgical history: open heart. LEFT ARM ORIF - Social History Smoking Status: Never smoker Smokeless Tobacco Status: No Alcohol use: none Drug use: none - Family History Father Adopted: No Living Status: Hx Family Cardiac Disorders: Yes (HTN) Hx Family Cancer: Yes (COPD, emphysema) Mother Adopted: No Family Member Ethnicity: Non- Living Status: Hx Family Cardiac Disorders: Yes Hx Family Respiratory Disorders: No Hx Family Cancer: Yes Hx Family GI Disorders: No Hx Family Endocrine Disorder: Yes Hx Family Neuromuscular Disorders: No Hx Family Neurologic Disorders: Yes Hx Family HEENT Disorders: No Hx Family Autoimmune Disorders: No Internal Medicine - H&P: Meds Insulin Glargine,Hum.rec.anlog [Lantus Solostar] 44 unit SQ HS 12/29/15 [History] Lisinopril [Zestril] 20 mg PO DAILY 09/10/16 [History] Clopidogrel Bisulfate [Plavix] 75 mg PO DAILY 03/02/18 [History] Metoprolol [Lopressor] 25 mg PO DAILY 03/02/18 [History] Atorvastatin Calcium [Lipitor] 80 mg PO HS 10/22/18 [History] Metformin HCl [Glucophage] 1,000 mg PO BID 10/22/18 [History] Isosorbide MONOnitrate (24 HR) [Imdur] 60 mg PO QAM #0 tab.er.24h 01/08/19 [Rx] Amlodipine Besylate 10 mg PO DAILY 02/02/19 [History] Citalopram Hydrobromide [Citalopram HBr] 40 mg PO DAILY 02/02/19 [History] Ezetimibe 10 mg PO DAILY 02/02/19 [History] Gabapentin [Neurontin] 300 mg PO TID 02/02/19 [History] Warfarin perPT [Coumadin perPT] 5 each PO DAILY@1800 30 Days #30 each 02/09/19 [Rx] metroNIDAZOLE [Flagyl] 500 mg PO TID 5 Days #15 tablet 02/09/19 [Rx] Allergy/AdvReac Type Severity Reaction Status Date / Time Penicillins Allergy Hives Verified 02/15/19 14:01 lactose AdvReac Vomiting Verified 02/15/19 14:01 All Systems PM: A 10-system review of systems was performed and is negative for pertinent findings except as documented above in the HPI. Review of systems: GENERAL: Denies fever, chills, fatigue or night sweats. Reports generalized weakness and malaise DERMATOLOGIC: Denies itch, rash or lesions HEENT: Denies headache, blurriness, diplopia or decreased visual acuity, ear pain, tinnitus, rhinorrhea, sinus tenderness or sore throat RESPIRATORY: Denies SOB, cough, hemoptysis or pleuritic chest pain CARDIOVASCULAR: Denies chest pain, LE edema, palpitation or syncope GASTRO INTESTINAL: Denies cramps, nausea/vomiting, diarrhea or constipation, melena MUSCULOSKELATAL: Reports left-sided weakness upper and lower extremity PSYCH: Denies worsening anxiety, or depression NEURO: Denies vertigo, dizziness, or ataxia, reports speech impediment from her stroke GENITURINARY: Denies dysuria, nocturia or urinary incontinence - Constitutional Vitals: Temp Pulse Resp BP Pulse Ox 98.4 F 90 20 144/60 95 02/15/19 13:58 02/15/19 16:17 02/15/19 16:17 02/15/19 16:17 02/15/19 16:17 Exam: GENERAL: NAD, A&O x3, pleasant and conversant, delayed speech impediment noted SKIN: No skin lesions or rashes, non-jaundiced EYES: EOMI, PERRLA, no sclera icterus HENT: Head atraumatic, no facial asymmetry, frontal and maxillary sinus non- tender, normal hearing, oropharynx and mucosa moist and without any exudates NECK: No cervical lymphadenopathy, trachea midline, thyroid is palpable does not appear enlarged LUNGS: vesicular breath sounds, clear to auscultation, no wheeze, rhonchi, rales or crackles. Non labored respirations HEART: Normal rate and rhythm, no murmurs or rubs ABDOMEN: soft, appropriately tender, healing surgical scar noted, non-distended, bowel sounds x 4 normoactive EXTRMITIES: No LE asymmetry, No LE edema, pedal pulses 1+ and radial pulses 2 + and equal bilaterally NEURO: Speech and comprehension appears intact. Left-sided weakness noted PSYCH: Cooperative, non- anxious or irritable, mood and affect is appropriate Internal Med - H&P Results - Labs CBC & Chem 7: 02/15/19 15:00 Labs: BMP 02/15/19 15:00 Sodium 143 Potassium 3.5 Chloride 107 Carbon Dioxide 25 BUN 21 Creatinine 1.37 H Glucose 115 H Calcium 8.8 - Impressions ITS Impressions Hip X-Ray 02/15/19 14:58 IMPRESSION: No acute bony abnormality. D/ / Irene Merida Cha, MD / Irene Merida Cha, MD Interpreting Provider: Irene Merida Cha, MD Lumbar Spine X-Ray 02/15/19 14:58 IMPRESSION: 1. No acute compression fracture. 2. Multilevel degenerative disc disease and facet arthropathy. If there is further concern for infection, nerve root compression or disc herniation correlation to MRI imaging would be recommended. D/ / 02/15/2019 17:13:23 Eliot Wright MD / erin Interpreting Provider: Eliot Wright MD Head CT 02/15/19 14:59 IMPRESSION: No acute intracranial abnormality. D/ / Eliot Wright MD / Eliot Wright MD Interpreting Provider: Eliot Wright MD - Assessment and Plan (1) Supratherapeutic INR Current Visit: Yes Status: Acute Assessment and plan: INR on admission is 6.3 will hold warfarin no evidence of acute spontaneous bleeding we will trend, given her history of PFO no marques to reverse (2) Frail elderly Current Visit: Yes Status: Acute Assessment and plan: Patient was hospitalized a week ago for generalized weakness and fevers discharge presents after fall which she attributes fluid generalized weakness discussed with patient and her daughter Lyudmila who can be reached at [phone] likely would have patient needed inpatient rehabilitation upon discharge will continue PT OT here (3) Left hip pain Current Visit: Yes Status: Acute Assessment and plan: Spine and hip radiograph was unrevealing, we will manage conservatively for now if he continues to have pain might consider MRI tomorrow (4) Weakness Current Visit: No Status: Acute Assessment and plan: Multifactorial recent hospitalization we will check A1c and TSH and CBC for anemia with a treatable causes PT/OT as aforementioned (5) CAD (coronary artery disease) Current Visit: No Status: Chronic Assessment and plan: We will resume home meds was med rec has been rectified Qualifiers: Coronary Disease-Associated Artery/Lesion type: [place] artery [place] vs. 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 She was started on apixaban could not afford and was switched to warfarin patient was getting established with the warfarin clinic and in the process of dose titration due to high INR will hold warfarin and trend INR for now, given a PFO be hesitant in reversing offering no evidence of spontaneous bleeding (9) DVT prophylaxis Current Visit: Yes Status: Acute Assessment and plan: She has supratherapeutic INR will place SCDs - Time Spent With Patient Total time spent is greater than 50% in coordination of care (as documented) at patient's floor/unit and/or counseling patient:
[2019-02-15] MEDS: Insulin DETEMIR 100 UNIT/ML X5UNITS SQ SCH (20:53)
[2019-02-15] MEDS: Gabapentin 300 MG CAPSULE PO SCH (20:53)
[2019-02-15] MEDS: traMADol 50 MG TABLET PO PRN (23:50)
[2019-02-16 04:33] LABS: Basophils # 0.1 K/mcL (0.0-0.2); Basophils % 0.5 %; Eosinophils # 0.2 K/mcL (0.0-0.6); Eosinophils % 2.2 %; Hematocrit 26.9 % (35.3-44.9); Immature Granulocytes % 0.5 % (0-4); Lymphocytes # 2.4 K/mcL (0.6-4.6); Lymphocytes % 25.5 %; Mean Corpuscular HGB Conc 33.5 g/dL (31.6-35.5); Mean Corpuscular Hemoglobin 31.4 pg (28.0-33.3); Mean Corpuscular Volume 93.7 fL (83.0-100.0); Mean Platelet Volume 10.3 fL (9.4-12.4); Monocytes # 0.8 K/mcL (0.0-1.3); Monocytes % 8.8 %; Neutrophils # 5.9 K/mcL (1.6-8.9); Platelet Count 252 K/mcL (140-400); Red Blood Count 2.87 M/mcL (3.82-4.97); Red Cell Distribution Width 11.8 % (11.5-14.5); Segmented Neutrophils % 62.5 %; White Blood Count 9.4 K/mcL (4.3-11.1)
[2019-02-16 04:55] LABS: INR 6.5; Prothrombin Time 74.5 Seconds (9.4-12.1)
[2019-02-16 04:57] LABS: BUN/Creatinine Ratio 22 (6-26); Blood Urea Nitrogen 21 mg/dL (8-23); Carbon Dioxide 22 mEq/L (23-29); Chloride 111 mEq/L (98-107); Glucose 105 mg/dL (70-105); Magnesium 1.3 mg/dL (1.6-2.6); Osmolality,Calculated 297 (280-300); Phosphorous 2.5 mg/dL (2.7-4.5); Potassium 3.4 mEq/L (3.5-5.1); Sodium 142 mEq/L (136-145); eGFR For African Americans > 60 (> 60); eGFR For Non-African Americans 57 (> 60)
[2019-02-16 05:08] LABS: Thyroid Stimulating Hormone 1.815 mcIU/mL (0.340-5.600)
[2019-02-16] MEDS: amLODIPine 5 MG TABLET PO SCH (08:06)
[2019-02-16] MEDS: Isosorbide MONOnitrate (24 HR) 60 MG TAB.ER.24H PO SCH (08:06)
[2019-02-16] MEDS: Lisinopril 20 MG TABLET PO SCH (08:06)
[2019-02-16] MEDS: Gabapentin 300 MG CAPSULE PO SCH ×3 (08:06→20:00)
[2019-02-16] MEDS: Insulin LISPRO 300 UNITS/3 ML VIAL SQ SCH ×3 (08:07→16:29)
[2019-02-16] MEDS ORDERED: NON-FORMULARY MEDICATION 1 EACH EACH (Ezetimibe 10 MG) PO SCH (09:00)
[2019-02-16 10:23] LABS: Estimated Average Glucose 171 mg/dl
--- NOTE | 2019-02-16 13:52 | Electrocardiograph Report ---
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
--- NOTE | 2019-02-16 19:57 | Internal Med Progress Note ---
Hospitalist Progress Note - Encounter Date of Encounter: 02/16/19 Time of Encounter: 17:00 - Subjective Interval History: Met with Ms Nunez daughter at the bed side at her request and updated her of the treatment plan. She is still transitioned to [facility]CF for rehabilitation. GEN: Denies fever, chills or malaise HEENT: Denies headache blurriness, or dysphagia RESP: Denies SOB or cough CV: Denies chest pain or palpitations GI: Denies Nausea, vomiting, diarrhea or constipation Reviewed current in hospital medications with modifications see orders Reviewed Routine labs - Exam Vitals: Temp Pulse Resp BP Pulse Ox 99.4 F 75 15 133/76 93 02/16/19 19:19 02/16/19 19:19 02/16/19 19:19 02/16/19 19:19 02/16/19 19:19 Exam: GEN: NAD, A&O x 3, Pleasant and conversant daughter at a bedside SKIN: [place] warm acyanotic not jaundice HEART: RRR, no murmurs LUNGS: CTA no wheeze or crackles, overall non labored ABDOMEN; Soft, non tender or distended, BS x 4 normactive EXT: No LE edema, Pedal pulses 1+, radial pulses 2+ PSYCH: Mood and affect is appropriate - Assessment and Plan (1) Supratherapeutic INR Current Visit: Yes Status: Acute Assessment and Plan: INR on admission is 6.3 held warfarin no evidence of acute spontaneous bleeding we will trend, given her history of PFO no marques to reverse however repeat INR today 6.5 continue to hold warfarin (2) Diabetes Current Visit: Yes Status: Chronic Assessment and Plan: Continue basal and short acting insulin check A1c 7.6 (3) Frail elderly Current Visit: Yes Status: Acute Assessment and Plan: Patient was hospitalized a week ago for generalized weakness and fevers discharge presents after fall which she attributes fluid generalized weakness discussed with patient and her daughter Lyudmila who can be reached at [phone] likely would have patient needed inpatient rehabilitation upon discharge will continue PT OT here (4) Left hip pain Current Visit: Yes Status: Acute Assessment and Plan: Spine and hip radiograph was unrevealing, we will manage conservatively patient denies any pain and seems to have tolerated the PT/OT, she may need further imaging modality indicated for her symptoms as she now continues with physical therapy (5) CAD (coronary artery disease) Current Visit: Yes Status: Chronic Assessment and Plan: On atorvastatin 80, lisinopril and metoprolol she denies any chest pain (6) Hypertension Current Visit: Yes Status: Chronic Assessment and Plan: Normotensive to lisinopril metoprolol (7) PFO (patent foramen ovale) Current Visit: Yes Status: Chronic Assessment and Plan: Per discharge summary patient had a SULLY that revealed PFO. She was started on apixaban could not afford and was switched to warfarin patient was getting est ablished with the warfarin clinic and in the process of dose titration due to high INR will hold warfarin and trend INR for now, given a PFO be hesitant in reversing offering no evidence of spontaneous bleeding (8) DVT prophylaxis Current Visit: Yes Status: Acute Assessment and Plan: She has supratherapeutic INR will place SCDs - Time Spent with Patient Total time spent is greater than 50% in coordination of care (as documented) at patient's floor/unit and/or counseling patient: Internal Medicine: Result - Labs CBC & Chem 7: 02/16/19 03:43 02/16/19 03:43 Labs: Short CBC 02/16/19 Range/Units 03:43 WBC 9.4 (4.3-11.1) K/mcL Hgb 9.0 L (11.5-15.4) g/dL Hct 26.9 L (35.3-44.9) % Plt Count 252 (140-400) K/mcL Neutrophils # 5.9 (1.6-8.9) K/mcL BMP 02/16/19 03:43 Sodium 142 Potassium 3.4 L Chloride 111 H Carbon Dioxide 22 L BUN 21 Creatinine 0.97 Glucose 105 Calcium 8.0 L - ABG Interpretation ABG results: PT/INR, D-dimer PT 74.5 Seconds (9.4-12.1) H* 02/16/19 03:43 - Impressions Impressions Lumbar Spine X-Ray 02/15/19 14:58 IMPRESSION: 1. No acute compression fracture. 2. Multilevel degenerative disc disease and facet arthropathy. If there is further concern for infection, nerve root compression or disc herniation correlation to MRI imaging would be recommended. D/ / 02/15/2019 17:13:23 Eliot Wright MD / erin Interpreting Provider: Eliot Wright MD - VTE Documentation of Mechanical Device: Intermittent pneumatic compression device Consult Discharge Plan - Plan Referrals: Ayesha Ramírez, LACQUER SPRAYER [Primary Care Provider] - (2) Diabetes Qualifiers: Diabetes mellitus type: other specified (including TAMMY) Diabetes mellitus long distance operator insulin use: unspecified long distance operator insulin use status Diabetes mellitus complication detail: with other circulatory complications (5) CAD (coronary artery disease) Qualifiers: Coronary Disease-Associated Artery/Lesion type: [place] artery [place] vs. tra nsplanted heart: [place] heart Associated angina: without angina Qualified Code(s): I25.10 - Atherosclerotic heart disease of [place] coronary artery without angina pectoris (6) Hypertension Qualifiers: Hypertension type: essential hypertension Qualified Code(s): I10 - Essential (primary) hypertension
[2019-02-16] MEDS: traMADol 50 MG TABLET PO PRN (19:59)
[2019-02-16] MEDS: Insulin DETEMIR 100 UNIT/ML X5UNITS SQ SCH (20:00)
[2019-02-17 04:19] LABS: Basophils # 0.1 K/mcL (0.0-0.2); Basophils % 0.6 %; Eosinophils # 0.2 K/mcL (0.0-0.6); Eosinophils % 2.4 %; Hematocrit 26.4 % (35.3-44.9); Hemoglobin 8.7 g/dL (11.5-15.4); Immature Granulocytes % 0.4 % (0-4); Lymphocytes # 2.9 K/mcL (0.6-4.6); Lymphocytes % 29.4 %; Mean Corpuscular Hemoglobin 31.1 pg (28.0-33.3); Mean Corpuscular Volume 94.3 fL (83.0-100.0); Mean Platelet Volume 10.4 fL (9.4-12.4); Monocytes # 0.8 K/mcL (0.0-1.3); Monocytes % 7.6 %; Neutrophils # 5.9 K/mcL (1.6-8.9); Platelet Count 249 K/mcL (140-400); Red Cell Distribution Width 11.9 % (11.5-14.5); Segmented Neutrophils % 59.6 %; White Blood Count 9.8 K/mcL (4.3-11.1)
[2019-02-17 04:33] LABS: INR 2.7; Prothrombin Time 30.8 Seconds (9.4-12.1)
[2019-02-17 04:38] LABS: Calcium 8.1 mg/dL (8.6-10.3); Magnesium 1.8 mg/dL (1.6-2.6); Potassium 4.1 mEq/L (3.5-5.1)
[2019-02-17 04:41] LABS: % Iron Saturation 14 % (15-50); Iron 29 mcg/dL (50-170); Transferrin 147 mg/dL (203-362)
[2019-02-17 04:55] LABS: Ferritin 141 ng/mL (10-120)
[2019-02-17 05:18] LABS: Folate 12.6 ng/mL (3.0-16.0)
[2019-02-17] MEDS ORDERED: Ringers Solution, Lactated 1,000 ML IVC SCH (08:00)
[2019-02-17] MEDS: amLODIPine 5 MG TABLET PO SCH (08:15)
[2019-02-17] MEDS: Isosorbide MONOnitrate (24 HR) 60 MG TAB.ER.24H PO SCH (08:15)
[2019-02-17] MEDS: Lisinopril 20 MG TABLET PO SCH (08:15)
[2019-02-17] MEDS: Gabapentin 300 MG CAPSULE PO SCH ×3 (08:15→21:03)
[2019-02-17] MEDS: Insulin LISPRO 300 UNITS/3 ML VIAL SQ SCH ×3 (08:16→16:53)
--- NOTE | 2019-02-17 13:51 | Internal Med Progress Note ---
Hospitalist Progress Note - Encounter Date of Encounter: 02/17/19 Time of Encounter: 08:35 - Subjective Interval History: Seen at bedside. INR therapeutic today. Deneis chest apin, SOB, fever, chills, headacehs. No overnight events. - Exam Vitals: Temp Pulse Resp BP Pulse Ox 98.0 F 66 16 110/54 96 02/17/19 11:39 02/17/19 11:39 02/17/19 11:39 02/17/19 11:39 02/17/19 11:39 Exam: General: Alert and oriented, no physical distress, able to follow commands. HEENT: No thyromegaly, no lymphadenopathy, no discharge. Eyes: No discharge. Normal conjuctiva, no icterus Respiratory: Normal vesicular breathing, no added sounds, breathing equal in bot h sides. CVS: Normal heart sounds, no murmurs, regular rhthm, no edema Extremities: No peripheral edema, peripheral pulses intact. Lymph nodes: No lymphadenopathy Gastrointestinal: Soft, nontender abdomen, normal abdominal sounds. No distention noted. Genitourinary: No paravertebral tenderness. Skin: No rash, ulcers or wound. Neurological: Alert and oriented. No focal deficits. Cranial nerves II-XII intact. - Assessment and Plan (1) Supratherapeutic INR Current Visit: Yes Status: Acute Assessment and Plan: INR on admission is 6.3 INR todat is 2.7 Reinitiate on coumadin, phramacy to adjsut the dose (2) Diabetes Current Visit: Yes Status: Chronic Assessment and Plan: Continue basal of 12 U Ordered LDSS (3) Hypertension Current Visit: Yes Status: Chronic Assessment and Plan: BP within reasonable limts COntinue home meds (4) CAD (coronary artery disease) Current Visit: Yes Status: Chronic Assessment and Plan: Stable Continue atorvastatin adn plavix (5) PFO (patent foramen ovale) Current Visit: Yes Status: Chronic Assessment and Plan: Per discharge summary patient had a SULLY that revealed PFO. She was started on apixaban could not afford and was switched to warfarin patient was getting established with the warfarin clinic Resume warfarin as INR is therapeutic tpday. Pharmacy to dose (6) DVT prophylaxis Current Visit: Yes Status: Acute Assessment and Plan: On coumadin (7) Frail elderly Current Visit: Yes Status: Acute Assessment and Plan: PT/OT ordered (8) Left hip pain Current Visit: Yes Status: Acute Assessment and Plan: No acute fractures on imaging PT/OT - Time Spent with Patient Total time spent is greater than 50% in coordination of care (as documented) at patient's floor/unit and/or counseling patient: Internal Medicine: Result - Labs CBC & Chem 7: 02/17/19 03:50 02/17/19 03:50 Labs: Short CBC 02/17/19 Range/Units 03:50 WBC 9.8 (4.3-11.1) K/mcL Hgb 8.7 L (11.5-15.4) g/dL Hct 26.4 L (35.3-44.9) % Plt Count 249 (140-400) K/mcL Neutrophils # 5.9 (1.6-8.9) K/mcL BMP 02/17/19 03:50 Sodium 140 Potassium 4.1 Chloride 110 H Carbon Dioxide 23 BUN 22 Creatinine 1.37 H Glucose 111 H Calcium 8.1 L - ABG Interpretation ABG results: PT/INR, D-dimer PT 30.8 Seconds (9.4-12.1) H D 02/17/19 03:50 - Impressions Impressions Lumbar Spine X-Ray 02/15/19 14:58 IMPRESSION: 1. No acute compression fracture. 2. Multilevel degenerative disc disease and facet arthropathy. If there is further concern for infection, nerve root compression or disc herniation correlation to MRI imaging would be recommended. D/ / 02/15/2019 17:13:23 Eliot Wright MD / [facility] Interpreting Provider: Elito Wright MD - VTE Documentation of Mechanical Device: Intermittent pneumatic compression device Consult Discharge Plan - Plan Referrals: Ayesha Ramírez, CLAIM INVESTIGATOR [Primary Care Provider] - (2) Diabetes Qualifiers: Diabetes mellitus type: other specified (including TAMMY) Diabetes mellitus snf insulin use: unspecified terminal system operator insulin use status Diabetes mellitus complication detail: with other circulatory complications (3) Hypertension Qualifiers: Hypertension type: essential hypertension Qualified Code(s): I10 - Essential (primary) hypertension (4) CAD (coronary artery disease) Qualifiers: Coronary Disease-Associated Artery/Lesion type: [place] artery [place] vs. transplanted heart: [place] heart Associated angina: without angina Qualified Code(s): I25.10 - Atherosclerotic heart disease of [place] coronary artery without angina pectoris
[2019-02-17] MEDS ORDERED: *HR* Warfarin 2 MG TABLET PO ONE (18:00)
[2019-02-17] MEDS ORDERED: Warfarin perPT PO PRN (18:00)
[2019-02-17] MEDS: Insulin DETEMIR 100 UNIT/ML X5UNITS SQ SCH (21:03)
[2019-02-18 05:25] LABS: INR 1.5; Prothrombin Time 17.2 Seconds (9.4-12.1)
[2019-02-18 05:34] LABS: Calcium 7.8 mg/dL (8.6-10.3); Potassium 4.5 mEq/L (3.5-5.1)
[2019-02-18] MEDS: Lisinopril 20 MG TABLET PO SCH (07:59)
[2019-02-18] MEDS: Isosorbide MONOnitrate (24 HR) 60 MG TAB.ER.24H PO SCH (07:59)
[2019-02-18] MEDS: amLODIPine 5 MG TABLET PO SCH (07:59)
[2019-02-18] MEDS: Gabapentin 300 MG CAPSULE PO SCH ×3 (08:00→20:29)
[2019-02-18] MEDS: Insulin LISPRO 300 UNITS/3 ML VIAL SQ SCH ×4 (08:00→16:28)
--- NOTE | 2019-02-18 14:16 | Internal Med Progress Note ---
Hospitalist Progress Note - Encounter Date of Encounter: 02/18/19 Time of Encounter: 10:45 - Subjective Interval History: Patient seen at bedside. Denies chest pain, shortness of breath, palpitations. Denies fever, chills, rigors. No acute event overnight. - Exam Vitals: Temp Pulse Resp BP Pulse Ox 97.7 F 64 16 113/66 95 02/18/19 11:21 02/18/19 11:21 02/18/19 11:21 02/18/19 11:21 02/18/19 11:21 Exam: General: Alert and oriented, no physical distress, able to follow commands. HEENT: No thyromegaly, no lymphadenopathy, no discharge. Eyes: No discharge. Normal conjuctiva, no icterus Respiratory: Normal vesicular breathing, no added sounds, breathing equal in both sides. CVS: Normal heart sounds, no murmurs, regular rhthm, no edema Extremities: No peripheral edema, peripheral pulses intact. Lymph nodes: No lymphadenopathy Gastrointestinal: Soft, nontender abdomen, normal abdominal sounds. No distention noted. Genitourinary: No paravertebral tenderness. Skin: No rash, ulcers or wound. Neurological: Alert and oriented. No focal deficits. Cranial nerves II-XII intact. - Assessment and Plan (1) Supratherapeutic INR Current Visit: Yes Status: Acute Assessment and Plan: INR on admission is 6.3 INR todat is 1.5 Reinitiated on coumadin yesteray, phramacy to adjsut the dose (2) Diabetes Current Visit: Yes Status: Chronic Assessment and Plan: BG levels in reasonable limits Continue basal dose of 12 U Ordered LDSS (3) Hypertension Current Visit: Yes Status: Chronic Assessment and Plan: BP within reasonable limts COntinue home meds (4) CAD (coronary artery disease) Current Visit: Yes Status: Chronic Assessment and Plan: Stable Continue atorvastatin adn plavix (5) PFO (patent foramen ovale) Current Visit: Yes Status: Chronic Assessment and Plan: Per discharge summary patient had a SULLY that revealed PFO. She was started on apixaban could not afford and was switched to warfarin patient was getting established with the warfarin clinic Pharmacy to adjust dose (6) DVT prophylaxis Current Visit: Yes Status: Acute Assessment and Plan: On coumadin (7) Frail elderly Current Visit: Yes Status: Acute Assessment and Plan: PT/OT ordered Recommended SNF palcement Awaiting insurance auth (8) Left hip pain Current Visit: Yes Status: Acute Assessment and Plan: No acute fractures on imaging PT/OT - Time Spent with Patient Total time spent is greater than 50% in coordination of care (as documented) at patient's floor/unit and/or counseling patient: Internal Medicine: Result - Labs CBC & Chem 7: 02/17/19 03:50 02/18/19 04:52 Labs: BMP 02/18/19 04:52 Sodium 138 Potassium 4.5 Chloride 108 H Carbon Dioxide 25 BUN 24 H Creatinine 1.22 H Glucose 128 H Calcium 7.8 L - ABG Interpretation ABG results: PT/INR, D-dimer PT 17.2 Seconds (9.4-12.1) H 02/18/19 04:52 - VTE Documentation of Mechanical Device: Intermittent pneumatic compression device Consult Discharge Plan - Plan Referrals: Ayesha Ramírez, ACADEMIC HOSPITALIST [Primary Care Provider] - (2) Diabetes Qualifiers: Diabetes mellitus type: other specified (including TAMMY) Diabetes mellitus mcc insulin use: unspecified mcc insulin use status Diabetes mellitus complication detail: with other circulatory complications (3) Hypertension Qualifiers: Hypertension type: essential hypertension Qualified Code(s): I10 - Essential (primary) hypertension (4) CAD (coronary artery disease) Qualifiers: Coronary Disease-Associated Artery/Lesion type: [place] artery [place] vs. transplanted heart: [place] heart Associated angina: without angina Qualified Code(s): I25.10 - Atherosclerotic heart disease of [place] coronary artery without angina pectoris
[2019-02-18] MEDS ORDERED: *HR* Warfarin 4 MG TABLET PO ONE (18:00)
[2019-02-18] MEDS: Insulin DETEMIR 100 UNIT/ML X5UNITS SQ SCH (20:29)
[2019-02-19 04:35] LABS: INR 1.4; Prothrombin Time 15.6 Seconds (9.4-12.1)
--- NOTE | 2019-02-19 07:56 | Emergency Department Note ---
Disposition Clinical Impression: Frail elderly, Left hip pain, Supratherapeutic INR Fall Qualifiers: Encounter type: initial encounter Qualified Code(s): W19.XXXA - Unspecified fall, initial encounter Disposition: Admitted As Inpatient Condition: Fair Time of Disposition: 17:58 General Adult HPI - General Chief complaint: ED Fall Stated complaint: fall, left hip/back pain Time Seen by Provider: 02/15/19 14:40 Source: patient, family Mode of arrival: ambulatory Limitations: no limitations - History of Present Illness Pain Scale: 0 - Related Data Home Medications Medication Instructions Recorded Confirmed Insulin Glargine,Hum.rec.anlog 44 unit SQ HS 12/29/15 02/16/19 [Lantus Solostar] Lisinopril [Zestril] 20 mg PO DAILY 09/10/16 02/16/19 Clopidogrel Bisulfate [Plavix] 75 mg PO DAILY 03/02/18 02/16/19 Metoprolol [Lopressor] 25 mg PO DAILY 03/02/18 02/16/19 Atorvastatin Calcium [Lipitor] 80 mg PO HS 10/22/18 02/16/19 Metformin HCl [Glucophage] 1,000 mg PO BID 10/22/18 02/16/19 Amlodipine Besylate 10 mg PO DAILY 02/02/19 02/16/19 Citalopram Hydrobromide 40 mg PO DAILY 02/02/19 02/16/19 [Citalopram HBr] Ezetimibe 10 mg PO DAILY 02/02/19 02/16/19 Gabapentin [Neurontin] 300 mg PO TID 02/02/19 02/16/19 Warfarin Sodium 2 mg PO SUTUTH 02/16/19 02/16/19 Warfarin Sodium 4 mg PO MOWESA 02/16/19 02/16/19 Previous Rx's Medication Instructions Recorded Isosorbide MONOnitrate (24 HR) 60 mg PO QAM #0 tab.er.24h 01/08/19 [Imdur] Allergies Allergy/AdvReac Type Severity Reaction Status Date / Time Penicillins Allergy Hives Verified 02/15/19 14:01 lactose AdvReac Vomiting Verified 02/15/19 14:01 Constitutional: Reports: weakness. Denies: fever, chills Cardiovascular: Denies: chest pain, palpitations Respiratory: Denies: cough, dyspnea, wheezes Gastrointestinal: Reports: abdominal pain, nausea, vomiting, other (mild bilateral lower quadrant abdominal pain. ) Genitourinary: Denies: urgency, dysuria, frequency Musculoskeletal: Denies: back pain, neck pain Neurological: Reports: headache, weakness Endocrine: Reports: fatigue Past Medical History - Past Medical History Medical history: Reports: coronary artery disease, CVA, diabetes, hyper lipidemia, hypertension, myocardial infarction, TIA Surgical history: Reports: angioplasty/stent, appendectomy, coronary bypass (CABG), orthopedic, other Psychiatric history: Reports: depression ALLIED HEALTH TEACHER history: Reports: no ALLIED HEALTH TEACHER history - Social History Smoking Status: Never smoker Smokeless Tobacco Status: No Alcohol use: Reports: none Drug use: Reports: none Physical Exam - General Limitations: no limitations General appearance: alert, in no apparent distress Course Vital Signs Temperature 98.4 F 02/15/19 13:58 Pulse Rate 76 02/15/19 13:58 Respiratory Rate 16 02/15/19 13:58 Blood Pressure 133/69 02/15/19 13:58 O2 Sat by Pulse Oximetry 94 02/15/19 13:58 Temperature 98.3 F 02/19/19 07:02 Pulse Rate 87 02/19/19 07:02 Respiratory Rate 15 02/19/19 07:02 Blood Pressure 154/75 02/19/19 07:02 O2 Sat by Pulse Oximetry 95 02/19/19 07:02 Oxygen Delivery Oxygen Delivery Room Air Medical Decision Making - Lab Data Result diagrams: 02/17/19 03:50 02/18/19 04:52 Lab Results 02/15/19 02/15/19 Range/Units 15:00 15:00 PT 71.6 H* D (9.4-12.1) Seconds INR 6.3 H* D Sodium 143 (136-145) mEq/L Potassium 3.5 (3.5-5.1) mEq/L Chloride 107 (98-107) mEq/L Carbon Dioxide 25 (23-29) mEq/L BUN 21 (8-23) mg/dL Creatinine 1.37 H (0.60-1.20) mg/dL Est GFR ( Amer) 46 L (> 60) Est GFR (Non-Af Amer) 38 L (> 60) BUN/Creatinine Ratio 15 (6-26) Glucose 115 H (70-105) mg/dL Calculated Osmolality 300 (280-300) Calcium 8.8 (8.6-10.3) mg/dL Attestation Statement - Attestation Attestation: I examined this patient and my medical decision-making was reviewed with the Resident Physician. I agree with the documented findings, disposition and treatment plan as described except to the extent set forth below. Patient resents with pain status post fall. No obvious deformity on exam. Is currently not able to walk due to pain. X-ray negative. We discussed amongst ourselves and with the hospitalist whether to do a CT tonight, which were diagnosed occult fracture but would not be able to definitively ruled out, versus admitting her and getting the more definitive test, the MRI, in the morning. We opted for the latter, since the patient was going to need to stay anyway due to her inability to walk. The hospitalist was on board with this plan, and the patient was admitted with plan for MRI in the morning.
[2019-02-19] MEDS: amLODIPine 5 MG TABLET PO SCH (08:47)
[2019-02-19] MEDS: Isosorbide MONOnitrate (24 HR) 60 MG TAB.ER.24H PO SCH (08:47)
[2019-02-19] MEDS: Lisinopril 20 MG TABLET PO SCH (08:47)
[2019-02-19] MEDS: Insulin LISPRO 300 UNITS/3 ML VIAL SQ SCH ×3 (08:48→16:46)
[2019-02-19] MEDS: Gabapentin 300 MG CAPSULE PO SCH ×3 (08:48→21:50)
--- NOTE | 2019-02-19 16:25 | Internal Med Progress Note ---
Hospitalist Progress Note - Encounter Date of Encounter: 02/19/19 Time of Encounter: 10:00 - Subjective Interval History: Patient seen at bedside. Denies chest pain, shortness of breath, palpitations. Denies fever, chills, rigors. No acute event overnight. - Exam Vitals: Temp Pulse Resp BP Pulse Ox 98.1 F 69 15 128/68 95 02/19/19 15:06 02/19/19 15:06 02/19/19 15:06 02/19/19 15:06 02/19/19 15:06 Exam: General: Alert and oriented, no physical distress, able to follow commands. HEENT: No thyromegaly, no lymphadenopathy, no discharge. Eyes: No discharge. Normal conjuctiva, no icterus Respiratory: Normal vesicular breathing, no added sounds, breathing equal in both sides. CVS: Normal heart sounds, no murmurs, regular rhthm, no edema Extremities: No peripheral edema, peripheral pulses intact. Lymph nodes: No lymphadenopathy Gastrointestinal: Soft, nontender abdomen, normal abdominal sounds. No distenti on noted. Genitourinary: No paravertebral tenderness. Skin: No rash, ulcers or wound. Neurological: Alert and oriented. No focal deficits. Cranial nerves II-XII intact. - Assessment and Plan (1) Supratherapeutic INR Current Visit: Yes Status: Acute Assessment and Plan: INR on admission is 6.3 INR todat is 1.4 Reinitiated on coumadin yesteray, phramacy to adjsut the dose (2) Diabetes Current Visit: Yes Status: Chronic Assessment and Plan: BG levels in reasonable limits Continue basal dose of 12 U Ordered LDSS (3) Hypertension Current Visit: Yes Status: Chronic Assessment and Plan: BP within reasonable limts COntinue home meds (4) CAD (coronary artery disease) Current Visit: Yes Status: Chronic Assessment and Plan: Stable Continue atorvastatin adn plavix (5) PFO (patent foramen ovale) Current Visit: Yes Status: Chronic Assessment and Plan: Per discharge summary patient had a SULLY that revealed PFO. She was started on apixaban could not afford and was switched to warfarin patient was getting established with the warfarin clinic Pharmacy to adjust dose (6) DVT prophylaxis Current Visit: Yes Status: Acute Assessment and Plan: On coumadin (7) Frail elderly Current Visit: Yes Status: Acute Assessment and Plan: PT/OT ordered Recommended SNF palcement Awaiting insurance auth (8) Left hip pain Current Visit: Yes Status: Acute Assessment and Plan: No acute fractures on imaging PT/OT - Time Spent with Patient Total time spent is greater than 50% in coordination of care (as documented) at patient's floor/unit and/or counseling patient: Internal Medicine: Result - Labs CBC & Chem 7: 02/17/19 03:50 02/18/19 04:52 - ABG Interpretation ABG results: PT/INR, D-dimer PT 15.6 Seconds (9.4-12.1) H 02/19/19 04:05 - VTE Documentation of Mechanical Device: Intermittent pneumatic compression device Consult Discharge Plan - Plan Referrals: Ayesha Ramírez, FOREX TRADER [Primary Care Provider] - (2) Diabetes Qualifiers: Diabetes mellitus type: other specified (including TAMMY) Diabetes mellitus senior care insulin use: unspecified senior care insulin use status Diabetes mellitus complication detail: with other circulatory complications (3) Hypertension Qualifiers: Hypertension type: essential hypertension Qualified Code(s): I10 - Essential (primary) hypertension (4) CAD (coronary artery disease) Qualifiers: Coronary Disease-Associated Artery/Lesion type: [place] artery [place] vs. transplanted heart: [place] heart Associated angina: without angina Qualified Code(s): I25.10 - Atherosclerotic heart disease of [place] coronary artery without angina pectoris
[2019-02-19] MEDS ORDERED: *HR* Warfarin 4 MG TABLET PO ONE (18:00)
[2019-02-19] MEDS ORDERED: *HR* Warfarin 2 MG TABLET PO ONE (18:00)
[2019-02-19] MEDS: Insulin DETEMIR 100 UNIT/ML X5UNITS SQ SCH (21:54)
[2019-02-20 08:04] LABS: INR 1.2; Prothrombin Time 13.7 Seconds (9.4-12.1)
[2019-02-20] MEDS: Insulin LISPRO 300 UNITS/3 ML VIAL SQ SCH ×5 (08:10→16:44)
[2019-02-20] MEDS: Isosorbide MONOnitrate (24 HR) 60 MG TAB.ER.24H PO SCH (08:11)
[2019-02-20] MEDS: amLODIPine 5 MG TABLET PO SCH (08:11)
[2019-02-20] MEDS: Lisinopril 20 MG TABLET PO SCH (08:11)
[2019-02-20] MEDS: Gabapentin 300 MG CAPSULE PO SCH ×3 (08:11→22:19)
--- NOTE | 2019-02-20 10:05 | Internal Med Progress Note ---
Hospitalist Progress Note - Encounter Date of Encounter: 02/20/19 Time of Encounter: 09:35 - Subjective Interval History: PT was seen at beside. INR continues to be low. Deneis any acute complaitns today. Deneis chest pain, SOB, dizziness, confusion. Awaiting placement. Insurance auth still pending. No overnight evetns. - Exam Vitals: Temp Pulse Resp BP Pulse Ox 98.7 F 71 15 128/69 94 02/20/19 06:42 02/20/19 06:42 02/20/19 06:42 02/20/19 06:42 02/20/19 06:42 Exam: General: Alert and oriented, no physical distress, able to follow commands. HEENT: No thyromegaly, no lymphadenopathy, no discharge. Eyes: No discharge. Normal conjuctiva, no icterus Respiratory: Normal vesicular breathing, no added sounds, breathing equal in both sides. CVS: Normal heart sounds, no murmurs, regular rhthm, no edema Extremities: No peripheral edema, peripheral pulses intact. Lymph nodes: No lymphadenopathy Gastrointestinal: Soft, nontender abdomen, normal abdominal sounds. No distention noted. Genitourinary: No paravertebral tenderness. Skin: No rash, ulcers or wound. Neurological: Alert and oriented. No focal deficits. Cranial nerves II-XII intact. - Assessment and Plan (1) Supratherapeutic INR Current Visit: Yes Status: Acute Assessment and Plan: INR on admission is 6.3 INR todat is 1.2, continues to go low. Hs been started back on coumadin, phramacy to adjsut the dose (2) Diabetes Current Visit: Yes Status: Chronic Assessment and Plan: BG levels in reasonable limits Continue basal dose of 12 U Add 3 U of insulin lispro with melas Continue LDSS (3) Hypertension Current Visit: Yes Status: Chronic Assessment and Plan: BP within reasonable limts COntinue home meds (4) CAD (coronary artery disease) Current Visit: Yes Status: Chronic Assessment and Plan: Stable Continue atorvastatin adn plavix (5) PFO (patent foramen ovale) Current Visit: Yes Status: Chronic Assessment and Plan: Per discharge summary patient had a SULLY that revealed PFO. She was started on apixaban could not afford and was switched to warfarin patient was getting established with the warfarin clinic Pharmacy to adjust dose (6) Frail elderly Current Visit: Yes Status: Acute Assessment and Plan: PT/OT ordered Recommended SNF palcement Awaiting insurance auth - Time Spent with Patient Total time spent is greater than 50% in coordination of care (as documented) at patient's floor/unit and/or counseling patient: Internal Medicine: Result - Labs CBC & Chem 7: 02/17/19 03:50 02/18/19 04:52 - ABG Interpretation ABG results: PT/INR, D-dimer PT 13.7 Seconds (9.4-12.1) H 02/20/19 06:57 - VTE Documentation of Mechanical Device: Intermittent pneumatic compression device Consult Discharge Plan - Plan Referrals: Ayesha Ramírez, GREASE WORKER [Primary Care Provider] - (2) Diabetes Qualifiers: Diabetes mellitus type: other specified (including TAMMY) Diabetes mellitus roasterman insulin use: unspecified care home insulin use status Diabetes mellitus complication detail: with other circulatory complications (3) Hypertension Qualifiers: Hypertension type: essential hypertension Qualified Code(s): I10 - Essential (primary) hypertension (4) CAD (coronary artery disease) Qualifiers: Coronary Disease-Associated Artery/Lesion type: [place] artery [place] vs. transplanted heart: [place] heart Associated angina: without angina Qualified Code(s): I25.10 - Atherosclerotic heart disease of [place] coronary artery wi thout angina pectoris
[2019-02-20] MEDS ORDERED: *HR* Warfarin 5 MG TABLET PO ONE (18:00)
[2019-02-20] MEDS: Insulin DETEMIR 100 UNIT/ML X5UNITS SQ SCH (22:20)
[2019-02-21 07:07] LABS: INR 1.2; Prothrombin Time 13.2 Seconds (9.4-12.1)
[2019-02-21] MEDS: Insulin LISPRO 300 UNITS/3 ML VIAL SQ SCH ×6 (07:35→17:21)
[2019-02-21] MEDS: Isosorbide MONOnitrate (24 HR) 60 MG TAB.ER.24H PO SCH (10:25)
[2019-02-21] MEDS: Lisinopril 20 MG TABLET PO SCH (10:25)
[2019-02-21] MEDS: Gabapentin 300 MG CAPSULE PO SCH ×3 (10:26→20:14)
[2019-02-21] MEDS: amLODIPine 5 MG TABLET PO SCH (10:26)
--- NOTE | 2019-02-21 10:54 | Internal Med Progress Note ---
Hospitalist Progress Note - Encounter Date of Encounter: 02/21/19 Time of Encounter: 08:25 - Subjective Interval History: Patient seen at bedside. Denies chest pain, shortness of breath, palpitations. Denies fever, chills, rigors. Eatimg her breakfast comfortably. No acute event overnight. Awaiting placement. - Exam Vitals: Temp Pulse Resp BP Pulse Ox 98.4 F 73 16 137/72 93 02/21/19 10:36 02/21/19 10:36 02/21/19 10:36 02/21/19 10:36 02/21/19 10:36 Exam: General: Alert and oriented, no physical distress, able to follow commands. Respiratory: Normal vesicular breathing, no added sounds, breathing equal in both sides. CVS: Normal heart sounds, no murmurs, regular rhthm, no edema Gastrointestinal: Soft, nontender abdomen, normal abdominal sounds. No distention noted. Genitourinary: No paravertebral tenderness. Neurological: Alert and oriented. No focal deficits. Cranial nerves II-XII intact. - Assessment and Plan (1) Supratherapeutic INR Current Visit: Yes Status: Acute Assessment and Plan: INR on admission is 6.3 INR todat is 1.2, . Hs been started back on coumadin, phramacy to adjsut the dose (2) Diabetes Current Visit: Yes Status: Chronic Assessment and Plan: BG levels in reasonable limits Continue basal dose of 12 U Continue 3 U of insulin lispro with melas Continue LDSS (3) Hypertension Current Visit: Yes Status: Chronic Assessment and Plan: BP noted to eb normal COntinue home meds (4) CAD (coronary artery disease) Current Visit: Yes Status: Chronic Assessment and Plan: Stable Continue atorvastatin adn plavix (5) Frail elderly Current Visit: Yes Status: Acute Assessment and Plan: PT/OT ordered Recommended SNF palcement Awaiting insurance auth Anticipate discharge tomorrow - Time Spent with Patient Total time spent is greater than 50% in coordination of care (as documented) at patient's floor/unit and/or counseling patient: Internal Medicine: Result - Labs CBC & Chem 7: 02/17/19 03:50 02/18/19 04:52 - ABG Interpretation ABG results: PT/INR, D-dimer PT 13.2 Seconds (9.4-12.1) H 02/21/19 05:29 - VTE Documentation of Mechanical Device: Intermittent pneumatic compression device Consult Discharge Plan - Plan Referrals: Ayesha Ramírez, INTERNATIONAL PROJECT ENGINEER [Primary Care Provider] - _ (2) Diabetes Qualifiers: Diabetes mellitus type: other specified (including TAMMY) Diabetes mellitus exterminator helper insulin use: unspecified fci insulin use status Diabetes mellitus complication detail: with other circulatory complications (3) Hypertension Qualifiers: Hypertension type: essential hypertension Qualified Code(s): I10 - Essential (primary) hypertension (4) CAD (coronary artery disease) Qualifiers: Coronary Disease-Associated Artery/Lesion type: [place] artery [place] vs. transplanted heart: [place] heart Associated angina: without angina Qualified Code(s): I25.10 - Atherosclerotic heart disease of [place] coronary artery without angina pectoris
[2019-02-21] MEDS ORDERED: *HR* Warfarin 3 MG TABLET PO ONE (18:00)
[2019-02-21] MEDS: Insulin DETEMIR 100 UNIT/ML X5UNITS SQ SCH (20:14)
[2019-02-22 04:39] LABS: INR 1.2; Prothrombin Time 13.4 Seconds (9.4-12.1)
[2019-02-22] MEDS: Insulin LISPRO 300 UNITS/3 ML VIAL SQ SCH ×6 (08:11→17:30)
[2019-02-22] MEDS: amLODIPine 5 MG TABLET PO SCH (08:12)
[2019-02-22] MEDS: Isosorbide MONOnitrate (24 HR) 60 MG TAB.ER.24H PO SCH (08:12)
[2019-02-22] MEDS: Gabapentin 300 MG CAPSULE PO SCH ×3 (08:12→20:16)
[2019-02-22] MEDS: Lisinopril 20 MG TABLET PO SCH (08:12)
[2019-02-22] MEDS: *HR* Enoxaparin 80 MG/0.8 ML SYRINGE SQ SCH ×2 (11:48→21:16)
[2019-02-22] MEDS ORDERED: *HR* Warfarin 3 MG TABLET PO ONE (18:00)
--- NOTE | 2019-02-22 18:14 | Discharge Summary ---
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 transplanted heart: [place] heart Associated angina: without angina Qualified Code(s): I25.10 - Atherosclerotic heart disease of [place] coronary artery without angina pectoris (6) Frail elderly Priority: Secondary Status: Acute Hospital course: Ms. Nunez is a 68 year old female with history of CAD s/p CABG and multiple stents, IDDM Type 2, hypertension, and recent stroke thought to be 2/2 PFO started on warfarin therapy last admission presented after a unwitnessed GLF and found to have a supratherapeutic INR to 6.3. Did not have prodrome to her fall and she attributed to generalized weakness. No signs of syncope noted and patient had recent echocardiogram completed last admission. INR was corrected during hospital stay but difficult to keep within therapeutic range. At time of discharge, INR was 1.2 so will have patient discharged to rehabilitation facility and bridged with heparin while receiving daily INR checks until therapeutic. Of note, patient was tried on apixaban last admission but unable to afford. - Time Spent with Patient Total time spent providing and/or coordinating discharge services: 45 minutes Time spent: Greater than 30 minutes - Discharge Medications Prescriptions: New Enoxaparin [Lovenox] 80 mg SQ Q12H syringe Insulin DETEMIR [Levemir] 12 unit SQ HS [id number] Insulin LISPRO [HumaLOG] 3 units SQ TIDAC vial Insulin LISPRO [HumaLOG] 0 units SQ TIDAC vial Warfarin [Coumadin] 5 mg PO 1800 #30 tablet Continued Lisinopril [Zestril] 20 mg PO DAILY Clopidogrel Bisulfate [Plavix] 75 mg PO DAILY Metoprolol [Lopressor] 25 mg PO DAILY Atorvastatin Calcium [Lipitor] 80 mg PO HS Metformin HCl [Glucophage] 1,000 mg PO BID Isosorbide MONOnitrate (24 HR) [Imdur] 60 mg PO QAM #0 tab.er.24h Amlodipine Besylate 10 mg PO DAILY Citalopram Hydrobromide [Citalopram HBr] 40 mg PO DAILY Ezetimibe 10 mg PO DAILY Gabapentin [Neurontin] 300 mg PO TID Discontinued Insulin Glargine,Hum.rec.anlog [Lantus Solostar] 44 unit SQ HS Warfarin Sodium 2 mg PO SUTUTH Warfarin Sodium 4 mg PO MOWESA Home Medications: Lisinopril [Zestril] 20 mg PO DAILY 09/10/16 [History] Clopidogrel Bisulfate [Plavix] 75 mg PO DAILY 03/02/18 [History] Metoprolol [Lopressor] 25 mg PO DAILY 03/02/18 [History] Atorvastatin Calcium [Lipitor] 80 mg PO HS 10/22/18 [History] Metformin HCl [Glucophage] 1,000 mg PO BID 10/22/18 [History] Isosorbide MONOnitrate (24 HR) [Imdur] 60 mg PO QAM #0 tab.er.24h 01/08/19 [Rx] Amlodipine Besylate 10 mg PO DAILY 02/02/19 [History] Citalopram Hydrobromide [Citalopram HBr] 40 mg PO DAILY 02/02/19 [History] Ezetimibe 10 mg PO DAILY 02/02/19 [History] Gabapentin [Neurontin] 300 mg PO TID 02/02/19 [History] Enoxaparin [Lovenox] 80 mg SQ Q12H syringe 02/22/19 [Rx] Insulin DETEMIR [Levemir] 12 unit SQ HS [id number] 02/22/19 [Rx] Insulin LISPRO [HumaLOG] 0 units SQ TIDAC vial 02/22/19 [Rx] Insulin LISPRO [HumaLOG] 3 units SQ TIDAC vial 02/22/19 [Rx] Warfarin [Coumadin] 5 mg PO 1800 #30 tablet 02/22/19 [Rx] Allergies/Adverse Reactions: Allergy/AdvReac Type Severity Reaction Status Date / Time Penicillins Allergy Hives Verified 02/15/19 14:01 lactose AdvReac Vomiting Verified 02/15/19 14:01 Date of admission: 02/15/19 18:01 Primary care physician: Ayesha Ramírez CNP Consults: 02/15/19 18:30 Consult to Occupational Therapy [CONS] Routine Comment: Evaluate, develop and implement POC Reason for Consult: Generalized weakness Does patient have active BEDREST order?: No Is patient medically & hemodynamically stable?: Yes Consult to Physical Therapy [CONS] Routine Comment: Evaluate, develop and implement POC Reason for Consult: Generalized weakness status post fall Does patient have active BEDREST order?: No Is patient medically & hemodynamically stable?: Yes Consult to Furnace Caretaker [CONS] Routine Reason for SW Consult: Discharge planning ECF for rehabilitation - Constitutional Vitals: Temp Pulse Resp BP Pulse Ox 97.8 F 65 15 109/59 95 02/22/19 14:33 02/22/19 14:33 02/22/19 14:33 02/22/19 14:33 02/22/19 14:33 Exam: General: Ill-appearing and in no acute distress HEENT: No erythema of posterior pharynx. No exudates. Lymphatics: No mandibular or cervical lymphadenopathy Cardiovascular: RRR. No murmurs. No chest wall tenderness. Lungs: Clear to auscelltation bilaterally. Regular chest rise. Abdomen: Non-tender. No rebound or gaurding. Nl bowel sounds. Extremities: No edema. 2+ pulses radial and pedal pulses Skin: No rahses, abrasions, or contusions. Nl cap refill. Psych: Nl attention. A&Ox3 Neuro: awake overnight monitor II-XII intact but mild dysarthria. 5/5 strength on R, 4/5 strength on L. Sensation to light touch and pinprick intact. - Patient Status Disposition: Transfer SNF Condition: Good Functional capacity at discharge: uses cane/walker Overall status at discharge: patient is progressing back to baseline - Discharge Instructions Follow Up With: Ayesha Ramírez CNP [Primary Care Provider] - - Diet and Activity Activity: as per physical therapy Diet: diabetic diet - VTE Documentation of Mechanical Device: Intermittent pneumatic compression device
--- NOTE | 2019-02-22 18:25 | Physician Discharge Referral ---
ExtendedCare Referral Info Transfer To: SNF Provider in Charge: Semaj Perez MD Provider in Charge after Transfer: PCP Institutional Level of Care: Skilled - Diagnosis (1) Fall from ground level Priority: Primary Status: Acute (2) Supratherapeutic INR Priority: Secondary Status: Acute (3) History of recent stroke Priority: Secondary Status: Acute (4) Diabetes Priority: Secondary Status: Chronic (5) Hypertension Priority: Secondary Status: Chronic (6) CAD (coronary artery disease) Priority: Secondary Status: Chronic (7) Frail elderly Priority: Secondary Status: Acute - Transfer Medications Prescriptions: Warfarin [Coumadin] 5 mg PO 1800 #30 tablet Home Medications: Lisinopril [Zestril] 20 mg PO DAILY 09/10/16 [History] Clopidogrel Bisulfate [Plavix] 75 mg PO DAILY 03/02/18 [History] Metoprolol [Lopressor] 25 mg PO DAILY 03/02/18 [History] Atorvastatin Calcium [Lipitor] 80 mg PO HS 10/22/18 [History] Metformin HCl [Glucophage] 1,000 mg PO BID 10/22/18 [History] Isosorbide MONOnitrate (24 HR) [Imdur] 60 mg PO QAM #0 tab.er.24h 01/08/19 [Rx] Amlodipine Besylate 10 mg PO DAILY 02/02/19 [History] Citalopram Hydrobromide [Citalopram HBr] 40 mg PO DAILY 02/02/19 [History] Ezetimibe 10 mg PO DAILY 02/02/19 [History] Gabapentin [Neurontin] 300 mg PO TID 02/02/19 [History] Enoxaparin [Lovenox] 80 mg SQ Q12H syringe 02/22/19 [Rx] Insulin DETEMIR [Levemir] 12 unit SQ HS [id number] 02/22/19 [Rx] Insulin LISPRO [HumaLOG] 0 units SQ TIDAC vial 02/22/19 [Rx] Insulin LISPRO [HumaLOG] 3 units SQ TIDAC vial 02/22/19 [Rx] Warfarin [Coumadin] 5 mg PO 1800 #30 tablet 02/22/19 [Rx] Allergies/Adverse Reactions: Allergy/AdvReac Type Severity Reaction Status Date / Time Penicillins Allergy Hives Verified 02/15/19 14:01 lactose AdvReac Vomiting Verified 02/15/19 14:01 - Respiratory Orders Smoking Cessation: Smoking cessation has been advised. For more information, call the [place] Tobacco Quit Line at 9-761-HMQE-NOW. - Lab Orders Lab Orders: Other (include drug levels w/frequency) (INR DAILY) - Advance Directives Living Will: No Power of Edi Specialist for Health Care: No Code Status: Full Code - Mobility Orders Chair, Ambulate - Rehabiliation Orders Rehab Potential: Good Rehab Orders: Evaluation for Physical Therapy, Evaluation for Occupational Therapy, Evaluation for Speech Therapy - Treatments Skin tear care topically daily PRN per policy, May check for fecal impaction rectally daily PRN - Diet Orders Regular CERTIFICATION: I certify that the transfer of the above named patient to an Extended Care Facility is necessary for the continuing treatment of the diagnosis listed. The above information is true and accurate reflection of patient's current condition. Confidential - Redisclosure prohibited without a patient's written consent.
[2019-02-22] MEDS: Insulin DETEMIR 100 UNIT/ML X5UNITS SQ SCH (21:15)
[2019-02-23 04:22] LABS: INR 1.3; Prothrombin Time 14.3 Seconds (9.4-12.1)
[2019-02-23] MEDS: amLODIPine 5 MG TABLET PO SCH (09:04)
[2019-02-23] MEDS: Insulin LISPRO 300 UNITS/3 ML VIAL SQ SCH ×6 (09:05→18:29)
[2019-02-23] MEDS: Isosorbide MONOnitrate (24 HR) 60 MG TAB.ER.24H PO SCH (09:05)
[2019-02-23] MEDS: Lisinopril 20 MG TABLET PO SCH (09:05)
[2019-02-23] MEDS: Gabapentin 300 MG CAPSULE PO SCH ×3 (09:05→20:07)
[2019-02-23] MEDS: *HR* Enoxaparin 80 MG/0.8 ML SYRINGE SQ SCH ×2 (09:06→22:20)
--- NOTE | 2019-02-23 12:07 | Internal Med Progress Note ---
Hospitalist Progress Note - Encounter Date of Encounter: 02/23/19 Time of Encounter: 12:02 - Subjective Interval History: Patient expresses frustration that she hasn't been able to get out of the hospital yet. No other complaints and feels otherwise well. - Exam Vitals: Temp Pulse Resp BP Pulse Ox 98.2 F 60 16 114/66 94 02/23/19 11:52 02/23/19 11:52 02/23/19 11:52 02/23/19 11:52 02/23/19 11:52 Exam: General: Ill-appearing and in no acute distress HEENT: No erythema of posterior pharynx. No exudates. Lymphatics: No mandibular or cervical lymphadenopathy Cardiovascular: RRR. No murmurs. No chest wall tenderness. Lungs: Clear to auscelltation bilaterally. Regular chest rise. Abdomen: Non-tender. No rebound or gaurding. Nl bowel sounds. Extremities: No edema. 2+ pulses radial and pedal pulses Skin: No rahses, abrasions, or contusions. Nl cap refill. Psych: Nl attention. 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 5/5 strength on R, 4/5 strength on L. Sensation to light touch and pinprick intact. - Assessment and Plan (1) Fall from ground level Current Visit: Yes Status: Acute (2) Supratherapeutic INR Current Visit: Yes Status: Acute (3) History of recent stroke Current Visit: Yes Status: Acute (4) Diabetes Current Visit: Yes Status: Chronic (5) Hypertension Current Visit: Yes Status: Chronic (6) CAD (coronary artery disease) Current Visit: Yes Status: Chronic (7) Frail elderly Current Visit: Yes Status: Acute - Summary of Assessment and Plan Summary of Assessment and Plan: Ms. Nunez is a 68 year old female with history of CAD s/p CABG and multiple stents, IDDM Type 2, hypertension, and recent stroke thought to be 2/2 PFO started on warfarin therapy last admission presented after a unwitnessed GLF and found to have a supratherapeutic INR to 6.3. -Did not have prodrome to her fall and she attributed to generalized weakness. -No signs of syncope noted and patient had recent echocardiogram completed last admission. -INR was corrected during hospital stay but difficult to keep within therapeutic range. -Waiting on insurance auth to be discharged to rehabilitation facility PLAN: - D/c to SNF as soon as auth complete - Warfarin bridged with heparin while receiving daily INR checks until therap eutic Internal Medicine: Result - Labs CBC & Chem 7: 02/17/19 03:50 02/18/19 04:52 - ABG Interpretation ABG results: PT/INR, D-dimer PT 14.3 Seconds (9.4-12.1) H 02/23/19 03:52 - VTE Documentation of Mechanical Device: Intermittent pneumatic compression device Consult Discharge Plan - Plan Referrals: Ayesha Ramírez, OVEN ATTENDANT [Primary Care Provider] - Prescriptions: Warfarin [Coumadin] 5 mg PO 1800 #30 tablet (4) Diabetes Qualifiers: Diabetes mellitus type: other specified (including TAMMY) Diabetes mellitus custodial insulin use: unspecified intermediate card tender insulin use status Diabetes mellitus complication status: with circulatory complication Diabetes mellitus complication detail: with other circulatory complications Qualified Code(s): E13.59 - Other specified diabetes mellitus with other circulatory complications (5) Hypertension Qualifiers: Hypertension type: essential hypertension Qualified Code(s): I10 - Essential (primary) hypertension (6) CAD (coronary artery disease) Qualifiers: Coronary Disease-Associated Artery/Lesion type: [place] artery [place] vs. transplanted heart: [place] heart Associated angina: without angina Qualified Code(s): I25.10 - Atherosclerotic heart disease of [place] coronary artery without angina pectoris
[2019-02-23] MEDS ORDERED: *HR* Warfarin 3 MG TABLET PO ONE (18:00)
[2019-02-23] MEDS: Insulin DETEMIR 100 UNIT/ML X5UNITS SQ SCH (22:20)
[2019-02-24 05:33] LABS: INR 1.3; Prothrombin Time 14.9 Seconds (9.4-12.1)
[2019-02-24 05:45] LABS: Calcium 8.8 mg/dL (8.6-10.3); Potassium 4.3 mEq/L (3.5-5.1)
[2019-02-24] MEDS: Insulin LISPRO 300 UNITS/3 ML VIAL SQ SCH ×6 (08:17→11:17)
[2019-02-24] MEDS: Lisinopril 20 MG TABLET PO SCH (08:25)
[2019-02-24] MEDS: Gabapentin 300 MG CAPSULE PO SCH ×2 (08:25→14:37)
[2019-02-24] MEDS: Isosorbide MONOnitrate (24 HR) 60 MG TAB.ER.24H PO SCH (08:25)
[2019-02-24] MEDS: amLODIPine 5 MG TABLET PO SCH (08:25)
[2019-02-24] MEDS: *HR* Enoxaparin 80 MG/0.8 ML SYRINGE SQ SCH (09:08)
[2019-02-24 12:16] VITALS: BP 128/57
--- NOTE | 2019-02-24 13:48 | Discharge Summary ---
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 insulin use: unspecified halfway insulin use status Diabetes mellitus complication status: with circulatory complication Diabetes mellitus complication detail: with other circulatory complications Qualified Code(s): 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 transplanted heart: [place] heart Associated angina: without angina Qualified Code(s): I25.10 - Atherosclerotic heart disease of [place] coronary artery without angina pectoris (5) Frail elderly Priority: Secondary Status: Acute (6) Fall from ground level Priority: Secondary Status: Acute (7) History of recent stroke Priority: Secondary Status: Acute Hospital course: This is a progress note for today 02/24/2019. Patient was discharged on 02/22/2019 but was still here today. Ms. Nunez is a 68 year old female with a history of A. fib that presented after full supratherapeutic INR. No signs of syncope and recent unremarkable echo. INR corrected but difficult to maintain a therapeutic range. Patient was started on Lovenox to bridge until her warfarin was in therapeutic range. Patient being sent home with 7 doses of Lovenox. She is to follow-up in her Coumadin clinic on 02/26/2019. Patient was also discharged with outpatient physical therapy. She was recommended intermediate placement but he refused. Additionally, patient was started on long-acting insulin as well as short acting insulin and sliding scale insulin for better glycemic control. Her PCP will follow-up with this. Discharge discussed with: patient - Time Spent with Patient Total time spent providing and/or coordinating discharge services: 45 minutes - Discharge Medications Prescriptions: New Insulin DETEMIR [Levemir] 12 unit SQ HS [id number] Insulin LISPRO [HumaLOG] 3 units SQ TIDAC vial Insulin LISPRO [HumaLOG] 0 units SQ TIDAC vial Warfarin [Coumadin] 5 mg PO 1800 #30 tablet Enoxaparin [Lovenox] 80 mg SQ Q12HR #10 syr Continued Lisinopril [Zestril] 20 mg PO DAILY Clopidogrel Bisulfate [Plavix] 75 mg PO DAILY Metoprolol [Lopressor] 25 mg PO DAILY Atorvastatin Calcium [Lipitor] 80 mg PO HS Metformin HCl [Glucophage] 1,000 mg PO BID Isosorbide MONOnitrate (24 HR) [Imdur] 60 mg PO QAM #0 tab.er.24h Amlodipine Besylate 10 mg PO DAILY Citalopram Hydrobromide [Citalopram HBr] 40 mg PO DAILY Ezetimibe 10 mg PO DAILY Gabapentin [Neurontin] 300 mg PO TID Discontinued Insulin Glargine,Hum.rec.anlog [Lantus Solostar] 44 unit SQ HS Warfarin Sodium 2 mg PO SUTUTH Warfarin Sodium 4 mg PO MOWE Home Medications: Lisinopril [Zestril] 20 mg PO DAILY 09/10/16 [History] Clopidogrel Bisulfate [Plavix] 75 mg PO DAILY 03/02/18 [History] Metoprolol [Lopressor] 25 mg PO DAILY 03/02/18 [History] Atorvastatin Calcium [Lipitor] 80 mg PO HS 10/22/18 [History] Metformin HCl [Glucophage] 1,000 mg PO BID 10/22/18 [History] Isosorbide MONOnitrate (24 HR) [Imdur] 60 mg PO QAM #0 tab.er.24h 01/08/19 [Rx] Amlodipine Besylate 10 mg PO DAILY 02/02/19 [History] Citalopram Hydrobromide [Citalopram HBr] 40 mg PO DAILY 02/02/19 [History] Ezetimibe 10 mg PO DAILY 02/02/19 [History] Gabapentin [Neurontin] 300 mg PO TID 02/02/19 [History] Insulin DETEMIR [Levemir] 12 unit SQ HS [id number] 02/22/19 [Rx] Insulin LISPRO [HumaLOG] 0 units SQ TIDAC vial 02/22/19 [Rx] Insulin LISPRO [HumaLOG] 3 units SQ TIDAC vial 02/22/19 [Rx] Warfarin [Coumadin] 5 mg PO 1800 #30 tablet 02/22/19 [Rx] Enoxaparin [Lovenox] 80 mg SQ Q12HR #10 syr 02/24/19 [Rx] Allergies/Adverse Reactions: Allergy/AdvReac Type Severity Reaction Status Date / Time Penicillins Allergy Hives Verified 02/15/19 14:01 lactose AdvReac Vomiting Verified 02/15/19 14:01 Date of admission: 02/15/19 18:01 Primary care physician: Ayesha Ramírez CNP Consults: 02/15/19 18:30 Consult to Occupational Therapy [CONS] Routine Comment: Evaluate, develop and implement POC Reason for Consult: Generalized weakness Does patient have active BEDREST order?: No Is patient medically & hemodynamically stable?: Yes Consult to Physical Therapy [CONS] Routine Comment: Evaluate, develop and implement POC Reason for Consult: Generalized weakness status post fall Does patient have active BEDREST order?: No Is patient medically & hemodynamically stable?: Yes Consult to Dry Kiln Operator [CONS] Routine Reason for SW Consult: Discharge planning ECF for rehabilitation Discharging clinician: Brent Nicholas Anticipated date of discharge: 02/24/19 - Constitutional Vitals: Temp Pulse Resp BP Pulse Ox 97.9 F 59 16 128/57 97 02/24/19 12:15 02/24/19 12:15 02/24/19 12:15 02/24/19 12:15 02/24/19 12:15 General appearance: Present: A&O X 3, no acute distress, answers questions appropriately Exam: GENERAL APPEARANCE: Well developed, well nourished, alert and cooperative, and appears to be in no acute distress. HEENT: Normocephalic/atraumatic, PERRLA. NECK: Supple, nontender without lymphadenopathy. CARDIOVASCULAR: Normal S1, S2; regular rate and rhythm; no murmurs. RESPIRATORY: Clear to auscultation bilaterally; no rales, rhonchi or wheezing. ABDOMEN: Soft, nondistended, nontender; bowel sounds present. MUSKULOSKELETAL: No limitations in range of motion. EXTREMITIES: No edema, clubbing. NEUROLOGICAL: No focal neurological deficits. SKIN: Skin normal color, texture and turgor with no lesions or eruptions. PSYCHIATRIC: Judgment and reasoning; no hallucinations; normal affect. - Patient Status Disposition: Home, Self-Care Condition: Good Functional capacity at discharge: uses cane/walker Overall status at discharge: patient is back to baseline - Discharge Instructions Follow Up With: Ayesha Ramírez CNP [Primary Care Provider] - 03/04/19 2:15 pm () Additional Instructions: Patient to receive outpatient physical therapy - Diet and Activity Activity: resume usual activities as tolerated Diet: advance to your usual diet - VTE Documentation of Mechanical Device: Intermittent pneumatic compression device
[2019-02-24] MEDS ORDERED: *HR* Warfarin 7.5 MG TABLET PO ONE (18:00)
== END 2019-02-24 15:41 | disposition home or self-care (01) ==
LOC: SUATTDRO → EMEROOARM 13:57 → 3ANU 13:57 → SUATTDRO 18:01 → 3ANU 18:36
PROVIDERS: ADMIT Pharmacist; ATTEND Family Medicine

== ENCOUNTER 2019-08-14 12:47 | Observation (INO) ==
[2019-08-14 13:45] LABS: Basophils % 0.5 %; Eosinophils # 0.2 K/mcL (0.0-0.6); Hematocrit 33.1 % (35.3-44.9); Hemoglobin 10.8 g/dL (11.5-15.4); Immature Granulocytes % 0.3 % (0-4); Lymphocytes # 2.3 K/mcL (0.6-4.6); Lymphocytes % 28.9 %; Mean Corpuscular HGB Conc 32.6 g/dL (31.6-35.5); Mean Corpuscular Hemoglobin 30.8 pg (28.0-33.3); Mean Corpuscular Volume 94.3 fL (83.0-100.0); Mean Platelet Volume 10.3 fL (9.4-12.4); Monocytes # 0.6 K/mcL (0.0-1.3); Monocytes % 7.1 %; Neutrophils # 4.9 K/mcL (1.6-8.9); Platelet Count 253 K/mcL (140-400); Red Blood Count 3.51 M/mcL (3.82-4.97); Segmented Neutrophils % 61.2 %; White Blood Count 7.9 K/mcL (4.3-11.1)
[2019-08-14 14:01] LABS: INR 2.9; Prothrombin Time 32.7 Seconds (9.4-12.1)
[2019-08-14 14:04] LABS: Calcium 9.2 mg/dL (8.6-10.3); Potassium 4.5 mEq/L (3.5-5.1)
[2019-08-14 14:22] LABS: Bilirubin,Urine Negative (Negative); Blood,Urine Trace (Negative); Clarity,Urine Clear (Clear); Color,Urine Yellow (Yellow); Glucose,Urine (UA) Normal (Normal); Ketones,Urine Negative (Negative); Leukocyte Esterase,Urine Small (Negative); Nitrite,Urine Negative (Negative); Protein,Urine 100 mg/dL (Neg-Trace); Specific Gravity,Urine 1.019 (1.010-1.025); Urobilinogen,Urine Normal (Normal)
[2019-08-14 14:25] LABS: Bacteria,Urine None Seen per hpf (None-Few); Hyaline Casts,Urine None Seen per lpf (None-Few); Squamous Epithelial Cell,Urine Many per lpf (None-Few)
[2019-08-14] MEDS ORDERED: Naloxone 0.4 MG/ML INJ IVP PRN (16:51)
[2019-08-14] MEDS ORDERED: *HR* Dextrose 50 % in Water (Syg) 50 ML SYRINGE IVP PRN (16:58)
[2019-08-14] MEDS ORDERED: D5% in Water 1,000 ML IVC PRN (16:58)
[2019-08-14] MEDS ORDERED: Dextrose Gel 15 GM/37.5 ML TUBE PO PRN ×2 (16:58)
[2019-08-14] MEDS ORDERED: 0.9 % Sodium Chloride 500 ML IVC SCH (17:00)
[2019-08-14] MEDS ORDERED: Warfarin perPT PO PRN (18:00)
[2019-08-14] MEDS: cefTRIAXone 1,000 MG in Water for inj. (sterile) 10 ML IVP SCH (18:06)
[2019-08-14] MEDS: Acetaminophen 325 MG TABLET PO PRN (20:12)
[2019-08-15 06:45] LABS: Hematocrit 30.3 % (35.3-44.9); Hemoglobin 9.9 g/dL (11.5-15.4); Mean Corpuscular HGB Conc 32.7 g/dL (31.6-35.5); Mean Platelet Volume 10.5 fL (9.4-12.4); Platelet Count 211 K/mcL (140-400); Red Blood Count 3.19 M/mcL (3.82-4.97); Red Cell Distribution Width 11.9 % (11.5-14.5); White Blood Count 6.7 K/mcL (4.3-11.1)
[2019-08-15 06:50] LABS: INR 3.2; Prothrombin Time 36.9 Seconds (9.4-12.1)
[2019-08-15 07:06] LABS: Calcium 9.1 mg/dL (8.6-10.3); Potassium 4.5 mEq/L (3.5-5.1)
[2019-08-15] MEDS: Insulin LISPRO 300 UNITS/3 ML VIAL SQ SCH ×3 (09:33→17:28)
[2019-08-15] MEDS: cefTRIAXone 1,000 MG in Water for inj. (sterile) 10 ML IVP SCH (09:36)
[2019-08-15] MEDS ORDERED: 0.9 % Sodium Chloride 500 ML IVC SCH (12:30)
[2019-08-15] MEDS: amLODIPine 5 MG TABLET PO SCH (19:27)
[2019-08-15] MEDS: Acetaminophen 325 MG TABLET PO PRN (19:27)
[2019-08-15] MEDS: Gabapentin 300 MG CAPSULE PO SCH (19:28)
[2019-08-16 01:09] LABS: Hematocrit 29.9 % (35.3-44.9); Hemoglobin 9.8 g/dL (11.5-15.4); INR 1.8; Mean Corpuscular HGB Conc 32.8 g/dL (31.6-35.5); Mean Corpuscular Hemoglobin 31.4 pg (28.0-33.3); Mean Corpuscular Volume 95.8 fL (83.0-100.0); Mean Platelet Volume 10.9 fL (9.4-12.4); Platelet Count 218 K/mcL (140-400); Prothrombin Time 20.2 Seconds (9.4-12.1); Red Blood Count 3.12 M/mcL (3.82-4.97); Red Cell Distribution Width 11.8 % (11.5-14.5); White Blood Count 7.6 K/mcL (4.3-11.1)
[2019-08-16 01:23] LABS: Calcium 8.6 mg/dL (8.6-10.3); Potassium 4.3 mEq/L (3.5-5.1)
[2019-08-16] MEDS: Acetaminophen 325 MG TABLET PO PRN ×3 (07:53→21:41)
[2019-08-16] MEDS: Isosorbide MONOnitrate (24 HR) 60 MG TAB.ER.24H PO SCH (07:53)
[2019-08-16] MEDS: cefTRIAXone 1,000 MG in Water for inj. (sterile) 10 ML IVP SCH (07:53)
[2019-08-16] MEDS: Gabapentin 300 MG CAPSULE PO SCH ×2 (07:53→21:42)
[2019-08-16] MEDS: Insulin LISPRO 300 UNITS/3 ML VIAL SQ SCH ×3 (07:54→17:58)
[2019-08-16] MEDS ORDERED: NON-FORMULARY MEDICATION 1 EACH EACH (Ezetimibe 10 MG) PO SCH (09:00)
[2019-08-16] MEDS ORDERED: 0.9 % Sodium Chloride 1,000 ML IVC SCH (10:00)
[2019-08-16] MEDS ORDERED: *HR* Warfarin 10 MG TABLET PO ONE (18:00)
[2019-08-16] MEDS ORDERED: Insulin LISPRO 300 UNITS/3 ML VIAL SQ SCH (21:00)
[2019-08-16] MEDS: amLODIPine 5 MG TABLET PO SCH (21:42)
[2019-08-17 06:01] LABS: Hematocrit 29.9 % (35.3-44.9); Hemoglobin 9.9 g/dL (11.5-15.4); Mean Corpuscular HGB Conc 33.1 g/dL (31.6-35.5); Mean Corpuscular Volume 93.7 fL (83.0-100.0); Mean Platelet Volume 10.5 fL (9.4-12.4); Platelet Count 213 K/mcL (140-400); Red Blood Count 3.19 M/mcL (3.82-4.97); Red Cell Distribution Width 11.9 % (11.5-14.5); White Blood Count 6.8 K/mcL (4.3-11.1)
[2019-08-17 06:09] LABS: INR 1.2; Prothrombin Time 14.1 Seconds (9.4-12.1)
[2019-08-17 06:22] LABS: Calcium 8.7 mg/dL (8.6-10.3); Potassium 4.2 mEq/L (3.5-5.1)
[2019-08-17] MEDS: Gabapentin 300 MG CAPSULE PO SCH (08:41)
[2019-08-17] MEDS: Insulin LISPRO 300 UNITS/3 ML VIAL SQ SCH ×2 (08:41→12:06)
[2019-08-17] MEDS: Isosorbide MONOnitrate (24 HR) 60 MG TAB.ER.24H PO SCH (08:41)
[2019-08-17] MEDS: Acetaminophen 325 MG TABLET PO PRN (08:43)
[2019-08-17 16:02] VITALS: BP 111/56
[2019-08-17] MEDS ORDERED: *HR* Warfarin 10 MG TABLET PO ONE (18:00)
== END 2019-08-17 16:37 ==
LOC: 3BNU 12:47 → EMEROOARM 12:47 → 3BNU 15:18
PROVIDERS: ADMIT Internal Medicine; ATTEND Internal Medicine

== ENCOUNTER 2019-10-15 18:09 | Inpatient (IN) ==
[2019-10-15] MEDS ORDERED: Naloxone 0.4 MG/ML INJ IVP PRN (20:59)
[2019-10-15] MEDS ORDERED: DilTIAZem 50 MG in 0.9 % Sodium Chloride 40 ML IVC SCH (21:00)
[2019-10-15] MEDS ORDERED: *HR* Heparin 5,000 UNIT/ML VIAL IVP PRN ×2 (23:06)
[2019-10-15] MEDS ORDERED: Heparin 25,000 UNIT/250 ML D5W 25,000 UNIT/250 ML IV.SOLN IVC SCH (23:15)
[2019-10-15] MEDS ORDERED: Aspirin 81 MG TAB.CHEW PO ONE (23:22)
[2019-10-15] MEDS ORDERED: 0.9 % Sodium Chloride 500 ML IV ONE (23:52)
[2019-10-15] MEDS ORDERED: D5% in Water 1,000 ML IVC PRN (23:57)
[2019-10-15] MEDS ORDERED: *HR* Dextrose 50 % in Water (Syg) 50 ML SYRINGE IVP PRN (23:57)
[2019-10-15] MEDS ORDERED: Dextrose Gel 15 GM/37.5 ML TUBE PO PRN ×2 (23:57)
[2019-10-16] MEDS: Insulin DETEMIR 100 UNIT/ML X5UNITS SQ SCH ×2 (00:29→22:43)
[2019-10-16 01:34] LABS: Basophils % 0.4 %; Eosinophils # 0.1 K/mcL (0.0-0.6); Eosinophils % 0.8 %; Hematocrit 24.4 % (35.3-44.9); Hemoglobin 7.9 g/dL (11.5-15.4); Immature Granulocytes % 0.5 % (0-4); Lymphocytes # 2.9 K/mcL (0.6-4.6); Lymphocytes % 34.5 %; Mean Corpuscular HGB Conc 32.4 g/dL (31.6-35.5); Mean Corpuscular Hemoglobin 30.9 pg (28.0-33.3); Mean Corpuscular Volume 95.3 fL (83.0-100.0); Mean Platelet Volume 10.6 fL (9.4-12.4); Monocytes # 0.6 K/mcL (0.0-1.3); Monocytes % 7.6 %; Neutrophils # 4.7 K/mcL (1.6-8.9); Platelet Count 226 K/mcL (140-400); Red Blood Count 2.56 M/mcL (3.82-4.97); Red Cell Distribution Width 12.2 % (11.5-14.5); Segmented Neutrophils % 56.2 %; White Blood Count 8.3 K/mcL (4.3-11.1)
[2019-10-16 01:39] LABS: Heparin anti-factor XA UFH 0.5 IU/mL (0.30-0.70); INR 1.1
[2019-10-16 01:56] LABS: Calcium 8.1 mg/dL (8.6-10.3); Potassium 3.8 mEq/L (3.5-5.1)
[2019-10-16] MEDS ORDERED: Nitroglycerin 0.4 MG TAB.SUBL SL PRN (04:55)
[2019-10-16] MEDS ORDERED: Calcium Gluconate 1gm/50mL 1 GM/50 ML BAG IVPB ONE (04:57)
[2019-10-16 04:58] LABS: Troponin I 18.14 ng/mL (< 0.04)
[2019-10-16] MEDS: Insulin LISPRO 300 UNITS/3 ML VIAL SQ SCH ×4 (09:17→22:41)
[2019-10-16 10:49] LABS: Hematocrit 24.7 % (35.3-44.9); Hemoglobin 8.1 g/dL (11.5-15.4)
[2019-10-16] MEDS ORDERED: 0.9 % Sodium Chloride 250 ML IVC SCH (12:45)
[2019-10-16] MEDS: Aspirin Enteric Coated 81 MG Tablet PO SCH (13:15)
[2019-10-16] MEDS ORDERED: Oxymetazoline Nasal SPRAY BOTTLE NS PRN (14:06)
[2019-10-16] MEDS: Saline Nasal Spray 44 ML BOTTLE NS SCH (17:51)
[2019-10-16 21:03] LABS: Hematocrit 26.8 % (35.3-44.9); Hemoglobin 8.8 g/dL (11.5-15.4)
[2019-10-16 21:41] LABS: Bilirubin,Urine Negative (Negative); Blood,Urine Trace (Negative); Clarity,Urine Clear (Clear); Color,Urine Yellow (Yellow); Glucose,Urine (UA) Normal (Normal); Ketones,Urine Negative (Negative); Leukocyte Esterase,Urine Small (Negative); Nitrite,Urine Negative (Negative); PH,Urine 5.5 pH Units (5.0-8.0); Protein,Urine 100 mg/dL (Neg-Trace); Specific Gravity,Urine 1.022 (1.010-1.025); Urobilinogen,Urine Normal (Normal)
[2019-10-16 21:44] LABS: Bacteria,Urine None Seen per hpf (None-Few); Hyaline Casts,Urine None Seen per lpf (None-Few); Squamous Epithelial Cell,Urine Many per lpf (None-Few); WBC,Urine 15-30 per hpf (0-3)
[2019-10-17] MEDS: Insulin LISPRO 300 UNITS/3 ML VIAL SQ SCH ×4 (07:29→21:13)
[2019-10-17] MEDS: Aspirin Enteric Coated 81 MG Tablet PO SCH (07:43)
[2019-10-17] MEDS: Saline Nasal Spray 44 ML BOTTLE NS SCH ×3 (07:45→16:17)
[2019-10-17 09:33] LABS: Basophils # 0.1 K/mcL (0.0-0.2); Basophils % 0.8 %; Eosinophils # 0.2 K/mcL (0.0-0.6); Eosinophils % 2.7 %; Hematocrit 27.2 % (35.3-44.9); Immature Granulocytes % 0.3 % (0-4); Lymphocytes # 2.1 K/mcL (0.6-4.6); Lymphocytes % 33.2 %; Mean Corpuscular HGB Conc 33.1 g/dL (31.6-35.5); Mean Corpuscular Volume 93.8 fL (83.0-100.0); Mean Platelet Volume 10.7 fL (9.4-12.4); Monocytes # 0.5 K/mcL (0.0-1.3); Monocytes % 7.6 %; Neutrophils # 3.6 K/mcL (1.6-8.9); Platelet Count 217 K/mcL (140-400); Red Cell Distribution Width 13.9 % (11.5-14.5); Segmented Neutrophils % 55.4 %; White Blood Count 6.4 K/mcL (4.3-11.1)
[2019-10-17 09:53] LABS: Calcium 8.7 mg/dL (8.6-10.3)
[2019-10-17 09:59] LABS: Troponin I 4.35 ng/mL (< 0.04)
[2019-10-17] MEDS: Isosorbide MONOnitrate (24 HR) 60 MG TAB.ER.24H PO SCH (12:11)
[2019-10-17] MEDS: Insulin DETEMIR 100 UNIT/ML X5UNITS SQ SCH (21:14)
[2019-10-18] MEDS: Saline Nasal Spray 44 ML BOTTLE NS SCH ×4 (00:09→23:58)
[2019-10-18] MEDS ORDERED: Acetaminophen 325 MG TABLET PO ONE (00:28)
[2019-10-18] MEDS: Insulin LISPRO 300 UNITS/3 ML VIAL SQ SCH ×4 (08:26→21:06)
[2019-10-18] MEDS: Isosorbide MONOnitrate (24 HR) 60 MG TAB.ER.24H PO SCH (08:27)
[2019-10-18] MEDS: Aspirin Enteric Coated 81 MG Tablet PO SCH (08:27)
[2019-10-18 08:47] LABS: Basophils % 0.6 %; Eosinophils # 0.2 K/mcL (0.0-0.6); Eosinophils % 2.9 %; Hematocrit 29.5 % (35.3-44.9); Hemoglobin 9.7 g/dL (11.5-15.4); Immature Granulocytes % 0.3 % (0-4); Lymphocytes # 2.6 K/mcL (0.6-4.6); Lymphocytes % 36.8 %; Mean Corpuscular HGB Conc 32.9 g/dL (31.6-35.5); Mean Corpuscular Hemoglobin 30.6 pg (28.0-33.3); Mean Corpuscular Volume 93.1 fL (83.0-100.0); Mean Platelet Volume 10.7 fL (9.4-12.4); Monocytes # 0.5 K/mcL (0.0-1.3); Monocytes % 7.3 %; Neutrophils # 3.6 K/mcL (1.6-8.9); Platelet Count 245 K/mcL (140-400); Red Blood Count 3.17 M/mcL (3.82-4.97); Red Cell Distribution Width 13.3 % (11.5-14.5); Segmented Neutrophils % 52.1 %
[2019-10-18 08:54] LABS: Calcium 8.7 mg/dL (8.6-10.3); Potassium 3.9 mEq/L (3.5-5.1)
[2019-10-18] MEDS: Apixaban 5 MG TABLET PO SCH ×2 (12:11→21:06)
[2019-10-18] MEDS: Insulin DETEMIR 100 UNIT/ML X5UNITS SQ SCH (21:21)
[2019-10-19 05:32] LABS: Basophils # 0.1 K/mcL (0.0-0.2); Basophils % 0.6 %; Eosinophils # 0.2 K/mcL (0.0-0.6); Eosinophils % 2.3 %; Hematocrit 29.2 % (35.3-44.9); Hemoglobin 9.8 g/dL (11.5-15.4); Immature Granulocytes % 0.4 % (0-4); Lymphocytes # 2.8 K/mcL (0.6-4.6); Lymphocytes % 34.1 %; Mean Corpuscular HGB Conc 33.6 g/dL (31.6-35.5); Mean Corpuscular Hemoglobin 30.8 pg (28.0-33.3); Mean Corpuscular Volume 91.8 fL (83.0-100.0); Mean Platelet Volume 10.6 fL (9.4-12.4); Monocytes # 0.5 K/mcL (0.0-1.3); Monocytes % 6.5 %; Neutrophils # 4.6 K/mcL (1.6-8.9); Platelet Count 256 K/mcL (140-400); Red Blood Count 3.18 M/mcL (3.82-4.97); Red Cell Distribution Width 13.1 % (11.5-14.5); Segmented Neutrophils % 56.1 %; White Blood Count 8.3 K/mcL (4.3-11.1)
[2019-10-19 06:46] VITALS: BP 167/72
[2019-10-19] MEDS: Insulin LISPRO 300 UNITS/3 ML VIAL SQ SCH (07:14)
[2019-10-19] MEDS: Saline Nasal Spray 44 ML BOTTLE NS SCH (08:23)
[2019-10-19] MEDS: Isosorbide MONOnitrate (24 HR) 60 MG TAB.ER.24H PO SCH (08:23)
[2019-10-19] MEDS: Apixaban 5 MG TABLET PO SCH (08:23)
== END 2019-10-19 11:53 | disposition home or self-care (01) | DRG 281 ==
LOC: 2ANU → SUATTDRO 19:54
PROVIDERS: ADMIT Internal Medicine; ATTEND Internal Medicine

== ENCOUNTER 2019-11-12 18:57 | Observation (INO) ==
[2019-11-12] MEDS ORDERED: Isovue-370 500 ML BOTTLE IVP ONE (19:10)
[2019-11-12] MEDS ORDERED: *HR* Dextrose 50 % in Water (Syg) 50 ML SYRINGE IVP ONE (19:15)
[2019-11-12 19:30] LABS: Hematocrit 28.8 % (35.3-44.9); Hemoglobin 9.4 g/dL (11.5-15.4); Mean Corpuscular HGB Conc 32.6 g/dL (31.6-35.5); Mean Corpuscular Hemoglobin 30.8 pg (28.0-33.3); Mean Corpuscular Volume 94.4 fL (83.0-100.0); Mean Platelet Volume 10.4 fL (9.4-12.4); Platelet Count 239 K/mcL (140-400); Red Blood Count 3.05 M/mcL (3.82-4.97); Red Cell Distribution Width 12.9 % (11.5-14.5); White Blood Count 8.2 K/mcL (4.3-11.1)
[2019-11-12 19:38] LABS: INR 1.3
[2019-11-12 19:41] LABS: Activated Partial Thrombo Time 40.8 Seconds (26.0-36.0)
[2019-11-12 19:48] LABS: BUN/Creatinine Ratio 18 (6-26); Blood Urea Nitrogen 23 mg/dL (8-23); Calcium 8.9 mg/dL (8.6-10.3); Carbon Dioxide 24 mEq/L (23-29); Chloride 111 mEq/L (98-107); Glucose 62 mg/dL (70-105); Osmolality,Calculated 294 (280-300); Potassium 4.5 mEq/L (3.5-5.1); Sodium 141 mEq/L (136-145); eGFR For African Americans 49 (> 60); eGFR For Non-African Americans 41 (> 60)
[2019-11-12 19:49] LABS: Troponin I < 0.03 ng/mL (< 0.04)
[2019-11-12 20:20] LABS: Bilirubin,Urine Negative (Negative); Blood,Urine Negative (Negative); Clarity,Urine Clear (Clear); Color,Urine Yellow (Yellow); Glucose,Urine (UA) Normal (Normal); Ketones,Urine Negative (Negative); Leukocyte Esterase,Urine Small (Negative); Nitrite,Urine Negative (Negative); PH,Urine 5.5 pH Units (5.0-8.0); Protein,Urine 100 mg/dL (Neg-Trace); Specific Gravity,Urine 1.024 (1.010-1.025); Urobilinogen,Urine Normal (Normal)
[2019-11-12 20:22] LABS: Bacteria,Urine None Seen per hpf (None-Few); Hyaline Casts,Urine None Seen per lpf (None-Few); Squamous Epithelial Cell,Urine Moderate per lpf (None-Few)
[2019-11-12] MEDS ORDERED: Aspirin 81 MG TAB.CHEW PO STA (20:50)
[2019-11-13] MEDS ORDERED: Naloxone 0.4 MG/ML INJ IVP PRN (04:43)
[2019-11-13] MEDS ORDERED: Dextrose Gel 15 GM/37.5 ML TUBE PO PRN ×2 (04:50)
[2019-11-13] MEDS ORDERED: *HR* Dextrose 50 % in Water (Syg) 50 ML SYRINGE IVP PRN (04:50)
[2019-11-13] MEDS ORDERED: D5% in Water 1,000 ML IVC PRN (04:50)
[2019-11-13 06:01] LABS: Basophils % 0.3 %; Eosinophils # 0.1 K/mcL (0.0-0.6); Eosinophils % 2.4 %; Hematocrit 26.7 % (35.3-44.9); Hemoglobin 8.9 g/dL (11.5-15.4); Immature Granulocytes % 0.3 % (0-4); Lymphocytes % 33.7 %; Mean Corpuscular HGB Conc 33.3 g/dL (31.6-35.5); Mean Corpuscular Hemoglobin 30.2 pg (28.0-33.3); Mean Corpuscular Volume 90.5 fL (83.0-100.0); Mean Platelet Volume 10.8 fL (9.4-12.4); Monocytes # 0.4 K/mcL (0.0-1.3); Monocytes % 7.1 %; Neutrophils # 3.3 K/mcL (1.6-8.9); Platelet Count 181 K/mcL (140-400); Red Blood Count 2.95 M/mcL (3.82-4.97); Red Cell Distribution Width 12.6 % (11.5-14.5); Segmented Neutrophils % 56.2 %; White Blood Count 5.9 K/mcL (4.3-11.1)
[2019-11-13 06:40] LABS: Alanine Aminotransferase 11 Units/L (7-52); Albumin 3.4 g/dL (3.5-5.7); Albumin/Globulin Ratio 1.7 (1.1-2.2); Alkaline Phosphatase 67 Units/L (34-104); Aspartate Amino Transferase 19 Units/L (13-39); BUN/Creatinine Ratio 17 (6-26); Bilirubin,Total 0.4 mg/dL (0.3-1.0); Blood Urea Nitrogen 18 mg/dL (8-23); Calcium 8.2 mg/dL (8.6-10.3); Carbon Dioxide 21 mEq/L (23-29); Chloride 110 mEq/L (98-107); Chol/HDL Ratio 2.6 (0-4.9); Cholesterol 64 mg/dL (< 200); Glucose 161 mg/dL (70-105); HDL Cholesterol 25 mg/dL (40-59); LDL Cholesterol,Calculated 22 mg/dL (0-99); Magnesium 1.5 mg/dL (1.6-2.6); Osmolality,Calculated 291 (280-300); Phosphorous 4.5 mg/dL (2.7-4.5); Potassium 4.6 mEq/L (3.5-5.1); Sodium 138 mEq/L (136-145); Total Protein 5.4 g/dL (6.4-8.9); Triglycerides 83 mg/dL (< 150); Troponin I < 0.03 ng/mL (< 0.04); eGFR For African Americans > 60 (> 60); eGFR For Non-African Americans 51 (> 60)
[2019-11-13] MEDS: Insulin LISPRO 300 UNITS/3 ML VIAL SQ SCH ×3 (07:54→17:13)
[2019-11-13] MEDS: Apixaban 5 MG TABLET PO SCH ×2 (08:50→20:31)
[2019-11-13 09:28] LABS: Estimated Average Glucose 148 mg/dl
[2019-11-13] MEDS ORDERED: Insulin LISPRO 300 UNITS/3 ML VIAL SQ SCH (21:00)
[2019-11-13] MEDS ORDERED: Insulin DETEMIR 100 UNIT/ML X5UNITS SQ SCH (21:00)
[2019-11-13] MEDS: Acetaminophen 325 MG TABLET PO PRN (21:52)
[2019-11-14 02:49] LABS: Hematocrit 31.6 % (35.3-44.9); Hemoglobin 10.3 g/dL (11.5-15.4); Mean Corpuscular HGB Conc 32.6 g/dL (31.6-35.5); Mean Corpuscular Hemoglobin 30.7 pg (28.0-33.3); Mean Platelet Volume 10.7 fL (9.4-12.4); Platelet Count 236 K/mcL (140-400); Red Blood Count 3.36 M/mcL (3.82-4.97); Red Cell Distribution Width 12.6 % (11.5-14.5); White Blood Count 6.9 K/mcL (4.3-11.1)
[2019-11-14 02:57] LABS: INR 1.2
[2019-11-14 03:13] LABS: Calcium 9.2 mg/dL (8.6-10.3); Magnesium 1.9 mg/dL (1.6-2.6); Potassium 4.7 mEq/L (3.5-5.1)
[2019-11-14] MEDS: Insulin LISPRO 300 UNITS/3 ML VIAL SQ SCH (08:01)
[2019-11-14] MEDS: Apixaban 5 MG TABLET PO SCH (08:10)
[2019-11-14] MEDS: Acetaminophen 325 MG TABLET PO PRN (08:14)
[2019-11-14] MEDS ORDERED: lisinopriL 20 MG TABLET PO SCH (09:00)
[2019-11-14] MEDS ORDERED: Isosorbide MONOnitrate (24 HR) 60 MG TAB.ER.24H PO SCH (09:00)
[2019-11-14 10:17] VITALS: BP 133/69
[2019-11-14] MEDS ORDERED: amLODIPine 5 MG TABLET PO SCH (21:00)
== END 2019-11-14 10:55 | disposition home or self-care (01) ==
LOC: EMEROOARM 18:57 → 3BNU 18:57
PROVIDERS: ADMIT Internal Medicine; ATTEND Internal Medicine

== ENCOUNTER 2019-11-24 02:35 | Inpatient (IN) ==
[2019-11-24 02:54] LABS: Basophils # 0.1 K/mcL (0.0-0.2); Basophils % 0.4 %; Eosinophils # 0.1 K/mcL (0.0-0.6); Eosinophils % 0.5 %; Hematocrit 31.5 % (35.3-44.9); Hemoglobin 9.8 g/dL (11.5-15.4); Lymphocytes # 1.2 K/mcL (0.6-4.6); Lymphocytes % 9.9 %; Mean Corpuscular HGB Conc 31.1 g/dL (31.6-35.5); Mean Corpuscular Hemoglobin 30.3 pg (28.0-33.3); Mean Corpuscular Volume 97.5 fL (83.0-100.0); Mean Platelet Volume 10.8 fL (9.4-12.4); Monocytes # 0.7 K/mcL (0.0-1.3); Monocytes % 5.5 %; Neutrophils # 10.3 K/mcL (1.6-8.9); Platelet Count 370 K/mcL (140-400); Red Blood Count 3.23 M/mcL (3.82-4.97); Red Cell Distribution Width 12.7 % (11.5-14.5); Segmented Neutrophils % 82.7 %; White Blood Count 12.5 K/mcL (4.3-11.1)
[2019-11-24 02:58] LABS: Prothrombin Time 11.6 Seconds (9.4-12.1)
[2019-11-24 03:01] LABS: Activated Partial Thrombo Time 28.8 Seconds (26.0-36.0)
[2019-11-24 03:16] LABS: Calcium 8.6 mg/dL (8.6-10.3); Potassium 4.9 mEq/L (3.5-5.1)
[2019-11-24 03:21] LABS: Troponin I 0.2 ng/mL (< 0.04)
[2019-11-24] MEDS ORDERED: Furosemide 40 MG/4 ML VIAL IVP ONE (03:35)
[2019-11-24] MEDS ORDERED: *HR* Midazolam HCl 2 MG/2 ML VIAL IVP ONE ×3 (03:42→05:37)
[2019-11-24] MEDS ORDERED: *HR* Midazolam HCl 5 MG/5 ML VIAL IVP ONE (03:45)
[2019-11-24] MEDS ORDERED: *HR* Vecuronium 10 MG VIAL IVP ONE (04:21)
[2019-11-24 04:41] LABS: ABG Base Excess -3 mEq/L (-2 to 3); ABG HCO3 22 mEq/L (21-27); ABG Oxygen Saturation 100 % (95-98); ABG PCO2 42 mmHg (35-45); ABG PH 7.33 pH Units (7.32-7.45); ABG PO2 332 mmHg (85-104); ABG TCO2 24 mEq/L (20-26); Blood Gas Modality AF; Blood Gas VT 450 cc
[2019-11-24] MEDS: Norepinephrine 4 MG/254 ML IV.SOLN IVC SCH ×2 (05:22→23:50)
[2019-11-24] MEDS ORDERED: Dexmedetomidine HCl 400 MCG/100 ML MLS IVC ONE (06:28)
[2019-11-24] MEDS: Dexmedetomidine HCl 400 MCG/100 ML MLS IVC SCH ×3 (06:29→19:32)
[2019-11-24] MEDS ORDERED: Perflutren Lipid Microsphere 1.3 ML in 0.9 % Sodium Chloride 8.7 ML IVP ONE (09:12)
[2019-11-24] MEDS ORDERED: *HR* Heparin 5,000 UNIT/ML VIAL IVP PRN ×2 (09:28)
[2019-11-24] MEDS ORDERED: *HR* Heparin 5,000 UNIT/ML VIAL IVP ONE (09:28)
[2019-11-24] MEDS ORDERED: Furosemide 240 MG in 0.9 % Sodium Chloride 96 ML IVC SCH (09:30)
[2019-11-24] MEDS: Heparin 25,000 UNIT/250 ML D5W 25,000 UNIT/250 ML IV.SOLN IVC SCH (10:08)
[2019-11-24 10:19] LABS: Hematocrit 26.8 % (35.3-44.9); Hemoglobin 8.7 g/dL (11.5-15.4); Mean Corpuscular HGB Conc 32.5 g/dL (31.6-35.5); Mean Corpuscular Hemoglobin 31.2 pg (28.0-33.3); Mean Corpuscular Volume 96.1 fL (83.0-100.0); Mean Platelet Volume 10.5 fL (9.4-12.4); Platelet Count 340 K/mcL (140-400); Red Blood Count 2.79 M/mcL (3.82-4.97); Red Cell Distribution Width 12.8 % (11.5-14.5)
[2019-11-24 10:22] LABS: Heparin anti-factor XA UFH 0.08 IU/mL (0.30-0.70)
[2019-11-24 10:23] LABS: Prothrombin Time 11.5 Seconds (9.4-12.1)
[2019-11-24] MEDS ORDERED: Acetaminophen 325 MG TABLET PO PRN (10:30)
[2019-11-24] MEDS ORDERED: Naloxone 0.4 MG/ML INJ IVP PRN (10:30)
[2019-11-24] MEDS ORDERED: Artificial Tears SOLN 15 ML BOTTLE BOTH EYES PRN (10:30)
[2019-11-24] MEDS: FentaNYL (PF) 1,000 MCG/100 ML IV.SOLN IVC SCH ×2 (11:02→18:36)
[2019-11-24] MEDS: Cefepime HCl 1,000 MG in 0.9 % Sodium Chloride Mini Bag 100 ML IVPB SCH ×2 (11:05→23:44)
[2019-11-24] MEDS: Furosemide 40 MG/4 ML VIAL IVP SCH ×2 (11:51→20:10)
[2019-11-24] MEDS ORDERED: *HR* Dextrose 50 % in Water (Syg) 50 ML SYRINGE IVP PRN (12:26)
[2019-11-24] MEDS ORDERED: D5% in Water 1,000 ML IVC PRN (12:26)
[2019-11-24] MEDS ORDERED: Dextrose Gel 15 GM/37.5 ML TUBE PO PRN ×2 (12:26)
[2019-11-24] MEDS: Artificial Tears SOLN 15 ML BOTTLE BOTH EYES SCH ×4 (12:38→23:45)
[2019-11-24] MEDS: Insulin LISPRO 300 UNITS/3 ML VIAL SQ SCH ×2 (18:10→23:45)
[2019-11-24] MEDS: Doxycycline 100 MG in 0.9 % Sodium Chloride Mini Bag 100 ML IVPB SCH (18:10)
[2019-11-24] MEDS: Chlorhexidine Rinse 15 ML MOUTHWASH MM SCH (20:10)
[2019-11-25] MEDS ORDERED: Furosemide 40 MG in 0.9 % Sodium Chloride 50 ML IV ONE (02:00)
[2019-11-25] MEDS ORDERED: Furosemide 20 MG/2 ML VIAL IVP ONE (02:00)
[2019-11-25] MEDS: Dexmedetomidine HCl 400 MCG/100 ML MLS IVC SCH ×3 (03:20→16:44)
[2019-11-25] MEDS: Artificial Tears SOLN 15 ML BOTTLE BOTH EYES SCH ×5 (03:57→19:46)
[2019-11-25 04:34] LABS: ABG Base Excess -1 mEq/L (-2 to 3); ABG HCO3 23 mEq/L (21-27); ABG Oxygen Saturation 98 % (95-98); ABG PCO2 35 mmHg (35-45); ABG PH 7.44 pH Units (7.32-7.45); ABG PO2 103 mmHg (85-104); ABG TCO2 25 mEq/L (20-26); Blood Gas Modality AF; Blood Gas VT 450 cc
[2019-11-25] MEDS: FentaNYL (PF) 1,000 MCG/100 ML IV.SOLN IVC SCH ×2 (05:02→16:44)
[2019-11-25] MEDS: Doxycycline 100 MG in 0.9 % Sodium Chloride Mini Bag 100 ML IVPB SCH ×2 (05:37→16:43)
[2019-11-25 05:42] LABS: Basophils % 0.3 %; Eosinophils # 0.1 K/mcL (0.0-0.6); Eosinophils % 0.7 %; Hematocrit 26.4 % (35.3-44.9); Hemoglobin 8.6 g/dL (11.5-15.4); Immature Granulocytes % 0.5 % (0-4); Lymphocytes # 1.9 K/mcL (0.6-4.6); Lymphocytes % 17.1 %; Mean Corpuscular HGB Conc 32.6 g/dL (31.6-35.5); Mean Corpuscular Hemoglobin 30.6 pg (28.0-33.3); Mean Platelet Volume 10.5 fL (9.4-12.4); Monocytes # 0.7 K/mcL (0.0-1.3); Monocytes % 6.3 %; Neutrophils # 8.3 K/mcL (1.6-8.9); Platelet Count 318 K/mcL (140-400); Red Blood Count 2.81 M/mcL (3.82-4.97); Red Cell Distribution Width 12.7 % (11.5-14.5); Segmented Neutrophils % 75.1 %
[2019-11-25] MEDS: Insulin LISPRO 300 UNITS/3 ML VIAL SQ SCH ×3 (05:43→16:52)
[2019-11-25 06:00] LABS: Albumin 3.6 g/dL (3.5-5.7); Albumin/Globulin Ratio 1.4 (1.1-2.2); Bilirubin,Direct 0.2 mg/dL (0.0-0.2); Bilirubin,Indirect 0.4 mg/dL (0.0-1.0); Bilirubin,Total 0.6 mg/dL (0.3-1.0); Calcium 8.9 mg/dL (8.6-10.3); Globulin 2.6 g/dL (2.4-3.5); Magnesium 1.3 mg/dL (1.6-2.6); Potassium 4.1 mEq/L (3.5-5.1); Total Protein 6.2 g/dL (6.4-8.9); Troponin I 15.69 ng/mL (< 0.04)
[2019-11-25] MEDS: Aspirin 81 MG TAB.CHEW GTUBE SCH (08:28)
[2019-11-25] MEDS: Chlorhexidine Rinse 15 ML MOUTHWASH MM SCH ×2 (08:28→20:56)
[2019-11-25] MEDS: Furosemide 40 MG/4 ML VIAL IVP SCH ×2 (08:28→20:56)
[2019-11-25] MEDS: Pantoprazole 40 MG VIAL IVP SCH (08:28)
[2019-11-25] MEDS: Heparin 25,000 UNIT/250 ML D5W 25,000 UNIT/250 ML IV.SOLN IVC SCH (10:31)
[2019-11-25] MEDS: Cefepime HCl 1,000 MG in 0.9 % Sodium Chloride Mini Bag 100 ML IVPB SCH ×2 (10:32→23:12)
[2019-11-25] MEDS ORDERED: ISOVUE-370 200 ML INFUS..BTL ONE ×2 (13:31→14:33)
[2019-11-25] MEDS ORDERED: 0.9 % Sodium Chloride 2,000 ML ONE (13:31)
[2019-11-25] MEDS ORDERED: *HR* Heparin 10,000 UNIT/10 ML VIAL ONE (13:31)
[2019-11-25] MEDS ORDERED: Heparin 1,000 UNITS/500 mL 500 ML ONE (13:31)
[2019-11-25] MEDS ORDERED: Nitroglycerin 1,000 MCG/10 ML VIAL IV ONE (13:31)
[2019-11-25] MEDS ORDERED: *HR* Midazolam HCl 2 MG/2 ML VIAL ONE (14:59)
[2019-11-25] MEDS ORDERED: Magnesium Sulfate 1 GM/102 ML PIGGYBACK IVPB ONE (16:00)
[2019-11-26] MEDS: Artificial Tears SOLN 15 ML BOTTLE BOTH EYES SCH ×7 (00:03→23:20)
[2019-11-26] MEDS: Insulin LISPRO 300 UNITS/3 ML VIAL SQ SCH ×6 (00:04→23:20)
[2019-11-26 04:58] LABS: ABG Base Excess -3 mEq/L (-2 to 3); ABG HCO3 22 mEq/L (21-27); ABG Oxygen Saturation 96 % (95-98); ABG PCO2 35 mmHg (35-45); ABG PO2 79 mmHg (85-104); ABG TCO2 23 mEq/L (20-26); Blood Gas Modality AF; Blood Gas VT 450 cc
[2019-11-26 05:29] LABS: Basophils % 0.3 %; Eosinophils % 0.3 %; Hemoglobin 7.7 g/dL (11.5-15.4); Immature Granulocytes % 0.6 % (0-4); Lymphocytes # 1.4 K/mcL (0.6-4.6); Lymphocytes % 12.6 %; Mean Corpuscular HGB Conc 32.1 g/dL (31.6-35.5); Mean Corpuscular Hemoglobin 30.2 pg (28.0-33.3); Mean Corpuscular Volume 94.1 fL (83.0-100.0); Mean Platelet Volume 10.5 fL (9.4-12.4); Monocytes # 0.7 K/mcL (0.0-1.3); Monocytes % 6.5 %; Neutrophils # 8.7 K/mcL (1.6-8.9); Platelet Count 290 K/mcL (140-400); Red Blood Count 2.55 M/mcL (3.82-4.97); Segmented Neutrophils % 79.7 %; White Blood Count 10.9 K/mcL (4.3-11.1)
[2019-11-26 05:43] LABS: Calcium 8.9 mg/dL (8.6-10.3); Potassium 4.3 mEq/L (3.5-5.1)
[2019-11-26] MEDS: Doxycycline 100 MG in 0.9 % Sodium Chloride Mini Bag 100 ML IVPB SCH ×2 (06:05→18:12)
[2019-11-26] MEDS: Chlorhexidine Rinse 15 ML MOUTHWASH MM SCH ×2 (07:44→20:07)
[2019-11-26] MEDS: Aspirin 81 MG TAB.CHEW GTUBE SCH (07:44)
[2019-11-26] MEDS: Pantoprazole 40 MG VIAL IVP SCH (07:44)
[2019-11-26] MEDS: Norepinephrine 4 MG/254 ML IV.SOLN IVC SCH ×2 (07:45→23:21)
[2019-11-26] MEDS: Heparin 25,000 UNIT/250 ML D5W 25,000 UNIT/250 ML IV.SOLN IVC SCH ×2 (07:45→23:20)
[2019-11-26] MEDS ORDERED: *HR* Metoprolol 5 MG/5 ML VIAL IVP ONE (10:53)
[2019-11-26] MEDS ORDERED: 0.9 % Sodium Chloride 250 ML ONE (12:07)
[2019-11-26] MEDS: Cefepime HCl 1,000 MG in 0.9 % Sodium Chloride Mini Bag 100 ML IVPB SCH (12:24)
[2019-11-26] MEDS: Dexmedetomidine HCl 400 MCG/100 ML MLS IVC SCH ×3 (12:25→23:20)
[2019-11-26] MEDS ORDERED: *HR* LORazepam 2 MG/ML VIAL IVP ONE (13:00)
[2019-11-26] MEDS ORDERED: *HR* LORazepam 2 MG/ML VIAL ONE (13:01)
[2019-11-26 13:44] LABS: Magnesium 2.2 mg/dL (1.6-2.6)
[2019-11-26] MEDS ORDERED: Ondansetron 4 MG/2 ML VIAL ONE (13:53)
[2019-11-26] MEDS: Ondansetron 4 MG/2 ML VIAL IVP PRN (14:16)
[2019-11-26 16:17] LABS: Hematocrit 27.3 % (35.3-44.9); Hemoglobin 8.7 g/dL (11.5-15.4)
[2019-11-26] MEDS: Insulin DETEMIR 100 UNIT/ML X5UNITS SQ SCH (20:06)
[2019-11-26] MEDS: Apixaban 5 MG TABLET PO SCH (23:18)
[2019-11-27 03:53] LABS: Basophils # 0.1 K/mcL (0.0-0.2); Basophils % 0.4 %; Eosinophils # 0.1 K/mcL (0.0-0.6); Eosinophils % 0.6 %; Hematocrit 27.4 % (35.3-44.9); Hemoglobin 8.6 g/dL (11.5-15.4); Immature Granulocytes % 0.6 % (0-4); Lymphocytes % 15.5 %; Mean Corpuscular HGB Conc 31.4 g/dL (31.6-35.5); Mean Corpuscular Hemoglobin 29.9 pg (28.0-33.3); Mean Corpuscular Volume 95.1 fL (83.0-100.0); Mean Platelet Volume 10.2 fL (9.4-12.4); Monocytes # 1.1 K/mcL (0.0-1.3); Monocytes % 8.5 %; Neutrophils # 9.5 K/mcL (1.6-8.9); Platelet Count 294 K/mcL (140-400); Red Blood Count 2.88 M/mcL (3.82-4.97); Red Cell Distribution Width 13.2 % (11.5-14.5); Segmented Neutrophils % 74.4 %; White Blood Count 12.8 K/mcL (4.3-11.1)
[2019-11-27] MEDS: Artificial Tears SOLN 15 ML BOTTLE BOTH EYES SCH ×3 (03:54→11:16)
[2019-11-27] MEDS: Insulin LISPRO 300 UNITS/3 ML VIAL SQ SCH ×5 (03:54→20:01)
[2019-11-27 04:09] LABS: Potassium 4.4 mEq/L (3.5-5.1)
[2019-11-27] MEDS: Doxycycline 100 MG in 0.9 % Sodium Chloride Mini Bag 100 ML IVPB SCH ×2 (05:44→18:06)
[2019-11-27] MEDS ORDERED: 0.9 % Sodium Chloride 1,000 ML IVC SCH (08:30)
[2019-11-27] MEDS: Ondansetron 4 MG/2 ML VIAL IVP PRN ×2 (08:52→16:33)
[2019-11-27] MEDS: Pantoprazole 40 MG VIAL IVP SCH (08:52)
[2019-11-27] MEDS: Chlorhexidine Rinse 15 ML MOUTHWASH MM SCH (09:58)
[2019-11-27] MEDS: Aspirin 81 MG TAB.CHEW GTUBE SCH (09:58)
[2019-11-27] MEDS: Insulin DETEMIR 100 UNIT/ML X5UNITS SQ SCH ×2 (09:58→20:00)
[2019-11-27] MEDS: Apixaban 5 MG TABLET PO SCH ×2 (09:58→20:00)
[2019-11-27] MEDS ORDERED: *HR* Promethazine 25 MG/ML VIAL IVP ONE (10:36)
[2019-11-27] MEDS ORDERED: Promethazine 25 MG in 0.9 % Sodium Chloride 50 ML IVPB ONE (10:45)
[2019-11-27] MEDS ORDERED: 0.9 % Sodium Chloride 250 ML IVC PRN (13:29)
[2019-11-27] MEDS ORDERED: 0.9 % Sodium Chloride 1,000 ML PRIME SCH (13:30)
[2019-11-27 15:44] LABS: Hepatitis B Surface Antibody 5.57 mIU/mL
[2019-11-27 15:54] LABS: Hepatitis B Surface Antigen Nonreactive (Nonreactive)
[2019-11-27] MEDS: Heparin 25,000 UNIT/250 ML D5W 25,000 UNIT/250 ML IV.SOLN IVC SCH (19:52)
[2019-11-27] MEDS ORDERED: Acetaminophen 325 MG TABLET PO PRN (21:50)
[2019-11-27] MEDS ORDERED: Dextrose Gel 15 GM/37.5 ML TUBE PO PRN ×2 (21:50)
[2019-11-27] MEDS ORDERED: *HR* Dextrose 50 % in Water (Syg) 50 ML SYRINGE IVP PRN (21:50)
[2019-11-27] MEDS ORDERED: Naloxone 0.4 MG/ML INJ IVP PRN (21:50)
[2019-11-27] MEDS ORDERED: D5% in Water 1,000 ML IVC PRN (21:50)
[2019-11-27] MEDS: 0.9 % Sodium Chloride 1,000 ML IVC SCH (23:04)
[2019-11-27] MEDS: *HR* Heparin 5,000 UNIT/ML VIAL SQ SCH (23:04)
[2019-11-28 05:37] LABS: Basophils % 0.4 %; Eosinophils # 0.3 K/mcL (0.0-0.6); Eosinophils % 2.7 %; Hematocrit 23.9 % (35.3-44.9); Hemoglobin 7.7 g/dL (11.5-15.4); Immature Granulocytes % 0.3 % (0-4); Mean Corpuscular HGB Conc 32.2 g/dL (31.6-35.5); Mean Corpuscular Hemoglobin 30.3 pg (28.0-33.3); Mean Corpuscular Volume 94.1 fL (83.0-100.0); Mean Platelet Volume 10.3 fL (9.4-12.4); Monocytes # 0.9 K/mcL (0.0-1.3); Monocytes % 9.1 %; Neutrophils # 6.7 K/mcL (1.6-8.9); Platelet Count 273 K/mcL (140-400); Red Blood Count 2.54 M/mcL (3.82-4.97); Red Cell Distribution Width 13.2 % (11.5-14.5); Segmented Neutrophils % 67.5 %; White Blood Count 9.9 K/mcL (4.3-11.1)
[2019-11-28 05:57] LABS: Calcium 8.1 mg/dL (8.6-10.3); Magnesium 1.9 mg/dL (1.6-2.6); Phosphorous 5.8 mg/dL (2.7-4.5); Potassium 3.7 mEq/L (3.5-5.1)
[2019-11-28] MEDS: *HR* Heparin 5,000 UNIT/ML VIAL SQ SCH ×2 (06:30→17:39)
[2019-11-28] MEDS: Insulin LISPRO 300 UNITS/3 ML VIAL SQ SCH ×4 (08:08→22:05)
[2019-11-28] MEDS: Aspirin 81 MG TAB.CHEW GTUBE SCH (08:10)
[2019-11-28] MEDS: Pantoprazole 40 MG VIAL IVP SCH (08:11)
[2019-11-28] MEDS ORDERED: Insulin DETEMIR 100 UNIT/ML X5UNITS SQ SCH (09:00)
[2019-11-28] MEDS: 0.9 % Sodium Chloride 1,000 ML IVC SCH (15:03)
[2019-11-28] MEDS: Insulin DETEMIR 100 UNIT/ML X5UNITS SQ SCH (22:18)
[2019-11-29 04:18] LABS: Basophils % 0.4 %; Eosinophils # 0.3 K/mcL (0.0-0.6); Eosinophils % 3.2 %; Hematocrit 23.7 % (35.3-44.9); Hemoglobin 7.7 g/dL (11.5-15.4); Immature Granulocytes % 0.5 % (0-4); Lymphocytes # 2.1 K/mcL (0.6-4.6); Lymphocytes % 26.6 %; Mean Corpuscular HGB Conc 32.5 g/dL (31.6-35.5); Mean Corpuscular Hemoglobin 30.2 pg (28.0-33.3); Mean Corpuscular Volume 92.9 fL (83.0-100.0); Mean Platelet Volume 10.2 fL (9.4-12.4); Monocytes # 0.7 K/mcL (0.0-1.3); Monocytes % 8.7 %; Neutrophils # 4.7 K/mcL (1.6-8.9); Platelet Count 253 K/mcL (140-400); Red Blood Count 2.55 M/mcL (3.82-4.97); Red Cell Distribution Width 12.9 % (11.5-14.5); Segmented Neutrophils % 60.6 %; White Blood Count 7.7 K/mcL (4.3-11.1)
[2019-11-29 04:20] LABS: INR 1.3; Prothrombin Time 14.2 Seconds (9.4-12.1)
[2019-11-29 04:28] LABS: Albumin 2.9 g/dL (3.5-5.7); Phosphorous 6.3 mg/dL (2.7-4.5); Potassium 3.9 mEq/L (3.5-5.1)
[2019-11-29] MEDS: *HR* Heparin 5,000 UNIT/ML VIAL SQ SCH ×2 (05:50→18:38)
[2019-11-29] MEDS: 0.9 % Sodium Chloride 1,000 ML IVC SCH (05:50)
[2019-11-29] MEDS: Insulin LISPRO 300 UNITS/3 ML VIAL SQ SCH ×4 (07:45→20:46)
[2019-11-29] MEDS ORDERED: 0.9 % Sodium Chloride 250 ML IVC PRN (07:49)
[2019-11-29] MEDS ORDERED: 0.9 % Sodium Chloride 1,000 ML PRIME SCH (08:00)
[2019-11-29] MEDS ORDERED: 0.9 % Sodium Chloride 250 ML IVC SCH (09:15)
[2019-11-29] MEDS: Aspirin 81 MG TAB.CHEW GTUBE SCH (09:31)
[2019-11-29] MEDS: Insulin DETEMIR 100 UNIT/ML X5UNITS SQ SCH ×2 (09:37→20:46)
[2019-11-29] MEDS: Pantoprazole 40 MG VIAL IVP SCH (09:37)
[2019-11-29] MEDS ORDERED: *HR* Heparin 5,000 UNIT/ML VIAL ONE (12:44)
[2019-11-29 23:40] LABS: Hematocrit 28.3 % (35.3-44.9)
[2019-11-29 23:41] LABS: Hemoglobin 9.7 g/dL (11.5-15.4)
[2019-11-30] MEDS: *HR* Heparin 5,000 UNIT/ML VIAL SQ SCH ×2 (05:45→18:06)
[2019-11-30] MEDS: Ondansetron 4 MG/2 ML VIAL IVP PRN ×2 (06:15→21:11)
[2019-11-30 06:23] LABS: Basophils % 0.5 %; Eosinophils # 0.2 K/mcL (0.0-0.6); Hematocrit 30.4 % (35.3-44.9); Hemoglobin 10.3 g/dL (11.5-15.4); Immature Granulocytes % 0.5 % (0-4); Lymphocytes # 1.6 K/mcL (0.6-4.6); Lymphocytes % 20.4 %; Mean Corpuscular HGB Conc 33.9 g/dL (31.6-35.5); Mean Corpuscular Hemoglobin 30.3 pg (28.0-33.3); Mean Corpuscular Volume 89.4 fL (83.0-100.0); Mean Platelet Volume 10.3 fL (9.4-12.4); Monocytes # 0.7 K/mcL (0.0-1.3); Monocytes % 9.5 %; Neutrophils # 5.2 K/mcL (1.6-8.9); Platelet Count 268 K/mcL (140-400); Red Cell Distribution Width 13.2 % (11.5-14.5); Segmented Neutrophils % 67.1 %; White Blood Count 7.8 K/mcL (4.3-11.1)
[2019-11-30 06:26] LABS: Calcium 8.4 mg/dL (8.6-10.3); Magnesium 1.7 mg/dL (1.6-2.6); Phosphorous 3.5 mg/dL (2.7-4.5); Potassium 3.6 mEq/L (3.5-5.1)
[2019-11-30] MEDS: Insulin LISPRO 300 UNITS/3 ML VIAL SQ SCH ×4 (07:56→21:12)
[2019-11-30] MEDS: Pantoprazole 40 MG VIAL IVP SCH (08:18)
[2019-11-30] MEDS: Aspirin 81 MG TAB.CHEW GTUBE SCH (08:21)
[2019-11-30] MEDS: Insulin DETEMIR 100 UNIT/ML X5UNITS SQ SCH ×2 (08:21→21:13)
[2019-11-30] MEDS ORDERED: SODIUM CHLORIDE/NAHCO3/KCL/PEG 4,000 ML SOLN.RECON PO ONE (17:00)
[2019-12-01] MEDS: Ondansetron 4 MG/2 ML VIAL IVP PRN (05:00)
[2019-12-01 05:24] LABS: Hemoglobin 10.9 g/dL (11.5-15.4); Mean Corpuscular Hemoglobin 29.6 pg (28.0-33.3); Mean Corpuscular Volume 89.7 fL (83.0-100.0); Mean Platelet Volume 10.6 fL (9.4-12.4); Platelet Count 273 K/mcL (140-400); Red Blood Count 3.68 M/mcL (3.82-4.97); Red Cell Distribution Width 13.2 % (11.5-14.5); White Blood Count 8.3 K/mcL (4.3-11.1)
[2019-12-01 05:44] LABS: Calcium 8.6 mg/dL (8.6-10.3); Potassium 3.1 mEq/L (3.5-5.1)
[2019-12-01] MEDS: Insulin LISPRO 300 UNITS/3 ML VIAL SQ SCH ×4 (07:19→22:20)
[2019-12-01] MEDS: Aspirin 81 MG TAB.CHEW PO SCH (09:01)
[2019-12-01] MEDS: Pantoprazole 40 MG VIAL IVP SCH (09:01)
[2019-12-01] MEDS ORDERED: *HR* Propofol 200 MG/20 ML VIAL IVP ONE (13:27)
[2019-12-01] MEDS ORDERED: Lidocaine -MPF 2% 2 ML VIAL ONE (13:27)
[2019-12-01] MEDS ORDERED: *HR* PHENYLEPHRINE 1,000 MCG/10 ML SYRINGE IVP ONE (13:56)
[2019-12-01] MEDS: Insulin DETEMIR 100 UNIT/ML X5UNITS SQ SCH (22:21)
[2019-12-02 02:17] LABS: Hemoglobin 11.1 g/dL (11.5-15.4); Mean Corpuscular HGB Conc 32.6 g/dL (31.6-35.5); Mean Corpuscular Hemoglobin 29.7 pg (28.0-33.3); Mean Corpuscular Volume 90.9 fL (83.0-100.0); Mean Platelet Volume 10.4 fL (9.4-12.4); Platelet Count 300 K/mcL (140-400); Red Blood Count 3.74 M/mcL (3.82-4.97); White Blood Count 8.4 K/mcL (4.3-11.1)
[2019-12-02 02:31] LABS: Calcium 8.3 mg/dL (8.6-10.3); Potassium 3.3 mEq/L (3.5-5.1)
[2019-12-02] MEDS: Insulin LISPRO 300 UNITS/3 ML VIAL SQ SCH ×2 (07:47→11:34)
[2019-12-02] MEDS: Aspirin 81 MG TAB.CHEW PO SCH (07:48)
[2019-12-02] MEDS: Pantoprazole 40 MG VIAL IVP SCH (07:49)
[2019-12-02 08:03] LABS: Magnesium 1.4 mg/dL (1.6-2.6)
[2019-12-02 10:40] VITALS: BP 122/64
[2019-12-02] MEDS ORDERED: Apixaban 5 MG TABLET PO SCH (11:30)
[2019-12-02] MEDS ORDERED: Magnesium Oxide 400 MG TABLET PO ONE (13:26)
== END 2019-12-02 14:17 | disposition home or self-care (01) | DRG 246 ==
LOC: ICNU 02:35 → EMEROOARM 02:35 → ICNU 08:23 → SUATTDRO 10:30 → 2ANU 11-27 21:31
PROVIDERS: ADMIT Internal Medicine; ATTEND Family Medicine